=== PATIENT | male | born 1955 | race Caucasian/White ===

== ENCOUNTER 2018-09-11 11:30 | Inpatient (IN) | payer MEDICAID ==
[~2018-09-11] VITALS: Ht 177.8 cm; Wt 82.6 kg
[2018-09-11 11:40] VITALS: BP 88/52
[2018-09-11] MEDS ORDERED: FLOMAX0.4 MG ORAL (11:40)
[2018-09-11] MEDS ORDERED: CLONIDINE HCL0.1 MG PO (11:40)
[2018-09-11] MEDS ORDERED: DOXAZOSIN MESYLA2 MG ORAL (11:40)
[2018-09-11] MEDS ORDERED: AMLODIPINE BESY10 MG ORAL (11:40)
[2018-09-11] MEDS ORDERED: TENORMIN25 MG ORAL (11:40)
[2018-09-11] MEDS ORDERED: ASPIRIN-LOW81 MG ORAL (11:40)
[2018-09-11] MEDS ORDERED: LISINOPRIL20 MG ORAL (11:40)
[2018-09-11] MEDS ORDERED: FOLIC ACID1 MG ORAL (11:40)
[2018-09-11] MEDS ORDERED: ATORVASTATIN CA20 MG ORAL (11:40)
[2018-09-11] MEDS ORDERED: Thiamine HCl 100 MG in D5W 55 ML IVPB ONE (12:00)
[2018-09-11 12:39] VITALS: BP 104/50
[2018-09-11 12:48] LABS: BASOPHILS % (AUTO) 0.8 % (0.0-2.0); EOSINOPHILS % (AUTO) 3.8 % (0.0-3.0); HEMATOCRIT 37.5 % (42.0-52.0); HEMOGLOBIN 12.3 G/DL (14.2-18.0); MEAN CORPUSCULAR VOLUME 90 FL (80-99); MONOCYTES % (AUTO) 7.3 % (1.0-10.0); PLATELET COUNT 165 K/UL (150-450); RED BLOOD COUNT 4.16 M/UL (4.70-6.10); RED CELL DISTRIBUTION WIDTH 14.1 % (11.6-14.8)
[2018-09-11 12:53] LABS: ANION GAP 13 mmol/L (5-15); BLOOD UREA NITROGEN 53 mg/dL (7-18); CALCIUM 9.2 MG/DL (8.5-10.1); CARBON DIOXIDE 22 MMOL/L (21-32); CHLORIDE 102 MMOL/L (98-107); CREATININE 4.5 MG/DL (0.55-1.30); POTASSIUM 4.6 MMOL/L (3.5-5.1); SODIUM 137 MMOL/L (136-145)
[2018-09-11 13:06] LABS: ALANINE AMINOTRANSFERASE 80 U/L (12-78); ALBUMIN/GLOBULIN RATIO 1.1 (1.0-2.7); ALKALINE PHOSPHATASE 89 U/L (46-116); ASPARTATE AMINO TRANSFERASE 60 U/L (15-37); BILIRUBIN,TOTAL 0.4 MG/DL (0.2-1.0)
[2018-09-11] MEDS ORDERED: cefTRIAXone 1 GM in NS 55 ML IVPB ONE (14:15)
[2018-09-11 14:18] VITALS: BP 93/52
[2018-09-11 14:25] LABS: APPEARANCE,URINE CLOUDY; BILIRUBIN, URINE 1+ (NEGATIVE); GLUCOSE, URINE (UA) NEGATIVE (NEGATIVE); KETONES,URINE NEGATIVE (NEGATIVE); LEUKOCYTE ESTERASE ,URINE 3+ (NEGATIVE); NITRITE,URINE NEGATIVE (NEGATIVE); PH,URINE 5 (4.5-8.0); PROTEIN,URINE 2+ (NEGATIVE); UROBILINOGEN,URINE NORMAL MG/DL (0.0-1.0)
[2018-09-11 14:26] LABS: COLOR,URINE YELLOW
--- NOTE | 2018-09-11 14:43 | Diagnostic Imaging Report ---
Indication: Abdominal pain and lower back pain Technique: Spiral acquisitions obtained through the abdomen and pelvis. No oral contrast utilized, per emergency room physician request No IV contrast utilized, due to renal insufficiency. Multiplanar reconstructions were generated. Total dose length product 921.34 mGycm. CTDIvol(s) 17.49 mGy. Dose reduction achieved using automated exposure control Comparison: None Findings: There is a very large staghorn calculus filling the inferior aspect of the a large left extrarenal pelvis, with one branch extending into the left lower pole infundibulum.. This is Y-shaped, measures approximately 6.3 x 2 x 2.6 cm. The renal pelvis and collecting system are hydronephrotic, with mild calyceal hydronephrosis present. No ureteral calculus demonstrated. There is mild ectasia of the distal left ureter. 9 x 9 mm calculus within the right renal pelvis. There is only minimal if any right hydronephrosis, although there is a slight degree of pelviectasis. The lack of IV contrast limits assessment of the renal parenchyma. No gross renal parenchymal mass or cyst demonstrated. There is a very large bladder stone present. This measures 5.4 cm long axis dimension by 3.8 x 4.2 cm orthogonal short axis dimensions. This is located dependently within the bladder. There is mild posterior bladder wall thickening. There is a diverticulum at the dome. Lack of IV contrast limits assessment of the other solid organs. The liver demonstrates surface nodularity, consistent with cirrhosis. It also demonstrates relative atrophy of the right lobe and hypertrophy of the left lobe. No focal abnormality demonstrated. The gallbladder, bile ducts, pancreas are unremarkable. The spleen demonstrates capsular calcifications. The adrenals are unremarkable. No pelvic mass or adenopathy. The lack of enteric contrast limits assessment of the GI tract. The appendix is normal. Fluid is seen within the colon. There is no evidence of diverticulosis or diverticulitis. There is evidence of prior mesh hernia repair of the lower abdominal wall, with anchor sutures in place. There is a tiny left inguinal hernia which contains only fat. No small bowel distention. No free or loculated intraperitoneal gas or fluid is evident. The distal esophagus, stomach, duodenum are unremarkable. Included lung bases demonstrate posterior dependent atelectatic changes. The bones demonstrate hardware in the left hip reducing an intertrochanteric fracture. The fracture lines persist so the fracture may be subacute. Impression: 6.3 x 2 x 2.6 cm staghorn calculus filling the inferior left renal pelvis, which is a large extrarenal pelvis. There is mild hydronephrosis as a result 9 x 9 mm calculus within the right renal pelvis. Minimal if any right hydronephrosis noted Very large 5.4 x 3.8 x 4.2 cm bladder stone Wall thickening in the posterior bladder. This could indicate acute or chronic inflammation or indicate changes due to chronic bladder outlet obstruction Superior dome bladder diverticulum Hepatic surface nodularity, relative right lobe atrophy and left lobe hypertrophy, consistent with cirrhosis Nonspecific colonic fluid, could indicate diarrheal illness. Correlate with clinical findings Evidence of prior lower abdominal wall hernia mesh repair Hardware reducing left hip intertrochanteric fracture. Fracture lines persist, so suspect fracture and surgery or recent Other findings as noted, including dependent posterior pulmonary atelectatic changes, tiny fat-containing left inguinal hernia Findings previously discussed by phone with Dr. Sykes in the emergency room The CT scanner at [facility] is accredited by the [employer] and the scans are performed using protocols designed to limit radiation exposure to as low as reasonably achievable to attain images of sufficient resolution adequate for diagnostic evaluation.
[2018-09-11 14:57] VITALS: BP 100/55
[2018-09-11 15:30] VITALS: BP 99/54
[2018-09-11] MEDS ORDERED: HYDROcodone/Acetamin 5/325 tab ORAL PRN (18:30)
[2018-09-11] MEDS: traMADol 50mg tab ORAL PRN (18:37)
[2018-09-11] MEDS ORDERED: Morphine Sulfate 4mg/ml Inj (IV USE ONLY) IVP SCH (19:00)
[2018-09-11 20:00] VITALS: BP 102/57
[2018-09-11] MEDS: Tamsulosin 0.4mg cap ORAL SCH (20:15)
[2018-09-11] MEDS ORDERED: Tamsulosin 0.4mg cap ORAL SCH (21:00)
--- NOTE | 2018-09-11 21:46 | Emergency Room Report ---
History of Present Illness General Chief Complaint: General Complaint Source: Patient Present Illness HPI Patient is a 63 year old male brought in from board and care for increased weakness and difficulty taking care of himself. Patient states he can't remember why he's at hospital. He denies any current pain. He was noted to be on multiple medications but doesn't know the names. Allergies: Coded Allergies: No Known Allergies (Unverified , 09/11/18) Patient History Past Medical History: see triage record Reviewed Nursing Documentation: PMH: Agreed; PSxH: Agreed Nursing Documentation-PMH Past Medical History: No History, Except For Hx Cardiac Problems: Yes Hx Hypertension: Yes Hx Cancer: No Hx Gastrointestinal Problems: No Hx Neurological Problems: No Review of Systems All Other Systems: limited - by poor historian Physical Exam Vital Signs Date Time Temp Pulse Resp B/P (MAP) Pulse Ox O2 Delivery O2 Flow Rate FiO2 09/11/18 11:23 97.5 56 18 87/54 (65) 92 Room Air General Appearance: alert, Chronically Ill Eyes: 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 ENT: hearing grossly normal, normal voice Neck: full range of motion Respiratory: normal inspection, lungs clear, normal breath sounds Cardiovascular #1: normal inspection, regular rate, rhythm Gastrointestinal: normal inspection, non tender Musculoskeletal: decreased range of motion Neurologic: alert, responsive, other - oriented to name Psychiatric: depressed affect Skin: no rash Medical Decision Making Diagnostic Impression: Primary Impression: Generalized weakness Additional Impressions: Renal insufficiency Bilateral renal stones Bladder calculi Urinary tract infection ER Course Patient present for increased generalized weakness. Differential diagnosis include was not limited to electrolyte abnormality, sepsis, urinary tract infection, uremia among others. Because of complexity of patient's case laboratory testing and imaging studies were ordered. Patient was noted to have some increased generalized weakness as well as bizarre behavior. He had some prior history of substance abuse. CT imaging of the abdomen pelvis showed large renal stones bilaterally as well as large bladder stone. Patient was noted to have some evidence of urinary infection as well as renal insufficiency. It is unclear if this is acute or chronic. Patient was discussed with Dr. Claude Gambino for inpatient management due to panel physician. Patient will be admitted for further evaluation and treatment. Labs Test 09/11/18 12:20 09/11/18 14:16 White Blood Count 9.0 K/UL (4.8-10.8) Red Blood Count 4.16 M/UL (4.70-6.10) Hemoglobin 12.3 G/DL (14.2-18.0) Hematocrit 37.5 % (42.0-52.0) Mean Corpuscular Volume 90 FL (80-99) Mean Corpuscular Hemoglobin 29.5 PG (27.0-31.0) Mean Corpuscular Hemoglobin Concent 32.7 G/DL (32.0-36.0) Red Cell Distribution Width 14.1 % (11.6-14.8) Platelet Count 165 K/UL (150-450) Mean Platelet Volume 6.7 FL (6.5-10.1) Neutrophils (%) (Auto) 72.0 % (45.0-75.0) Lymphocytes (%) (Auto) 16.0 % (20.0-45.0) Monocytes (%) (Auto) 7.3 % (1.0-10.0) Eosinophils (%) (Auto) 3.8 % (0.0-3.0) Basophils (%) (Auto) 0.8 % (0.0-2.0) Prothrombin Time 10.7 SEC (9.30-11.50) Prothromb Time International Ratio 1.0 (0.9-1.1) Activated Partial Thromboplast Time 28 SEC (23-33) Sodium Level 137 MMOL/L (136-145) Potassium Level 4.6 MMOL/L (3.5-5.1) Chloride Level 102 MMOL/L (98-107) Carbon Dioxide Level 22 MMOL/L (21-32) Anion Gap 13 mmol/L (5-15) Blood Urea Nitrogen 53 mg/dL (7-18) Creatinine 4.5 MG/DL (0.55-1.30) Estimat Glomerular Filtration Rate 13.2 mL/min (>60) Glucose Level 120 MG/DL (74-106) Calcium Level 9.2 MG/DL (8.5-10.1) Total Bilirubin 0.4 MG/DL (0.2-1.0) Aspartate Amino Transf (AST/SGOT) 60 U/L (15-37) Alanine Aminotransferase (ALT/SGPT) 80 U/L (12-78) Alkaline Phosphatase 89 U/L (46-116) Troponin I 0.000 ng/mL (0.000-0.056) Pro-B-Type Natriuretic Peptide 142 pg/mL (0-125) Total Protein 7.8 G/DL (6.4-8.2) Albumin 4.0 G/DL (3.4-5.0) Globulin 3.8 g/dL Albumin/Globulin Ratio 1.1 (1.0-2.7) Thyroid Stimulating Hormone (TSH) 3.037 uiU/mL (0.358-3.740) Urine Color Yellow Urine Appearance Cloudy Urine pH 5 (4.5-8.0) Urine Specific [place] 1.020 (1.005-1.035) Urine Protein 2+ (NEGATIVE) Urine Glucose (UA) Negative (NEGATIVE) Urine Ketones Negative (NEGATIVE) Urine Blood 5+ (NEGATIVE) Urine Nitrite Negative (NEGATIVE) Urine Bilirubin 1+ (NEGATIVE) Urine Ictotest Negative (NEGATIVE) Urine Urobilinogen Normal MG/DL (0.0-1.0) Urine Leukocyte Esterase 3+ (NEGATIVE) Urine RBC 20-30 /HPF (0 - 0) Urine WBC 15-20 /HPF (0 - 0) Urine Squamous Epithelial Cells Many /LPF (NONE/OCC) Urine Bacteria Few /HPF (NONE) Urine Opiates Screen Negative (NEGATIVE) Urine Barbiturates Screen Negative (NEGATIVE) Phencyclidine (PCP) Screen Negative (NEGATIVE) Urine Amphetamines Screen Negative (NEGATIVE) Urine Benzodiazepines Screen Negative (NEGATIVE) Urine Cocaine Screen Negative (NEGATIVE) Urine Marijuana (THC) Screen Negative (NEGATIVE) EKG Diagnostic Results Rate: bradycardiac Rhythm: NSR ST Segments: no acute changes Last Vital Signs Date Time Temp Pulse Resp B/P (MAP) Pulse Ox O2 Delivery O2 Flow Rate FiO2 09/11/18 17:11 Room Air 09/11/18 15:33 60 09/11/18 15:30 98.7 18 99/54 (69) 98 Status: improved Disposition: ADMITTED INPATIENT Condition: Serious Referrals: NON PHYSICIAN (PCP) Jose Sykes MD Sep 11, 2018 21:46
--- NOTE | 2018-09-11 23:30 | Consultation ---
DATE OF CONSULTATION: 09/11/2018 NEPHROLOGY CONSULTATION CONSULTING PHYSICIAN: Sammy Rose M.D. REFERRING PHYSICIAN: Claude Gambino M.D. CHIEF COMPLAINT AND REASON FOR HOSPITALIZATION: The patient is admitted with elevated BUN and creatinine. HISTORY OF PRESENT ILLNESS: The patient is a 63-year-old man, who apparently has had kidney stones before presents with elevated BUN and creatinine. CT showing 6.3 x 2 x 2.6 centimeter staghorn calculus filling the inferior left renal pelvis, mild hydronephrosis, and a 9 x 9 millimeter calculus within the right renal pelvis with minimal right hydronephrosis and a large bladder stone. The patient has had some history of kidney stones. He has a very poor historian. He is agitated and swearing. There is a history of prior alcohol and drug usage, hypertension, hyperlipidemia. ALLERGIES: None known. SURGERIES: Hip fracture. MEDICATIONS: At the facility include doxazosin, tamsulosin, aspirin, amlodipine, clonidine, lisinopril, atenolol, atorvastatin, vitamin B1, and folic acid. HABITS: He is a cigarette smoker most of his adult life. He has used drugs and alcohol in the past. SOCIAL HISTORY: Lives in a residential facility. 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 Hearing is good. ENDOCRINE: He is not aware of diabetes or thyroid disease. PULMONARY: He has been a smoker. No current shortness of breath. No wheezing. CARDIAC: No angina or [place]. GASTROINTESTINAL: No known obvious GI bleeding or ulcers. GENITOURINARY: He has had some difficulty voiding and suprapubic pain. MUSCULOSKELETAL: He has difficulty walking. He has had prior trauma. 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 PHYSICAL EXAMINATION: GENERAL: The patient is alert, well-developed man, swearing and somewhat agitated. VITAL SIGNS: Temperature 98.7, pulse 58, respirations 18, blood pressure 99/54, pulse ox 98. HEAD, EYES, EARS, NOSE, AND THROAT: There is a right lens opacity. Ocular motions intact in all directions. Oral mucosa moist. NECK: No adenopathy. LUNGS: Clear. HEART: Regular rhythm. No murmur. ABDOMEN: Soft. No organomegaly. There is some suprapubic tenderness. EXTREMITIES: No edema, cyanosis, or clubbing. NEUROLOGIC: He is alert and responsive. Agitated. Ocular motions intact in all directions. Smile symmetric. Tongue is midline. He moves all extremities. Gait is not tested. LABORATORY DATA: Pertinent labs show white count 9000, hemoglobin is 12.3. Sodium 137, potassium 4.6, chloride 102, CO2 f 22, BUN 53, creatinine is 4.5, estimated GFR 13.2, calcium 9.2. AST 60, ALT 80. BNP 142. Tox screen is negative. Urinalysis shows 20 to 30 red cells and 15 to 20 white cells per high-power field. IMPRESSION: 1. Kidney failure, acute versus chronic, likely due to staghorn calculi and obstructive uropathy. Rule out acute kidney injury versus chronic. 2. Bladder stone. 3. Mild hydronephrosis. 4. Agitation, etiology could be alcohol withdrawal or other. 5. History of hypertension. Blood pressure low now. 6. History of hyperlipidemia. 7. History of taking medication for BPH. PLAN: The patient will be hydrated. We will try to get him to cooperate to Stewart catheter. He should have urologic evaluation. We will try to get old records. Start him on empiric antibiotics pending culture results. Sammy Rose M.D. DR: LISA JOB#: [id number] CC:
[2018-09-11] MEDS: LORazepam 1mg tab ORAL PRN (23:31)
[2018-09-12] VITALS: BP 107/62
--- NOTE | 2018-09-12 00:30 | Consultation ---
DATE OF CONSULTATION: 09/11/2018 CONSULTING PHYSICIAN: Brad Iqbal M.D. REFERRING PHYSICIAN: Claude Gambino M.D. REASON FOR CONSULTATION: Multiple urologic issues. HISTORY OF PRESENT ILLNESS: This is a 63-year-old male who is an ER panel patient. He came to the emergency room because of vague discomfort. He was noted to have multiple stones in the kidney and bladder and renal insufficiency all of which appeared to be chronic. He is a very poor historian. PAST MEDICAL HISTORY: As above. MEDICATIONS: Current medication list reviewed. ALLERGIES: No allergies. PHYSICAL EXAMINATION: GENERAL: The patient is in no acute distress, no pain. VITAL SIGNS: Temperature is 98.7, blood pressure 99/54. Stewart catheter was placed by the nursing staff. Urine is grossly yellow. There is no CVA tenderness. LABORATORY DATA: UA shows 20 to 30 rbc's, 15 to 20 wbc's. Creatinine is 4.5, baseline is unknown. DIAGNOSTIC IMAGING STUDIES: The patient had a CT scan of the abdomen and pelvis, this showed evidence of a large staghorn calculus of left renal pelvis, 6 cm large extrarenal pelvis. There was mild hydronephrosis reported. There was 9 mm stone in the right renal pelvis, no hydronephrosis, 5 cm bladder stone, thickening of the posterior bladder wall and bladder diverticulum. There was evidence of bladder cirrhosis. IMPRESSION: 1. Staghorn renal calculus. 2. Bladder calculus. 3. Mild hydronephrosis. 4. Chronic kidney disease. 5. Possible acute kidney injury. 6. Hematuria. 7. Pyuria. 8. Urinary retention. 9. Neurogenic bladder. 10. Bladder diverticulum. PLAN AND DISCUSSION: The patient again does have a large staghorn calculus and large bladder calculus. These are both chronic findings as well as hydronephrosis which is mild. He has chronic renal insufficiency. His kidney function will be monitored. Stewart catheter is currently indwelling. Flomax has been added as well as antibiotics and he will be monitored clinically and he can have treatment of his stones electively as an outpatient with his urologist as planned. I did also speak with Dr. De La Paz who is the panel urologist for the ER to be aware of the patient also and we will go from there. Thank you for this consultation. Brad Iqbal M.D. DR: Dion JOB#: [id number] CC:
[2018-09-12 04:00] VITALS: BP 101/60
[2018-09-12 07:39] LABS: ALANINE AMINOTRANSFERASE 66 U/L (12-78); ALBUMIN 3.2 G/DL (3.4-5.0); ALKALINE PHOSPHATASE 81 U/L (46-116); ANION GAP 11 mmol/L (5-15); ASPARTATE AMINO TRANSFERASE 51 U/L (15-37); BILIRUBIN,TOTAL 0.4 MG/DL (0.2-1.0); BLOOD UREA NITROGEN 41 mg/dL (7-18); CALCIUM 8.1 MG/DL (8.5-10.1); CARBON DIOXIDE 20 MMOL/L (21-32); CHLORIDE 108 MMOL/L (98-107); CREATINE KINASE 60 U/L (26-308); CREATININE 2.8 MG/DL (0.55-1.30); PHOSPHORUS 3.7 MG/DL (2.5-4.9); POTASSIUM 4.4 MMOL/L (3.5-5.1); SODIUM 139 MMOL/L (136-145)
[2018-09-12 08:00] VITALS: BP 99/52
[2018-09-12] MEDS ORDERED: cefTRIAXone 1 GM in D5W 55 ML IVPB SCH (09:00)
[2018-09-12] MEDS: Tamsulosin 0.4mg cap ORAL SCH ×2 (09:35→18:29)
[2018-09-12] MEDS: Aspirin EC 81mg tab ORAL SCH (09:35)
[2018-09-12] MEDS: cefTRIAXone 1 GM in D5W 55 ML IVPB SCH (09:35)
[2018-09-12 12:00] VITALS: BP 105/64
[2018-09-12] MEDS: traMADol 50mg tab ORAL PRN (12:10)
--- NOTE | 2018-09-12 13:53 | Urology Progress Note ---
Assessment/Plan Assessment/Plan: 1. Staghorn renal calculus. 2. Bladder calculus. 3. Mild hydronephrosis, likely chronic. 4. Chronic kidney disease. 5. Possible acute kidney injury. 6. Hematuria. 7. Pyuria. 8. Urinary retention. 9. Neurogenic bladder. 10. Bladder diverticulum. monitor clinically nur monitor renal fxn abx as ordered f/u on cx's flomax Subjective Allergies: Coded Allergies: No Known Allergies (Unverified , 09/11/18) Subjective all noted, no pain Objective Last 24 Hour Vital Signs Date Time Temp Pulse Resp B/P (MAP) Pulse Ox O2 Delivery O2 Flow Rate FiO2 09/12/18 09:00 Room Air 09/12/18 08:00 61 09/12/18 08:00 99.0 59 23 99/52 (68) 94 09/12/18 04:00 98.3 58 19 101/60 (74) 92 09/12/18 04:00 61 09/12/18 00:00 97.3 62 18 107/62 (77) 09/12/18 00:00 56 09/11/18 21:00 Room Air 09/11/18 20:00 97.1 59 19 102/57 (72) 95 09/11/18 20:00 64 09/11/18 17:11 Room Air 09/11/18 15:33 60 09/11/18 15:30 98.7 58 18 99/54 (69) 98 09/11/18 15:03 97.9 62 15 100/55 97 Room Air 09/11/18 14:57 62 15 100/55 97 Room Air 09/11/18 14:57 97.9 09/11/18 14:18 61 15 93/52 97 Room Air Intake and Output 09/11/18 09/12/18 19:00 07:00 Intake Total 320 ml Output Total 700 ml Balance 320 ml -700 ml Intake Oral 320 ml Output Urine Total 700 ml # Voids 1 Microbiology Date/Time Source Procedure Growth Status 09/11/18 14:16 Urine,Clean Catch Urine Culture - Preliminary NO GROWTH Resulted Current Medications Medications (Trade) Dose Ordered Sig/Sujit Route PRN Reason Start Time Stop Time Status Last Admin Dose Admin Acetaminophen/ Hydrocodone Bitart ([place] 5/325) 1 tab Q4H PRN ORAL Severe Pain (Pain Scale 7-10) 09/11/18 18:30 09/18/18 18:29 Aspirin (Ecotrin) 81 mg DAILY ORAL 09/12/18 09:00 10/12/18 08:59 09/12/18 09:35 Ceftriaxone Sodium 1 gm/ Dextrose 55 ml @ 110 mls/hr DAILY IVPB 09/12/18 09:00 09/13/18 12:00 09/12/18 09:35 Folic Acid (Folate) 1 mg DAILY ORAL 09/12/18 09:00 10/12/18 08:59 09/12/18 09:35 Lorazepam (Ativan) 1 mg Q6H PRN ORAL For Anxiety 09/11/18 19:00 09/18/18 18:59 09/11/18 23:31 Multivitamins (Multivitamins) 1 tab DAILY ORAL 09/12/18 09:00 10/12/18 08:59 09/12/18 09:35 Sodium Chloride 1,000 ml @ 125 mls/hr Q8H IV 09/11/18 17:34 10/11/18 17:33 09/12/18 09:35 Tamsulosin HCl (Flomax) 0.4 mg BID ORAL 09/11/18 19:01 10/11/18 19:00 09/12/18 09:35 Tramadol HCl (Ultram) 50 mg Q6H PRN ORAL Moderate Pain (Pain Scale 4-6) 09/11/18 18:30 09/18/18 18:29 09/12/18 12:10 Laboratory Tests 09/11/18 14:16: Urine Color Yellow, Urine Appearance Cloudy, Urine pH 5, Urine Specific [place] 1.020, Urine Protein 2+H, Urine Glucose (UA) Negative, Urine Ketones Negative, Urine Blood 5+H, Urine Nitrite Negative, Urine Bilirubin 1+H, Urine Ictotest Negative, Urine Urobilinogen Normal, Urine Leukocyte Esterase 3+H, Urine RBC 20- 30H, Urine WBC 15-20H, Urine Squamous Epithelial Cells ManyH, Urine Bacteria Few , Urine Opiates Screen Negative, Urine Barbiturates Screen Negative, Phencyclidine (PCP) Screen Negative, Urine Amphetamines Screen Negative, Urine Benzodiazepines Screen Negative, Urine Cocaine Screen Negative, Urine Marijuana (THC) Screen Negative 09/11/18 21:20: Serum Alcohol < 3 09/12/18 06:00: Sodium Level 139, Potassium Level 4.4, Chloride Level 108H, Carbon Dioxide Level 20L, Anion Gap 11, Blood Urea Nitrogen 41H, Creatinine 2.8H, Estimat Glomerular Filtration Rate 22.9, Glucose Level 102, Uric Acid 7.6H, Calcium Level 8.1L, Phosphorus Level 3.7, Magnesium Level 1.9, Total Bilirubin 0.4, Aspartate Amino Transf (AST/SGOT) 51H, Alanine Aminotransferase (ALT/SGPT) 66, Alkaline Phosphatase 81, Total Creatine Kinase 60, Total Protein 6.3L, Albumin 3.2L, Globulin 3.1, Albumin/Globulin Ratio 1.0 Height (Feet): 5 Height (Inches): 10.00 Weight (Pounds): 181 Objective exam stable, urine grossly clear Brad Iqbal MD Sep 12, 2018 13:53
--- NOTE | 2018-09-12 15:37 | Cardiology Report ---
APPROVED REPORT EKG Measurement Heart [id number] Sinus bradycardia Prolonged QT Abnormal ECG
[2018-09-12 16:00] VITALS: BP 108/62
--- NOTE | 2018-09-12 18:03 | Nephrology Progress Note ---
Assessment/Plan Problem List: (1) Bladder calculi (2) Renal insufficiency (3) Bilateral renal stones (4) KEE (acute kidney injury) (5) Hydronephrosis (6) Staghorn calculus Plan creatinine lower, still agitated and pulled iv, consider psych consult, will need further procedures in future Subjective Constitutional: Reports: other HEENT: Reports: no symptoms Genitourinary: Reports: pain Neurologic/Psychiatric: Reports: no symptoms Subjective pain with nur , no distress- Objective Objective Last 24 Hour Vital Signs Date Time Temp Pulse Resp B/P (MAP) Pulse Ox O2 Delivery O2 Flow Rate FiO2 09/12/18 16:00 55 09/12/18 16:00 97.8 53 23 108/62 (77) 98 09/12/18 12:00 54 09/12/18 12:00 98.0 60 23 105/64 (78) 93 09/12/18 09:00 Room Air 09/12/18 08:00 61 09/12/18 08:00 99.0 59 23 99/52 (68) 94 09/12/18 04:00 98.3 58 19 101/60 (74) 92 09/12/18 04:00 61 09/12/18 00:00 97.3 62 18 107/62 (77) 09/12/18 00:00 56 09/11/18 21:00 Room Air 09/11/18 20:00 97.1 59 19 102/57 (72) 95 09/11/18 20:00 64 Intake and Output 09/11/18 09/12/18 19:00 07:00 Intake Total 320 ml Output Total 700 ml Balance 320 ml -700 ml Intake Oral 320 ml Output Urine Total 700 ml # Voids 1 Laboratory Tests 09/11/18 21:20: Serum Alcohol < 3 09/12/18 06:00: Sodium Level 139, Potassium Level 4.4, Chloride Level 108H, Carbon Dioxide Level 20L, Anion Gap 11, Blood Urea Nitrogen 41H, Creatinine 2.8H, Estimat Glomerular Filtration Rate 22.9, Glucose Level 102, Uric Acid 7.6H, Calcium Level 8.1L, Phosphorus Level 3.7, Magnesium Level 1.9, Total Bilirubin 0.4, Aspartate Amino Transf (AST/SGOT) 51H, Alanine Aminotransferase (ALT/SGPT) 66, Alkaline Phosphatase 81, Total Creatine Kinase 60, Total Protein 6.3L, Albumin 3.2L, Globulin 3.1, Albumin/Globulin Ratio 1.0 Height (Feet): 5 Height (Inches): 10.00 Weight (Pounds): 181 General Appearance: no apparent distress, alert, agitated EENT: normal ENT inspection Neck: normal alignment Cardiovascular: normal rate, regular rhythm Respiratory/Chest: lungs clear, normal breath sounds Abdomen: non tender, soft Extremities: other - no edema Neurologic: replenishment analyst II-XII grossly normal Sammy Rose MD Sep 12, 2018 18:03
[2018-09-12 20:00] VITALS: BP 106/61
--- NOTE | 2018-09-12 23:30 | Progress Note ---
DATE: 09/12/2018 INTERNAL MEDICINE PROGRESS NOTE SUBJECTIVE: The patient is intermittently noncompliant with medications. He has a Stewart catheter in place draining clear urine. Blood pressure parameters remain low off antihypertensive, but slightly improved from yesterday's admission vitals. OBJECTIVE: VITAL SIGNS: Blood pressure 108/62, heart rate 53, respiratory rate 23. LUNGS: Clear. CARDIAC: Regular. Normal S1, S2. Monitored rhythm, sinus bradycardia. ABDOMEN: Soft. No CVA tenderness. EXTREMITIES: No edema. LABORATORY DATA: Sodium 139, potassium 4.4, bicarbonate 20, BUN 41, creatinine 2.8. Uric acid 7.6. Albumin 3.2. IMPRESSION: 1. Acute renal failure, improved with hydration. 2. Obstructive uropathy with staghorn vesicular calculus and right renal calculus. 3. Hyperuricemia. 4. Metabolic encephalopathy. 5. Probable urinary tract infection. 6. Sinus bradycardia. 7. Hypovolemic shock. PLAN: 1. Continue to hold antihypertensives. 2. Continue cardiac monitoring. 3. Continue empiric antimicrobials. 4. Continue intravenous fluid volume resuscitation. 5. Maintain tamsulosin. 6. Strain urine with Stewart catheter in place. 7. Urology followup. Rosy Stewart JOB#: [id number] CC:
--- NOTE | 2018-09-12 23:30 | History and Physical Report ---
DATE OF ADMISSION: 09/11/2018 REASON FOR ADMISSION: Renal failure in the setting of obstructive uropathy. HISTORY: This 63-year-old male, who resides in an assisted living facility has a known history of kidney stones. He presented with increased weakness and malaise and inability for self-care. He is a very poor historian and was unaware of any details. His workup in the emergency room was undertaken and notable for renal impairment. In addition, he was hypotensive and bradycardic. PAST MEDICAL HISTORY: Includes hypertension, prostatic hypertrophy, hyperlipidemia, left hip fracture, status post ORIF. ALLERGIES: None known. MEDICATIONS: Prior to admission, reviewed and reconciled. However compliance is unclear. FAMILY HISTORY: Noncontributory. SOCIAL HISTORY: He denies smoking, alcohol, and substance abuse. REVIEW OF SYSTEMS: Cannot be reliably obtained from the patient at this time. PHYSICAL EXAMINATION: VITAL SIGNS: Blood pressure 87/54, pulse 56, respirations 18, afebrile. HEENT: Conjunctivae pink. Sclerae are anicteric. Oropharynx clear. Mucous membranes . NECK: Jugular venous pressure normal. LUNGS: Clear. CARDIAC: Regular rhythm, rate. Normal S1, S2 with no murmur. ABDOMEN: Soft. No guarding or rebound. No CVA tenderness. EXTREMITIES: Without edema. LABORATORY DATA: BUN 53, creatinine 4.5, sodium 137, potassium 4.6, bicarbonate 22. Urinalysis with 20 to 30 red cells and 15 to 20 white cells, moderate bacteria. EKG with sinus rhythm and nonspecific ST changes. White count 9, hemoglobin 12.3. CAT scan of the abdomen and pelvis revealed a staghorn calculus in the left with an extrarenal pelvis and mild hydronephrosis, calculus within the right renal pelvis, bladder stone, diverticulum, cirrhosis, prior hernia repair. IMPRESSION: 1. Renal failure, acute on chronic. 2. Obstructive uropathy. 3. Staghorn calculus. 4. Hypovolemia with shock. 5. History of hypertension. 6. History of hyperlipidemia. 7. Acute encephalopathy, likely metabolic. PLAN: 1. Panculture. 2. Empiric antimicrobials. 3. Stewart catheter placement. 4. Hydration with saline. 5. Close monitoring of renal parameters. 6. Strain urine. 7. Urology and Renal consultations. 8. Hold antihypertensives. 9. Check uric acid levels and lipid panel as well as thyroid function. 10. Cardiac monitoring. 11. May need pressors for further drop in blood pressure parameters. Claude Gambino M.D. DR: EMILIA JOB#: [id number] CC:
[2018-09-13] VITALS: BP 127/66
[2018-09-13 04:00] VITALS: BP 154/81
[2018-09-13] MEDS: LORazepam 1mg tab ORAL PRN (04:58)
[2018-09-13 07:10] LABS: EOSINOPHILS % (AUTO) 6.1 % (0.0-3.0); HEMOGLOBIN 11.2 G/DL (14.2-18.0); LYMPHOCYTES % (AUTO) 17.6 % (20.0-45.0); MEAN CORPUSCULAR VOLUME 91 FL (80-99); MONOCYTES % (AUTO) 8.4 % (1.0-10.0); NEUTROPHILS % (AUTO) 66.9 % (45.0-75.0); PLATELET COUNT 106 K/UL (150-450); RED BLOOD COUNT 3.74 M/UL (4.70-6.10); RED CELL DISTRIBUTION WIDTH 13.9 % (11.6-14.8); WHITE BLOOD COUNT 7.6 K/UL (4.8-10.8)
[2018-09-13 07:16] LABS: ANION GAP 8 mmol/L (5-15); BLOOD UREA NITROGEN 22 mg/dL (7-18); CALCIUM 8.2 MG/DL (8.5-10.1); CARBON DIOXIDE 20 MMOL/L (21-32); CHLORIDE 108 MMOL/L (98-107); CHOLESTEROL 88 MG/DL (< 200); CREATININE 1.8 MG/DL (0.55-1.30); HDL CHOLESTEROL 36 MG/DL (40-60); POTASSIUM 4.3 MMOL/L (3.5-5.1); SODIUM 136 MMOL/L (136-145); TRIGLYCERIDES 60 MG/DL (30-150)
[2018-09-13 08:00] VITALS: BP 148/73
--- NOTE | 2018-09-13 08:10 | Urology Progress Note ---
Assessment/Plan Assessment/Plan: 1. Staghorn renal calculus. 2. Bladder calculus. 3. Mild hydronephrosis, likely chronic. 4. Chronic kidney disease. 5. Acute kidney injury, improved. 6. Hematuria. 7. Pyuria. 8. Urinary retention. 9. Neurogenic bladder. 10. Bladder diverticulum. monitor clinically nur monitor renal fxn abx as ordered f/u on cx's flomax Subjective Allergies: Coded Allergies: No Known Allergies (Unverified , 09/11/18) Subjective all noted, agitated yest, restraints placed Objective Last 24 Hour Vital Signs Date Time Temp Pulse Resp B/P (MAP) Pulse Ox O2 Delivery O2 Flow Rate FiO2 09/13/18 04:00 97.5 63 20 154/81 (105) 97 09/13/18 03:26 53 09/13/18 00:00 97.7 52 12 127/66 (86) 96 09/12/18 23:30 52 09/12/18 21:00 Room Air 09/12/18 20:08 48 09/12/18 20:00 98.3 49 18 106/61 (76) 96 09/12/18 16:00 55 09/12/18 16:00 97.8 53 23 108/62 (77) 98 09/12/18 12:00 54 09/12/18 12:00 98.0 60 23 105/64 (78) 93 09/12/18 09:00 Room Air Intake and Output 09/12/18 09/13/18 19:00 07:00 Intake Total 125 ml Output Total 1400 ml 1350 ml Balance -1400 ml -1225 ml IV Total 125 ml Output Urine Total 1400 ml 1350 ml # Bowel Movements 1 Microbiology Date/Time Source Procedure Growth Status 09/11/18 14:16 Urine,Clean Catch Urine Culture - Preliminary NO GROWTH Resulted 09/11/18 14:50 Rectum VRE Culture - Final NO VANCOMYCIN RESISTANT ENTEROCOCCUS ... Complete Current Medications Medications (Trade) Dose Ordered Sig/Sujit Route PRN Reason Start Time Stop Time Status Last Admin Dose Admin Acetaminophen/ Hydrocodone Bitart ([place] 5/325) 1 tab Q4H PRN ORAL Severe Pain (Pain Scale 7-10) 09/11/18 18:30 09/18/18 18:29 09/12/18 16:02 Aspirin (Ecotrin) 81 mg DAILY ORAL 09/12/18 09:00 10/12/18 08:59 09/12/18 09:35 Ceftriaxone Sodium 1 gm/ Dextrose 55 ml @ 110 mls/hr DAILY IVPB 09/12/18 09:00 09/13/18 12:00 09/12/18 09:35 Folic Acid (Folate) 1 mg DAILY ORAL 09/12/18 09:00 10/12/18 08:59 09/12/18 09:35 Lorazepam (Ativan) 1 mg Q6H PRN ORAL For Anxiety 09/11/18 19:00 09/18/18 18:59 09/13/18 04:58 Multivitamins (Multivitamins) 1 tab DAILY ORAL 09/12/18 09:00 10/12/18 08:59 09/12/18 09:35 Quetiapine Fumarate (SEROquel) 12.5 mg TID ORAL 09/12/18 18:00 10/12/18 17:59 09/12/18 18:29 Sodium Chloride 1,000 ml @ 125 mls/hr Q8H IV 09/11/18 17:34 10/11/18 17:33 09/13/18 06:00 Tamsulosin HCl (Flomax) 0.4 mg BID ORAL 09/11/18 19:01 10/11/18 19:00 09/12/18 18:29 Tramadol HCl (Ultram) 50 mg Q6H PRN ORAL Moderate Pain (Pain Scale 4-6) 09/11/18 18:30 09/18/18 18:29 09/12/18 12:10 Laboratory Tests 09/13/18 05:55: White Blood Count 7.6, Red Blood Count 3.74L, Hemoglobin 11.2L, Hematocrit 34.0L , Mean Corpuscular Volume 91, Mean Corpuscular Hemoglobin 29.9, Mean Corpuscular Hemoglobin Concent 32.9, Red Cell Distribution Width 13.9, Platelet Count 106L, Mean Platelet Volume 6.4L, Neutrophils (%) (Auto) 66.9, Lymphocytes (%) (Auto) 17.6L, Monocytes (%) (Auto) 8.4, Eosinophils (%) (Auto) 6.1H, Basophils (%) (Auto) 1.0, Sodium Level 136, Potassium Level 4.3, Chloride Level 108H, Carbon Dioxide Level 20L, Anion Gap 8, Blood Urea Nitrogen 22H, Creatinine 1.8H, Estimat Glomerular Filtration Rate 38.1, Glucose Level 95, Calcium Level 8.2L, Triglycerides Level 60, Cholesterol Level 88, LDL Cholesterol 44, HDL Cholesterol 36L, Cholesterol/HDL Ratio 2.4L Height (Feet): 5 Height (Inches): 10.00 Weight (Pounds): 181 Objective exam stable, urine grossly clear Brad Iqbal MD Sep 13, 2018 08:09
[2018-09-13] MEDS: Tamsulosin 0.4mg cap ORAL SCH ×2 (08:13→18:42)
[2018-09-13] MEDS: Aspirin EC 81mg tab ORAL SCH (08:13)
[2018-09-13] MEDS: cefTRIAXone 1 GM in D5W 55 ML IVPB SCH (08:14)
[2018-09-13 12:00] VITALS: BP 144/75
--- NOTE | 2018-09-13 13:31 | Nephrology Progress Note ---
Assessment/Plan Problem List: (1) Bladder calculi (2) Renal insufficiency (3) Bilateral renal stones (4) KEE (acute kidney injury) (5) Hydronephrosis (6) Staghorn calculus Plan creatinine lower, 1.8, consider psych consult, will need further procedures in future Subjective Constitutional: Reports: weakness HEENT: Reports: no symptoms Genitourinary: Reports: other - nur bothersome Neurologic/Psychiatric: Reports: no symptoms Subjective pain with nur , no distress- Objective Objective Last 24 Hour Vital Signs Date Time Temp Pulse Resp B/P (MAP) Pulse Ox O2 Delivery O2 Flow Rate FiO2 09/13/18 08:00 97.2 61 14 148/73 (98) 94 09/13/18 04:00 97.5 63 20 154/81 (105) 97 09/13/18 03:26 53 09/13/18 00:00 97.7 52 12 127/66 (86) 96 09/12/18 23:30 52 09/12/18 21:00 Room Air 09/12/18 20:08 48 09/12/18 20:00 98.3 49 18 106/61 (76) 96 09/12/18 16:00 55 09/12/18 16:00 97.8 53 23 108/62 (77) 98 Intake and Output 09/12/18 09/13/18 19:00 07:00 Intake Total 125 ml Output Total 1400 ml 1350 ml Balance -1400 ml -1225 ml IV Total 125 ml Output Urine Total 1400 ml 1350 ml # Bowel Movements 1 Laboratory Tests 09/13/18 05:55: White Blood Count 7.6, Red Blood Count 3.74L, Hemoglobin 11.2L, Hematocrit 34.0L , Mean Corpuscular Volume 91, Mean Corpuscular Hemoglobin 29.9, Mean Corpuscular Hemoglobin Concent 32.9, Red Cell Distribution Width 13.9, Platelet Count 106L, Mean Platelet Volume 6.4L, Neutrophils (%) (Auto) 66.9, Lymphocytes (%) (Auto) 17.6L, Monocytes (%) (Auto) 8.4, Eosinophils (%) (Auto) 6.1H, Basophils (%) (Auto) 1.0, Sodium Level 136, Potassium Level 4.3, Chloride Level 108H, Carbon Dioxide Level 20L, Anion Gap 8, Blood Urea Nitrogen 22H, Creatinine 1.8H, Estimat Glomerular Filtration Rate 38.1, Glucose Level 95, Calcium Level 8.2L, Triglycerides Level 60, Cholesterol Level 88, LDL Cholesterol 44, HDL Cholesterol 36L, Cholesterol/HDL Ratio 2.4L Height (Feet): 5 Height (Inches): 10.00 Weight (Pounds): 181 General Appearance: no apparent distress, alert EENT: normal ENT inspection Neck: normal alignment Cardiovascular: normal rate, regular rhythm Respiratory/Chest: lungs clear, normal breath sounds Abdomen: non tender, soft Extremities: other - no edema 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
[2018-09-13 16:00] VITALS: BP 111/56
[2018-09-13 20:00] VITALS: BP 149/84
--- NOTE | 2018-09-13 23:00 | Consultation ---
DATE OF CONSULTATION: 09/13/2018 HISTORY OF PRESENT ILLNESS: This is a 63-year-old male with a history of multiple medical comorbidities who was admitted to the hospital due to renal failure. The patient has history of hypertension, urinary tract infection, generalized weakness, renal insufficiency, hydrocephalus, acute kidney injury. The patient is severely agitated and confused. He was in restraints, attempting to come out of bed, memory impairment, waxing and waning consciousness, unable to provide any history. PAST PSYCHIATRIC HISTORY: The patient is a poor historian and stated that he has no history of psych history. PAST MEDICAL HISTORY: 1. Hypertension. 2. Prostatic hypertrophy. 3. Hyperlipidemia. 4. Left hip fracture. 5. Status post open reduction and internal fixation. ALLERGIES: No known drug allergies. SUBSTANCE ABUSE HISTORY: No known history of illicit drug use or alcohol. MENTAL STATUS EXAMINATION: The patient alert and oriented x self, confused, disoriented. Mood is agitated. Affect is constricted. Congruent with mood. Thought process is disorganized. Thought content, no suicidal or homicidal ideations. Memory is impaired. Insight and judgment non-existent. ASSESSMENT: AXIS I: Acute metabolic encephalopathy. AXIS II: Deferred. AXIS III: As above. AXIS IV: Low. AXIS V: . PLAN: 1. We will increase Seroquel to 25 mg t.i.d. 2. Continue the restraints. 3. Continue Ativan as needed. 4. The patient lacks capacity to make any decision. 5. We will continue to follow and readjust the medication. Denice Collins M.D. DR: Kylah JOB#: [id number] CC:
[2018-09-14] VITALS: BP 136/84
--- NOTE | 2018-09-14 02:15 | Progress Note ---
DATE: 09/13/2018 INTERNAL MEDICINE PROGRESS NOTE SUBJECTIVE: The patient's renal function is improving with hydration. He is intermittently noncompliant with care. OBJECTIVE: VITAL SIGNS: Blood pressure 148/73, pulse 61, and respirations 14. LUNGS: Clear. CARDIAC: Regular. ABDOMEN: Soft. No CVA tenderness. EXTREMITIES: No edema. GENITOURINARY: The Stewart catheter site has some tenderness. LABORATORY DATA: White count 7.6 and hemoglobin 11.2. Potassium 4.3. BUN 22 and creatinine 1.8. IMPRESSION: 1. Resolving renal failure. 2. Urolithiasis and nephrolithiasis. 3. Hyperuricemia. PLAN: 1. Consider allopurinol. 2. Continue hydration. 3. Consideration for outpatient urologic procedures for chronic calculi. 4. Discharge planning. Claude Gambino M.D. DR: AMITA JOB#: [id number] CC:
[2018-09-14 04:00] VITALS: BP 141/87
[2018-09-14 07:17] LABS: ALANINE AMINOTRANSFERASE 51 U/L (12-78); ALBUMIN 2.9 G/DL (3.4-5.0); ALBUMIN/GLOBULIN RATIO 0.7 (1.0-2.7); ALKALINE PHOSPHATASE 86 U/L (46-116); ANION GAP 12 mmol/L (5-15); ASPARTATE AMINO TRANSFERASE 43 U/L (15-37); BILIRUBIN,TOTAL 0.6 MG/DL (0.2-1.0); BLOOD UREA NITROGEN 20 mg/dL (7-18); CALCIUM 8.6 MG/DL (8.5-10.1); CARBON DIOXIDE 18 MMOL/L (21-32); CHLORIDE 106 MMOL/L (98-107); CREATININE 1.6 MG/DL (0.55-1.30); POTASSIUM 4.1 MMOL/L (3.5-5.1); SODIUM 136 MMOL/L (136-145)
[2018-09-14 08:00] VITALS: BP 143/69
[2018-09-14] MEDS: Tamsulosin 0.4mg cap ORAL SCH ×2 (08:25→18:07)
[2018-09-14] MEDS: Aspirin EC 81mg tab ORAL SCH (08:25)
--- NOTE | 2018-09-14 11:04 | Cardiology Report ---
APPROVED REPORT EXAM: Two-dimensional and M-mode echocardiogram with Doppler and color Doppler. M-Mode DIMENSIONS IVSd1.2 (0.7-1.1cm)Left Atrium (MM)3.1 (1.6-4.0cm) LVDd4.0 (3.5-5.6cm)Aortic Root2.6 (2.0-3.7cm) PWd1.0 (0.7-1.1cm)Aortic Cusp Exc.1.9 (1.5-2.0cm) IVSs1.5 cm LVDs1.6 (2.5-4.0cm) PWs1.5 cm Normal left ventricular chamber size, systolic function and wall motion . Left ventricular ejection fraction estimated to be 60-65%. Mild left ventricular hypertrophy by 2-D. No evidence of pericardial effusion. All other cardiac chamber sizes are within normal limits. Aortic valve calcification with normal cusp excursion . Mildly thickened mitral valve leaflets with normal excursion. Mild mitral annulus and aortic root calcification. Pulmonic valve not well visualized. IVC at normal size with physiologic collapse . A color flow and spectral Doppler study was performed and revealed: No aortic insufficiency . Mitral diastolic velocities suggest reduced left ventricular relaxation c/w mild LV diastolic dysfunction (Grade I ) Trace mitral regurgitation. Trace tricuspid regurgitation. Tricuspid systolic velocities suggests peak right ventricular systolic pressure of 35mmHg.
[2018-09-14 12:00] VITALS: BP 143/81
--- NOTE | 2018-09-14 12:39 | Nephrology Progress Note ---
Assessment/Plan Problem List: (1) Bladder calculi (2) Renal insufficiency (3) Bilateral renal stones (4) KEE (acute kidney injury) (5) Hydronephrosis (6) Staghorn calculus Plan creatinine lower, 1.6, psych consult, will need further procedures in future , urine culture neg stop current antibiotic, c diff + ordered po vanco, colonized mrsa Subjective HEENT: Reports: no symptoms Genitourinary: Reports: other - nur Neurologic/Psychiatric: Reports: depressed Subjective , no distress- Objective Objective Last 24 Hour Vital Signs Date Time Temp Pulse Resp B/P (MAP) Pulse Ox O2 Delivery O2 Flow Rate FiO2 09/14/18 09:00 Room Air 09/14/18 08:00 98.6 82 18 143/69 (93) 98 09/14/18 08:00 82 09/14/18 04:00 97.0 87 19 141/87 (105) 98 09/14/18 04:00 87 09/14/18 00:00 82 09/14/18 00:00 98.3 85 18 136/84 (101) 97 09/13/18 21:00 Room Air 09/13/18 20:00 69 09/13/18 20:00 97.4 68 17 149/84 (105) 97 09/13/18 16:00 98.2 70 18 111/56 (74) 99 09/13/18 16:00 67 Intake and Output 09/13/18 09/14/18 19:00 07:00 Intake Total 382.5 ml 870 ml Output Total 1700 ml 1400 ml Balance -1317.5 ml -530 ml Intake Oral 360 ml 120 ml IV Total 22.5 ml 750 ml Output Urine Total 1700 ml 1400 ml # Voids 4 # Bowel Movements 1 2 Laboratory Tests 09/14/18 06:12: Sodium Level 136, Potassium Level 4.1, Chloride Level 106, Carbon Dioxide Level 18L, Anion Gap 12, Blood Urea Nitrogen 20H, Creatinine 1.6H, Estimat Glomerular Filtration Rate 43.6, Glucose Level 107H, Uric Acid 6.0, Calcium Level 8.6, Total Bilirubin 0.6, Aspartate Amino Transf (AST/SGOT) 43H, Alanine Aminotransferase (ALT/SGPT) 51, Alkaline Phosphatase 86, Total Protein 7.1, Albumin 2.9L, Globulin 4.2, Albumin/Globulin Ratio 0.7L Height (Feet): 5 Height (Inches): 10.00 Weight (Pounds): 181 General Appearance: no apparent distress, alert EENT: normal ENT inspection Neck: normal alignment Cardiovascular: normal rate, regular rhythm Respiratory/Chest: lungs clear Abdomen: no organomegaly Extremities: other - no edema 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
[2018-09-14] MEDS: Vancomycin oral 125mg/2.5ml ORAL SCH ×3 (13:53→21:31)
[2018-09-14 16:00] VITALS: BP 146/78
--- NOTE | 2018-09-14 17:30 | Urology Progress Note ---
Assessment/Plan Assessment/Plan: 1. Staghorn renal calculus. 2. Bladder calculus. 3. Mild hydronephrosis, likely chronic. 4. Chronic kidney disease. 5. Acute kidney injury, improved. 6. Hematuria. 7. Pyuria. 8. Urinary retention. 9. Neurogenic bladder. 10. Bladder diverticulum. monitor clinically nur monitor renal fxn abx as ordered flomax Subjective Allergies: Coded Allergies: No Known Allergies (Unverified , 09/11/18) Subjective all noted, agitated yest, restraints placed Objective Last 24 Hour Vital Signs Date Time Temp Pulse Resp B/P (MAP) Pulse Ox O2 Delivery O2 Flow Rate FiO2 09/14/18 16:00 73 09/14/18 16:00 97.8 75 18 146/78 (100) 96 09/14/18 12:00 98.6 78 18 143/81 (101) 97 09/14/18 12:00 78 09/14/18 09:00 Room Air 09/14/18 08:00 98.6 82 18 143/69 (93) 98 09/14/18 08:00 82 09/14/18 04:00 97.0 87 19 141/87 (105) 98 09/14/18 04:00 87 09/14/18 00:00 82 09/14/18 00:00 98.3 85 18 136/84 (101) 97 09/13/18 21:00 Room Air 09/13/18 20:00 69 09/13/18 20:00 97.4 68 17 149/84 (105) 97 Intake and Output 09/13/18 09/14/18 19:00 07:00 Intake Total 382.5 ml 870 ml Output Total 1700 ml 1400 ml Balance -1317.5 ml -530 ml Intake Oral 360 ml 120 ml IV Total 22.5 ml 750 ml Output Urine Total 1700 ml 1400 ml # Voids 4 # Bowel Movements 1 2 Microbiology Date/Time Source Procedure Growth Status 09/11/18 14:50 Nasal Nares MRSA Culture - Final Staphylococcus Aureus - Mrsa Complete 09/13/18 04:45 Stool Clostridium difficile Toxin Assay - Final Complete 09/11/18 14:16 Urine,Clean Catch Urine Culture - Final NO GROWTH AFTER 48 HOURS Complete 09/11/18 14:50 Rectum VRE Culture - Final NO VANCOMYCIN RESISTANT ENTEROCOCCUS ... Complete Current Medications Medications (Trade) Dose Ordered Sig/Sujit Route PRN Reason Start Time Stop Time Status Last Admin Dose Admin Acetaminophen/ Hydrocodone Bitart ([place] 5/325) 1 tab Q4H PRN ORAL Severe Pain (Pain Scale 7-10) 09/11/18 18:30 09/18/18 18:29 09/12/18 16:02 Aspirin (Ecotrin) 81 mg DAILY ORAL 09/12/18 09:00 10/12/18 08:59 09/14/18 08:25 Folic Acid (Folate) 1 mg DAILY ORAL 09/12/18 09:00 10/12/18 08:59 09/14/18 08:24 Lorazepam (Ativan) 1 mg Q6H PRN ORAL For Anxiety 09/11/18 19:00 09/18/18 18:59 09/13/18 04:58 Multivitamins (Multivitamins) 1 tab DAILY ORAL 09/12/18 09:00 10/12/18 08:59 09/14/18 08:25 Quetiapine Fumarate (SEROquel) 25 mg TID ORAL 09/13/18 13:00 10/13/18 12:59 09/14/18 13:53 Sodium Chloride 1,000 ml @ 75 mls/hr [id number] IV 09/13/18 18:30 10/13/18 18:29 09/14/18 06:28 Tamsulosin HCl (Flomax) 0.4 mg BID ORAL 09/11/18 19:01 10/11/18 19:00 09/14/18 08:25 Tramadol HCl (Ultram) 50 mg Q6H PRN ORAL Moderate Pain (Pain Scale 4-6) 09/11/18 18:30 09/18/18 18:29 09/12/18 12:10 Vancomycin HCl (Firvanq) 125 mg FOUR TIMES A DAY ORAL 09/14/18 13:00 09/21/18 12:59 09/14/18 13:53 Laboratory Tests 09/14/18 06:12: Sodium Level 136, Potassium Level 4.1, Chloride Level 106, Carbon Dioxide Level 18L, Anion Gap 12, Blood Urea Nitrogen 20H, Creatinine 1.6H, Estimat Glomerular Filtration Rate 43.6, Glucose Level 107H, Uric Acid 6.0, Calcium Level 8.6, Total Bilirubin 0.6, Aspartate Amino Transf (AST/SGOT) 43H, Alanine Aminotransferase (ALT/SGPT) 51, Alkaline Phosphatase 86, Total Protein 7.1, Albumin 2.9L, Globulin 4.2, Albumin/Globulin Ratio 0.7L Height (Feet): 5 Height (Inches): 10.00 Weight (Pounds): 181 Objective exam stable, urine grossly clear Brad Iqbal MD Sep 14, 2018 17:30
[2018-09-14 20:00] VITALS: BP 150/76
[2018-09-14] MEDS: LORazepam 1mg tab ORAL PRN (21:31)
--- NOTE | 2018-09-14 22:45 | Progress Note ---
DATE: 09/14/2018 INTERNAL MEDICINE PROGRESS NOTE SUBJECTIVE: The patient is voiding adequately. Stewart catheter in place. OBJECTIVE: VITAL SIGNS: Blood pressure is 146/78, heart rate 75, respiratory rate 18. LUNGS: Clear. CARDIAC: Regular. ABDOMEN: Soft. EXTREMITIES: No edema. LABORATORY DATA: Urine culture is negative, but stool is positive for C. difficile. Sodium 136, potassium 4.1, bicarb 18, BUN 20, creatinine 1.6. IMPRESSION: 1. C. difficile colitis. 2. Moderate protein-calorie malnutrition. 3. Acute on chronic renal failure, recovering. 4. Nephrolithiasis and obstructive uropathy, improved. PLAN: 1. Continue hydration. 2. Continue Stewart catheter. 3. Therapy for C. difficile. 4. Isolation precaution. 5. Urologic procedures in the future for calculi. 6. Restart and titrate antiHTN meds; avoid ACEi and ARB. Claude Gambino M.D. DR: EMILIA JOB#: [id number] CC: BOOKER
[2018-09-15] VITALS: BP 132/77
[2018-09-15] MEDS ORDERED: LORazepam 1mg tab ORAL PRN (02:08)
[2018-09-15] MEDS ORDERED: HYDROcodone/Acetamin 5/325 tab ORAL PRN (02:30)
--- NOTE | 2018-09-15 02:30 | Progress Note ---
DATE: 09/15/2018 SUBJECTIVE: The patient is doing better. More alert and less agitated. However, still is disoriented and has episodes of agitation. MENTAL STATUS EXAMINATION: The patient is alert and oriented to time, self, and place. Disoriented to date. Poor insight into the situation he is in. Mood is agitated and anxious. Affect is constricted. Congruent mood. Thought process is concrete. Thought content, no suicidal or homicidal ideation. ASSESSMENT: Agitation. PLAN: We will continue the current medications. Provide the patient with reality orientation and supportive therapy. Denice Collins M.D. DR: VIVIAN JOB#: [id number] CC:
[2018-09-15 04:00] VITALS: BP 131/77
[2018-09-15 06:14] LABS: BASOPHILS % (AUTO) 0.9 % (0.0-2.0); EOSINOPHILS % (AUTO) 6.3 % (0.0-3.0); HEMATOCRIT 37.1 % (42.0-52.0); HEMOGLOBIN 12.4 G/DL (14.2-18.0); LYMPHOCYTES % (AUTO) 15.6 % (20.0-45.0); MEAN CORPUSCULAR VOLUME 89 FL (80-99); MONOCYTES % (AUTO) 9.9 % (1.0-10.0); NEUTROPHILS % (AUTO) 67.3 % (45.0-75.0); PLATELET COUNT 131 K/UL (150-450); RED BLOOD COUNT 4.16 M/UL (4.70-6.10); RED CELL DISTRIBUTION WIDTH 13.2 % (11.6-14.8); WHITE BLOOD COUNT 8.3 K/UL (4.8-10.8)
[2018-09-15] MEDS ORDERED: traMADol 50mg tab ORAL PRN (06:30)
[2018-09-15 06:48] LABS: ANION GAP 10 mmol/L (5-15); BLOOD UREA NITROGEN 12 mg/dL (7-18); CALCIUM 8.7 MG/DL (8.5-10.1); CARBON DIOXIDE 19 MMOL/L (21-32); CHLORIDE 109 MMOL/L (98-107); CREATININE 1.3 MG/DL (0.55-1.30); POTASSIUM 3.6 MMOL/L (3.5-5.1); SODIUM 138 MMOL/L (136-145)
[2018-09-15 08:01] VITALS: BP 155/79
[2018-09-15] MEDS: Vancomycin oral 125mg/2.5ml ORAL SCH ×4 (08:55→21:40)
[2018-09-15] MEDS: Aspirin EC 81mg tab ORAL SCH (08:56)
[2018-09-15] MEDS: Atenolol 25mg tab ORAL SCH (08:56)
[2018-09-15] MEDS: Tamsulosin 0.4mg cap ORAL SCH ×2 (08:56→17:21)
[2018-09-15] MEDS ORDERED: Atenolol 25mg tab ORAL SCH (09:00)
[2018-09-15] MEDS ORDERED: Tubing IV Secondary IV ONE (09:53)
[2018-09-15 11:49] VITALS: BP 106/65
--- NOTE | 2018-09-15 13:54 | Nephrology Progress Note ---
Assessment/Plan Problem List: (1) Bladder calculi (2) Renal insufficiency (3) Bilateral renal stones (4) KEE (acute kidney injury) (5) Hydronephrosis (6) Staghorn calculus Plan creatinine lower, 1.6, 1.3 psych consult, will need further procedures in future, urine culture neg stop current antibiotic, c diff + ordered po vanco, colonized mrsa Subjective Constitutional: Reports: no symptoms HEENT: Reports: no symptoms Genitourinary: Reports: no symptoms Neurologic/Psychiatric: Reports: no symptoms Subjective , no distress- Objective Objective Last 24 Hour Vital Signs Date Time Temp Pulse Resp B/P (MAP) Pulse Ox O2 Delivery O2 Flow Rate FiO2 09/15/18 11:49 97.8 60 18 106/65 (79) 96 09/15/18 08:57 64 155/79 09/15/18 08:56 64 155/79 09/15/18 08:01 98.0 64 18 155/79 (104) 97 09/15/18 04:00 98.5 61 18 131/77 (95) 61 09/15/18 00:00 97.5 71 20 132/77 (95) 96 09/15/18 00:00 72 09/14/18 21:00 Room Air 09/14/18 20:00 77 09/14/18 20:00 98.2 79 20 150/76 (100) 97 09/14/18 16:00 73 09/14/18 16:00 97.8 75 18 146/78 (100) 96 Intake and Output 09/14/18 09/15/18 19:00 07:00 Intake Total 500 ml 120 ml Output Total 1200 ml Balance -700 ml 120 ml Intake Oral 500 ml 120 ml Output Urine Total 1200 ml # Voids 3 # Bowel Movements 4 Laboratory Tests 09/15/18 06:00: White Blood Count 8.3, Red Blood Count 4.16L, Hemoglobin 12.4L, Hematocrit 37.1L , Mean Corpuscular Volume 89, Mean Corpuscular Hemoglobin 29.7, Mean Corpuscular Hemoglobin Concent 33.3, Red Cell Distribution Width 13.2, Platelet Count 131L, Mean Platelet Volume 6.6, Neutrophils (%) (Auto) 67.3, Lymphocytes ( %) (Auto) 15.6L, Monocytes (%) (Auto) 9.9, Eosinophils (%) (Auto) 6.3H, Basophils (%) (Auto) 0.9, Sodium Level 138, Potassium Level 3.6, Chloride Level 109H, Carbon Dioxide Level 19L, Anion Gap 10, Blood Urea Nitrogen 12, Creatinine 1.3, Estimat Glomerular Filtration Rate 55.4, Glucose Level 112H, Uric Acid 5.8, Calcium Level 8.7 Height (Feet): 5 Height (Inches): 10.00 Weight (Pounds): 181 General Appearance: no apparent distress, alert EENT: normal ENT inspection Neck: normal alignment Cardiovascular: normal rate Respiratory/Chest: lungs clear Abdomen: non tender, soft 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
[2018-09-15 16:00] VITALS: BP 116/73
--- NOTE | 2018-09-15 19:30 | Progress Note ---
DATE: 09/15/2018 INTERNAL MEDICINE PROGRESS NOTE SUBJECTIVE: Stewart remains in place. Renal function is returning to normal. OBJECTIVE: VITAL SIGNS: Blood pressure 106/65 to 155/79, pulse 60, respirations 18, and afebrile. LUNGS: Clear. CARDIAC: Regular. ABDOMEN: Soft. EXTREMITIES: No edema. LABORATORY DATA: BUN is now 12 with creatinine 1.3 and potassium 3.6. White count is 8.3 and hemoglobin 12.4. IMPRESSION: 1. C. diff. 2. Staghorn calculus. 3. Acute renal failure, resolving. 4. Psychiatric disorder with episodes of agitation. 5. Hydronephrosis. 6. Probable neurogenic bladder. PLAN: 1. Consider voiding trial, to discuss with urologist. 2. Continue p.o. vancomycin for C. diff. 3. Maintain adequate hydration. 4. Discharge planning. Claude Gambino M.D. DR: AMITA JOB#: [id number] CC:
[2018-09-15 20:00] VITALS: BP 125/80
--- NOTE | 2018-09-15 20:24 | Urology Progress Note ---
Assessment/Plan Assessment/Plan: 1. Staghorn renal calculus. 2. Bladder calculus. 3. Mild hydronephrosis, likely chronic. 4. Chronic kidney disease. 5. Acute kidney injury, improved. 6. Hematuria. 7. Pyuria. 8. Urinary retention. 9. Neurogenic bladder. 10. Bladder diverticulum. monitor clinically nur monitor renal fxn abx as ordered flomax voiding trial at some point? Subjective Allergies: Coded Allergies: No Known Allergies (Unverified , 09/11/18) Subjective all noted, agitated yest, restraints placed Objective Last 24 Hour Vital Signs Date Time Temp Pulse Resp B/P (MAP) Pulse Ox O2 Delivery O2 Flow Rate FiO2 09/15/18 16:00 96.8 60 18 116/73 (87) 96 09/15/18 11:49 97.8 60 18 106/65 (79) 96 09/15/18 09:00 Room Air 09/15/18 08:57 64 155/79 09/15/18 08:56 64 155/79 09/15/18 08:01 98.0 64 18 155/79 (104) 97 09/15/18 04:00 98.5 61 18 131/77 (95) 61 09/15/18 00:00 97.5 71 20 132/77 (95) 96 09/15/18 00:00 72 09/14/18 21:00 Room Air Intake and Output 09/14/18 09/15/18 19:00 07:00 Intake Total 500 ml 120 ml Output Total 1200 ml Balance -700 ml 120 ml Intake Oral 500 ml 120 ml Output Urine Total 1200 ml # Voids 3 # Bowel Movements 4 Microbiology Date/Time Source Procedure Growth Status 09/11/18 14:50 Nasal Nares MRSA Culture - Final Staphylococcus Aureus - Mrsa Complete 09/13/18 04:45 Stool Clostridium difficile Toxin Assay - Final Complete 09/11/18 14:16 Urine,Clean Catch Urine Culture - Final NO GROWTH AFTER 48 HOURS Complete 09/11/18 14:50 Rectum VRE Culture - Final NO VANCOMYCIN RESISTANT ENTEROCOCCUS ... Complete Current Medications Medications (Trade) Dose Ordered Sig/Sujit Route PRN Reason Start Time Stop Time Status Last Admin Dose Admin Acetaminophen/ Hydrocodone Bitart ([place] 5/325) 1 tab Q4H PRN ORAL Severe Pain (Pain Scale 7-10) 09/15/18 02:30 09/18/18 18:29 Amlodipine Besylate (Norvasc) 10 mg DAILY ORAL 09/15/18 09:00 10/15/18 08:59 09/15/18 08:57 Aspirin (Ecotrin) 81 mg DAILY ORAL 09/15/18 09:00 10/12/18 08:59 09/15/18 08:56 Atenolol (Tenormin) 25 mg DAILY ORAL 09/15/18 09:00 10/15/18 08:59 09/15/18 08:56 Folic Acid (Folate) 1 mg DAILY ORAL 09/15/18 09:00 10/12/18 08:59 09/15/18 08:57 Lorazepam (Ativan) 1 mg Q6H PRN ORAL For Anxiety 09/15/18 02:08 09/18/18 02:07 Multivitamins (Multivitamins) 1 tab DAILY ORAL 09/15/18 09:00 10/12/18 08:59 09/15/18 08:57 Quetiapine Fumarate (SEROquel) 25 mg TID ORAL 09/15/18 09:00 10/13/18 12:59 09/15/18 17:21 Sodium Chloride 1,000 ml @ 75 mls/hr [id number] IV 09/15/18 03:00 10/13/18 02:59 09/15/18 16:38 Tamsulosin HCl (Flomax) 0.4 mg BID ORAL 09/15/18 09:00 10/11/18 19:00 09/15/18 17:21 Tramadol HCl (Ultram) 50 mg Q6H PRN ORAL Moderate Pain (Pain Scale 4-6) 09/15/18 06:30 09/18/18 18:29 Vancomycin HCl (Firvanq) 125 mg FOUR TIMES A DAY ORAL 09/15/18 09:00 09/21/18 12:59 09/15/18 17:21 Laboratory Tests 09/15/18 06:00: White Blood Count 8.3, Red Blood Count 4.16L, Hemoglobin 12.4L, Hematocrit 37.1L , Mean Corpuscular Volume 89, Mean Corpuscular Hemoglobin 29.7, Mean Corpuscular Hemoglobin Concent 33.3, Red Cell Distribution Width 13.2, Platelet Count 131L, Mean Platelet Volume 6.6, Neutrophils (%) (Auto) 67.3, Lymphocytes ( %) (Auto) 15.6L, Monocytes (%) (Auto) 9.9, Eosinophils (%) (Auto) 6.3H, Basophils (%) (Auto) 0.9, Sodium Level 138, Potassium Level 3.6, Chloride Level 109H, Carbon Dioxide Level 19L, Anion Gap 10, Blood Urea Nitrogen 12, Creatinine 1.3, Estimat Glomerular Filtration Rate 55.4, Glucose Level 112H, Uric Acid 5.8, Calcium Level 8.7 Height (Feet): 5 Height (Inches): 10.00 Weight (Pounds): 181 Objective exam stable, urine grossly clear Brad Iqbal MD Sep 15, 2018 20:24
[2018-09-16] VITALS (7 sets, daily range): BP systolic 110–138; BP diastolic 58–80
[2018-09-16] MEDS: Atenolol 25mg tab ORAL SCH (09:00)
[2018-09-16] MEDS: Tamsulosin 0.4mg cap ORAL SCH ×2 (09:13→18:09)
[2018-09-16] MEDS: Aspirin EC 81mg tab ORAL SCH (09:13)
[2018-09-16] MEDS: Vancomycin oral 125mg/2.5ml ORAL SCH ×4 (09:13→21:14)
--- NOTE | 2018-09-16 12:14 | Urology Progress Note ---
Assessment/Plan Assessment/Plan: 1. Staghorn renal calculus. 2. Bladder calculus. 3. Mild hydronephrosis, likely chronic. 4. Chronic kidney disease. 5. Acute kidney injury, improved. 6. Hematuria. 7. Pyuria. 8. Urinary retention. 9. Neurogenic bladder. 10. Bladder diverticulum. monitor clinically nur monitor renal fxn abx as ordered flomax voiding trial at some point? Subjective Allergies: Coded Allergies: No Known Allergies (Unverified , 09/11/18) Subjective all noted, agitated yest, restraints placed Objective Last 24 Hour Vital Signs Date Time Temp Pulse Resp B/P (MAP) Pulse Ox O2 Delivery O2 Flow Rate FiO2 09/16/18 09:14 53 133/75 09/16/18 09:10 53 133/75 (94) 09/16/18 09:00 Room Air 09/16/18 08:00 97.9 53 16 110/58 (75) 09/16/18 04:00 97.6 66 19 138/75 (96) 66 09/16/18 00:00 98.6 60 18 116/67 (83) 60 09/15/18 22:05 Room Air 09/15/18 20:00 98.6 62 19 125/80 (95) 62 62 09/15/18 16:00 96.8 60 18 116/73 (87) 96 Intake and Output 09/15/18 09/16/18 18:59 06:59 Intake Total 360 ml 675 ml Output Total 1100 ml Balance 360 ml -425 ml Intake Oral 360 ml IV Total 675 ml Output Urine Total 1100 ml Microbiology Date/Time Source Procedure Growth Status 09/11/18 14:50 Nasal Nares MRSA Culture - Final Staphylococcus Aureus - Mrsa Complete 09/13/18 04:45 Stool Clostridium difficile Toxin Assay - Final Complete 09/11/18 14:16 Urine,Clean Catch Urine Culture - Final NO GROWTH AFTER 48 HOURS Complete 09/11/18 14:50 Rectum VRE Culture - Final NO VANCOMYCIN RESISTANT ENTEROCOCCUS ... Complete Current Medications Medications (Trade) Dose Ordered Sig/Sujit Route PRN Reason Start Time Stop Time Status Last Admin Dose Admin Acetaminophen/ Hydrocodone Bitart ([place] 5/325) 1 tab Q4H PRN ORAL Severe Pain (Pain Scale 7-10) 09/15/18 02:30 09/18/18 18:29 Amlodipine Besylate (Norvasc) 10 mg DAILY ORAL 09/15/18 09:00 10/15/18 08:59 09/16/18 09:14 Aspirin (Ecotrin) 81 mg DAILY ORAL 09/15/18 09:00 10/12/18 08:59 09/16/18 09:13 Atenolol (Tenormin) 25 mg DAILY ORAL 09/15/18 09:00 10/15/18 08:59 09/15/18 08:56 Folic Acid (Folate) 1 mg DAILY ORAL 09/15/18 09:00 10/12/18 08:59 09/16/18 09:13 Lorazepam (Ativan) 1 mg Q6H PRN ORAL For Anxiety 09/15/18 02:08 09/18/18 02:07 Multivitamins (Multivitamins) 1 tab DAILY ORAL 09/15/18 09:00 10/12/18 08:59 09/16/18 09:13 Quetiapine Fumarate (SEROquel) 25 mg TID ORAL 09/15/18 09:00 10/13/18 12:59 09/16/18 09:51 Sodium Chloride 1,000 ml @ 75 mls/hr [id number] IV 09/15/18 03:00 10/13/18 02:59 09/16/18 04:56 Tamsulosin HCl (Flomax) 0.4 mg BID ORAL 09/15/18 09:00 10/11/18 19:00 09/16/18 09:13 Tramadol HCl (Ultram) 50 mg Q6H PRN ORAL Moderate Pain (Pain Scale 4-6) 09/15/18 06:30 09/18/18 18:29 Vancomycin HCl (Firvanq) 125 mg FOUR TIMES A DAY ORAL 09/15/18 09:00 09/21/18 12:59 09/16/18 09:13 Height (Feet): 5 Height (Inches): 10.00 Weight (Pounds): 181 Objective exam stable, urine grossly clear Brad Iqbal MD Sep 16, 2018 12:14
--- NOTE | 2018-09-16 12:24 | Nephrology Progress Note ---
Assessment/Plan Problem List: (1) Bladder calculi (2) Renal insufficiency (3) Bilateral renal stones (4) KEE (acute kidney injury) (5) Hydronephrosis (6) Staghorn calculus Plan creatinine lower, 1.6, 1.3 psych consult, will need further procedures in future, urine culture neg stop current antibiotic, c diff + ordered po vanco, colonized mrsa Subjective Constitutional: Reports: weakness HEENT: Reports: no symptoms Genitourinary: Reports: other - nur Neurologic/Psychiatric: Reports: no symptoms Subjective , no distress- Objective Objective Last 24 Hour Vital Signs Date Time Temp Pulse Resp B/P (MAP) Pulse Ox O2 Delivery O2 Flow Rate FiO2 09/16/18 09:14 53 133/75 09/16/18 09:10 53 133/75 (94) 09/16/18 09:00 Room Air 09/16/18 08:00 97.9 53 16 110/58 (75) 09/16/18 04:00 97.6 66 19 138/75 (96) 66 09/16/18 00:00 98.6 60 18 116/67 (83) 60 09/15/18 22:05 Room Air 09/15/18 20:00 98.6 62 19 125/80 (95) 62 62 09/15/18 16:00 96.8 60 18 116/73 (87) 96 Intake and Output 09/15/18 09/16/18 18:59 06:59 Intake Total 360 ml 675 ml Output Total 1100 ml Balance 360 ml -425 ml Intake Oral 360 ml IV Total 675 ml Output Urine Total 1100 ml Height (Feet): 5 Height (Inches): 10.00 Weight (Pounds): 181 General Appearance: no apparent distress EENT: other - L eye blind Neck: normal alignment Cardiovascular: normal rate, regular rhythm Respiratory/Chest: lungs clear Abdomen: non tender, soft 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
--- NOTE | 2018-09-16 19:15 | Progress Note ---
DATE: 09/16/2018 INTERNAL MEDICINE PROGRESS NOTE SUBJECTIVE: The patient pulled out his Stewart catheter. No bleeding noted. He has voided once since. OBJECTIVE: VITAL SIGNS: Blood pressure 133/70, pulse 52, respirations 16, and afebrile. LUNGS: Clear. CARDIAC: Regular. ABDOMEN: Soft. EXTREMITIES: No edema. IMPRESSION: 1. Calculi. 2. Acute renal failure, resolved. 3. Clostridium difficile colitis. 4. Bradycardia on beta-farhat. PLAN: 1. Continue vancomycin orally. 2. Maintenance hydration. 3. Decrease beta-farhat. 4. Monitor renal output. 5. Decrease beta-farhat dosing. Claude Gambino M.D. DR: Erica JOB#: [id number] CC:
[2018-09-17] VITALS: BP 143/61
--- NOTE | 2018-09-17 00:45 | Progress Note ---
DATE: 09/16/2018 SUBJECTIVE: The patient is agitated today. Pulled out his Stewart catheter due to agitation. We recommend the patient is in restraints. The patient is confused and disoriented. MENTAL STATUS EXAMINATION: The patient is alert. Not redirectable. Mood is agitated. Affect is flat. Thought process, there is a paucity of thought content. Thought content, no suicidal or homicidal ideation. PLAN: 1. We will increase the Seroquel to 37.5 mg p.o. t.i.d. 2. Continue the restraints. 3. We will continue to follow and readjust the medication. Denice Collins M.D. DR: CLINT JOB#: [id number] CC: BOOKER
[2018-09-17 04:00] VITALS: BP 145/79
[2018-09-17 07:09] LABS: BASOPHILS % (AUTO) 1.6 % (0.0-2.0); EOSINOPHILS % (AUTO) 9.3 % (0.0-3.0); HEMATOCRIT 36.5 % (42.0-52.0); MEAN CORPUSCULAR VOLUME 90 FL (80-99); MONOCYTES % (AUTO) 10.9 % (1.0-10.0); NEUTROPHILS % (AUTO) 49.2 % (45.0-75.0); PLATELET COUNT 159 K/UL (150-450); RED BLOOD COUNT 4.07 M/UL (4.70-6.10); RED CELL DISTRIBUTION WIDTH 13.6 % (11.6-14.8); WHITE BLOOD COUNT 5.9 K/UL (4.8-10.8)
[2018-09-17 07:27] LABS: ALANINE AMINOTRANSFERASE 56 U/L (12-78); ALBUMIN 2.4 G/DL (3.4-5.0); ALBUMIN/GLOBULIN RATIO 0.6 (1.0-2.7); ALKALINE PHOSPHATASE 86 U/L (46-116); ANION GAP 9 mmol/L (5-15); ASPARTATE AMINO TRANSFERASE 56 U/L (15-37); BILIRUBIN,TOTAL 0.3 MG/DL (0.2-1.0); BLOOD UREA NITROGEN 12 mg/dL (7-18); CALCIUM 7.9 MG/DL (8.5-10.1); CARBON DIOXIDE 22 MMOL/L (21-32); CHLORIDE 113 MMOL/L (98-107); CREATININE 1.3 MG/DL (0.55-1.30); POTASSIUM 3.5 MMOL/L (3.5-5.1); SODIUM 144 MMOL/L (136-145)
[2018-09-17 08:00] VITALS: BP 140/77
--- NOTE | 2018-09-17 08:55 | Urology Progress Note ---
Assessment/Plan Assessment/Plan: 1. Staghorn renal calculus. 2. Bladder calculus. 3. Mild hydronephrosis, likely chronic. 4. Chronic kidney disease. 5. Acute kidney injury, improved. 6. Hematuria. 7. Pyuria. 8. Urinary retention. 9. Neurogenic bladder. 10. Bladder diverticulum. monitor clinically nur out and voiding monitor renal fxn, stable abx as ordered cont flomax BID pt can have tx of stones later electively by urologist in his plan Subjective Allergies: Coded Allergies: No Known Allergies (Unverified , 09/11/18) Subjective all noted, nur "fell out" last night, voiding, comfortable Objective Last 24 Hour Vital Signs Date Time Temp Pulse Resp B/P (MAP) Pulse Ox O2 Delivery O2 Flow Rate FiO2 09/17/18 08:00 98.0 66 18 140/77 (98) 98 09/17/18 04:00 97.7 58 18 145/79 (101) 97 09/17/18 00:00 98.1 61 18 143/61 (88) 95 09/16/18 21:00 Room Air 09/16/18 20:00 98.2 64 18 135/80 (98) 95 09/16/18 16:00 98.4 64 17 127/72 (90) 95 09/16/18 12:00 98.1 52 16 133/70 (91) 52 09/16/18 09:14 53 133/75 09/16/18 09:10 53 133/75 (94) 09/16/18 09:00 52 133/70 09/16/18 09:00 Room Air Intake and Output 09/16/18 09/17/18 19:00 07:00 Intake Total 1665 ml 1500 ml Output Total 300 ml 150 ml Balance 1365 ml 1350 ml Intake Oral 840 ml 600 ml IV Total 825 ml 900 ml Output Urine Total 300 ml 150 ml # Voids 2 1 # Bowel Movements 1 Microbiology Date/Time Source Procedure Growth Status 09/11/18 14:50 Nasal Nares MRSA Culture - Final Staphylococcus Aureus - Mrsa Complete 09/13/18 04:45 Stool Clostridium difficile Toxin Assay - Final Complete 09/11/18 14:16 Urine,Clean Catch Urine Culture - Final NO GROWTH AFTER 48 HOURS Complete 09/11/18 14:50 Rectum VRE Culture - Final NO VANCOMYCIN RESISTANT ENTEROCOCCUS ... Complete Current Medications Medications (Trade) Dose Ordered Sig/Sujit Route PRN Reason Start Time Stop Time Status Last Admin Dose Admin Acetaminophen/ Hydrocodone Bitart ([place] 5/325) 1 tab Q4H PRN ORAL Severe Pain (Pain Scale 7-10) 09/15/18 02:30 09/18/18 18:29 Amlodipine Besylate (Norvasc) 10 mg DAILY ORAL 09/15/18 09:00 10/15/18 08:59 09/16/18 09:14 Aspirin (Ecotrin) 81 mg DAILY ORAL 09/15/18 09:00 10/12/18 08:59 09/16/18 09:13 Atenolol (Tenormin) 12.5 mg DAILY ORAL 09/17/18 09:00 10/17/18 08:59 Folic Acid (Folate) 1 mg DAILY ORAL 09/15/18 09:00 10/12/18 08:59 09/16/18 09:13 Lorazepam (Ativan) 1 mg Q6H PRN ORAL For Anxiety 09/15/18 02:08 09/18/18 02:07 Multivitamins (Multivitamins) 1 tab DAILY ORAL 09/15/18 09:00 10/12/18 08:59 09/16/18 09:13 Quetiapine Fumarate (SEROquel) 37.5 mg TID ORAL 09/17/18 09:00 10/17/18 08:59 Sodium Chloride 1,000 ml @ 75 mls/hr [id number] IV 09/15/18 03:00 10/13/18 02:59 09/16/18 19:40 Tamsulosin HCl (Flomax) 0.4 mg BID ORAL 09/15/18 09:00 10/11/18 19:00 09/16/18 18:09 Tramadol HCl (Ultram) 50 mg Q6H PRN ORAL Moderate Pain (Pain Scale 4-6) 09/15/18 06:30 09/18/18 18:29 Vancomycin HCl (Firvanq) 125 mg FOUR TIMES A DAY ORAL 09/15/18 09:00 09/21/18 12:59 09/16/18 21:14 Laboratory Tests 09/17/18 05:35: White Blood Count 5.9, Red Blood Count 4.07L, Hemoglobin 12.0L, Hematocrit 36.5L , Mean Corpuscular Volume 90, Mean Corpuscular Hemoglobin 29.4, Mean Corpuscular Hemoglobin Concent 32.8, Red Cell Distribution Width 13.6, Platelet Count 159, Mean Platelet Volume 7.1, Neutrophils (%) (Auto) 49.2, Lymphocytes (% ) (Auto) 29.0, Monocytes (%) (Auto) 10.9H, Eosinophils (%) (Auto) 9.3H, Basophils (%) (Auto) 1.6, Sodium Level 144, Potassium Level 3.5, Chloride Level 113H, Carbon Dioxide Level 22, Anion Gap 9, Blood Urea Nitrogen 12, Creatinine 1.3, Estimat Glomerular Filtration Rate 55.4, Glucose Level 103, Calcium Level 7.9L, Magnesium Level 1.5L, Total Bilirubin 0.3, Aspartate Amino Transf (AST/ SGOT) 56H, Alanine Aminotransferase (ALT/SGPT) 56, Alkaline Phosphatase 86, Total Protein 6.2L, Albumin 2.4L, Globulin 3.8, Albumin/Globulin Ratio 0.6L Height (Feet): 5 Height (Inches): 10.00 Weight (Pounds): 181 Objective exam stable Brad Iqbal MD Sep 17, 2018 08:55
[2018-09-17] MEDS: Vancomycin oral 125mg/2.5ml ORAL SCH ×4 (09:01→20:25)
[2018-09-17] MEDS: Aspirin EC 81mg tab ORAL SCH (09:02)
[2018-09-17] MEDS: Tamsulosin 0.4mg cap ORAL SCH ×2 (09:02→18:07)
[2018-09-17] MEDS: Atenolol 25mg tab ORAL SCH (09:03)
[2018-09-17 12:00] VITALS: BP 143/83
[2018-09-17 16:00] VITALS: BP 131/69
--- NOTE | 2018-09-17 16:08 | Nephrology Progress Note ---
Assessment/Plan Problem List: (1) Bladder calculi (2) Renal insufficiency (3) Bilateral renal stones (4) KEE (acute kidney injury) (5) Hydronephrosis (6) Staghorn calculus Plan creatinine lower, 1.6, 1.3 psych consult, will need further procedures in future, urine culture neg stop current antibiotic, c diff + ordered po vanco, colonized mrsa, nur out, voiding Subjective Constitutional: Reports: weakness HEENT: Reports: no symptoms Genitourinary: Reports: no symptoms Neurologic/Psychiatric: Reports: no symptoms Subjective , no distress- Objective Objective Last 24 Hour Vital Signs Date Time Temp Pulse Resp B/P (MAP) Pulse Ox O2 Delivery O2 Flow Rate FiO2 09/17/18 16:00 97.5 58 18 131/69 (89) 98 09/17/18 12:00 97.3 62 18 143/83 (103) 98 09/17/18 10:00 Room Air 09/17/18 09:03 66 140/77 09/17/18 09:02 66 140/77 09/17/18 08:00 98.0 66 18 140/77 (98) 98 09/17/18 04:00 97.7 58 18 145/79 (101) 97 09/17/18 00:00 98.1 61 18 143/61 (88) 95 09/16/18 21:00 Room Air 09/16/18 20:00 98.2 64 18 135/80 (98) 95 Intake and Output 09/16/18 09/17/18 18:59 06:59 Intake Total 1590 ml 1575 ml Output Total 300 ml 150 ml Balance 1290 ml 1425 ml Intake Oral 840 ml 600 ml IV Total 750 ml 975 ml Output Urine Total 300 ml 150 ml # Voids 2 1 # Bowel Movements 1 Laboratory Tests 09/17/18 05:35: White Blood Count 5.9, Red Blood Count 4.07L, Hemoglobin 12.0L, Hematocrit 36.5L , Mean Corpuscular Volume 90, Mean Corpuscular Hemoglobin 29.4, Mean Corpuscular Hemoglobin Concent 32.8, Red Cell Distribution Width 13.6, Platelet Count 159, Mean Platelet Volume 7.1, Neutrophils (%) (Auto) 49.2, Lymphocytes (% ) (Auto) 29.0, Monocytes (%) (Auto) 10.9H, Eosinophils (%) (Auto) 9.3H, Basophils (%) (Auto) 1.6, Sodium Level 144, Potassium Level 3.5, Chloride Level 113H, Carbon Dioxide Level 22, Anion Gap 9, Blood Urea Nitrogen 12, Creatinine 1.3, Estimat Glomerular Filtration Rate 55.4, Glucose Level 103, Calcium Level 7.9L, Magnesium Level 1.5L, Total Bilirubin 0.3, Aspartate Amino Transf (AST/ SGOT) 56H, Alanine Aminotransferase (ALT/SGPT) 56, Alkaline Phosphatase 86, Total Protein 6.2L, Albumin 2.4L, Globulin 3.8, Albumin/Globulin Ratio 0.6L Height (Feet): 5 Height (Inches): 10.00 Weight (Pounds): 181 General Appearance: no apparent distress, alert EENT: normal ENT inspection Neck: normal alignment Cardiovascular: normal rate Respiratory/Chest: lungs clear Abdomen: non tender, soft 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
[2018-09-17 20:00] VITALS: BP 134/67
[2018-09-18] VITALS: BP 139/75
--- NOTE | 2018-09-18 01:00 | Progress Note ---
DATE: 09/17/2018 CARDIOLOGY AND INTERNAL MEDICINE PROGRESS NOTE SUBJECTIVE: Decreased diarrhea. No nausea or vomiting. No abdominal pain. OBJECTIVE: VITAL SIGNS: Blood pressure 131/69, heart rate 58 to 62, respiratory rate 18, and afebrile. LUNGS: Clear. CARDIAC: Regular. ABDOMEN: Soft and nontender. No CVA tenderness. EXTREMITIES: No edema. LABORATORY DATA: White count 5.9 and hemoglobin 12. BUN 12 and creatinine 1.3. Potassium 3.5. Magnesium 1.5. Albumin 2.4. IMPRESSION: 1. Acute renal failure has resolved and creatinine seems to have reached baseline. 2. Persistent hypomagnesemia. 3. Resolving bradycardia on lower dose of beta-farhat. 4. Nephrolithiasis. 5. C. difficile colitis. PLAN: 1. Additional magnesium replacement and potassium replacement. 2. Maintain adequate oral intake. 3. Discontinue IV fluids. 4. Monitor renal function. 5. Outpatient lithotripsy in the future. 6. Continue oral vancomycin. Claude Gambino M.D. DR: AMITA JOB#: [id number] CC:
--- NOTE | 2018-09-18 03:30 | Progress Note ---
DATE: 09/17/2018 NOTE: POOR AUDIO SUBJECTIVE: The patient is feeling less disorganized and will be continued. MENTAL STATUS EXAMINATION: The patient is alert and oriented times self and place. Poor insight into the situation he is in. Mood is anxious. Affect is constricted, congruent with mood. Thought process is concrete. Thought content, no suicidal or homicidal ideation. ASSESSMENT: 1. Acute encephalopathy, improving. 2. Agitation. PLAN: We will continue current medications. Provide the patient with reality orientation and supportive therapy. Denice Collins M.D. DR: MORRIS JOB#: [id number] CC: BOOKER
[2018-09-18 04:00] VITALS: BP 140/69
[2018-09-18 08:00] VITALS: BP 127/84
--- NOTE | 2018-09-18 08:27 | Urology Progress Note ---
Assessment/Plan Assessment/Plan: 1. Staghorn renal calculus. 2. Bladder calculus. 3. Mild hydronephrosis, likely chronic. 4. Chronic kidney disease. 5. Acute kidney injury, improved. 6. Hematuria. 7. Pyuria. 8. Urinary retention. 9. Neurogenic bladder. 10. Bladder diverticulum. monitor clinically nur out and voiding monitor renal fxn, stable abx as ordered cont flomax BID pt can have tx of stones later electively by urologist in his plan Subjective Allergies: Coded Allergies: No Known Allergies (Unverified , 09/11/18) Subjective all noted, voiding Objective Last 24 Hour Vital Signs Date Time Temp Pulse Resp B/P (MAP) Pulse Ox O2 Delivery O2 Flow Rate FiO2 09/18/18 04:00 98.2 92 18 140/69 (92) 92 09/18/18 00:00 96.4 44 17 139/75 (96) 93 09/17/18 20:04 Room Air 09/17/18 20:00 97.9 67 17 134/67 (89) 98 09/17/18 16:00 97.5 58 18 131/69 (89) 98 09/17/18 12:00 97.3 62 18 143/83 (103) 98 09/17/18 10:00 Room Air 09/17/18 09:03 66 140/77 09/17/18 09:02 66 140/77 Intake and Output 09/17/18 09/18/18 19:00 07:00 Intake Total 795 ml 1425 ml Balance 795 ml 1425 ml Intake Oral 120 ml 480 ml IV Total 675 ml 945 ml # Voids 3 6 # Bowel Movements 1 Microbiology Date/Time Source Procedure Growth Status 09/11/18 14:50 Nasal Nares MRSA Culture - Final Staphylococcus Aureus - Mrsa Complete 09/13/18 04:45 Stool Clostridium difficile Toxin Assay - Final Complete 09/11/18 14:16 Urine,Clean Catch Urine Culture - Final NO GROWTH AFTER 48 HOURS Complete 09/11/18 14:50 Rectum VRE Culture - Final NO VANCOMYCIN RESISTANT ENTEROCOCCUS ... Complete Current Medications Medications (Trade) Dose Ordered Sig/Sujit Route PRN Reason Start Time Stop Time Status Last Admin Dose Admin Acetaminophen/ Hydrocodone Bitart ([place] 5/325) 1 tab Q4H PRN ORAL Severe Pain (Pain Scale 7-10) 09/15/18 02:30 09/18/18 18:29 Amlodipine Besylate (Norvasc) 10 mg DAILY ORAL 09/15/18 09:00 10/15/18 08:59 09/17/18 09:02 Aspirin (Ecotrin) 81 mg DAILY ORAL 09/15/18 09:00 10/12/18 08:59 09/17/18 09:02 Atenolol (Tenormin) 12.5 mg DAILY ORAL 09/17/18 09:00 10/17/18 08:59 09/17/18 09:03 Folic Acid (Folate) 1 mg DAILY ORAL 09/15/18 09:00 10/12/18 08:59 09/17/18 09:02 Multivitamins (Multivitamins) 1 tab DAILY ORAL 09/15/18 09:00 10/12/18 08:59 09/17/18 09:03 Quetiapine Fumarate (SEROquel) 37.5 mg TID ORAL 09/17/18 09:00 10/17/18 08:59 09/17/18 18:07 Sodium Chloride 1,000 ml @ 75 mls/hr [id number] IV 09/15/18 03:00 10/13/18 02:59 09/17/18 20:44 Tamsulosin HCl (Flomax) 0.4 mg BID ORAL 09/15/18 09:00 10/11/18 19:00 09/17/18 18:07 Tramadol HCl (Ultram) 50 mg Q6H PRN ORAL Moderate Pain (Pain Scale 4-6) 09/15/18 06:30 09/18/18 18:29 Vancomycin HCl (Firvanq) 125 mg FOUR TIMES A DAY ORAL 09/15/18 09:00 09/21/18 12:59 09/17/18 20:25 Height (Feet): 5 Height (Inches): 10.00 Weight (Pounds): 181 Objective exam stable Brad Iqbal MD Sep 18, 2018 08:27
[2018-09-18] MEDS: Tamsulosin 0.4mg cap ORAL SCH ×2 (09:36→18:02)
[2018-09-18] MEDS: Atenolol 25mg tab ORAL SCH (09:36)
[2018-09-18] MEDS: Aspirin EC 81mg tab ORAL SCH (09:36)
[2018-09-18] MEDS: Vancomycin oral 125mg/2.5ml ORAL SCH ×4 (09:37→20:29)
[2018-09-18 12:00] VITALS: BP 134/72
--- NOTE | 2018-09-18 12:19 | Nephrology Progress Note ---
Assessment/Plan Problem List: (1) Bladder calculi (2) Renal insufficiency (3) Bilateral renal stones (4) KEE (acute kidney injury) (5) Hydronephrosis (6) Staghorn calculus (7) Hypomagnesemia Plan creatinine lower, 1.6, 1.3 psych consult, will need further procedures in future, urine culture neg stop current antibiotic, c diff + ordered po vanco, colonized mrsa, nur out, voiding, add magnesium oxide Subjective HEENT: Reports: no symptoms Genitourinary: Reports: no symptoms Neurologic/Psychiatric: Reports: no symptoms Subjective , no distress- Objective Objective Last 24 Hour Vital Signs Date Time Temp Pulse Resp B/P (MAP) Pulse Ox O2 Delivery O2 Flow Rate FiO2 09/18/18 09:36 62 127/84 09/18/18 09:36 62 127/84 09/18/18 09:00 Room Air 09/18/18 08:00 97.1 62 20 127/84 (98) 96 09/18/18 04:00 98.2 92 18 140/69 (92) 92 09/18/18 00:00 96.4 44 17 139/75 (96) 93 09/17/18 20:04 Room Air 09/17/18 20:00 97.9 67 17 134/67 (89) 98 09/17/18 16:00 97.5 58 18 131/69 (89) 98 Intake and Output 09/17/18 09/18/18 19:00 07:00 Intake Total 795 ml 1425 ml Balance 795 ml 1425 ml Intake Oral 120 ml 480 ml IV Total 675 ml 945 ml # Voids 3 6 # Bowel Movements 1 Height (Feet): 5 Height (Inches): 10.00 Weight (Pounds): 181 General Appearance: no apparent distress EENT: other - L lens opacity Neck: normal alignment Cardiovascular: normal rate Respiratory/Chest: lungs clear Abdomen: non tender Extremities: other - no edema 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
[2018-09-18] MEDS: Magnesium Oxide 400mg tab ORAL SCH ×2 (13:19→18:01)
[2018-09-18 16:00] VITALS: BP 128/65
[2018-09-18 19:49] VITALS: BP 130/61
--- NOTE | 2018-09-18 23:00 | Progress Note ---
DATE: 09/18/2018 SUBJECTIVE: The patient is presenting with anxiety. More cooperative and less agitated. However, is unable to provide any meaningful information. He has poor impulse control. Calmer, not in restraints. MENTAL STATUS EXAMINATION: Alert and oriented times self and place. Mood is neutral. Affect is flat. Thought process, there is a paucity of thought content. Thought content, no suicidal or homicidal ideations. Cognition is impaired. ASSESSMENT: Acute encephalopathy, improving. PLAN: 1. We will continue with the current medication. 2. Discontinue the restraints. 3. We will continue with current medication. Provide the patient with reality orientation and supportive therapy. Denice Collins M.D. DR: YUMIKO JOB#: [id number] CC:
--- NOTE | 2018-09-19 01:45 | Progress Note ---
DATE: 09/18/2018 INTERNAL MEDICINE PROGRESS NOTE SUBJECTIVE: The patient is without new complaints. He remains on IV fluids and magnesium replacement. Minimal diarrhea noted. OBJECTIVE: Vitals are stable. Exam is without change. PLAN: 1. To discontinue IV fluids. 2. Continue treatment for C. difficile colitis. 3. Monitor renal parameters. 4. Discharge planning in progress. Claude Gambino M.D. DR: CLAUDETTE JOB#: [id number] CC:
[2018-09-19 04:00] VITALS: BP 128/64
[2018-09-19 06:35] LABS: ANION GAP 7 mmol/L (5-15); BLOOD UREA NITROGEN 16 mg/dL (7-18); CALCIUM 8.3 MG/DL (8.5-10.1); CARBON DIOXIDE 25 MMOL/L (21-32); CHLORIDE 111 MMOL/L (98-107); CREATININE 1.3 MG/DL (0.55-1.30); POTASSIUM 3.7 MMOL/L (3.5-5.1); SODIUM 142 MMOL/L (136-145)
[2018-09-19 08:00] VITALS: BP 145/100
[2018-09-19] MEDS: Aspirin EC 81mg tab ORAL SCH (08:33)
[2018-09-19] MEDS: Tamsulosin 0.4mg cap ORAL SCH ×2 (08:33→17:21)
[2018-09-19] MEDS: Magnesium Oxide 400mg tab ORAL SCH ×3 (08:33→17:21)
[2018-09-19] MEDS: Vancomycin oral 125mg/2.5ml ORAL SCH ×4 (08:33→21:02)
[2018-09-19] MEDS: Atenolol 25mg tab ORAL SCH (08:34)
--- NOTE | 2018-09-19 08:41 | Urology Progress Note ---
Assessment/Plan Assessment/Plan: 1. Staghorn renal calculus. 2. Bladder calculus. 3. Mild hydronephrosis, likely chronic. 4. Chronic kidney disease. 5. Acute kidney injury, improved. 6. Hematuria. 7. Pyuria. 8. Urinary retention. 9. Neurogenic bladder. 10. Bladder diverticulum. monitor clinically nur out and voiding monitor renal fxn, stable abx as ordered cont flomax BID pt can have tx of stones later electively by urologist in his plan Subjective Allergies: Coded Allergies: No Known Allergies (Unverified , 09/11/18) Subjective all noted, voiding Objective Last 24 Hour Vital Signs Date Time Temp Pulse Resp B/P (MAP) Pulse Ox O2 Delivery O2 Flow Rate FiO2 09/19/18 08:34 54 145/100 09/19/18 08:33 54 145/100 09/19/18 08:00 98.1 54 18 145/100 (115) 95 09/19/18 04:00 98.0 58 18 128/64 (85) 93 09/18/18 20:05 Room Air 09/18/18 19:49 97.5 56 16 130/61 (84) 97 09/18/18 16:00 96.8 59 20 128/65 (86) 96 09/18/18 12:00 97.1 52 20 134/72 (92) 93 09/18/18 09:36 62 127/84 09/18/18 09:36 62 127/84 09/18/18 09:00 Room Air Intake and Output 09/18/18 09/19/18 19:00 07:00 Intake Total 1755 ml 930 ml Balance 1755 ml 930 ml Intake Oral 930 ml 480 ml IV Total 825 ml 450 ml # Voids 3 5 # Bowel Movements 2 Microbiology Date/Time Source Procedure Growth Status 09/11/18 14:50 Nasal Nares MRSA Culture - Final Staphylococcus Aureus - Mrsa Complete 09/13/18 04:45 Stool Clostridium difficile Toxin Assay - Final Complete 09/11/18 14:16 Urine,Clean Catch Urine Culture - Final NO GROWTH AFTER 48 HOURS Complete 09/11/18 14:50 Rectum VRE Culture - Final NO VANCOMYCIN RESISTANT ENTEROCOCCUS ... Complete Current Medications Medications (Trade) Dose Ordered Sig/Sujit Route PRN Reason Start Time Stop Time Status Last Admin Dose Admin Amlodipine Besylate (Norvasc) 10 mg DAILY ORAL 7/27/19 09:00 10/15/18 08:59 09/19/18 08:33 Aspirin (Ecotrin) 81 mg DAILY ORAL 09/15/18 09:00 10/12/18 08:59 09/19/18 08:33 Atenolol (Tenormin) 12.5 mg DAILY ORAL 09/17/18 09:00 10/17/18 08:59 09/18/18 09:36 Folic Acid (Folate) 1 mg DAILY ORAL 09/15/18 09:00 10/12/18 08:59 09/19/18 08:33 Magnesium Oxide (Mag-Ox 400mg) 400 mg THREE TIMES A DAY ORAL 09/18/18 13:00 10/18/18 12:59 09/19/18 08:33 Multivitamins (Multivitamins) 1 tab DAILY ORAL 09/15/18 09:00 10/12/18 08:59 09/19/18 08:33 Quetiapine Fumarate (SEROquel) 37.5 mg TID ORAL 09/17/18 09:00 10/17/18 08:59 09/19/18 08:34 Tamsulosin HCl (Flomax) 0.4 mg BID ORAL 09/15/18 09:00 10/11/18 19:00 09/19/18 08:33 Vancomycin HCl (Firvanq) 125 mg FOUR TIMES A DAY ORAL 09/15/18 09:00 09/21/18 12:59 09/19/18 08:33 Laboratory Tests 09/19/18 05:20: Sodium Level 142, Potassium Level 3.7, Chloride Level 111H, Carbon Dioxide Level 25, Anion Gap 7, Blood Urea Nitrogen 16, Creatinine 1.3, Estimat Glomerular Filtration Rate 55.4, Glucose Level 91, Calcium Level 8.3L Height (Feet): 5 Height (Inches): 10.00 Weight (Pounds): 184 Objective exam stable Brad Iqbal MD Sep 19, 2018 08:41
[2018-09-19 11:58] VITALS: BP 145/71
[2018-09-19 16:00] VITALS: BP 143/75
--- NOTE | 2018-09-19 16:52 | Nephrology Progress Note ---
Assessment/Plan Problem List: (1) Bladder calculi (2) Renal insufficiency (3) Bilateral renal stones (4) KEE (acute kidney injury) (5) Hydronephrosis (6) Staghorn calculus (7) Hypomagnesemia Plan creatinine lower, 1.6, 1.3 psych consult, will need further procedures in future, urine culture neg stop current antibiotic, c diff + ordered po vanco, colonized mrsa, nur out, voiding, add magnesium oxide Subjective Constitutional: Reports: weakness HEENT: Reports: no symptoms Genitourinary: Reports: incontinence Neurologic/Psychiatric: Reports: pre-existing deficit Subjective , no distress- Objective Objective Last 24 Hour Vital Signs Date Time Temp Pulse Resp B/P (MAP) Pulse Ox O2 Delivery O2 Flow Rate FiO2 09/19/18 16:00 98.5 65 20 143/75 (97) 99 09/19/18 11:58 98.2 56 19 145/71 (95) 95 09/19/18 09:00 Room Air 09/19/18 08:34 54 145/100 09/19/18 08:33 54 145/100 09/19/18 08:00 98.1 54 18 145/100 (115) 95 09/19/18 04:00 98.0 58 18 128/64 (85) 93 09/18/18 20:05 Room Air 09/18/18 19:49 97.5 56 16 130/61 (84) 97 Intake and Output 09/18/18 09/19/18 19:00 07:00 Intake Total 1755 ml 930 ml Balance 1755 ml 930 ml Intake Oral 930 ml 480 ml IV Total 825 ml 450 ml # Voids 3 5 # Bowel Movements 2 Laboratory Tests 09/19/18 05:20: Sodium Level 142, Potassium Level 3.7, Chloride Level 111H, Carbon Dioxide Level 25, Anion Gap 7, Blood Urea Nitrogen 16, Creatinine 1.3, Estimat Glomerular Filtration Rate 55.4, Glucose Level 91, Calcium Level 8.3L Height (Feet): 5 Height (Inches): 10.00 Weight (Pounds): 184 General Appearance: no apparent distress, alert EENT: other - L lens opacity Cardiovascular: normal rate, regular rhythm Respiratory/Chest: lungs clear, normal breath sounds Abdomen: non tender, soft 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
[2018-09-19 20:00] VITALS: BP 137/72
[2018-09-20] VITALS: BP 139/76
--- NOTE | 2018-09-20 03:15 | Progress Note ---
DATE: 09/19/2018 INTERNAL MEDICINE PROGRESS NOTE SUBJECTIVE: No new complaints. Off IV fluids. Voiding without a catheter. OBJECTIVE: VITAL SIGNS: Blood pressure 143/75, pulse 65, and respiratory rate 20. LUNGS: Clear. CARDIAC: Regular. ABDOMEN: Soft. EXTREMITIES: No edema. IMPRESSION: 1. Nephrolithiasis, resolved. 2. Renal failure. 3. Bradycardia, on beta-farhat. 4. Hypertensive heart disease. 5. Hypomagnesemia. 6. C. difficile. PLAN: 1. Antimicrobials. 2. Maintain adequate oral intake. 3. Discontinue beta-farhat. 4. Titrate antihypertensives. 5. Discharge planning in progress. Claude Gambino M.D. DR: YOLANDE JOB#: [id number] CC:
--- NOTE | 2018-09-20 03:15 | Progress Note ---
DATE: 09/19/2018 SUBJECTIVE: The patient is in bed. Doing better. Continues to be having episodes of agitation and speaking gibberish. Memory is impaired. MENTAL STATUS EXAMINATION: The patient is alert, confused, and disoriented to date. Mood is anxious. Affect is flat. Thought process, there is a paucity of thought content. Thought content, no suicidal or homicidal ideations. ASSESSMENT: 1. Alcohol dependence. 2. Anxiety. PLAN: We will continue with current medications. Provide the patient with reality orientation and supportive therapy. Denice Collins M.D. DR: DARREN JOB#: [id number] CC:
[2018-09-20 04:00] VITALS: BP 148/83
[2018-09-20 08:00] VITALS: BP 129/72
--- NOTE | 2018-09-20 08:41 | Urology Progress Note ---
Assessment/Plan Assessment/Plan: 1. Staghorn renal calculus. 2. Bladder calculus. 3. Mild hydronephrosis, likely chronic. 4. Chronic kidney disease. 5. Acute kidney injury, improved. 6. Hematuria. 7. Pyuria. 8. Urinary retention. 9. Neurogenic bladder. 10. Bladder diverticulum. monitor clinically nur out and voiding monitor renal fxn, stable abx as ordered cont flomax BID pt can have tx of stones later electively by urologist in his plan Subjective Allergies: Coded Allergies: No Known Allergies (Unverified , 09/11/18) Subjective all noted, voiding Objective Last 24 Hour Vital Signs Date Time Temp Pulse Resp B/P (MAP) Pulse Ox O2 Delivery O2 Flow Rate FiO2 09/20/18 04:00 97.2 58 19 148/83 (104) 95 09/20/18 00:00 98.0 68 18 139/76 (97) 94 09/19/18 21:00 Room Air 09/19/18 20:00 98.4 66 19 137/72 (93) 95 09/19/18 16:00 98.5 65 20 143/75 (97) 99 09/19/18 11:58 98.2 56 19 145/71 (95) 95 09/19/18 09:00 Room Air Intake and Output 09/19/18 09/20/18 19:00 07:00 Intake Total 956 ml Balance 956 ml Intake Oral 956 ml # Voids 5 2 # Bowel Movements 1 Microbiology Date/Time Source Procedure Growth Status 09/11/18 14:50 Nasal Nares MRSA Culture - Final Staphylococcus Aureus - Mrsa Complete 09/13/18 04:45 Stool Clostridium difficile Toxin Assay - Final Complete 09/11/18 14:16 Urine,Clean Catch Urine Culture - Final NO GROWTH AFTER 48 HOURS Complete 09/11/18 14:50 Rectum VRE Culture - Final NO VANCOMYCIN RESISTANT ENTEROCOCCUS ... Complete Current Medications Medications (Trade) Dose Ordered Sig/Sujit Route PRN Reason Start Time Stop Time Status Last Admin Dose Admin Amlodipine Besylate (Norvasc) 10 mg DAILY ORAL 09/15/18 09:00 10/15/18 08:59 09/19/18 08:33 Aspirin (Ecotrin) 81 mg DAILY ORAL 09/15/18 09:00 10/12/18 08:59 09/19/18 08:33 Folic Acid (Folate) 1 mg DAILY ORAL 09/15/18 09:00 10/12/18 08:59 09/19/18 08:33 Magnesium Oxide (Mag-Ox 400mg) 400 mg THREE TIMES A DAY ORAL 09/18/18 13:00 10/18/18 12:59 09/19/18 17:21 Multivitamins (Multivitamins) 1 tab DAILY ORAL 09/15/18 09:00 10/12/18 08:59 09/19/18 08:33 Quetiapine Fumarate (SEROquel) 37.5 mg TID ORAL 09/17/18 09:00 10/17/18 08:59 09/19/18 18:29 Tamsulosin HCl (Flomax) 0.4 mg BID ORAL 09/15/18 09:00 10/11/18 19:00 09/19/18 17:21 Vancomycin HCl (Firvanq) 125 mg FOUR TIMES A DAY ORAL 09/15/18 09:00 09/21/18 12:59 09/19/18 21:02 Height (Feet): 5 Height (Inches): 10.00 Weight (Pounds): 184 Objective exam stable Brad Iqbal MD Sep 20, 2018 08:41
[2018-09-20] MEDS: Aspirin EC 81mg tab ORAL SCH (08:54)
[2018-09-20] MEDS: Magnesium Oxide 400mg tab ORAL SCH ×3 (08:54→17:08)
[2018-09-20] MEDS: Tamsulosin 0.4mg cap ORAL SCH ×2 (08:54→17:08)
[2018-09-20] MEDS: Vancomycin oral 125mg/2.5ml ORAL SCH ×4 (08:55→20:17)
[2018-09-20 12:00] VITALS: BP 136/77
[2018-09-20 15:55] VITALS: BP 137/69
[2018-09-20 20:00] VITALS: BP 148/69
[2018-09-21] VITALS: BP 117/58
--- NOTE | 2018-09-21 00:30 | Progress Note ---
DATE: 09/20/2018 SUBJECTIVE: The patient is in bed, no acute distress. Calm and cooperative. Has episodes of anxiety. The patient is calm, cooperative and does not cooperate with the treatment. Refused PT today. MENTAL STATUS EXAMINATION: The patient is alert, oriented to self, place, did not know the date. Mood is irritable and anxious. Affect is flat. Thought process concrete. Thought content, no suicidal or homicidal ideation. ASSESSMENT: Acute encephalopathy, alcohol dependence, mood disorder. PLAN: 1. We will continue the Seroquel 37.5 t.i.d. 2. Start the patient on Lexapro 10 mg in the morning. 3. We will continue to follow and readjust the medications. Denice Collins M.D. DR: CHYNA JOB#: [id number] CC:
--- NOTE | 2018-09-21 01:00 | Progress Note ---
DATE: 09/20/2018 INTERNAL MEDICINE PROGRESS NOTE SUBJECTIVE: The patient has no diarrhea. No new complaints. He is voiding independently. There is no sign of withdrawal. There were episodes of agitation. OBJECTIVE: VITAL SIGNS: Blood pressure 137/69, pulse 70, respirations 18. LUNGS: Clear. CARDIAC: Regular. ABDOMEN: Soft. EXTREMITIES: No edema. IMPRESSION: Left eye anisocoria. PLAN: 1. Complete treatment tomorrow. 2. Add thiamine and vitamin. 3. Withdrawal precautions. 4. Titrate psychotropic therapy. 5. Discharge plan. 6. Outpatient lithotripsy in future. Claude Gambino M.D. DR: GERI JOB#: [id number] CC:
[2018-09-21 04:00] VITALS: BP 123/72
--- NOTE | 2018-09-21 07:37 | Nephrology Progress Note ---
Assessment/Plan Problem List: (1) Bladder calculi (2) Renal insufficiency (3) Bilateral renal stones (4) KEE (acute kidney injury) (5) Hydronephrosis (6) Staghorn calculus (7) Hypomagnesemia Plan creatinine lower, 1.6, 1.3 psych consult, will need further procedures in future, urine culture neg stop current antibiotic, c diff + ordered po vanco, colonized mrsa, nur out, voiding, add magnesium oxide Subjective Constitutional: Reports: no symptoms HEENT: Reports: no symptoms Genitourinary: Reports: incontinence Neurologic/Psychiatric: Reports: no symptoms Subjective , no distress- Objective Objective Last 24 Hour Vital Signs Date Time Temp Pulse Resp B/P (MAP) Pulse Ox O2 Delivery O2 Flow Rate FiO2 09/21/18 04:00 98.6 63 20 123/72 (89) 98 09/21/18 00:00 98.9 63 18 117/58 (77) 97 09/20/18 21:00 Room Air 09/20/18 20:00 98.0 74 18 148/69 (95) 97 09/20/18 15:55 97.6 70 18 137/69 (91) 97 09/20/18 12:00 98.0 63 18 136/77 (96) 96 09/20/18 09:00 Room Air 09/20/18 08:54 69 129/72 09/20/18 08:00 97.7 69 19 129/72 (91) 96 Intake and Output 09/20/18 09/21/18 19:00 07:00 Intake Total 960 ml Output Total 300 ml Balance 960 ml -300 ml Intake Oral 960 ml Output Urine Total 300 ml # Voids 5 2 # Bowel Movements 4 Height (Feet): 5 Height (Inches): 10.00 Weight (Pounds): 184 General Appearance: no apparent distress EENT: other - L lens opacity Cardiovascular: regular rhythm Respiratory/Chest: lungs clear Abdomen: normal bowel sounds, non tender 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
[2018-09-21 08:00] VITALS: BP 135/73
[2018-09-21] MEDS: Tamsulosin 0.4mg cap ORAL SCH ×2 (08:25→17:13)
[2018-09-21] MEDS: Magnesium Oxide 400mg tab ORAL SCH ×3 (08:25→17:13)
[2018-09-21] MEDS: Aspirin EC 81mg tab ORAL SCH (08:25)
[2018-09-21] MEDS: Thiamine 100mg tab ORAL SCH (08:25)
--- NOTE | 2018-09-21 08:40 | Urology Progress Note ---
Assessment/Plan Assessment/Plan: 1. Staghorn renal calculus. 2. Bladder calculus. 3. Mild hydronephrosis, likely chronic. 4. Chronic kidney disease. 5. Acute kidney injury, improved. 6. Hematuria. 7. Pyuria. 8. Urinary retention. 9. Neurogenic bladder. 10. Bladder diverticulum. monitor clinically nur out and voiding monitor renal fxn, stable abx as ordered cont flomax BID pt can have tx of stones later electively by urologist in his plan Subjective Allergies: Coded Allergies: No Known Allergies (Unverified , 09/11/18) Subjective all noted, voiding Objective Last 24 Hour Vital Signs Date Time Temp Pulse Resp B/P (MAP) Pulse Ox O2 Delivery O2 Flow Rate FiO2 09/21/18 08:25 63 123/72 09/21/18 04:00 98.6 63 20 123/72 (89) 98 09/21/18 00:00 98.9 63 18 117/58 (77) 97 09/20/18 21:00 Room Air 09/20/18 20:00 98.0 74 18 148/69 (95) 97 09/20/18 15:55 97.6 70 18 137/69 (91) 97 09/20/18 12:00 98.0 63 18 136/77 (96) 96 09/20/18 09:00 Room Air 09/20/18 08:54 69 129/72 Intake and Output 09/20/18 09/21/18 19:00 07:00 Intake Total 960 ml Output Total 300 ml Balance 960 ml -300 ml Intake Oral 960 ml Output Urine Total 300 ml # Voids 5 2 # Bowel Movements 4 Microbiology Date/Time Source Procedure Growth Status 09/11/18 14:50 Nasal Nares MRSA Culture - Final Staphylococcus Aureus - Mrsa Complete 09/13/18 04:45 Stool Clostridium difficile Toxin Assay - Final Complete 09/11/18 14:16 Urine,Clean Catch Urine Culture - Final NO GROWTH AFTER 48 HOURS Complete 09/11/18 14:50 Rectum VRE Culture - Final NO VANCOMYCIN RESISTANT ENTEROCOCCUS ... Complete Current Medications Medications (Trade) Dose Ordered Sig/Sujit Route PRN Reason Start Time Stop Time Status Last Admin Dose Admin Amlodipine Besylate (Norvasc) 10 mg DAILY ORAL 09/15/18 09:00 10/15/18 08:59 09/21/18 08:25 Aspirin (Ecotrin) 81 mg DAILY ORAL 09/15/18 09:00 10/12/18 08:59 09/21/18 08:25 Escitalopram Oxalate (Lexapro) 10 mg DAILY ORAL 09/21/18 09:00 10/21/18 08:59 09/21/18 08:25 Folic Acid (Folate) 1 mg DAILY ORAL 09/15/18 09:00 10/12/18 08:59 09/21/18 08:25 Magnesium Oxide (Mag-Ox 400mg) 400 mg THREE TIMES A DAY ORAL 09/18/18 13:00 10/18/18 12:59 09/21/18 08:25 Magnesium Sulfate 100 ml @ 100 mls/hr Q1H IVPB 09/21/18 09:00 09/21/18 10:59 09/21/18 08:26 Multivitamins (Multivitamins) 1 tab DAILY ORAL 09/15/18 09:00 10/12/18 08:59 09/21/18 08:25 Quetiapine Fumarate (SEROquel) 37.5 mg TID ORAL 09/17/18 09:00 10/17/18 08:59 09/21/18 08:25 Tamsulosin HCl (Flomax) 0.4 mg BID ORAL 09/15/18 09:00 10/11/18 19:00 09/21/18 08:25 Thiamine HCl (Vitamin B1) 100 mg DAILY ORAL 09/21/18 09:00 10/21/18 08:59 09/21/18 08:25 Vancomycin HCl (Firvanq) 125 mg FOUR TIMES A DAY ORAL 09/21/18 09:00 09/21/18 23:00 Height (Feet): 5 Height (Inches): 10.00 Weight (Pounds): 184 Objective exam stable Brad Iqbal MD Sep 21, 2018 08:40
[2018-09-21] MEDS: Vancomycin oral 125mg/2.5ml ORAL SCH ×4 (10:35→20:42)
[2018-09-21 12:00] VITALS: BP 131/61
[2018-09-21 15:54] VITALS: BP 130/69
[2018-09-21 20:00] VITALS: BP 142/75
[2018-09-22] VITALS (7 sets, daily range): BP systolic 121–157; BP diastolic 70–92
--- NOTE | 2018-09-22 00:30 | Progress Note ---
DATE: 09/21/2018 SUBJECTIVE: The patient is still uncooperative. He was defecating in the bed. Poor insight. Not redirectable. MENTAL STATUS EXAMINATION: The patient is uncooperative, easily agitated. Unable to answer the questions appropriately. Mood was agitated and irritable. Affect is flat. Thought process, there is a paucity of thought content. Thought content, no suicidal or homicidal ideations. ASSESSMENT: Acute encephalopathy, improving. PLAN: 1. We will discontinue the Seroquel. Start the patient on risperidone 2 mg at bedtime. 2. Lexapro 10 mg in the morning. 3. We will continue to follow and readjust the medications. Denice Collins M.D. DR: CHYNA JOB#: [id number] CC:
[2018-09-22] MEDS: Aspirin EC 81mg tab ORAL SCH (08:27)
[2018-09-22] MEDS: Tamsulosin 0.4mg cap ORAL SCH ×2 (08:27→17:07)
[2018-09-22] MEDS: Thiamine 100mg tab ORAL SCH (08:28)
[2018-09-22] MEDS: Magnesium Oxide 400mg tab ORAL SCH ×3 (08:28→17:07)
[2018-09-22] MEDS: traMADol 50mg tab ORAL PRN ×2 (08:40→16:20)
--- NOTE | 2018-09-22 09:34 | Urology Progress Note ---
Assessment/Plan Assessment/Plan: 1. Staghorn renal calculus. 2. Bladder calculus. 3. Mild hydronephrosis, likely chronic. 4. Chronic kidney disease. 5. Acute kidney injury, improved. 6. Hematuria. 7. Pyuria. 8. Urinary retention. 9. Neurogenic bladder. 10. Bladder diverticulum. monitor clinically nur out and voiding monitor renal fxn, stable abx as ordered cont flomax BID pt can have tx of stones later electively by urologist in his plan Subjective Allergies: Coded Allergies: No Known Allergies (Unverified , 09/11/18) Subjective all noted, voiding Objective Last 24 Hour Vital Signs Date Time Temp Pulse Resp B/P (MAP) Pulse Ox O2 Delivery O2 Flow Rate FiO2 09/22/18 08:28 61 141/70 09/22/18 08:00 97.9 61 19 141/70 (93) 96 09/22/18 04:00 98.4 67 19 157/92 (113) 96 09/22/18 00:00 98.5 56 19 152/76 (101) 98 09/21/18 21:00 Room Air 09/21/18 20:00 97.7 57 19 142/75 (97) 97 09/21/18 15:54 98.7 81 18 130/69 (89) 98 09/21/18 12:00 98.4 65 18 131/61 (84) 99 Intake and Output 09/21/18 09/22/18 19:00 07:00 Intake Total 600 ml 480 ml Balance 600 ml 480 ml Intake Oral 600 ml 480 ml # Voids 6 2 Microbiology Date/Time Source Procedure Growth Status 09/11/18 14:50 Nasal Nares MRSA Culture - Final Staphylococcus Aureus - Mrsa Complete 09/13/18 04:45 Stool Clostridium difficile Toxin Assay - Final Complete 09/11/18 14:16 Urine,Clean Catch Urine Culture - Final NO GROWTH AFTER 48 HOURS Complete 09/11/18 14:50 Rectum VRE Culture - Final NO VANCOMYCIN RESISTANT ENTEROCOCCUS ... Complete Current Medications Medications (Trade) Dose Ordered Sig/Sujit Route PRN Reason Start Time Stop Time Status Last Admin Dose Admin Amlodipine Besylate (Norvasc) 10 mg DAILY ORAL 09/15/18 09:00 10/15/18 08:59 09/22/18 08:28 Aspirin (Ecotrin) 81 mg DAILY ORAL 09/15/18 09:00 10/12/18 08:59 09/22/18 08:27 Escitalopram Oxalate (Lexapro) 10 mg DAILY ORAL 09/21/18 09:00 10/21/18 08:59 09/22/18 08:28 Folic Acid (Folate) 1 mg DAILY ORAL 09/15/18 09:00 10/12/18 08:59 09/22/18 08:28 Magnesium Oxide (Mag-Ox 400mg) 400 mg THREE TIMES A DAY ORAL 09/18/18 13:00 10/18/18 12:59 09/22/18 08:28 Multivitamins (Multivitamins) 1 tab DAILY ORAL 09/15/18 09:00 10/12/18 08:59 09/22/18 08:28 Risperidone (RisperDAL) 2 mg BEDTIME ORAL 09/22/18 21:00 10/22/18 20:59 Tamsulosin HCl (Flomax) 0.4 mg BID ORAL 09/15/18 09:00 10/11/18 19:00 09/22/18 08:27 Thiamine HCl (Vitamin B1) 100 mg DAILY ORAL 09/21/18 09:00 10/21/18 08:59 09/22/18 08:28 Tramadol HCl (Ultram) 50 mg Q6H PRN ORAL For Pain 09/22/18 08:30 09/29/18 08:29 09/22/18 08:40 Height (Feet): 5 Height (Inches): 10.00 Weight (Pounds): 184 Objective exam stable Brad Iqbal MD Sep 22, 2018 09:34
--- NOTE | 2018-09-22 13:35 | Nephrology Progress Note ---
Assessment/Plan Problem List: (1) Bladder calculi (2) Renal insufficiency (3) Bilateral renal stones (4) KEE (acute kidney injury) (5) Hydronephrosis (6) Staghorn calculus (7) Hypomagnesemia Plan creatinine lower, 1.6, 1.3 psych consult, will need further procedures in future, urine culture neg stop current antibiotic, c diff + ordered po vanco, colonized mrsa, nur out, voiding, add magnesium oxide Subjective Constitutional: Reports: no symptoms HEENT: Reports: no symptoms Genitourinary: Reports: incontinence Neurologic/Psychiatric: Reports: no symptoms Subjective , no distress- Objective Objective Last 24 Hour Vital Signs Date Time Temp Pulse Resp B/P (MAP) Pulse Ox O2 Delivery O2 Flow Rate FiO2 09/22/18 12:00 98.1 81 20 125/73 (90) 96 09/22/18 09:00 Room Air 09/22/18 08:28 61 141/70 09/22/18 08:00 97.9 61 19 141/70 (93) 96 09/22/18 04:00 98.4 67 19 157/92 (113) 96 09/22/18 00:00 98.5 56 19 152/76 (101) 98 09/21/18 21:00 Room Air 09/21/18 20:00 97.7 57 19 142/75 (97) 97 09/21/18 15:54 98.7 81 18 130/69 (89) 98 Intake and Output 09/21/18 09/22/18 19:00 07:00 Intake Total 600 ml 480 ml Balance 600 ml 480 ml Intake Oral 600 ml 480 ml # Voids 6 2 Height (Feet): 5 Height (Inches): 10.00 Weight (Pounds): 184 General Appearance: no apparent distress EENT: normal ENT inspection Neck: normal alignment Cardiovascular: normal rate, regular rhythm Respiratory/Chest: lungs clear Abdomen: non tender 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
[2018-09-23 04:00] VITALS: BP 147/83
[2018-09-23 08:00] VITALS: BP 150/92
[2018-09-23] MEDS: Tamsulosin 0.4mg cap ORAL SCH ×2 (08:17→17:13)
[2018-09-23] MEDS: Magnesium Oxide 400mg tab ORAL SCH ×3 (08:17→17:13)
[2018-09-23] MEDS: Aspirin EC 81mg tab ORAL SCH (08:17)
[2018-09-23] MEDS: Thiamine 100mg tab ORAL SCH (08:17)
--- NOTE | 2018-09-23 09:07 | Urology Progress Note ---
Assessment/Plan Assessment/Plan: 1. Staghorn renal calculus. 2. Bladder calculus. 3. Mild hydronephrosis, likely chronic. 4. Chronic kidney disease. 5. Acute kidney injury, improved. 6. Hematuria. 7. Pyuria. 8. Urinary retention. 9. Neurogenic bladder. 10. Bladder diverticulum. monitor clinically nur out and voiding monitor renal fxn, stable s/p abx cont flomax BID pt can have tx of stones later electively by urologist in his plan Subjective Allergies: Coded Allergies: No Known Allergies (Unverified , 09/11/18) Subjective all noted, voiding Objective Last 24 Hour Vital Signs Date Time Temp Pulse Resp B/P (MAP) Pulse Ox O2 Delivery O2 Flow Rate FiO2 09/23/18 08:17 62 150/92 09/23/18 08:00 96.0 62 19 150/92 (111) 97 09/23/18 04:00 96.8 49 19 147/83 (104) 97 09/22/18 23:47 96.9 51 19 121/73 (89) 96 09/22/18 20:05 Room Air 09/22/18 19:59 97.9 57 19 127/77 (94) 96 09/22/18 16:00 98.6 64 18 130/73 (92) 96 09/22/18 12:00 98.1 81 20 125/73 (90) 96 Intake and Output 09/22/18 09/23/18 18:59 06:59 Intake Total 480 ml Output Total 300 ml Balance 180 ml Intake Oral 480 ml Output Urine Total 300 ml # Voids 3 1 # Bowel Movements 2 1 Microbiology Date/Time Source Procedure Growth Status 09/11/18 14:50 Nasal Nares MRSA Culture - Final Staphylococcus Aureus - Mrsa Complete 09/13/18 04:45 Stool Clostridium difficile Toxin Assay - Final Complete 09/11/18 14:16 Urine,Clean Catch Urine Culture - Final NO GROWTH AFTER 48 HOURS Complete 09/11/18 14:50 Rectum VRE Culture - Final NO VANCOMYCIN RESISTANT ENTEROCOCCUS ... Complete Current Medications Medications (Trade) Dose Ordered Sig/Sujit Route PRN Reason Start Time Stop Time Status Last Admin Dose Admin Amlodipine Besylate (Norvasc) 10 mg DAILY ORAL 09/15/18 09:00 10/15/18 08:59 09/23/18 08:17 Aspirin (Ecotrin) 81 mg DAILY ORAL 09/15/18 09:00 10/12/18 08:59 09/23/18 08:17 Escitalopram Oxalate (Lexapro) 10 mg DAILY ORAL 09/21/18 09:00 10/21/18 08:59 09/23/18 08:17 Folic Acid (Folate) 1 mg DAILY ORAL 09/15/18 09:00 10/12/18 08:59 09/23/18 08:17 Magnesium Oxide (Mag-Ox 400mg) 400 mg THREE TIMES A DAY ORAL 09/18/18 13:00 10/18/18 12:59 09/23/18 08:17 Multivitamins (Multivitamins) 1 tab DAILY ORAL 09/15/18 09:00 10/12/18 08:59 09/23/18 08:17 Risperidone (RisperDAL) 2 mg BEDTIME ORAL 09/22/18 21:00 10/22/18 20:59 09/22/18 20:47 Tamsulosin HCl (Flomax) 0.4 mg BID ORAL 09/15/18 09:00 10/11/18 19:00 09/23/18 08:17 Thiamine HCl (Vitamin B1) 100 mg DAILY ORAL 09/21/18 09:00 10/21/18 08:59 09/23/18 08:17 Tramadol HCl (Ultram) 50 mg Q6H PRN ORAL For Pain 09/22/18 08:30 09/29/18 08:29 09/22/18 16:20 Height (Feet): 5 Height (Inches): 10.00 Weight (Pounds): 184 Objective exam stable Brad Iqbal MD Sep 23, 2018 09:07
[2018-09-23 12:00] VITALS: BP 138/88
--- NOTE | 2018-09-23 12:37 | Nephrology Progress Note ---
Assessment/Plan Problem List: (1) Bladder calculi (2) Renal insufficiency (3) Bilateral renal stones (4) KEE (acute kidney injury) (5) Hydronephrosis (6) Staghorn calculus (7) Hypomagnesemia Plan creatinine lower, 1.6, 1.3 psych consult, will need further procedures in future, urine culture neg stop current antibiotic, c diff + ordered po vanco, colonized mrsa, nur out, voiding, add magnesium oxide Subjective Constitutional: Reports: weakness HEENT: Reports: no symptoms Genitourinary: Reports: incontinence Neurologic/Psychiatric: Reports: no symptoms Subjective , no distress- Objective Objective Last 24 Hour Vital Signs Date Time Temp Pulse Resp B/P (MAP) Pulse Ox O2 Delivery O2 Flow Rate FiO2 09/23/18 09:00 Room Air 09/23/18 08:17 62 150/92 09/23/18 08:00 96.0 62 19 150/92 (111) 97 09/23/18 04:00 96.8 49 19 147/83 (104) 97 09/22/18 23:47 96.9 51 19 121/73 (89) 96 09/22/18 20:05 Room Air 09/22/18 19:59 97.9 57 19 127/77 (94) 96 09/22/18 16:00 98.6 64 18 130/73 (92) 96 Intake and Output 09/22/18 09/23/18 19:00 07:00 Intake Total 480 ml Output Total 300 ml Balance 180 ml Intake Oral 480 ml Output Urine Total 300 ml # Voids 3 1 # Bowel Movements 2 1 Height (Feet): 5 Height (Inches): 10.00 Weight (Pounds): 184 General Appearance: no apparent distress EENT: normal ENT inspection Neck: supple Cardiovascular: regular rhythm Respiratory/Chest: lungs clear, normal breath sounds Abdomen: non tender 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
[2018-09-23 16:00] VITALS: BP 139/78
[2018-09-23 20:00] VITALS: BP 129/76
[2018-09-24] VITALS: BP 139/70
--- NOTE | 2018-09-24 01:15 | Progress Note ---
DATE: 09/21/2018 INTERNAL MEDICINE PROGRESS NOTE This is a late entry for 09/21/2018. SUBJECTIVE: The patient still has episodes of agitation and defecates in bed. He remains on antimicrobials for C. difficile, but his stool is now formed. OBJECTIVE: VITAL SIGNS: Stable. He is afebrile. Exam otherwise without change. IMPRESSION: Stable. PLAN: 1. Complete vancomycin therapy for C. diff. 2. Maintain adequate oral intake and hydration. 3. Outpatient lithotripsy. 4. Continue efforts at placement. Claude Gambino M.D. DR: LAUREL JOB#: [id number] CC:
--- NOTE | 2018-09-24 01:30 | Progress Note ---
DATE: 09/22/2018 INTERNAL MEDICINE PROGRESS NOTE SUBJECTIVE: Status quo. No distress. Oral intake adequate. No diarrhea. OBJECTIVE: VITAL SIGNS: Stable. LUNGS: Clear. CARDIAC: Regular. ABDOMEN: Soft, nontender. No edema. IMPRESSION: 1. Status post treatment for C. difficile. 2. Acute renal failure, resolved with hydration. 3. Staghorn calculus and nephrolithiasis stable. 4. Prostatic hypertrophy. 5. Schizoaffective disorder, now on psychotropic therapy. 6. Alcoholism, on vitamin supplements and withdrawal precautions. 7. 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 PLAN: 1. Plan of care in place. 2. We will recheck laboratory studies periodically. 3. Efforts for appropriate placement are ongoing. Claude Gambino M.D. DR: SRAVAN JOB#: [id number] CC:
--- NOTE | 2018-09-24 01:30 | Progress Note ---
DATE: 09/23/2018 INTERNAL MEDICINE PROGRESS NOTE SUBJECTIVE: Condition remains stable. The patient is off antimicrobials. Tolerating intake. No change in exam. PHYSICAL EXAMINATION: VITAL SIGNS: Stable as well and he is afebrile. PLAN: We will recheck laboratory studies. Continuing efforts to find a safe and appropriate disposition and placement for this patient. Claude Gambino M.D. DR: SRAVAN JOB#: [id number] CC:
[2018-09-24 04:00] VITALS: BP 135/69
[2018-09-24 08:00] VITALS: BP 130/70
--- NOTE | 2018-09-24 08:37 | Urology Progress Note ---
Assessment/Plan Assessment/Plan: 1. Staghorn renal calculus. 2. Bladder calculus. 3. Mild hydronephrosis, likely chronic. 4. Chronic kidney disease. 5. Acute kidney injury, improved. 6. Hematuria. 7. Pyuria. 8. Urinary retention. 9. Neurogenic bladder. 10. Bladder diverticulum. monitor clinically nur out and voiding monitor renal fxn, stable s/p abx cont flomax BID pt can have tx of stones later electively by urologist in his plan Subjective Allergies: Coded Allergies: No Known Allergies (Unverified , 09/11/18) Subjective all noted, voiding Objective Last 24 Hour Vital Signs Date Time Temp Pulse Resp B/P (MAP) Pulse Ox O2 Delivery O2 Flow Rate FiO2 09/24/18 04:00 97.5 65 19 135/69 (91) 95 09/24/18 00:00 98.0 60 19 139/70 (93) 96 09/23/18 20:23 Room Air 09/23/18 20:00 98.4 66 19 129/76 (93) 97 09/23/18 16:00 98.0 72 18 139/78 (98) 97 09/23/18 12:00 96.7 80 17 138/88 (105) 95 09/23/18 09:00 Room Air Intake and Output 09/23/18 09/24/18 18:59 06:59 Intake Total 880 ml 880 ml Balance 880 ml 880 ml Intake Oral 880 ml 880 ml # Voids 8 7 # Bowel Movements 2 1 Microbiology Date/Time Source Procedure Growth Status 09/11/18 14:50 Nasal Nares MRSA Culture - Final Staphylococcus Aureus - Mrsa Complete 09/13/18 04:45 Stool Clostridium difficile Toxin Assay - Final Complete 09/11/18 14:16 Urine,Clean Catch Urine Culture - Final NO GROWTH AFTER 48 HOURS Complete 09/11/18 14:50 Rectum VRE Culture - Final NO VANCOMYCIN RESISTANT ENTEROCOCCUS ... Complete Current Medications Medications (Trade) Dose Ordered Sig/Sujit Route PRN Reason Start Time Stop Time Status Last Admin Dose Admin Amlodipine Besylate (Norvasc) 10 mg DAILY ORAL 09/15/18 09:00 10/15/18 08:59 09/23/18 08:17 Aspirin (Ecotrin) 81 mg DAILY ORAL 09/15/18 09:00 10/12/18 08:59 09/23/18 08:17 Escitalopram Oxalate (Lexapro) 10 mg DAILY ORAL 09/21/18 09:00 10/21/18 08:59 09/23/18 08:17 Folic Acid (Folate) 1 mg DAILY ORAL 09/15/18 09:00 10/12/18 08:59 09/23/18 08:17 Magnesium Oxide (Mag-Ox 400mg) 400 mg THREE TIMES A DAY ORAL 09/18/18 13:00 10/18/18 12:59 09/23/18 17:13 Multivitamins (Multivitamins) 1 tab DAILY ORAL 09/15/18 09:00 10/12/18 08:59 09/23/18 08:17 Risperidone (RisperDAL) 2 mg BEDTIME ORAL 09/22/18 21:00 10/22/18 20:59 09/23/18 20:53 Tamsulosin HCl (Flomax) 0.4 mg BID ORAL 09/15/18 09:00 10/11/18 19:00 09/23/18 17:13 Thiamine HCl (Vitamin B1) 100 mg DAILY ORAL 09/21/18 09:00 10/21/18 08:59 09/23/18 08:17 Tramadol HCl (Ultram) 50 mg Q6H PRN ORAL For Pain 09/22/18 08:30 09/29/18 08:29 09/22/18 16:20 Height (Feet): 5 Height (Inches): 10.00 Weight (Pounds): 184 Objective exam stable Brad Iqbal MD Sep 24, 2018 08:37
--- NOTE | 2018-09-24 09:08 | Nephrology Progress Note ---
Assessment/Plan Problem List: (1) Bladder calculi (2) Renal insufficiency (3) Bilateral renal stones (4) KEE (acute kidney injury) (5) Hydronephrosis (6) Staghorn calculus (7) Hypomagnesemia Plan creatinine lower, 1.6, 1.3 psych consult, will need further procedures in future, urine culture neg stop current antibiotic, c diff + ordered po vanco, colonized mrsa, nur out, voiding, add magnesium oxide, repeat lab pending Subjective Constitutional: Reports: weakness HEENT: Reports: no symptoms Genitourinary: Reports: incontinence Neurologic/Psychiatric: Reports: no symptoms Subjective , no distress- Objective Objective Last 24 Hour Vital Signs Date Time Temp Pulse Resp B/P (MAP) Pulse Ox O2 Delivery O2 Flow Rate FiO2 09/24/18 04:00 97.5 65 19 135/69 (91) 95 09/24/18 00:00 98.0 60 19 139/70 (93) 96 09/23/18 20:23 Room Air 09/23/18 20:00 98.4 66 19 129/76 (93) 97 09/23/18 16:00 98.0 72 18 139/78 (98) 97 09/23/18 12:00 96.7 80 17 138/88 (105) 95 Intake and Output 09/23/18 09/24/18 19:00 07:00 Intake Total 880 ml 880 ml Balance 880 ml 880 ml Intake Oral 880 ml 880 ml # Voids 8 7 # Bowel Movements 2 1 Height (Feet): 5 Height (Inches): 10.00 Weight (Pounds): 184 General Appearance: no apparent distress EENT: other - blind os Neck: normal alignment Cardiovascular: normal rate, regular rhythm Respiratory/Chest: lungs clear Abdomen: non tender, soft Extremities: other - no edema 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
[2018-09-24] MEDS: Tamsulosin 0.4mg cap ORAL SCH ×2 (09:41→17:58)
[2018-09-24] MEDS: Magnesium Oxide 400mg tab ORAL SCH ×3 (09:41→17:58)
[2018-09-24] MEDS: Aspirin EC 81mg tab ORAL SCH (09:41)
[2018-09-24] MEDS: Thiamine 100mg tab ORAL SCH (09:42)
[2018-09-24 12:00] VITALS: BP 125/83
[2018-09-24 16:00] VITALS: BP 132/72
[2018-09-24 20:00] VITALS: BP 119/69
[2018-09-25] VITALS: BP 118/73
--- NOTE | 2018-09-25 03:15 | Progress Note ---
DATE: 09/24/2018 INTERNAL MEDICINE PROGRESS NOTE SUBJECTIVE: The patient's condition remains stable. He is off antimicrobials. No diarrhea noted. He is tolerating his diet. Adrenal function remains stable. The patient's disposition is pending an appropriate placement in view of his psychiatric parameters. Claude Gambino M.D. DR: AMITA JOB#: [id number] CC:
[2018-09-25 04:00] VITALS: BP 113/69
--- NOTE | 2018-09-25 07:41 | Urology Progress Note ---
Assessment/Plan Assessment/Plan: 1. Staghorn renal calculus. 2. Bladder calculus. 3. Mild hydronephrosis, likely chronic. 4. Chronic kidney disease. 5. Acute kidney injury, improved. 6. Hematuria. 7. Pyuria. 8. Urinary retention. 9. Neurogenic bladder. 10. Bladder diverticulum. monitor clinically nur out and voiding monitor renal fxn, stable s/p abx cont flomax BID pt can have tx of stones later electively by urologist in his plan Subjective Allergies: Coded Allergies: No Known Allergies (Unverified , 09/11/18) Subjective all noted, voiding, looks comfortable Objective Last 24 Hour Vital Signs Date Time Temp Pulse Resp B/P (MAP) Pulse Ox O2 Delivery O2 Flow Rate FiO2 09/25/18 04:00 98.4 70 20 113/69 (84) 97 09/25/18 00:00 99.1 66 18 118/73 (88) 96 09/24/18 20:23 Room Air 09/24/18 20:00 97.8 70 20 119/69 (86) 96 09/24/18 16:00 98.1 80 18 132/72 (92) 97 09/24/18 12:00 97.9 46 18 125/83 (97) 98 09/24/18 09:42 68 130/70 09/24/18 09:00 Room Air 09/24/18 08:00 97.7 68 20 130/70 (90) 97 Intake and Output 09/24/18 09/25/18 19:00 07:00 Intake Total 900 ml Output Total 550 ml 400 ml Balance 350 ml -400 ml Intake Oral 900 ml Output Urine Total 550 ml 400 ml # Voids 4 2 # Bowel Movements 1 Microbiology Date/Time Source Procedure Growth Status 09/11/18 14:50 Nasal Nares MRSA Culture - Final Staphylococcus Aureus - Mrsa Complete 09/13/18 04:45 Stool Clostridium difficile Toxin Assay - Final Complete 09/11/18 14:16 Urine,Clean Catch Urine Culture - Final NO GROWTH AFTER 48 HOURS Complete 09/11/18 14:50 Rectum VRE Culture - Final NO VANCOMYCIN RESISTANT ENTEROCOCCUS ... Complete Current Medications Medications (Trade) Dose Ordered Sig/Sujit Route PRN Reason Start Time Stop Time Status Last Admin Dose Admin Amlodipine Besylate (Norvasc) 10 mg DAILY ORAL 09/15/18 09:00 10/15/18 08:59 09/24/18 09:42 Aspirin (Ecotrin) 81 mg DAILY ORAL 09/15/18 09:00 10/12/18 08:59 09/24/18 09:41 Escitalopram Oxalate (Lexapro) 10 mg DAILY ORAL 09/21/18 09:00 10/21/18 08:59 09/24/18 09:42 Folic Acid (Folate) 1 mg DAILY ORAL 09/15/18 09:00 10/12/18 08:59 09/24/18 09:42 Magnesium Oxide (Mag-Ox 400mg) 400 mg THREE TIMES A DAY ORAL 09/18/18 13:00 10/18/18 12:59 09/24/18 17:58 Multivitamins (Multivitamins) 1 tab DAILY ORAL 09/15/18 09:00 10/12/18 08:59 09/24/18 09:41 Risperidone (RisperDAL) 2 mg BEDTIME ORAL 09/22/18 21:00 10/22/18 20:59 09/24/18 20:51 Tamsulosin HCl (Flomax) 0.4 mg BID ORAL 09/15/18 09:00 10/11/18 19:00 09/24/18 17:58 Thiamine HCl (Vitamin B1) 100 mg DAILY ORAL 09/21/18 09:00 10/21/18 08:59 09/24/18 09:42 Tramadol HCl (Ultram) 50 mg Q6H PRN ORAL For Pain 09/22/18 08:30 09/29/18 08:29 09/22/18 16:20 Height (Feet): 5 Height (Inches): 10.00 Weight (Pounds): 184 Objective exam stable Brad Iqbal MD Sep 25, 2018 07:41
[2018-09-25 08:00] VITALS: BP 139/74
[2018-09-25 08:02] LABS: EOSINOPHILS % (AUTO) 4.4 % (0.0-3.0); HEMATOCRIT 40.4 % (42.0-52.0); HEMOGLOBIN 13.2 G/DL (14.2-18.0); LYMPHOCYTES % (AUTO) 24.4 % (20.0-45.0); MEAN CORPUSCULAR VOLUME 90 FL (80-99); MONOCYTES % (AUTO) 7.6 % (1.0-10.0); NEUTROPHILS % (AUTO) 61.6 % (45.0-75.0); PLATELET COUNT 180 K/UL (150-450); RED BLOOD COUNT 4.48 M/UL (4.70-6.10); RED CELL DISTRIBUTION WIDTH 14.5 % (11.6-14.8); WHITE BLOOD COUNT 6.7 K/UL (4.8-10.8)
[2018-09-25 08:22] LABS: ALANINE AMINOTRANSFERASE 95 U/L (12-78); ALBUMIN 3.3 G/DL (3.4-5.0); ALBUMIN/GLOBULIN RATIO 0.7 (1.0-2.7); ALKALINE PHOSPHATASE 87 U/L (46-116); ANION GAP 7 mmol/L (5-15); ASPARTATE AMINO TRANSFERASE 100 U/L (15-37); BILIRUBIN,TOTAL 0.7 MG/DL (0.2-1.0); BLOOD UREA NITROGEN 25 mg/dL (7-18); CALCIUM 9.5 MG/DL (8.5-10.1); CARBON DIOXIDE 25 MMOL/L (21-32); CHLORIDE 103 MMOL/L (98-107); CREATININE 1.5 MG/DL (0.55-1.30); POTASSIUM 5.8 MMOL/L (3.5-5.1); SODIUM 135 MMOL/L (136-145)
[2018-09-25] MEDS: Thiamine 100mg tab ORAL SCH (08:58)
[2018-09-25] MEDS: Magnesium Oxide 400mg tab ORAL SCH ×3 (08:58→17:54)
[2018-09-25] MEDS: Aspirin EC 81mg tab ORAL SCH (08:58)
[2018-09-25] MEDS: Tamsulosin 0.4mg cap ORAL SCH ×2 (08:58→17:54)
[2018-09-25 12:00] VITALS: BP 136/81
[2018-09-25 16:00] VITALS: BP 129/76
[2018-09-25 20:00] VITALS: BP 132/79
--- NOTE | 2018-09-25 21:30 | Progress Note ---
DATE: 09/25/2018 SUBJECTIVE: The patient is in bed, in no acute distress. Calm, cooperative, more redirectable. MENTAL STATUS EXAMINATION: The patient is alert, oriented times self, place, and situation. Mood is dysphoric. Affect is constricted. Congruent with mood. Thought process is concrete. Thought content, no suicidal or homicidal ideation. ASSESSMENT: 1. Psychotic disorder. 2. Acute encephalopathy, improved. PLAN: 1. We will continue current medication. 2. Provide the patient with reality orientation. Denice Collins M.D. DR: Kylah JOB#: [id number] CC:
--- NOTE | 2018-09-26 00:15 | Progress Note ---
DATE: 09/25/2018 INTERNAL MEDICINE PROGRESS NOTE SUBJECTIVE: The patient has no new complaints. He is voiding well. His lab studies today revealed rise in potassium and BUN/creatinine level. OBJECTIVE: VITAL SIGNS: Blood pressure 129/76, pulse 76, respirations 18, afebrile. ABDOMEN: There is no CVA tenderness. LUNGS: Clear. CARDIAC: Regular. EXTREMITIES: No edema. IMPRESSION: 1. Worsening renal function. 2. Nephrolithiasis. 3. Status post treatment for C. difficile colitis. 4. Hyperkalemia. PLAN: 1. Saline hydration. 2. Repeat ultrasound of the kidneys. 3. Encourage fluid intake. 4. Repeat potassium level. Claude Gambino M.D. DR: EMILIA JOB#: [id number] CC:
[2018-09-26 00:23] VITALS: BP 133/65
[2018-09-26 04:50] VITALS: BP 97/63
[2018-09-26 06:42] LABS: BASOPHILS % (AUTO) 1.7 % (0.0-2.0); EOSINOPHILS % (AUTO) 5.1 % (0.0-3.0); HEMATOCRIT 40.8 % (42.0-52.0); HEMOGLOBIN 13.5 G/DL (14.2-18.0); LYMPHOCYTES % (AUTO) 23.9 % (20.0-45.0); MEAN CORPUSCULAR VOLUME 91 FL (80-99); MONOCYTES % (AUTO) 8.9 % (1.0-10.0); NEUTROPHILS % (AUTO) 60.4 % (45.0-75.0); PLATELET COUNT 177 K/UL (150-450); RED BLOOD COUNT 4.49 M/UL (4.70-6.10); RED CELL DISTRIBUTION WIDTH 14.4 % (11.6-14.8); WHITE BLOOD COUNT 7.8 K/UL (4.8-10.8)
[2018-09-26 07:11] LABS: ANION GAP 8 mmol/L (5-15); BLOOD UREA NITROGEN 30 mg/dL (7-18); CALCIUM 9.5 MG/DL (8.5-10.1); CARBON DIOXIDE 27 MMOL/L (21-32); CHLORIDE 106 MMOL/L (98-107); CREATININE 1.7 MG/DL (0.55-1.30); POTASSIUM 4.7 MMOL/L (3.5-5.1); SODIUM 141 MMOL/L (136-145)
[2018-09-26 08:00] VITALS: BP 147/75
[2018-09-26] MEDS: Tamsulosin 0.4mg cap ORAL SCH ×2 (09:00→17:22)
[2018-09-26] MEDS: Thiamine 100mg tab ORAL SCH (09:00)
[2018-09-26] MEDS: Magnesium Oxide 400mg tab ORAL SCH ×3 (09:00→17:22)
[2018-09-26] MEDS: Aspirin EC 81mg tab ORAL SCH (09:00)
--- NOTE | 2018-09-26 09:13 | Urology Progress Note ---
Assessment/Plan Assessment/Plan: 1. Staghorn renal calculus. 2. Bladder calculus. 3. Mild hydronephrosis, likely chronic. 4. Chronic kidney disease. 5. Acute kidney injury, improved. 6. Hematuria. 7. Pyuria. 8. Urinary retention. 9. Neurogenic bladder. 10. Bladder diverticulum. monitor clinically nur out and voiding monitor renal fxn, stable s/p abx cont flomax BID pt can have tx of stones later electively by urologist in his plan Subjective Allergies: Coded Allergies: No Known Allergies (Unverified , 09/11/18) Subjective all noted, voiding, looks comfortable Objective Last 24 Hour Vital Signs Date Time Temp Pulse Resp B/P (MAP) Pulse Ox O2 Delivery O2 Flow Rate FiO2 09/26/18 04:50 97.8 76 18 97/63 (74) 09/26/18 00:23 98.1 75 18 133/65 (87) 09/25/18 21:43 Room Air 09/25/18 20:00 98.4 79 18 132/79 (96) 95 09/25/18 16:00 97.4 76 129/76 (93) 09/25/18 12:00 98.8 88 19 136/81 (99) 98 Intake and Output 09/25/18 09/26/18 19:00 07:00 Intake Total 400 ml 500 ml Balance 400 ml 500 ml Intake Oral 400 ml IV Total 500 ml # Voids 2 Microbiology Date/Time Source Procedure Growth Status 09/11/18 14:50 Nasal Nares MRSA Culture - Final Staphylococcus Aureus - Mrsa Complete 09/13/18 04:45 Stool Clostridium difficile Toxin Assay - Final Complete 09/11/18 14:16 Urine,Clean Catch Urine Culture - Final NO GROWTH AFTER 48 HOURS Complete 09/11/18 14:50 Rectum VRE Culture - Final NO VANCOMYCIN RESISTANT ENTEROCOCCUS ... Complete Current Medications Medications (Trade) Dose Ordered Sig/Sujit Route PRN Reason Start Time Stop Time Status Last Admin Dose Admin Amlodipine Besylate (Norvasc) 10 mg DAILY ORAL 09/15/18 09:00 10/15/18 08:59 09/25/18 08:58 Aspirin (Ecotrin) 81 mg DAILY ORAL 09/15/18 09:00 10/12/18 08:59 09/25/18 08:58 Escitalopram Oxalate (Lexapro) 10 mg DAILY ORAL 09/21/18 09:00 10/21/18 08:59 09/25/18 08:58 Folic Acid (Folate) 1 mg DAILY ORAL 09/15/18 09:00 10/12/18 08:59 09/25/18 08:58 Magnesium Oxide (Mag-Ox 400mg) 400 mg THREE TIMES A DAY ORAL 09/18/18 13:00 10/18/18 12:59 09/25/18 17:54 Multivitamins (Multivitamins) 1 tab DAILY ORAL 09/15/18 09:00 10/12/18 08:59 09/25/18 08:58 Risperidone (RisperDAL) 2 mg BEDTIME ORAL 09/22/18 21:00 10/22/18 20:59 09/25/18 21:14 Sodium Chloride 1,000 ml @ 125 mls/hr Q8H IV 09/25/18 23:45 10/25/18 23:44 09/25/18 23:45 Tamsulosin HCl (Flomax) 0.4 mg BID ORAL 09/15/18 09:00 10/11/18 19:00 09/25/18 17:54 Thiamine HCl (Vitamin B1) 100 mg DAILY ORAL 09/21/18 09:00 10/21/18 08:59 09/25/18 08:58 Tramadol HCl (Ultram) 50 mg Q6H PRN ORAL For Pain 09/22/18 08:30 09/29/18 08:29 09/22/18 16:20 Laboratory Tests 09/26/18 06:20: White Blood Count 7.8, Red Blood Count 4.49L, Hemoglobin 13.5L, Hematocrit 40.8L , Mean Corpuscular Volume 91, Mean Corpuscular Hemoglobin 30.0, Mean Corpuscular Hemoglobin Concent 33.0, Red Cell Distribution Width 14.4, Platelet Count 177, Mean Platelet Volume 6.5, Neutrophils (%) (Auto) 60.4, Lymphocytes (% ) (Auto) 23.9, Monocytes (%) (Auto) 8.9, Eosinophils (%) (Auto) 5.1H, Basophils (%) (Auto) 1.7, Sodium Level 141, Potassium Level 4.7, Chloride Level 106, Carbon Dioxide Level 27, Anion Gap 8, Blood Urea Nitrogen 30H, Creatinine 1.7H, Estimat Glomerular Filtration Rate 40.7, Glucose Level 108H, Uric Acid 7.2, Calcium Level 9.5 Height (Feet): 5 Height (Inches): 10.00 Weight (Pounds): 184 Objective exam stable Brad Iqbal MD Sep 26, 2018 09:13
[2018-09-26] MEDS: traMADol 50mg tab ORAL PRN (11:45)
[2018-09-26 12:00] VITALS: BP 145/89
[2018-09-26 16:00] VITALS: BP 147/72
--- NOTE | 2018-09-26 19:30 | Progress Note ---
DATE: 09/26/2018 SUBJECTIVE: The patient is still the same. The patient still needs redirection throughout the day. Calmer and more cooperative. MENTAL STATUS EXAMINATION: The patient is alert and oriented times to self and place. Mood is neutral to anxious. Affect is flat. Thought process is concrete. Thought content, no suicidal or homicidal ideation. Memory is impaired. Insight and judgment is poor. ASSESSMENT: 1. Psychotic disorder. 2. Acute encephalopathy, resolving. PLAN: 1. We will continue the risperidone 2 mg at bedtime. 2. Continue the thiamine. 3. Continue the folate. 4. Continue the Lexapro. 5. Provide the patient with reality orientation and supportive therapy. 6. We will continue to follow and readjust the medications. Denice Collins M.D. DR: URMILA JOB#: [id number] CC:
[2018-09-26 20:00] VITALS: BP 129/77
--- NOTE | 2018-09-26 22:00 | Progress Note ---
DATE: 09/26/2018 INTERNAL MEDICINE PROGRESS NOTE SUBJECTIVE: The patient without new complaints. He was restarted on IV fluids due to worsening renal parameters. Repeat renal ultrasound is pending. OBJECTIVE: VITAL SIGNS: Stable. He is afebrile. LUNGS: Clear. BACK: No CVA tenderness. CARDIAC: Regular. Normal S1, S2 with no new murmur. EXTREMITIES: No edema. ABDOMEN: Benign. IMPRESSION: Tenuous renal function. PLAN: 1. Await renal ultrasound. 2. Continue IV fluids and remainder of medication regimen presently without change. Claude Gambino M.D. DR: LAUREL JOB#: [id number] CC:
[2018-09-27] VITALS: BP 135/82
[2018-09-27 06:34] LABS: EOSINOPHILS % (AUTO) 1.6 % (0.0-3.0); HEMATOCRIT 41.2 % (42.0-52.0); HEMOGLOBIN 13.4 G/DL (14.2-18.0); LYMPHOCYTES % (AUTO) 10.5 % (20.0-45.0); MEAN CORPUSCULAR VOLUME 92 FL (80-99); MONOCYTES % (AUTO) 6.9 % (1.0-10.0); PLATELET COUNT 104 K/UL (150-450); RED BLOOD COUNT 4.48 M/UL (4.70-6.10); RED CELL DISTRIBUTION WIDTH 14.5 % (11.6-14.8); WHITE BLOOD COUNT 13.2 K/UL (4.8-10.8)
[2018-09-27 07:11] LABS: ANION GAP 11 mmol/L (5-15); BLOOD UREA NITROGEN 29 mg/dL (7-18); CALCIUM 9.6 MG/DL (8.5-10.1); CARBON DIOXIDE 24 MMOL/L (21-32); CHLORIDE 104 MMOL/L (98-107); CREATININE 1.7 MG/DL (0.55-1.30); POTASSIUM 5.3 MMOL/L (3.5-5.1); SODIUM 139 MMOL/L (136-145)
[2018-09-27 08:00] VITALS: BP 140/82
--- NOTE | 2018-09-27 08:35 | Urology Progress Note ---
Assessment/Plan Assessment/Plan: 1. Staghorn renal calculus. 2. Bladder calculus. 3. Mild hydronephrosis, likely chronic. 4. Chronic kidney disease. 5. Acute kidney injury. 6. Hematuria. 7. Pyuria. 8. Urinary retention. 9. Neurogenic bladder. 10. Bladder diverticulum. monitor clinically nur out and voiding monitor renal fxn, labile s/p abx cont flomax BID pt can have tx of stones later electively by urologist in his plan f/u on renal u/s Subjective Allergies: Coded Allergies: No Known Allergies (Unverified , 09/11/18) Subjective all noted, voiding, looks comfortable Objective Last 24 Hour Vital Signs Date Time Temp Pulse Resp B/P (MAP) Pulse Ox O2 Delivery O2 Flow Rate FiO2 09/27/18 07:54 Room Air 09/27/18 00:00 98.5 75 17 135/82 (99) 95 09/26/18 22:42 Room Air 09/26/18 20:00 99.0 89 18 129/77 (94) 95 09/26/18 16:00 98.4 84 16 147/72 (97) 97 09/26/18 12:00 98.0 96 17 145/89 (107) 99 09/26/18 09:00 Room Air 09/26/18 09:00 98 147/75 Intake and Output 09/26/18 09/27/18 19:00 07:00 Intake Total 200 ml 200 ml Balance 200 ml 200 ml IV Total 200 ml 200 ml # Voids 2 # Bowel Movements 2 Microbiology Date/Time Source Procedure Growth Status 09/11/18 14:50 Nasal Nares MRSA Culture - Final Staphylococcus Aureus - Mrsa Complete 09/13/18 04:45 Stool Clostridium difficile Toxin Assay - Final Complete 09/11/18 14:16 Urine,Clean Catch Urine Culture - Final NO GROWTH AFTER 48 HOURS Complete 09/11/18 14:50 Rectum VRE Culture - Final NO VANCOMYCIN RESISTANT ENTEROCOCCUS ... Complete Current Medications Medications (Trade) Dose Ordered Sig/Sujit Route PRN Reason Start Time Stop Time Status Last Admin Dose Admin Amlodipine Besylate (Norvasc) 10 mg DAILY ORAL 09/15/18 09:00 10/15/18 08:59 09/26/18 09:00 Aspirin (Ecotrin) 81 mg DAILY ORAL 09/15/18 09:00 10/12/18 08:59 8/7/19 09:00 Escitalopram Oxalate (Lexapro) 10 mg DAILY ORAL 09/21/18 09:00 10/21/18 08:59 09/26/18 09:00 Folic Acid (Folate) 1 mg DAILY ORAL 09/15/18 09:00 10/12/18 08:59 09/26/18 09:00 Magnesium Oxide (Mag-Ox 400mg) 400 mg THREE TIMES A DAY ORAL 09/18/18 13:00 10/18/18 12:59 09/26/18 17:22 Multivitamins (Multivitamins) 1 tab DAILY ORAL 09/15/18 09:00 10/12/18 08:59 09/26/18 09:00 Risperidone (RisperDAL) 2 mg BEDTIME ORAL 09/22/18 21:00 10/22/18 20:59 09/26/18 20:21 Sodium Chloride 1,000 ml @ 125 mls/hr Q8H IV 09/25/18 23:45 10/25/18 23:44 09/27/18 07:56 Tamsulosin HCl (Flomax) 0.4 mg BID ORAL 09/15/18 09:00 10/11/18 19:00 09/26/18 17:22 Thiamine HCl (Vitamin B1) 100 mg DAILY ORAL 09/21/18 09:00 10/21/18 08:59 09/26/18 09:00 Tramadol HCl (Ultram) 50 mg Q6H PRN ORAL For Pain 09/22/18 08:30 09/29/18 08:29 09/26/18 11:45 Laboratory Tests 09/27/18 05:30: White Blood Count 13.2#H, Red Blood Count 4.48L, Hemoglobin 13.4L, Hematocrit 41.2L, Mean Corpuscular Volume 92, Mean Corpuscular Hemoglobin 30.0, Mean Corpuscular Hemoglobin Concent 32.6, Red Cell Distribution Width 14.5, Platelet Count 104L, Mean Platelet Volume 8.0, Neutrophils (%) (Auto) 80.0H, Lymphocytes (%) (Auto) 10.5L, Monocytes (%) (Auto) 6.9, Eosinophils (%) (Auto) 1.6, Basophils (%) (Auto) 1.0, Sodium Level 139, Potassium Level 5.3H, Chloride Level 104, Carbon Dioxide Level 24, Anion Gap 11, Blood Urea Nitrogen 29H, Creatinine 1.7H, Estimat Glomerular Filtration Rate 40.7, Glucose Level 85, Calcium Level 9.6 Height (Feet): 5 Height (Inches): 10.00 Weight (Pounds): 184 Objective exam stable Brad Iqbal MD Sep 27, 2018 08:35
[2018-09-27] MEDS: Tamsulosin 0.4mg cap ORAL SCH ×2 (08:51→17:17)
[2018-09-27] MEDS: Aspirin EC 81mg tab ORAL SCH (08:51)
[2018-09-27] MEDS: Magnesium Oxide 400mg tab ORAL SCH ×3 (08:51→17:17)
[2018-09-27] MEDS: Thiamine 100mg tab ORAL SCH (08:52)
[2018-09-27 12:00] VITALS: BP 147/89
[2018-09-27 16:00] VITALS: BP 143/82
[2018-09-27 20:00] VITALS: BP 139/70
[2018-09-27 23:57] LABS: BILIRUBIN, URINE NEGATIVE (NEGATIVE); COLOR,URINE PALE YELLOW; GLUCOSE, URINE (UA) NEGATIVE (NEGATIVE); KETONES,URINE NEGATIVE (NEGATIVE); LEUKOCYTE ESTERASE ,URINE 2+ (NEGATIVE); NITRITE,URINE POSITIVE (NEGATIVE); PH,URINE 5 (4.5-8.0); PROTEIN,URINE 1+ (NEGATIVE); UROBILINOGEN,URINE NORMAL MG/DL (0.0-1.0)
[2018-09-28] VITALS: BP 119/73
[2018-09-28 00:57] LABS: APPEARANCE,URINE SLIGHTLY CLOUDY
[2018-09-28 04:00] VITALS: BP 129/73
--- NOTE | 2018-09-28 04:30 | Progress Note ---
DATE: 09/27/2018 INTERNAL MEDICINE PROGRESS NOTE SUBJECTIVE: The patient's condition largely unchanged. Renal ultrasound is pending. Concern over his renal function deteriorating over the past 48 hours prompted this study to be obtained. OBJECTIVE: LUNGS: Clear. CARDIAC: Regular. ABDOMEN: Soft. EXTREMITIES: No edema. IMPRESSION: 1. Status post treatment for C. difficile. 2. Acute on chronic renal failure improved and now worsening. 3. Nephrolithiasis with multiple calculi. 4. Mild hyperkalemia. PLAN: 1. Continue hydration. 2. Follow up renal scan. 3. Recheck laboratory studies. Claude Gambino M.D. DR: AMITA JOB#: [id number] CC:
[2018-09-28 07:47] LABS: EOSINOPHILS % (AUTO) 3.5 % (0.0-3.0); HEMATOCRIT 36.2 % (42.0-52.0); LYMPHOCYTES % (AUTO) 14.3 % (20.0-45.0); MEAN CORPUSCULAR VOLUME 90 FL (80-99); MONOCYTES % (AUTO) 10.9 % (1.0-10.0); NEUTROPHILS % (AUTO) 70.2 % (45.0-75.0); PLATELET COUNT 132 K/UL (150-450); RED BLOOD COUNT 4.01 M/UL (4.70-6.10); RED CELL DISTRIBUTION WIDTH 13.8 % (11.6-14.8); WHITE BLOOD COUNT 9.8 K/UL (4.8-10.8)
[2018-09-28 08:00] VITALS: BP 102/58
--- NOTE | 2018-09-28 08:00 | Urology Progress Note ---
Assessment/Plan Assessment/Plan: 1. Staghorn renal calculus. 2. Bladder calculus. 3. Mild hydronephrosis, likely chronic. 4. Chronic kidney disease. 5. Acute kidney injury. 6. Hematuria. 7. Pyuria, poss UTI. 8. Urinary retention. 9. Neurogenic bladder. 10. Bladder diverticulum. monitor clinically nur out and voiding monitor renal fxn, labile s/p abx, will resume cont flomax BID pt can have tx of stones later electively by urologist in his plan f/u on renal u/s and urine cx Subjective Allergies: Coded Allergies: No Known Allergies (Unverified , 09/11/18) Subjective all noted, voiding, looks comfortable, condom cath Objective Last 24 Hour Vital Signs Date Time Temp Pulse Resp B/P (MAP) Pulse Ox O2 Delivery O2 Flow Rate FiO2 09/28/18 04:00 97.6 75 18 129/73 (91) 98 09/28/18 00:00 99.4 82 18 119/73 (88) 96 09/27/18 21:00 Room Air 09/27/18 20:00 98.2 83 20 139/70 (93) 96 09/27/18 16:00 99.0 70 17 143/82 (102) 96 09/27/18 12:00 99.5 83 18 147/89 (108) 97 09/27/18 08:51 83 140/82 09/27/18 08:00 99.0 83 19 140/82 (101) 96 Intake and Output 09/27/18 09/28/18 19:00 07:00 Intake Total 2095 ml 1730 ml Output Total 600 ml Balance 2095 ml 1130 ml Intake Oral 720 ml 480 ml IV Total 1375 ml 1250 ml Output Urine Total 600 ml # Voids 5 # Bowel Movements 5 Microbiology Date/Time Source Procedure Growth Status 09/11/18 14:50 Nasal Nares MRSA Culture - Final Staphylococcus Aureus - Mrsa Complete 09/13/18 04:45 Stool Clostridium difficile Toxin Assay - Final Complete 09/11/18 14:16 Urine,Clean Catch Urine Culture - Final NO GROWTH AFTER 48 HOURS Complete 09/11/18 14:50 Rectum VRE Culture - Final NO VANCOMYCIN RESISTANT ENTEROCOCCUS ... Complete Current Medications Medications (Trade) Dose Ordered Sig/Sujit Route PRN Reason Start Time Stop Time Status Last Admin Dose Admin Amlodipine Besylate (Norvasc) 10 mg DAILY ORAL 09/15/18 09:00 10/15/18 08:59 09/27/18 08:51 Aspirin (Ecotrin) 81 mg DAILY ORAL 09/15/18 09:00 10/12/18 08:59 09/27/18 08:51 Escitalopram Oxalate (Lexapro) 10 mg DAILY ORAL 09/21/18 09:00 10/21/18 08:59 09/27/18 08:51 Folic Acid (Folate) 1 mg DAILY ORAL 09/15/18 09:00 10/12/18 08:59 09/27/18 08:51 Magnesium Oxide (Mag-Ox 400mg) 400 mg THREE TIMES A DAY ORAL 09/18/18 13:00 10/18/18 12:59 09/27/18 17:17 Multivitamins (Multivitamins) 1 tab DAILY ORAL 09/15/18 09:00 10/12/18 08:59 09/27/18 08:51 Risperidone (RisperDAL) 2 mg BEDTIME ORAL 09/22/18 21:00 10/22/18 20:59 09/27/18 21:02 Sodium Chloride 1,000 ml @ 125 mls/hr Q8H IV 09/25/18 23:45 10/25/18 23:44 09/28/18 05:34 Tamsulosin HCl (Flomax) 0.4 mg BID ORAL 09/15/18 09:00 10/11/18 19:00 09/27/18 17:17 Thiamine HCl (Vitamin B1) 100 mg DAILY ORAL 09/21/18 09:00 10/21/18 08:59 09/27/18 08:52 Tramadol HCl (Ultram) 50 mg Q6H PRN ORAL For Pain 09/22/18 08:30 09/29/18 08:29 09/26/18 11:45 Laboratory Tests 09/27/18 23:00: Urine Color Pale yellow, Urine Appearance Slightly cloudy, Urine pH 5, Urine Specific [place] 1.010, Urine Protein 1+H, Urine Glucose (UA) Negative, Urine Ketones Negative, Urine Blood 5+H, Urine Nitrite PositiveH, Urine Bilirubin Negative, Urine Urobilinogen Normal, Urine Leukocyte Esterase 2+H, Urine RBC 30- 40H, Urine WBC 40-60H, Urine Squamous Epithelial Cells Few, Urine Bacteria ModerateH 8/9/19 07:30: White Blood Count 9.8, Red Blood Count 4.01L, Hemoglobin 12.0L, Hematocrit 36.2L , Mean Corpuscular Volume 90, Mean Corpuscular Hemoglobin 29.8, Mean Corpuscular Hemoglobin Concent 33.1, Red Cell Distribution Width 13.8, Platelet Count 132L, Mean Platelet Volume 6.9, Neutrophils (%) (Auto) 70.2, Lymphocytes ( %) (Auto) 14.3L, Monocytes (%) (Auto) 10.9H, Eosinophils (%) (Auto) 3.5H, Basophils (%) (Auto) 1.0, Sodium Level [Pending], Potassium Level [Pending], Chloride Level [Pending], Carbon Dioxide Level [Pending], Blood Urea Nitrogen [ Pending], Creatinine [Pending], Estimat Glomerular Filtration Rate [Pending], Glucose Level [Pending], Uric Acid [Pending], Calcium Level [Pending] Height (Feet): 5 Height (Inches): 10.00 Weight (Pounds): 184 Objective exam stable Brad Iqbal MD Sep 28, 2018 08:00
[2018-09-28 08:01] LABS: ANION GAP 7 mmol/L (5-15); BLOOD UREA NITROGEN 16 mg/dL (7-18); CALCIUM 8.5 MG/DL (8.5-10.1); CARBON DIOXIDE 24 MMOL/L (21-32); CHLORIDE 105 MMOL/L (98-107); CREATININE 1.4 MG/DL (0.55-1.30); POTASSIUM 3.7 MMOL/L (3.5-5.1); SODIUM 136 MMOL/L (136-145)
--- NOTE | 2018-09-28 08:13 | Diagnostic Imaging Report ---
RENAL ULTRASOUND Indication: Renal stones Technique: Color doppler and greyscale images of the kidneys and bladder were obtained. Comparison: Findings: The right kidney measures 10 cm in length. The left kidney measures 12 cm in length. Bilateral kidneys demonstrate normal echogenicity. There is no hydronephrosis. In the right kidney, there is a nonobstructing calculus measuring up to 1 cm. In the expected location of the renal pelvis, there is a stone measuring up to 1 cm. There are additional tiny cysts. In the left kidney, there is a nonobstructing lower pole calculus measuring up to 0.5 cm. There is an extrarenal pelvis which contains a large calculus measures up to 2.3 cm. The bladder is partially distended with marked concentric wall thickening. The bladder contains a large bladder stone. Incidental note is made of a diverticulum in the dome of the bladder with a wide neck, measuring up to 9 mm. The visualized portions of the inferior vena cava are unremarkable. IMPRESSION: 1. Nonobstructing right nephrolithiasis including a renal pelvis stone. No hydronephrosis. 2. Large left extra renal pelvis calculus with moderate hydroureter, which can also be seen on comparison CT dated 09/11/2018 3. Large bladder stone with concentric bladder wall thickening, likely secondary to outlet obstruction.
[2018-09-28] MEDS: Tamsulosin 0.4mg cap ORAL SCH ×2 (09:28→17:36)
[2018-09-28] MEDS: Aspirin EC 81mg tab ORAL SCH (09:28)
[2018-09-28] MEDS: Thiamine 100mg tab ORAL SCH (09:28)
[2018-09-28] MEDS: Magnesium Oxide 400mg tab ORAL SCH ×3 (09:28→17:36)
[2018-09-28] MEDS: Cefepime HCl 1 GM in D5W 55 ML IVPB SCH ×2 (09:30→21:00)
[2018-09-28 11:56] VITALS: BP 102/58
[2018-09-28 15:48] VITALS: BP 107/69
[2018-09-28 20:00] VITALS: BP 119/57
--- NOTE | 2018-09-28 20:30 | Progress Note ---
DATE: 09/28/2018 SUBJECTIVE: The patient is the same. Calm, more redirectable. No behavior issues. Awaiting placement. MENTAL STATUS EXAMINATION: Alert and oriented times to self, place, and situation. Mood is neutral. Affect is flat. Thought process, there is a paucity of thought content. Thought content, no suicidal or homicidal ideation. Memory is impaired. ASSESSMENT: Stable. PLAN: We will continue current medications. Provide the patient with reality orientation and supportive therapy. Denice Collins M.D. DR: URMILA JOB#: [id number] CC:
[2018-09-29] VITALS: BP 122/70
--- NOTE | 2018-09-29 00:45 | Progress Note ---
DATE: 09/28/2018 SUBJECTIVE: The patient has been on IV fluids for two days. His renal function has improved. His electrolytes have stabilized. There is no sign of active infection. Renal ultrasound has revealed stone in bladder with bladder outlet obstruction. His exam remains unchanged. We will need for intervention with urologist. May have to transfer this patient to a tertiary care facility for complicated urologic procedure. Claude Gambino M.D. DR: YOLANDE JOB#: [id number] CC:
[2018-09-29 04:00] VITALS: BP 138/76
--- NOTE | 2018-09-29 07:59 | Urology Progress Note ---
Assessment/Plan Assessment/Plan: 1. Staghorn renal calculus. 2. Bladder calculus. 3. Mild hydronephrosis, likely chronic. 4. Chronic kidney disease. 5. Acute kidney injury. 6. Hematuria. 7. Pyuria, poss UTI. 8. Urinary retention. 9. Neurogenic bladder. 10. Bladder diverticulum. monitor clinically nur out and voiding monitor renal fxn, labile on abx now cont flomax BID pt can have tx of stones later electively by urologist in his plan f/u on urine cx Subjective Allergies: Coded Allergies: No Known Allergies (Unverified , 09/11/18) Subjective all noted, voiding, looks comfortable, condom cath Objective Last 24 Hour Vital Signs Date Time Temp Pulse Resp B/P (MAP) Pulse Ox O2 Delivery O2 Flow Rate FiO2 09/29/18 04:00 98.4 68 20 138/76 (96) 96 09/29/18 00:00 97.8 69 18 122/70 (87) 96 09/28/18 21:00 Room Air 09/28/18 20:00 98.4 78 18 119/57 (77) 97 09/28/18 15:48 98.5 79 18 107/69 (82) 98 09/28/18 11:56 98.0 80 18 102/58 (73) 97 09/28/18 09:28 87 102/58 09/28/18 08:00 98.8 87 19 102/58 (73) 95 09/28/18 08:00 Room Air Intake and Output 09/28/18 09/29/18 19:00 07:00 Intake Total 1505 ml 1665 ml Balance 1505 ml 1665 ml Intake Oral 360 ml IV Total 1505 ml 1305 ml # Bowel Movements 6 Microbiology Date/Time Source Procedure Growth Status 09/11/18 14:50 Nasal Nares MRSA Culture - Final Staphylococcus Aureus - Mrsa Complete 09/13/18 04:45 Stool Clostridium difficile Toxin Assay - Final Complete 09/27/18 23:00 Urine,Clean Catch Urine Culture - Preliminary NO GROWTH AFTER 24 HOURS Resulted 09/11/18 14:50 Rectum VRE Culture - Final NO VANCOMYCIN RESISTANT ENTEROCOCCUS ... Complete Current Medications Medications (Trade) Dose Ordered Sig/Sujit Route PRN Reason Start Time Stop Time Status Last Admin Dose Admin Amlodipine Besylate (Norvasc) 10 mg DAILY ORAL 09/15/18 09:00 10/15/18 08:59 09/28/18 09:28 Aspirin (Ecotrin) 81 mg DAILY ORAL 09/15/18 09:00 10/12/18 08:59 09/28/18 09:28 Cefepime HCl 1 gm/ Dextrose 55 ml @ 110 mls/hr EVERY 12 HOURS IVPB 09/28/18 09:30 10/05/18 09:29 09/28/18 21:00 Escitalopram Oxalate (Lexapro) 10 mg DAILY ORAL 09/21/18 09:00 10/21/18 08:59 09/28/18 09:28 Folic Acid (Folate) 1 mg DAILY ORAL 09/15/18 09:00 10/12/18 08:59 09/28/18 09:28 Magnesium Oxide (Mag-Ox 400mg) 400 mg THREE TIMES A DAY ORAL 09/18/18 13:00 10/18/18 12:59 09/28/18 17:36 Multivitamins (Multivitamins) 1 tab DAILY ORAL 09/15/18 09:00 10/12/18 08:59 09/28/18 09:28 Risperidone (RisperDAL) 2 mg BEDTIME ORAL 09/28/18 21:00 10/22/18 20:59 09/28/18 20:36 Sodium Chloride 1,000 ml @ 125 mls/hr Q8H IV 09/25/18 23:45 10/25/18 23:44 09/29/18 06:27 Tamsulosin HCl (Flomax) 0.4 mg BID ORAL 09/15/18 09:00 10/11/18 19:00 09/28/18 17:36 Thiamine HCl (Vitamin B1) 100 mg DAILY ORAL 09/21/18 09:00 10/21/18 08:59 09/28/18 09:28 Tramadol HCl (Ultram) 50 mg Q6H PRN ORAL For Pain 09/28/18 13:45 10/05/18 13:44 Height (Feet): 5 Height (Inches): 10.00 Weight (Pounds): 184 Objective exam stable last renal u/s negative for hydro Brad Iqbal MD Sep 29, 2018 07:59
[2018-09-29 08:00] VITALS: BP 141/77
[2018-09-29] MEDS: Cefepime HCl 1 GM in D5W 55 ML IVPB SCH ×2 (08:55→20:50)
[2018-09-29] MEDS: Magnesium Oxide 400mg tab ORAL SCH ×3 (08:55→17:43)
[2018-09-29] MEDS: Tamsulosin 0.4mg cap ORAL SCH ×2 (08:55→17:43)
[2018-09-29] MEDS: Aspirin EC 81mg tab ORAL SCH (08:55)
[2018-09-29] MEDS: Thiamine 100mg tab ORAL SCH (08:55)
[2018-09-29 12:00] VITALS: BP 132/67
[2018-09-29 16:00] VITALS: BP 119/70
[2018-09-29 20:00] VITALS: BP 159/89
--- NOTE | 2018-09-29 22:15 | Progress Note ---
DATE: 09/29/2018 INTERNAL MEDICINE PROGRESS NOTE SUBJECTIVE: The patient is voiding well. He remains on IV fluids. Renal ultrasound revealed bladder outlet obstruction. Renal parameters worsened off IV fluids, but has stabilized now. OBJECTIVE: VITAL SIGNS: Blood pressure 119/70, pulse 78, and respirations 18. LUNGS: Clear. CARDIAC: Regular. ABDOMEN: Soft. No focal tenderness. No CVA tenderness. EXTREMITIES: No edema. IMPRESSION: 1. Obstructive uropathy. 2. Nephrolithiasis. 3. Urolithiasis, status post Clostridium difficile. 4. Hypertension, resolved. 5. Bradycardia, off beta-faraht. PLAN: 1. Decrease intravenous fluids. 2. Follow up renal function. 3. We will need to arrange transfer to a tertiary care facility for definitive urologic intervention. Claude Gambino M.D. DR: JOLYNN JOB#: [id number] CC:
[2018-09-30] VITALS: BP 143/84
[2018-09-30 04:00] VITALS: BP 134/72
[2018-09-30 05:17] VITALS: BP 134/72
[2018-09-30 08:00] VITALS: BP_SYST 140; BP_SYST 73; BP_DIAS 72; BP_DIAS 73
[2018-09-30] MEDS: Tamsulosin 0.4mg cap ORAL SCH ×2 (10:23→17:44)
[2018-09-30] MEDS: Thiamine 100mg tab ORAL SCH (10:24)
[2018-09-30] MEDS: Magnesium Oxide 400mg tab ORAL SCH ×3 (10:26→17:45)
[2018-09-30] MEDS: Aspirin EC 81mg tab ORAL SCH (10:26)
[2018-09-30] MEDS: Cefepime HCl 1 GM in D5W 55 ML IVPB SCH ×2 (10:27→22:37)
--- NOTE | 2018-09-30 12:42 | Urology Progress Note ---
Assessment/Plan Assessment/Plan: 1. Staghorn renal calculus. 2. Bladder calculus. 3. Mild hydronephrosis, likely chronic. 4. Chronic kidney disease. 5. Acute kidney injury. 6. Hematuria. 7. Pyuria, poss UTI. 8. Urinary retention. 9. Neurogenic bladder. 10. Bladder diverticulum. monitor clinically nur out and voiding monitor renal fxn, labile on abx now cont flomax BID add proscar pt with very significant and complex stone burden will likely need multiple complicated urologic procedures with close follow up best course of action would be higher lever of care at tertiary care facility d/w Dr. Gambino fully Subjective Allergies: Coded Allergies: No Known Allergies (Unverified , 09/11/18) Subjective all noted, voiding, looks comfortable, condom cath Objective Last 24 Hour Vital Signs Date Time Temp Pulse Resp B/P (MAP) Pulse Ox O2 Delivery O2 Flow Rate FiO2 09/30/18 10:26 74 140/73 09/30/18 08:00 98.4 74 16 73/72 (72) 96 09/30/18 08:00 98.4 74 16 140/73 (95) 96 09/30/18 05:17 99.0 72 17 134/72 (92) 95 09/30/18 04:00 99.0 72 17 134/72 (92) 95 09/30/18 00:00 98.7 85 18 143/84 (103) 95 09/29/18 23:00 Room Air 09/29/18 20:00 99.3 88 17 159/89 (112) 97 09/29/18 16:00 98.5 78 18 119/70 (86) 97 Intake and Output 09/29/18 09/30/18 19:00 07:00 Intake Total 1000 ml Output Total 300 ml Balance 700 ml Other 1000 ml Output Urine Total 300 ml # Voids 2 # Bowel Movements 8 2 Microbiology Date/Time Source Procedure Growth Status 09/11/18 14:50 Nasal Nares MRSA Culture - Final Staphylococcus Aureus - Mrsa Complete 09/13/18 04:45 Stool Clostridium difficile Toxin Assay - Final Complete 09/27/18 23:00 Urine,Clean Catch Urine Culture - Final NO GROWTH AFTER 48 HOURS Complete 09/11/18 14:50 Rectum VRE Culture - Final NO VANCOMYCIN RESISTANT ENTEROCOCCUS ... Complete Current Medications Medications (Trade) Dose Ordered Sig/Sujit Route PRN Reason Start Time Stop Time Status Last Admin Dose Admin Amlodipine Besylate (Norvasc) 10 mg DAILY ORAL 09/15/18 09:00 10/15/18 08:59 09/30/18 10:26 Aspirin (Ecotrin) 81 mg DAILY ORAL 09/15/18 09:00 10/12/18 08:59 09/30/18 10:26 Cefepime HCl 1 gm/ Dextrose 55 ml @ 110 mls/hr EVERY 12 HOURS IVPB 09/28/18 09:30 10/05/18 09:29 09/30/18 10:27 Escitalopram Oxalate (Lexapro) 10 mg DAILY ORAL 09/21/18 09:00 10/21/18 08:59 09/30/18 10:26 Folic Acid (Folate) 1 mg DAILY ORAL 09/15/18 09:00 10/12/18 08:59 09/30/18 10:26 Magnesium Oxide (Mag-Ox 400mg) 400 mg THREE TIMES A DAY ORAL 09/18/18 13:00 10/18/18 12:59 09/30/18 12:02 Multivitamins (Multivitamins) 1 tab DAILY ORAL 09/15/18 09:00 10/12/18 08:59 09/30/18 10:26 Risperidone (RisperDAL) 2 mg BEDTIME ORAL 09/28/18 21:00 10/22/18 20:59 09/29/18 20:49 Sodium Chloride 1,000 ml @ 75 mls/hr [id number] IV 09/29/18 18:00 10/29/18 17:59 Tamsulosin HCl (Flomax) 0.4 mg BID ORAL 09/15/18 09:00 10/11/18 19:00 09/30/18 10:23 Thiamine HCl (Vitamin B1) 100 mg DAILY ORAL 09/21/18 09:00 10/21/18 08:59 09/30/18 10:24 Tramadol HCl (Ultram) 50 mg Q6H PRN ORAL For Pain 09/28/18 13:45 10/05/18 13:44 Height (Feet): 5 Height (Inches): 10.00 Weight (Pounds): 184 Objective exam stable last renal u/s negative for Brad Victoria MD Sep 30, 2018 12:42
[2018-09-30 16:00] VITALS: BP 132/77
[2018-09-30 18:08] LABS: APPEARANCE,URINE CLEAR; BILIRUBIN, URINE NEGATIVE (NEGATIVE); COLOR,URINE PALE YELLOW; GLUCOSE, URINE (UA) NEGATIVE (NEGATIVE); KETONES,URINE NEGATIVE (NEGATIVE); LEUKOCYTE ESTERASE ,URINE 2+ (NEGATIVE); NITRITE,URINE NEGATIVE (NEGATIVE); PH,URINE 6 (4.5-8.0); PROTEIN,URINE 2+ (NEGATIVE); UROBILINOGEN,URINE NORMAL MG/DL (0.0-1.0)
--- NOTE | 2018-09-30 18:45 | Progress Note ---
DATE: 09/30/2018 INTERNAL MEDICINE PROGRESS NOTE SUBJECTIVE: The patient has no new complaints. Urine culture remains negative. OBJECTIVE: VITAL SIGNS: Blood pressure 140/73, pulse 74, respirations 18. LUNGS: Clear. CARDIAC: Regular. ABDOMEN: Soft. BACK: No CVA tenderness. EXTREMITIES: No edema. IMPRESSION: 1. Bladder outlet obstruction. 2. Nephro and urolithiasis. 3. Acute on chronic renal failure. 4. Status post urinary tract infection. 5. Sinus bradycardia, resolved off beta-farhat. 6. Hypertensive heart disease. 7. Left corneal opacity and blindness. 8. Status post treatment for C. difficile. PLAN: Needs adequate hydration to prevent worsening renal impairment due to obstructing uronephrolithiasis. Does not need additional antimicrobials presently, but will need to closely observe for new infections. We will need to arrange transfer to a higher level of care for complex urologic intervention of multiple stones. Claude Gambino M.D. DR: EMILIA JOB#: [id number] CC:
[2018-09-30 20:00] VITALS: BP 136/57
[2018-09-30] MEDS: traMADol 50mg tab ORAL PRN (22:24)
[2018-10-01] VITALS: BP 144/61
[2018-10-01 04:00] VITALS: BP 109/52
[2018-10-01 07:47] LABS: BASOPHILS % (AUTO) 2.1 % (0.0-2.0); EOSINOPHILS % (AUTO) 9.3 % (0.0-3.0); HEMATOCRIT 35.3 % (42.0-52.0); HEMOGLOBIN 11.8 G/DL (14.2-18.0); LYMPHOCYTES % (AUTO) 27.2 % (20.0-45.0); MEAN CORPUSCULAR VOLUME 90 FL (80-99); MONOCYTES % (AUTO) 18.6 % (1.0-10.0); NEUTROPHILS % (AUTO) 42.9 % (45.0-75.0); PLATELET COUNT 199 K/UL (150-450); RED BLOOD COUNT 3.91 M/UL (4.70-6.10); RED CELL DISTRIBUTION WIDTH 13.6 % (11.6-14.8); WHITE BLOOD COUNT 6.7 K/UL (4.8-10.8)
[2018-10-01 07:59] LABS: ALANINE AMINOTRANSFERASE 60 U/L (12-78); ALBUMIN 2.8 G/DL (3.4-5.0); ALBUMIN/GLOBULIN RATIO 0.6 (1.0-2.7); ALKALINE PHOSPHATASE 80 U/L (46-116); ANION GAP 6 mmol/L (5-15); ASPARTATE AMINO TRANSFERASE 45 U/L (15-37); BILIRUBIN,TOTAL 0.6 MG/DL (0.2-1.0); BLOOD UREA NITROGEN 14 mg/dL (7-18); CALCIUM 8.9 MG/DL (8.5-10.1); CARBON DIOXIDE 28 MMOL/L (21-32); CHLORIDE 106 MMOL/L (98-107); CREATININE 1.2 MG/DL (0.55-1.30); POTASSIUM 3.7 MMOL/L (3.5-5.1); SODIUM 140 MMOL/L (136-145)
[2018-10-01 08:00] VITALS: BP 121/71
--- NOTE | 2018-10-01 08:14 | Urology Progress Note ---
Assessment/Plan Assessment/Plan: 1. Staghorn renal calculus. 2. Bladder calculus. 3. Mild hydronephrosis, likely chronic. 4. Chronic kidney disease. 5. Acute kidney injury. 6. Hematuria. 7. Pyuria, poss UTI. 8. Urinary retention. 9. Neurogenic bladder. 10. Bladder diverticulum. monitor clinically nur out and voiding monitor renal fxn, labile but improved on abx now cont flomax BID proscar added pt with very significant and complex stone burden will likely need multiple complicated urologic procedures with close follow up best course of action would be higher lever of care at tertiary care facility d/w Dr. Gambino fully Subjective Allergies: Coded Allergies: No Known Allergies (Unverified , 09/11/18) Subjective all noted, voiding, looks comfortable Objective Last 24 Hour Vital Signs Date Time Temp Pulse Resp B/P (MAP) Pulse Ox O2 Delivery O2 Flow Rate FiO2 10/01/18 04:00 96.9 70 20 109/52 (71) 98 10/01/18 00:00 98.7 70 18 144/61 (88) 98 09/30/18 21:00 Room Air 09/30/18 20:00 98.3 73 18 136/57 (83) 96 09/30/18 16:00 98.3 81 18 132/77 (95) 96 09/30/18 10:26 74 140/73 09/30/18 09:00 Room Air Intake and Output 09/30/18 10/01/18 18:59 06:59 Intake Total 1255 ml 1255 ml Balance 1255 ml 1255 ml Intake Oral 600 ml IV Total 55 ml 655 ml Other 1200 ml # Voids 4 # Bowel Movements 4 8 Microbiology Date/Time Source Procedure Growth Status 09/11/18 14:50 Nasal Nares MRSA Culture - Final Staphylococcus Aureus - Mrsa Complete 09/13/18 04:45 Stool Clostridium difficile Toxin Assay - Final Complete 09/27/18 23:00 Urine,Clean Catch Urine Culture - Final NO GROWTH AFTER 48 HOURS Complete 09/11/18 14:50 Rectum VRE Culture - Final NO VANCOMYCIN RESISTANT ENTEROCOCCUS ... Complete Current Medications Medications (Trade) Dose Ordered Sig/Sujit Route PRN Reason Start Time Stop Time Status Last Admin Dose Admin Amlodipine Besylate (Norvasc) 10 mg DAILY ORAL 09/15/18 09:00 10/15/18 08:59 09/30/18 10:26 Aspirin (Ecotrin) 81 mg DAILY ORAL 09/15/18 09:00 10/12/18 08:59 09/30/18 10:26 Cefepime HCl 1 gm/ Dextrose 55 ml @ 110 mls/hr EVERY 12 HOURS IVPB 09/28/18 09:30 10/05/18 09:29 09/30/18 22:37 Escitalopram Oxalate (Lexapro) 10 mg DAILY ORAL 09/21/18 09:00 10/21/18 08:59 09/30/18 10:26 Finasteride (Proscar) 5 mg DAILY ORAL 10/01/18 09:00 10/31/18 08:59 Folic Acid (Folate) 1 mg DAILY ORAL 09/15/18 09:00 10/12/18 08:59 09/30/18 10:26 Magnesium Oxide (Mag-Ox 400mg) 400 mg THREE TIMES A DAY ORAL 09/18/18 13:00 10/18/18 12:59 09/30/18 17:45 Multivitamins (Multivitamins) 1 tab DAILY ORAL 09/15/18 09:00 10/12/18 08:59 09/30/18 10:26 Risperidone (RisperDAL) 2 mg BEDTIME ORAL 09/28/18 21:00 10/22/18 20:59 09/30/18 22:24 Sodium Chloride 1,000 ml @ 75 mls/hr [id number] IV 09/29/18 18:00 10/29/18 17:59 09/30/18 22:36 Tamsulosin HCl (Flomax) 0.4 mg BID ORAL 09/15/18 09:00 10/11/18 19:00 09/30/18 17:44 Thiamine HCl (Vitamin B1) 100 mg DAILY ORAL 09/21/18 09:00 10/21/18 08:59 09/30/18 10:24 Tramadol HCl (Ultram) 50 mg Q6H PRN ORAL For Pain 09/28/18 13:45 10/05/18 13:44 09/30/18 22:24 Laboratory Tests 09/30/18 17:20: Urine Color Pale yellow, Urine Appearance Clear, Urine pH 6, Urine Specific [place] 1.015, Urine Protein 2+H, Urine Glucose (UA) Negative, Urine Ketones Negative, Urine Blood 4+H, Urine Nitrite Negative, Urine Bilirubin Negative, Urine Urobilinogen Normal, Urine Leukocyte Esterase 2+H, Urine RBC 10-15H, Urine WBC 2-4, Urine Squamous Epithelial Cells None, Urine Bacteria Few 10/01/18 07:05: White Blood Count 6.7, Red Blood Count 3.91L, Hemoglobin 11.8L, Hematocrit 35.3L , Mean Corpuscular Volume 90, Mean Corpuscular Hemoglobin 30.2, Mean Corpuscular Hemoglobin Concent 33.4, Red Cell Distribution Width 13.6, Platelet Count 199, Mean Platelet Volume 6.6, Neutrophils (%) (Auto) 42.9L, Lymphocytes ( %) (Auto) 27.2, Monocytes (%) (Auto) 18.6H, Eosinophils (%) (Auto) 9.3H, Basophils (%) (Auto) 2.1H, Sodium Level 140, Potassium Level 3.7, Chloride Level 106, Carbon Dioxide Level 28, Anion Gap 6, Blood Urea Nitrogen 14, Creatinine 1.2, Estimat Glomerular Filtration Rate > 60, Glucose Level 89, Calcium Level 8.9, Magnesium Level 1.9, Total Bilirubin 0.6, Aspartate Amino Transf (AST/SGOT) 45H, Alanine Aminotransferase (ALT/SGPT) 60, Alkaline Phosphatase 80, Total Protein 7.2, Albumin 2.8L, Globulin 4.4, Albumin/Globulin Ratio 0.6L Height (Feet): 5 Height (Inches): 10.00 Weight (Pounds): 184 Objective exam stable last renal u/s negative for hydro Brad Iqbal MD Oct 01, 2018 08:14
[2018-10-01] MEDS: Cefepime HCl 1 GM in D5W 55 ML IVPB SCH ×2 (09:07→22:13)
[2018-10-01] MEDS: Magnesium Oxide 400mg tab ORAL SCH ×3 (09:10→16:58)
[2018-10-01] MEDS: Aspirin EC 81mg tab ORAL SCH (09:10)
[2018-10-01] MEDS: Tamsulosin 0.4mg cap ORAL SCH ×2 (09:10→16:58)
[2018-10-01] MEDS: Thiamine 100mg tab ORAL SCH (09:10)
[2018-10-01 12:00] VITALS: BP 134/76
[2018-10-01] MEDS: traMADol 50mg tab ORAL PRN (14:00)
[2018-10-01 16:00] VITALS: BP 141/76
[2018-10-01 20:00] VITALS: BP 126/70
[2018-10-02] VITALS: BP 128/67
--- NOTE | 2018-10-02 02:00 | Discharge Summary ---
DATE OF ADMISSION: 09/11/2018 INTERNAL MEDICINE PROGRESS NOTE SUBJECTIVE: No new complaints. Condition largely unchanged. We are awaiting for disposition to a higher level of care for urologic interventions of bladder outlet obstruction and nephro and urolithiasis. Laboratories are reviewed. The patient remains on IV fluid hydration, which is being tapered off. Antimicrobials will be discontinued as well since new cultures are negative. Claude Gambino M.D. DR: AMITA JOB#: [id number] CC:
[2018-10-02 04:00] VITALS: BP 116/60
[2018-10-02 08:00] VITALS: BP 139/75
--- NOTE | 2018-10-02 08:09 | Urology Progress Note ---
Assessment/Plan Assessment/Plan: 1. Staghorn renal calculus. 2. Bladder calculus. 3. Mild hydronephrosis, likely chronic. 4. Chronic kidney disease. 5. Acute kidney injury. 6. Hematuria. 7. Pyuria, poss UTI. 8. Urinary retention. 9. Neurogenic bladder. 10. Bladder diverticulum. monitor clinically nur out and voiding monitor renal fxn, labile but improved s/p abx course, now off cont flomax BID proscar added pt with very significant and complex stone burden will likely need multiple complicated urologic procedures with close follow up best course of action would be higher lever of care at tertiary care facility Subjective Allergies: Coded Allergies: No Known Allergies (Unverified , 09/11/18) Subjective all noted, voiding, looks comfortable Objective Last 24 Hour Vital Signs Date Time Temp Pulse Resp B/P (MAP) Pulse Ox O2 Delivery O2 Flow Rate FiO2 10/02/18 04:00 97.9 72 18 116/60 (78) 94 10/02/18 00:00 97.6 70 16 128/67 (87) 94 10/01/18 21:00 Room Air 10/01/18 20:00 97.7 64 16 126/70 (88) 94 10/01/18 16:00 98.4 66 20 141/76 (97) 94 10/01/18 14:30 98.2 10/01/18 12:00 98.2 64 20 134/76 (95) 96 10/01/18 09:11 69 121/71 10/01/18 09:00 Room Air Intake and Output 10/01/18 10/02/18 19:00 07:00 Intake Total 1300 ml 775 ml Balance 1300 ml 775 ml Intake Oral 720 ml 120 ml IV Total 580 ml 655 ml # Voids 3 6 # Bowel Movements 4 6 Microbiology Date/Time Source Procedure Growth Status 09/11/18 14:50 Nasal Nares MRSA Culture - Final Staphylococcus Aureus - Mrsa Complete 09/13/18 04:45 Stool Clostridium difficile Toxin Assay - Final Complete 09/27/18 23:00 Urine,Clean Catch Urine Culture - Final NO GROWTH AFTER 48 HOURS Complete 09/11/18 14:50 Rectum VRE Culture - Final NO VANCOMYCIN RESISTANT ENTEROCOCCUS ... Complete Current Medications Medications (Trade) Dose Ordered Sig/Sujit Route PRN Reason Start Time Stop Time Status Last Admin Dose Admin Amlodipine Besylate (Norvasc) 10 mg DAILY ORAL 09/15/18 09:00 10/15/18 08:59 10/01/18 09:11 Aspirin (Ecotrin) 81 mg DAILY ORAL 09/15/18 09:00 10/12/18 08:59 10/01/18 09:10 Escitalopram Oxalate (Lexapro) 10 mg DAILY ORAL 09/21/18 09:00 10/21/18 08:59 10/01/18 09:10 Finasteride (Proscar) 5 mg DAILY ORAL 10/01/18 09:00 10/31/18 08:59 10/01/18 09:10 Folic Acid (Folate) 1 mg DAILY ORAL 09/15/18 09:00 10/12/18 08:59 10/01/18 09:09 Magnesium Oxide (Mag-Ox 400mg) 400 mg THREE TIMES A DAY ORAL 09/18/18 13:00 10/18/18 12:59 10/01/18 16:58 Multivitamins (Multivitamins) 1 tab DAILY ORAL 09/15/18 09:00 10/12/18 08:59 10/01/18 09:10 Risperidone (RisperDAL) 2 mg BEDTIME ORAL 09/28/18 21:00 10/22/18 20:59 10/01/18 22:06 Sodium Chloride 1,000 ml @ 50 mls/hr Q20H IV 10/02/18 02:00 11/01/18 01:59 10/02/18 02:33 Tamsulosin HCl (Flomax) 0.4 mg BID ORAL 09/15/18 09:00 10/11/18 19:00 10/01/18 16:58 Thiamine HCl (Vitamin B1) 100 mg DAILY ORAL 09/21/18 09:00 10/21/18 08:59 10/01/18 09:10 Tramadol HCl (Ultram) 50 mg Q6H PRN ORAL For Pain 09/28/18 13:45 10/05/18 13:44 10/01/18 14:00 Height (Feet): 5 Height (Inches): 10.00 Weight (Pounds): 184 Objective exam stable last renal u/s negative for Brad Victoria MD Oct 02, 2018 08:09
[2018-10-02] MEDS: Thiamine 100mg tab ORAL SCH (08:51)
[2018-10-02] MEDS: Magnesium Oxide 400mg tab ORAL SCH ×3 (08:51→17:07)
[2018-10-02] MEDS: Tamsulosin 0.4mg cap ORAL SCH ×2 (08:51→17:08)
[2018-10-02] MEDS: Aspirin EC 81mg tab ORAL SCH (08:51)
[2018-10-02 12:00] VITALS: BP 137/65
[2018-10-02 16:00] VITALS: BP 119/75
[2018-10-02 20:00] VITALS: BP 127/68
[2018-10-03] VITALS: BP 125/73
[2018-10-03 04:00] VITALS: BP 144/80
[2018-10-03 08:00] VITALS: BP 152/78
--- NOTE | 2018-10-03 08:35 | Urology Progress Note ---
Assessment/Plan Assessment/Plan: 1. Staghorn renal calculus. 2. Bladder calculus. 3. Mild hydronephrosis, likely chronic. 4. Chronic kidney disease. 5. Acute kidney injury. 6. Hematuria. 7. Pyuria, poss UTI. 8. Urinary retention. 9. Neurogenic bladder. 10. Bladder diverticulum. monitor clinically nur out and voiding monitor renal fxn, labile but improved s/p abx course, now off cont flomax BID proscar added pt with very significant and complex stone burden will likely need multiple complicated urologic procedures with close follow up best course of action would be higher lever of care at tertiary care facility Subjective Allergies: Coded Allergies: No Known Allergies (Unverified , 09/11/18) Subjective all noted, voiding, looks comfortable Objective Last 24 Hour Vital Signs Date Time Temp Pulse Resp B/P (MAP) Pulse Ox O2 Delivery O2 Flow Rate FiO2 10/03/18 08:00 98.8 66 18 152/78 (102) 94 10/03/18 04:00 97.6 65 15 144/80 (101) 94 10/03/18 00:00 97.7 74 16 125/73 (90) 94 10/02/18 21:00 Room Air 10/02/18 20:00 97.9 73 16 127/68 (87) 94 10/02/18 16:00 98.7 79 18 119/75 (90) 97 10/02/18 12:00 98.8 69 17 137/65 (89) 97 10/02/18 09:00 Room Air 10/02/18 08:51 77 139/75 Intake and Output 10/02/18 10/03/18 19:00 07:00 Intake Total 600 ml 1120 ml Balance 600 ml 1120 ml Intake Oral 120 ml IV Total 600 ml 400 ml Other 600 ml # Voids 4 # Bowel Movements 1 3 Microbiology Date/Time Source Procedure Growth Status 09/11/18 14:50 Nasal Nares MRSA Culture - Final Staphylococcus Aureus - Mrsa Complete 09/13/18 04:45 Stool Clostridium difficile Toxin Assay - Final Complete 09/27/18 23:00 Urine,Clean Catch Urine Culture - Final NO GROWTH AFTER 48 HOURS Complete 09/11/18 14:50 Rectum VRE Culture - Final NO VANCOMYCIN RESISTANT ENTEROCOCCUS ... Complete Current Medications Medications (Trade) Dose Ordered Sig/Sujit Route PRN Reason Start Time Stop Time Status Last Admin Dose Admin Amlodipine Besylate (Norvasc) 10 mg DAILY ORAL 09/15/18 09:00 10/15/18 08:59 10/02/18 08:51 Aspirin (Ecotrin) 81 mg DAILY ORAL 09/15/18 09:00 10/12/18 08:59 10/02/18 08:51 Escitalopram Oxalate (Lexapro) 10 mg DAILY ORAL 09/21/18 09:00 10/21/18 08:59 10/02/18 08:51 Finasteride (Proscar) 5 mg DAILY ORAL 10/01/18 09:00 10/31/18 08:59 10/02/18 08:51 Folic Acid (Folate) 1 mg DAILY ORAL 09/15/18 09:00 10/12/18 08:59 10/02/18 08:51 Magnesium Oxide (Mag-Ox 400mg) 400 mg THREE TIMES A DAY ORAL 09/18/18 13:00 10/18/18 12:59 10/02/18 17:07 Multivitamins (Multivitamins) 1 tab DAILY ORAL 09/15/18 09:00 10/12/18 08:59 10/02/18 08:51 Risperidone (RisperDAL) 2 mg BEDTIME ORAL 09/28/18 21:00 10/22/18 20:59 10/02/18 20:49 Sodium Chloride 1,000 ml @ 50 mls/hr Q20H IV 10/02/18 02:00 11/01/18 01:59 10/02/18 22:48 Tamsulosin HCl (Flomax) 0.4 mg BID ORAL 09/15/18 09:00 10/11/18 19:00 10/02/18 17:08 Thiamine HCl (Vitamin B1) 100 mg DAILY ORAL 09/21/18 09:00 10/21/18 08:59 10/02/18 08:51 Tramadol HCl (Ultram) 50 mg Q6H PRN ORAL For Pain 09/28/18 13:45 10/05/18 13:44 10/01/18 14:00 Height (Feet): 5 Height (Inches): 10.00 Weight (Pounds): 184 Objective exam stable last renal u/s negative for Brad Victoria MD Oct 03, 2018 08:35
[2018-10-03] MEDS: Thiamine 100mg tab ORAL SCH (08:36)
[2018-10-03] MEDS: Aspirin EC 81mg tab ORAL SCH (08:37)
[2018-10-03] MEDS: Magnesium Oxide 400mg tab ORAL SCH ×3 (08:37→17:28)
[2018-10-03] MEDS: Tamsulosin 0.4mg cap ORAL SCH ×2 (08:37→17:28)
[2018-10-03 12:00] VITALS: BP 105/56
[2018-10-03 16:00] VITALS: BP 135/58
[2018-10-03 20:00] VITALS: BP 129/87
--- NOTE | 2018-10-03 23:00 | Progress Note ---
DATE: 10/03/2018 INTERNAL MEDICINE PROGRESS NOTE SUBJECTIVE: No new complaints. OBJECTIVE: VITAL SIGNS: Stable. LUNGS: Clear. CARDIAC: Regular. ABDOMEN: Soft. No CVA tenderness. EXTREMITIES: No edema. IMPRESSION: 1. Staghorn calculus. 2. Bladder outlet obstruction due to extensive nephrolithiasis and urolithiasis. 3. Moderate protein-calorie malnutrition. 4. Status post C. difficile colitis. 5. Hypertension. 6. Anemia of chronic disease. PLAN: 1. Monitor clinical parameters. 2. Discontinue IV fluids. 3. Await transfer to a tertiary care facility for lithotripsies and complex urologic surgery. Claude Gambino M.D. DR: AMITA JOB#: [id number] CC:
--- NOTE | 2018-10-03 23:00 | Progress Note ---
DATE: 10/02/2018 INTERNAL MEDICINE PROGRESS NOTE Late entry. SUBJECTIVE: We have spoken with case management, who has communicated with insurance. We are awaiting transfer to a higher level of care for complex urologic intervention. Condition remains unchanged. OBJECTIVE: Vitals are stable. Exam is unchanged. The patient has complex stone burden and needs multiple urologic procedures to be performed at tertiary care facility. Claude Gambino M.D. DR: AMITA JOB#: [id number] CC:
[2018-10-04] VITALS: BP 129/65
[2018-10-04 04:00] VITALS: BP 125/72
[2018-10-04 07:12] LABS: HEMATOCRIT 35.9 % (42.0-52.0); HEMOGLOBIN 11.9 G/DL (14.2-18.0); MEAN CORPUSCULAR VOLUME 89 FL (80-99); PLATELET COUNT 216 K/UL (150-450); RED BLOOD COUNT 4.05 M/UL (4.70-6.10); RED CELL DISTRIBUTION WIDTH 13.3 % (11.6-14.8); WHITE BLOOD COUNT 7.1 K/UL (4.8-10.8)
[2018-10-04 07:16] LABS: ALANINE AMINOTRANSFERASE 42 U/L (12-78); ALBUMIN 2.5 G/DL (3.4-5.0); ALBUMIN/GLOBULIN RATIO 0.6 (1.0-2.7); ALKALINE PHOSPHATASE 72 U/L (46-116); ANION GAP 8 mmol/L (5-15); ASPARTATE AMINO TRANSFERASE 38 U/L (15-37); BILIRUBIN,TOTAL 0.5 MG/DL (0.2-1.0); BLOOD UREA NITROGEN 13 mg/dL (7-18); CALCIUM 8.6 MG/DL (8.5-10.1); CARBON DIOXIDE 25 MMOL/L (21-32); CHLORIDE 104 MMOL/L (98-107); CREATININE 1.2 MG/DL (0.55-1.30); POTASSIUM 3.7 MMOL/L (3.5-5.1); SODIUM 137 MMOL/L (136-145)
[2018-10-04 08:00] VITALS: BP 140/83
--- NOTE | 2018-10-04 08:06 | Urology Progress Note ---
Assessment/Plan Assessment/Plan: 1. Staghorn renal calculus. 2. Bladder calculus. 3. Mild hydronephrosis, likely chronic. 4. Chronic kidney disease. 5. Acute kidney injury. 6. Hematuria. 7. Pyuria, poss UTI. 8. Urinary retention. 9. Neurogenic bladder. 10. Bladder diverticulum. monitor clinically nur out and voiding monitor renal fxn, labile but improved s/p abx course, now off cont flomax BID proscar added pt with very significant and complex stone burden will likely need multiple complicated urologic procedures with close follow up best course of action would be higher [facility] of care at tertiary care facility Subjective Allergies: Coded Allergies: No Known Allergies (Unverified , 09/11/18) Subjective all noted, voiding, looks comfortable Objective Last 24 Hour Vital Signs Date Time Temp Pulse Resp B/P (MAP) Pulse Ox O2 Delivery O2 Flow Rate FiO2 10/04/18 04:00 98.1 68 20 125/72 (89) 10/04/18 00:00 98.1 72 18 129/65 (86) 10/03/18 21:11 Room Air 10/03/18 20:00 98.1 65 20 129/87 (101) 10/03/18 16:00 98.0 83 18 135/58 (83) 98 10/03/18 12:00 97.9 71 18 105/56 (72) 98 10/03/18 09:00 Room Air 10/03/18 08:37 66 152/78 Intake and Output 10/03/18 10/04/18 19:00 07:00 Intake Total 860 ml Balance 860 ml Intake Oral 360 ml IV Total 500 ml # Bowel Movements 2 1 Microbiology Date/Time Source Procedure Growth Status 09/11/18 14:50 Nasal Nares MRSA Culture - Final Staphylococcus Aureus - Mrsa Complete 09/13/18 04:45 Stool Clostridium difficile Toxin Assay - Final Complete 09/27/18 23:00 Urine,Clean Catch Urine Culture - Final NO GROWTH AFTER 48 HOURS Complete 09/11/18 14:50 Rectum VRE Culture - Final NO VANCOMYCIN RESISTANT ENTEROCOCCUS ... Complete Current Medications Medications (Trade) Dose Ordered Sig/Sujit Route PRN Reason Start Time Stop Time Status Last Admin Dose Admin Amlodipine Besylate (Norvasc) 10 mg DAILY ORAL 09/15/18 09:00 10/15/18 08:59 10/03/18 08:37 Aspirin (Ecotrin) 81 mg DAILY ORAL 09/15/18 09:00 10/12/18 08:59 10/03/18 08:37 Escitalopram Oxalate (Lexapro) 10 mg DAILY ORAL 09/21/18 09:00 10/21/18 08:59 10/03/18 08:37 Finasteride (Proscar) 5 mg DAILY ORAL 10/01/18 09:00 10/31/18 08:59 10/03/18 08:37 Folic Acid (Folate) 1 mg DAILY ORAL 09/15/18 09:00 10/12/18 08:59 10/03/18 08:37 Magnesium Oxide (Mag-Ox 400mg) 400 mg THREE TIMES A DAY ORAL 09/18/18 13:00 10/18/18 12:59 10/03/18 17:28 Multivitamins (Multivitamins) 1 tab DAILY ORAL 09/15/18 09:00 10/12/18 08:59 10/03/18 08:37 Risperidone (RisperDAL) 2 mg BEDTIME ORAL 09/28/18 21:00 10/22/18 20:59 10/03/18 20:57 Tamsulosin HCl (Flomax) 0.4 mg BID ORAL 09/15/18 09:00 10/11/18 19:00 10/03/18 17:28 Thiamine HCl (Vitamin B1) 100 mg DAILY ORAL 09/21/18 09:00 10/21/18 08:59 10/03/18 08:36 Tramadol HCl (Ultram) 50 mg Q6H PRN ORAL For Pain 09/28/18 13:45 10/05/18 13:44 10/01/18 14:00 Laboratory Tests 10/04/18 05:57: White Blood Count 7.1, Red Blood Count 4.05L, Hemoglobin 11.9L, Hematocrit 35.9L , Mean Corpuscular Volume 89, Mean Corpuscular Hemoglobin 29.5, Mean Corpuscular Hemoglobin Concent 33.2, Red Cell Distribution Width 13.3, Platelet Count 216, Mean Platelet Volume 6.2L, Neutrophils (%) (Auto) , Lymphocytes (%) ( Auto) , Monocytes (%) (Auto) , Eosinophils (%) (Auto) , Basophils (%) (Auto) , Neutrophils % (Manual) [Pending], Lymphocytes % (Manual) [Pending], Sodium Level 137, Potassium Level 3.7, Chloride Level 104, Carbon Dioxide Level 25, Anion Gap 8, Blood Urea Nitrogen 13, Creatinine 1.2, Estimat Glomerular Filtration Rate > 60, Glucose Level 92, Uric Acid 6.0, Calcium Level 8.6, Magnesium Level 1.8, Total Bilirubin 0.5, Aspartate Amino Transf (AST/SGOT) 38H , Alanine Aminotransferase (ALT/SGPT) 42, Alkaline Phosphatase 72, Total Protein 6.6, Albumin 2.5L, Globulin 4.1, Albumin/Globulin Ratio 0.6L Height (Feet): 5 Height (Inches): 10.00 Weight (Pounds): 184 Objective exam stable last renal u/s negative for hydro OscarshBrad emmanuel MD Oct 04, 2018 08:06
[2018-10-04] MEDS: Tamsulosin 0.4mg cap ORAL SCH ×2 (08:20→17:20)
[2018-10-04] MEDS: Thiamine 100mg tab ORAL SCH (08:20)
[2018-10-04] MEDS: Magnesium Oxide 400mg tab ORAL SCH ×3 (08:20→17:20)
[2018-10-04] MEDS: Aspirin EC 81mg tab ORAL SCH (08:21)
[2018-10-04 12:00] VITALS: BP 128/74
[2018-10-04] MEDS: Vancomycin oral 125mg/2.5ml ORAL SCH ×3 (13:33→21:49)
[2018-10-04 16:00] VITALS: BP 133/78
--- NOTE | 2018-10-04 16:30 | General Progress Note ---
Assessment/Plan Problem List: (1) Clostridium difficile colitis ICD Codes: A04.72 - Enterocolitis due to Clostridium difficile, not specified as recurrent SNOMED: 583098874 (2) Urinary tract infection ICD Codes: N39.0 - Urinary tract infection, site not specified SNOMED: 09441231 (3) Bladder calculi ICD Codes: N21.0 - Calculus in bladder SNOMED: 80115906 (4) Renal insufficiency ICD Codes: N28.9 - Disorder of kidney and ureter, unspecified SNOMED: 693604321, 464522672 (5) Bilateral renal stones ICD Codes: N20.0 - Calculus of kidney SNOMED: 34300303 (6) Hydronephrosis ICD Codes: N13.30 - Unspecified hydronephrosis SNOMED: 20243979 (7) Staghorn calculus ICD Codes: N20.0 - Calculus of kidney SNOMED: 575140212 (8) KEE (acute kidney injury) ICD Codes: N17.9 - Acute kidney failure, unspecified SNOMED: 5326045, 59223327 (9) Hypomagnesemia ICD Codes: E83.42 - Hypomagnesemia SNOMED: 855594681 Status: stable, progressing Assessment/Plan: cont current rx ivf nur start po [place] questran for diarrhea monitor labs Subjective ROS Limited/Unobtainable: No Constitutional: Reports: malaise, weakness HEENT: Reports: no symptoms Cardiovascular: Reports: no symptoms Respiratory: Reports: no symptoms Gastrointestinal/Abdominal: Reports: diarrhea Genitourinary: Reports: no symptoms Neurologic/Psychiatric: Reports: no symptoms Endocrine: Reports: no symptoms Hematologic/Lymphatic: Reports: no symptoms Allergies: Coded Allergies: No Known Allergies (Unverified , 09/11/18) All Systems: reviewed and negative except above Subjective +diarrhea. Cdiff positive. otherwise no complaints. noted. Objective Last 24 Hour Vital Signs Date Time Temp Pulse Resp B/P (MAP) Pulse Ox O2 Delivery O2 Flow Rate FiO2 10/04/18 12:00 98.4 80 18 128/74 (92) 98 10/04/18 09:00 Room Air 10/04/18 08:21 68 125/72 10/04/18 08:00 98.4 73 19 140/83 (102) 94 10/04/18 04:00 98.1 68 20 125/72 (89) 10/04/18 00:00 98.1 72 18 129/65 (86) 10/03/18 21:11 Room Air 10/03/18 20:00 98.1 65 20 129/87 (101) Intake and Output 10/03/18 10/04/18 19:00 07:00 Intake Total 860 ml Balance 860 ml Intake Oral 360 ml IV Total 500 ml # Bowel Movements 2 1 Laboratory Tests 10/04/18 05:57: White Blood Count 7.1, Red Blood Count 4.05L, Hemoglobin 11.9L, Hematocrit 35.9L , Mean Corpuscular Volume 89, Mean Corpuscular Hemoglobin 29.5, Mean Corpuscular Hemoglobin Concent 33.2, Red Cell Distribution Width 13.3, Platelet Count 216, Mean Platelet Volume 6.2L, Neutrophils (%) (Auto) , Lymphocytes (%) ( Auto) , Monocytes (%) (Auto) , Eosinophils (%) (Auto) , Basophils (%) (Auto) , Differential Total Cells Counted 100, Neutrophils % (Manual) 46, Lymphocytes % ( Manual) 29, Monocytes % (Manual) 16H, Eosinophils % (Manual) 8H, Basophils % ( Manual) 1, Band Neutrophils 0, Platelet Estimate Adequate, Platelet Morphology Normal, Hypochromasia 1+, Anisocytosis 1+, Sodium Level 137, Potassium Level 3.7 , Chloride Level 104, Carbon Dioxide Level 25, Anion Gap 8, Blood Urea Nitrogen 13, Creatinine 1.2, Estimat Glomerular Filtration Rate > 60, Glucose Level 92, Uric Acid 6.0, Calcium Level 8.6, Magnesium Level 1.8, Total Bilirubin 0.5, Aspartate Amino Transf (AST/SGOT) 38H, Alanine Aminotransferase (ALT/SGPT) 42, Alkaline Phosphatase 72, Total Protein 6.6, Albumin 2.5L, Globulin 4.1, Albumin/ Globulin Ratio 0.6L Height (Feet): 5 Height (Inches): 10.00 Weight (Pounds): 184 General Appearance: WD/WN Cardiovascular: regular rhythm Respiratory/Chest: lungs clear Abdomen: normal bowel sounds, non tender, soft, no organomegaly, no mass Edema: no edema noted Arm (L), no edema noted Arm (R), no edema noted Leg (L), no edema noted Leg (R), no edema noted Pedal (L), no edema noted Pedal (R), no edema noted Generalized John Noyola MD Oct 04, 2018 16:30
[2018-10-04 20:00] VITALS: BP 129/87
[2018-10-05 00:33] VITALS: BP 119/79
[2018-10-05 04:51] VITALS: BP 118/61
[2018-10-05 08:00] VITALS: BP 126/65
[2018-10-05 08:10] LABS: ALANINE AMINOTRANSFERASE 42 U/L (12-78); ALBUMIN 2.6 G/DL (3.4-5.0); ALBUMIN/GLOBULIN RATIO 0.6 (1.0-2.7); ALKALINE PHOSPHATASE 75 U/L (46-116); ANION GAP 8 mmol/L (5-15); ASPARTATE AMINO TRANSFERASE 38 U/L (15-37); BILIRUBIN,TOTAL 0.5 MG/DL (0.2-1.0); BLOOD UREA NITROGEN 10 mg/dL (7-18); CALCIUM 8.7 MG/DL (8.5-10.1); CARBON DIOXIDE 26 MMOL/L (21-32); CHLORIDE 104 MMOL/L (98-107); CREATININE 1.2 MG/DL (0.55-1.30); POTASSIUM 3.4 MMOL/L (3.5-5.1); SODIUM 138 MMOL/L (136-145)
--- NOTE | 2018-10-05 08:10 | Urology Progress Note ---
Assessment/Plan Status: stable, progressing Assessment/Plan: 1. Staghorn renal calculus. 2. Bladder calculus. 3. Mild hydronephrosis, likely chronic. 4. Chronic kidney disease. 5. Acute kidney injury. 6. Hematuria. 7. Pyuria, poss UTI. 8. Urinary retention. 9. Neurogenic bladder. 10. Bladder diverticulum. monitor clinically nur out and voiding monitor renal fxn, labile but improved s/p abx course, now off cont flomax BID proscar added pt with very significant and complex stone burden will likely need multiple complicated urologic procedures with close follow up best course of action would be higher [facility] of care at tertiary care facility Subjective Allergies: Coded Allergies: No Known Allergies (Unverified , 09/11/18) Subjective all noted, voiding, looks comfortable Objective Last 24 Hour Vital Signs Date Time Temp Pulse Resp B/P (MAP) Pulse Ox O2 Delivery O2 Flow Rate FiO2 10/05/18 04:51 97.9 17 118/61 (80) 10/05/18 00:33 98.4 18 119/79 (92) 10/04/18 21:00 Room Air 10/04/18 20:00 98.1 20 129/87 (101) 10/04/18 16:00 99.0 78 19 133/78 (96) 98 10/04/18 12:00 98.4 80 18 128/74 (92) 98 10/04/18 09:00 Room Air 10/04/18 08:21 68 125/72 Intake and Output 10/04/18 10/05/18 18:59 06:59 Intake Total 1340 ml 100 ml Balance 1340 ml 100 ml Intake Oral 840 ml IV Total 500 ml 100 ml # Voids 5 2 # Bowel Movements 6 3 Microbiology Date/Time Source Procedure Growth Status 09/11/18 14:50 Nasal Nares MRSA Culture - Final Staphylococcus Aureus - Mrsa Complete 09/13/18 04:45 Stool Clostridium difficile Toxin Assay - Final Complete 09/27/18 23:00 Urine,Clean Catch Urine Culture - Final NO GROWTH AFTER 48 HOURS Complete 09/11/18 14:50 Rectum VRE Culture - Final NO VANCOMYCIN RESISTANT ENTEROCOCCUS ... Complete Current Medications Medications (Trade) Dose Ordered Sig/Sujit Route PRN Reason Start Time Stop Time Status Last Admin Dose Admin Amlodipine Besylate (Norvasc) 10 mg DAILY ORAL 09/15/18 09:00 8/26/19 08:59 10/04/18 08:21 Aspirin (Ecotrin) 81 mg DAILY ORAL 09/15/18 09:00 10/12/18 08:59 10/04/18 08:21 Cholestyramine Resin (Questran) 4 gm TIDPRN PRN ORAL Diarrhea 10/04/18 12:15 11/03/18 12:14 Escitalopram Oxalate (Lexapro) 10 mg DAILY ORAL 09/21/18 09:00 10/21/18 08:59 10/04/18 08:20 Finasteride (Proscar) 5 mg DAILY ORAL 10/01/18 09:00 10/31/18 08:59 10/04/18 08:20 Folic Acid (Folate) 1 mg DAILY ORAL 09/15/18 09:00 10/12/18 08:59 10/04/18 08:20 Magnesium Oxide (Mag-Ox 400mg) 400 mg THREE TIMES A DAY ORAL 09/18/18 13:00 10/18/18 12:59 10/04/18 17:20 Multivitamins (Multivitamins) 1 tab DAILY ORAL 09/15/18 09:00 10/12/18 08:59 10/04/18 08:20 Risperidone (RisperDAL) 2 mg BEDTIME ORAL 09/28/18 21:00 10/22/18 20:59 10/04/18 21:49 Sodium Chloride 1,000 ml @ 100 mls/hr Q10H IV 10/04/18 12:17 11/03/18 12:16 10/04/18 13:34 Tamsulosin HCl (Flomax) 0.4 mg BID ORAL 09/15/18 09:00 10/11/18 19:00 10/04/18 17:20 Thiamine HCl (Vitamin B1) 100 mg DAILY ORAL 09/21/18 09:00 10/21/18 08:59 10/04/18 08:20 Tramadol HCl (Ultram) 50 mg Q6H PRN ORAL For Pain 09/28/18 13:45 10/05/18 13:44 10/01/18 14:00 Vancomycin HCl (Firvanq) 250 mg FOUR TIMES A DAY ORAL 10/04/18 13:00 10/11/18 12:59 10/04/18 21:49 Laboratory Tests 10/05/18 07:35: White Blood Count [Pending], Red Blood Count [Pending], Hemoglobin [Pending], Hematocrit [Pending], Mean Corpuscular Volume [Pending], Mean Corpuscular Hemoglobin [Pending], Mean Corpuscular Hemoglobin Concent [Pending], Red Cell Distribution Width [Pending], Platelet Count [Pending], Mean Platelet Volume [ Pending], Neutrophils (%) (Auto) [Pending], Lymphocytes (%) (Auto) [Pending], Monocytes (%) (Auto) [Pending], Eosinophils (%) (Auto) [Pending], Basophils (%) (Auto) [Pending], Sodium Level [Pending], Potassium Level [Pending], Chloride Level [Pending], Carbon Dioxide Level [Pending], Blood Urea Nitrogen [Pending], Creatinine [Pending], Estimat Glomerular Filtration Rate [Pending], Glucose Level [Pending], Calcium Level [Pending], Total Bilirubin [Pending], Aspartate Amino Transf (AST/SGOT) [Pending], Alanine Aminotransferase (ALT/SGPT) [Pending] , Alkaline Phosphatase [Pending], Total Protein [Pending], Albumin [Pending], Globulin [Pending] Height (Feet): 5 Height (Inches): 10.00 Weight (Pounds): 184 Objective exam stable last renal u/s negative for hydro BamshadBrad MD Oct 05, 2018 08:10
[2018-10-05 08:33] LABS: BASOPHILS % (AUTO) 1.7 % (0.0-2.0); HEMATOCRIT 37.4 % (42.0-52.0); HEMOGLOBIN 12.5 G/DL (14.2-18.0); LYMPHOCYTES % (AUTO) 17.9 % (20.0-45.0); MEAN CORPUSCULAR VOLUME 89 FL (80-99); MONOCYTES % (AUTO) 15.4 % (1.0-10.0); PLATELET COUNT 232 K/UL (150-450); RED BLOOD COUNT 4.22 M/UL (4.70-6.10); RED CELL DISTRIBUTION WIDTH 13.1 % (11.6-14.8); WHITE BLOOD COUNT 7.7 K/UL (4.8-10.8)
[2018-10-05] MEDS: Magnesium Oxide 400mg tab ORAL SCH ×3 (08:59→17:27)
[2018-10-05] MEDS: Aspirin EC 81mg tab ORAL SCH (08:59)
[2018-10-05] MEDS: Thiamine 100mg tab ORAL SCH (09:00)
[2018-10-05] MEDS: Tamsulosin 0.4mg cap ORAL SCH ×2 (09:00→17:27)
[2018-10-05] MEDS: Vancomycin oral 125mg/2.5ml ORAL SCH ×4 (09:52→20:05)
[2018-10-05 12:00] VITALS: BP 119/84
[2018-10-05 16:00] VITALS: BP 133/69
--- NOTE | 2018-10-05 16:15 | General Progress Note ---
Assessment/Plan Problem List: (1) Clostridium difficile colitis ICD Codes: A04.72 - Enterocolitis due to Clostridium difficile, not specified as recurrent SNOMED: 903645138 (2) Urinary tract infection ICD Codes: N39.0 - Urinary tract infection, site not specified SNOMED: 95529332 (3) Bladder calculi ICD Codes: N21.0 - Calculus in bladder SNOMED: 27626870 (4) Renal insufficiency ICD Codes: N28.9 - Disorder of kidney and ureter, unspecified SNOMED: 267456235, 288394588 (5) Bilateral renal stones ICD Codes: N20.0 - Calculus of kidney SNOMED: 63878380 (6) Hydronephrosis ICD Codes: N13.30 - Unspecified hydronephrosis SNOMED: 77945323 (7) Staghorn calculus ICD Codes: N20.0 - Calculus of kidney SNOMED: 597637415 (8) KEE (acute kidney injury) ICD Codes: N17.9 - Acute kidney failure, unspecified SNOMED: 1630193, 09175167 (9) Hypomagnesemia ICD Codes: E83.42 - Hypomagnesemia SNOMED: 655414014 Status: stable, progressing Assessment/Plan: cont current rx ivf decreased nur start po vanco questran for diarrhea monitor labs Subjective ROS Limited/Unobtainable: No Constitutional: Reports: malaise, weakness HEENT: Reports: no symptoms Cardiovascular: Reports: no symptoms Respiratory: Reports: no symptoms Gastrointestinal/Abdominal: Reports: diarrhea Genitourinary: Reports: no symptoms Neurologic/Psychiatric: Reports: no symptoms Endocrine: Reports: no symptoms Hematologic/Lymphatic: Reports: no symptoms Allergies: Coded Allergies: No Known Allergies (Unverified , 09/11/18) All Systems: reviewed and negative except above Subjective +diarrhea but less. Cdiff positive. otherwise no complaints. noted. refusing iv placement. no abd pain. no dysuria Objective Last 24 Hour Vital Signs Date Time Temp Pulse Resp B/P (MAP) Pulse Ox O2 Delivery O2 Flow Rate FiO2 10/05/18 12:00 97.6 82 18 119/84 (96) 94 10/05/18 09:00 Room Air 10/05/18 08:59 85 126/65 10/05/18 08:00 97.9 85 18 126/65 (85) 97 8/16/19 04:51 97.9 17 118/61 (80) 10/05/18 00:33 98.4 18 119/79 (92) 10/04/18 21:00 Room Air 10/04/18 20:00 98.1 20 129/87 (101) Intake and Output 10/04/18 10/05/18 19:00 07:00 Intake Total 1340 ml 100 ml Balance 1340 ml 100 ml Intake Oral 840 ml IV Total 500 ml 100 ml # Voids 5 2 # Bowel Movements 6 3 Laboratory Tests 10/05/18 07:35: White Blood Count 7.7, Red Blood Count 4.22L, Hemoglobin 12.5L, Hematocrit 37.4L , Mean Corpuscular Volume 89, Mean Corpuscular Hemoglobin 29.6, Mean Corpuscular Hemoglobin Concent 33.4, Red Cell Distribution Width 13.1, Platelet Count 232, Mean Platelet Volume 6.0L, Neutrophils (%) (Auto) 59.0, Lymphocytes ( %) (Auto) 17.9L, Monocytes (%) (Auto) 15.4H, Eosinophils (%) (Auto) 6.0H, Basophils (%) (Auto) 1.7, Sodium Level 138, Potassium Level 3.4L, Chloride Level 104, Carbon Dioxide Level 26, Anion Gap 8, Blood Urea Nitrogen 10, Creatinine 1.2, Estimat Glomerular Filtration Rate > 60, Glucose Level 94, Calcium Level 8.7, Total Bilirubin 0.5, Aspartate Amino Transf (AST/SGOT) 38H, Alanine Aminotransferase (ALT/SGPT) 42, Alkaline Phosphatase 75, Total Protein 6.9, Albumin 2.6L, Globulin 4.3, Albumin/Globulin Ratio 0.6L Height (Feet): 5 Height (Inches): 10.00 Weight (Pounds): 184 General Appearance: WD/WN, alert Neck: supple Cardiovascular: regular rhythm Respiratory/Chest: lungs clear Abdomen: normal bowel sounds, non tender, soft, no organomegaly Edema: no edema noted Arm (L), no edema noted Arm (R), no edema noted Leg (L), no edema noted Leg (R), no edema noted Pedal (L), no edema noted Pedal (R), no edema noted Generalized John Noyola MD Oct 05, 2018 16:15
[2018-10-05 20:00] VITALS: BP 130/75
[2018-10-06] VITALS: BP 137/69
[2018-10-06 04:00] VITALS: BP 135/71
[2018-10-06 08:00] VITALS: BP 130/74
[2018-10-06] MEDS: Vancomycin oral 125mg/2.5ml ORAL SCH ×4 (08:35→20:07)
[2018-10-06] MEDS: Magnesium Oxide 400mg tab ORAL SCH ×3 (08:37→17:23)
[2018-10-06] MEDS: Thiamine 100mg tab ORAL SCH (08:37)
[2018-10-06] MEDS: Aspirin EC 81mg tab ORAL SCH (08:37)
[2018-10-06] MEDS: Tamsulosin 0.4mg cap ORAL SCH ×2 (08:38→17:23)
[2018-10-06] MEDS: Cholestyramine 4gm Pkt ORAL PRN (08:44)
[2018-10-06 12:00] VITALS: BP 134/70
--- NOTE | 2018-10-06 13:16 | General Progress Note ---
Assessment/Plan Problem List: (1) Clostridium difficile colitis ICD Codes: A04.72 - Enterocolitis due to Clostridium difficile, not specified as recurrent SNOMED: 180344934 (2) Urinary tract infection ICD Codes: N39.0 - Urinary tract infection, site not specified SNOMED: 50725099 (3) Bladder calculi ICD Codes: N21.0 - Calculus in bladder SNOMED: 73691967 (4) Renal insufficiency ICD Codes: N28.9 - Disorder of kidney and ureter, unspecified SNOMED: 004531032, 728110401 (5) Bilateral renal stones ICD Codes: N20.0 - Calculus of kidney SNOMED: 39070056 (6) Hydronephrosis ICD Codes: N13.30 - Unspecified hydronephrosis SNOMED: 49009192 (7) Staghorn calculus ICD Codes: N20.0 - Calculus of kidney SNOMED: 647801961 (8) KEE (acute kidney injury) ICD Codes: N17.9 - Acute kidney failure, unspecified SNOMED: 7982986, 49474401 (9) Hypomagnesemia ICD Codes: E83.42 - Hypomagnesemia SNOMED: 469462627 Status: stable, progressing Assessment/Plan: cont current rx ivf decreased nur start po vanco questran for diarrhea monitor labs Subjective ROS Limited/Unobtainable: No Constitutional: Reports: malaise, weakness HEENT: Reports: no symptoms Cardiovascular: Reports: no symptoms Respiratory: Reports: cough Gastrointestinal/Abdominal: Reports: no symptoms Genitourinary: Reports: no symptoms Neurologic/Psychiatric: Reports: emotional problems Endocrine: Reports: no symptoms Hematologic/Lymphatic: Reports: no symptoms Allergies: Coded Allergies: No Known Allergies (Unverified , 09/11/18) All Systems: reviewed and negative except above Subjective no events. no new complaints. per pt diarrhea better. remains on ivf. states hes homeless Objective Last 24 Hour Vital Signs Date Time Temp Pulse Resp B/P (MAP) Pulse Ox O2 Delivery O2 Flow Rate FiO2 10/06/18 12:00 97.6 85 16 134/70 (91) 99 10/06/18 09:00 Room Air 10/06/18 08:39 68 130/74 10/06/18 08:00 98.6 68 19 130/74 (92) 97 10/06/18 04:00 98.3 65 19 135/71 (92) 96 10/06/18 00:00 97.6 63 18 137/69 (91) 95 10/05/18 21:00 Room Air 10/05/18 20:00 98.6 72 22 130/75 (93) 94 10/05/18 16:00 98.6 76 18 133/69 (90) 98 Intake and Output 10/05/18 10/06/18 19:00 07:00 Intake Total 1060 ml 830 ml Balance 1060 ml 830 ml Intake Oral 960 ml 480 ml IV Total 100 ml 350 ml # Voids 3 # Bowel Movements 1 Height (Feet): 5 Height (Inches): 10.00 Weight (Pounds): 184 Objective General Appearance: WD/WN, alert Neck: supple Cardiovascular: regular rhythm Respiratory/Chest: lungs clear Abdomen: normal bowel sounds, non tender, soft, no organomegaly Edema: no edema noted Arm (L), no edema noted Arm (R), no edema noted Leg (L), no edema noted Leg (R), no edema noted Pedal (L), no edema noted Pedal (R), no edema noted Generalized John Noyola MD Oct 06, 2018 13:16
[2018-10-06 16:00] VITALS: BP 136/82
[2018-10-06 20:00] VITALS: BP 165/87
--- NOTE | 2018-10-06 20:16 | Urology Progress Note ---
Assessment/Plan Status: stable, progressing Assessment/Plan: 1. Staghorn renal calculus. 2. Bladder calculus. 3. Mild hydronephrosis, likely chronic. 4. Chronic kidney disease. 5. Acute kidney injury. 6. Hematuria. 7. Pyuria, poss UTI. 8. Urinary retention. 9. Neurogenic bladder. 10. Bladder diverticulum. monitor clinically nur out and voiding monitor renal fxn, labile but improved s/p IV abx course, currently on PO Vanco cont flomax BID proscar added pt with very significant and complex stone burden will likely need multiple complicated urologic procedures with close follow up best course of action would be higher lever of care at tertiary care facility Subjective Allergies: Coded Allergies: No Known Allergies (Unverified , 09/11/18) Subjective all noted, voiding, looks comfortable Objective Last 24 Hour Vital Signs Date Time Temp Pulse Resp B/P (MAP) Pulse Ox O2 Delivery O2 Flow Rate FiO2 10/06/18 16:00 98.7 74 20 136/82 (100) 98 10/06/18 12:00 97.6 85 16 134/70 (91) 99 10/06/18 09:00 Room Air 10/06/18 08:39 68 130/74 10/06/18 08:00 98.6 68 19 130/74 (92) 97 10/06/18 04:00 98.3 65 19 135/71 (92) 96 10/06/18 00:00 97.6 63 18 137/69 (91) 95 10/05/18 21:00 Room Air Intake and Output 10/05/18 10/06/18 18:59 06:59 Intake Total 1060 ml 830 ml Balance 1060 ml 830 ml Intake Oral 960 ml 480 ml IV Total 100 ml 350 ml # Voids 3 # Bowel Movements 1 Microbiology Date/Time Source Procedure Growth Status 09/11/18 14:50 Nasal Nares MRSA Culture - Final Staphylococcus Aureus - Mrsa Complete 09/13/18 04:45 Stool Clostridium difficile Toxin Assay - Final Complete 09/27/18 23:00 Urine,Clean Catch Urine Culture - Final NO GROWTH AFTER 48 HOURS Complete 09/11/18 14:50 Rectum VRE Culture - Final NO VANCOMYCIN RESISTANT ENTEROCOCCUS ... Complete Current Medications Medications (Trade) Dose Ordered Sig/Sujit Route PRN Reason Start Time Stop Time Status Last Admin Dose Admin Amlodipine Besylate (Norvasc) 10 mg DAILY ORAL 09/15/18 09:00 10/15/18 08:59 10/06/18 08:39 Aspirin (Ecotrin) 81 mg DAILY ORAL 09/15/18 09:00 10/12/18 08:59 10/06/18 08:37 Cholestyramine Resin (Questran) 4 gm TIDPRN PRN ORAL Diarrhea 10/04/18 12:15 11/03/18 12:14 10/06/18 08:44 Escitalopram Oxalate (Lexapro) 10 mg DAILY ORAL 09/21/18 09:00 10/21/18 08:59 10/06/18 08:37 Finasteride (Proscar) 5 mg DAILY ORAL 10/01/18 09:00 10/31/18 08:59 10/06/18 08:38 Folic Acid (Folate) 1 mg DAILY ORAL 09/15/18 09:00 10/12/18 08:59 10/06/18 08:37 Magnesium Oxide (Mag-Ox 400mg) 400 mg THREE TIMES A DAY ORAL 09/18/18 13:00 10/18/18 12:59 10/06/18 17:23 Multivitamins (Multivitamins) 1 tab DAILY ORAL 09/15/18 09:00 10/12/18 08:59 10/06/18 08:38 Risperidone (RisperDAL) 2 mg BEDTIME ORAL 09/28/18 21:00 10/22/18 20:59 10/06/18 20:07 Sodium Chloride 1,000 ml @ 50 mls/hr Q20H IV 10/05/18 16:09 11/04/18 16:08 10/06/18 13:27 Tamsulosin HCl (Flomax) 0.4 mg BID ORAL 09/15/18 09:00 10/11/18 19:00 10/06/18 17:23 Thiamine HCl (Vitamin B1) 100 mg DAILY ORAL 09/21/18 09:00 10/21/18 08:59 10/06/18 08:37 Vancomycin HCl (Firvanq) 250 mg FOUR TIMES A DAY ORAL 10/04/18 13:00 10/11/18 12:59 10/06/18 20:07 Height (Feet): 5 Height (Inches): 10.00 Weight (Pounds): 184 Objective exam stable last renal u/s negative for hydro Brad Iqbal MD Oct 06, 2018 20:16
[2018-10-07] VITALS: BP 138/71
[2018-10-07 04:00] VITALS: BP 159/92
[2018-10-07 08:00] VITALS: BP 119/78
[2018-10-07] MEDS: Magnesium Oxide 400mg tab ORAL SCH ×3 (08:14→17:09)
[2018-10-07] MEDS: Tamsulosin 0.4mg cap ORAL SCH ×2 (08:14→17:09)
[2018-10-07] MEDS: Thiamine 100mg tab ORAL SCH (08:14)
[2018-10-07] MEDS: Aspirin EC 81mg tab ORAL SCH (08:14)
[2018-10-07] MEDS: Vancomycin oral 125mg/2.5ml ORAL SCH ×4 (08:14→20:21)
--- NOTE | 2018-10-07 09:56 | Urology Progress Note ---
Assessment/Plan Status: stable, progressing Assessment/Plan: 1. Staghorn renal calculus. 2. Bladder calculus. 3. Mild hydronephrosis, likely chronic. 4. Chronic kidney disease. 5. Acute kidney injury. 6. Hematuria. 7. Pyuria, poss UTI. 8. Urinary retention. 9. Neurogenic bladder. 10. Bladder diverticulum. monitor clinically nur out and voiding monitor renal fxn, labile but improved s/p IV abx course, currently on PO Vanco cont flomax BID proscar added pt with very significant and complex stone burden will likely need multiple complicated urologic procedures with close follow up best course of action would be higher lever of care at tertiary care facility Subjective Allergies: Coded Allergies: No Known Allergies (Unverified , 09/11/18) Subjective all noted, voiding, looks comfortable Objective Last 24 Hour Vital Signs Date Time Temp Pulse Resp B/P (MAP) Pulse Ox O2 Delivery O2 Flow Rate FiO2 10/07/18 09:00 Room Air 10/07/18 08:15 83 119/78 10/07/18 08:00 98.3 83 20 119/78 (92) 94 10/07/18 04:00 97.8 72 20 159/92 (114) 96 10/07/18 00:00 97.0 80 19 138/71 (93) 97 10/06/18 21:00 Room Air 10/06/18 20:00 97.7 91 19 165/87 (113) 98 10/06/18 16:00 98.7 74 20 136/82 (100) 98 10/06/18 12:00 97.6 85 16 134/70 (91) 99 Intake and Output 10/06/18 10/07/18 19:00 07:00 Intake Total 880 ml 1880 ml Output Total 300 ml Balance 880 ml 1580 ml Intake Oral 880 ml 880 ml IV Total 400 ml Other 600 ml Output Urine Total 300 ml # Voids 8 3 # Bowel Movements 4 3 Microbiology Date/Time Source Procedure Growth Status 09/11/18 14:50 Nasal Nares MRSA Culture - Final Staphylococcus Aureus - Mrsa Complete 09/13/18 04:45 Stool Clostridium difficile Toxin Assay - Final Complete 09/27/18 23:00 Urine,Clean Catch Urine Culture - Final NO GROWTH AFTER 48 HOURS Complete 09/11/18 14:50 Rectum VRE Culture - Final NO VANCOMYCIN RESISTANT ENTEROCOCCUS ... Complete Current Medications Medications (Trade) Dose Ordered Sig/Sujit Route PRN Reason Start Time Stop Time Status Last Admin Dose Admin Amlodipine Besylate (Norvasc) 10 mg DAILY ORAL 09/15/18 09:00 10/15/18 08:59 10/07/18 08:15 Aspirin (Ecotrin) 81 mg DAILY ORAL 09/15/18 09:00 10/12/18 08:59 10/07/18 08:14 Cholestyramine Resin (Questran) 4 gm TIDPRN PRN ORAL Diarrhea 10/04/18 12:15 11/03/18 12:14 10/06/18 08:44 Escitalopram Oxalate (Lexapro) 10 mg DAILY ORAL 09/21/18 09:00 10/21/18 08:59 10/07/18 08:14 Finasteride (Proscar) 5 mg DAILY ORAL 10/01/18 09:00 10/31/18 08:59 10/07/18 08:14 Folic Acid (Folate) 1 mg DAILY ORAL 09/15/18 09:00 10/12/18 08:59 10/07/18 08:14 Magnesium Oxide (Mag-Ox 400mg) 400 mg THREE TIMES A DAY ORAL 09/18/18 13:00 10/18/18 12:59 10/07/18 08:14 Multivitamins (Multivitamins) 1 tab DAILY ORAL 09/15/18 09:00 10/12/18 08:59 10/07/18 08:15 Risperidone (RisperDAL) 2 mg BEDTIME ORAL 09/28/18 21:00 10/22/18 20:59 10/06/18 20:07 Sodium Chloride 1,000 ml @ 50 mls/hr Q20H IV 10/05/18 16:09 11/04/18 16:08 10/06/18 13:27 Tamsulosin HCl (Flomax) 0.4 mg BID ORAL 09/15/18 09:00 10/11/18 19:00 10/07/18 08:14 Thiamine HCl (Vitamin B1) 100 mg DAILY ORAL 09/21/18 09:00 10/21/18 08:59 10/07/18 08:14 Vancomycin HCl (Firvanq) 250 mg FOUR TIMES A DAY ORAL 10/04/18 13:00 10/11/18 12:59 10/07/18 08:14 Height (Feet): 5 Height (Inches): 10.00 Weight (Pounds): 184 Objective exam stable last renal u/s negative for hydro Brad Iqbal MD Oct 07, 2018 09:56
--- NOTE | 2018-10-07 10:59 | General Progress Note ---
Assessment/Plan Problem List: (1) Clostridium difficile colitis ICD Codes: A04.72 - Enterocolitis due to Clostridium difficile, not specified as recurrent SNOMED: 475418239 (2) Urinary tract infection ICD Codes: N39.0 - Urinary tract infection, site not specified SNOMED: 73118164 (3) Bladder calculi ICD Codes: N21.0 - Calculus in bladder SNOMED: 99027712 (4) Renal insufficiency ICD Codes: N28.9 - Disorder of kidney and ureter, unspecified SNOMED: 958361236, 877245051 (5) Bilateral renal stones ICD Codes: N20.0 - Calculus of kidney SNOMED: 48127123 (6) Hydronephrosis ICD Codes: N13.30 - Unspecified hydronephrosis SNOMED: 82627429 (7) Staghorn calculus ICD Codes: N20.0 - Calculus of kidney SNOMED: 468329152 (8) KEE (acute kidney injury) ICD Codes: N17.9 - Acute kidney failure, unspecified SNOMED: 0412911, 53743388 (9) Hypomagnesemia ICD Codes: E83.42 - Hypomagnesemia SNOMED: 793921019 Status: stable, progressing Assessment/Plan: cont current rx ivf decreased nur po vanco for cdiff questran for diarrhea monitor labs probably needs placement Subjective ROS Limited/Unobtainable: No Constitutional: Reports: malaise, weakness HEENT: Reports: no symptoms Cardiovascular: Reports: no symptoms Respiratory: Reports: cough Gastrointestinal/Abdominal: Reports: no symptoms Genitourinary: Reports: no symptoms Neurologic/Psychiatric: Reports: no symptoms, emotional problems Endocrine: Reports: no symptoms Hematologic/Lymphatic: Reports: anemia Allergies: Coded Allergies: No Known Allergies (Unverified , 09/11/18) All Systems: reviewed and negative except above Subjective no events. no new complaints. diarrhea better. no fever or chills. Objective Last 24 Hour Vital Signs Date Time Temp Pulse Resp B/P (MAP) Pulse Ox O2 Delivery O2 Flow Rate FiO2 10/07/18 09:00 Room Air 10/07/18 08:15 83 119/78 10/07/18 08:00 98.3 83 20 119/78 (92) 94 10/07/18 04:00 97.8 72 20 159/92 (114) 96 10/07/18 00:00 97.0 80 19 138/71 (93) 97 10/06/18 21:00 Room Air 10/06/18 20:00 97.7 91 19 165/87 (113) 98 10/06/18 16:00 98.7 74 20 136/82 (100) 98 10/06/18 12:00 97.6 85 16 134/70 (91) 99 Intake and Output 10/06/18 10/07/18 19:00 07:00 Intake Total 880 ml 1880 ml Output Total 300 ml Balance 880 ml 1580 ml Intake Oral 880 ml 880 ml IV Total 400 ml Other 600 ml Output Urine Total 300 ml # Voids 8 3 # Bowel Movements 4 3 Height (Feet): 5 Height (Inches): 10.00 Weight (Pounds): 184 Objective General Appearance: WD/WN, alert Neck: supple Cardiovascular: regular rhythm Respiratory/Chest: lungs clear Abdomen: normal bowel sounds, non tender, soft, no organomegaly Edema: no edema noted Arm (L), no edema noted Arm (R), no edema noted Leg (L), no edema noted Leg (R), no edema noted Pedal (L), no edema noted Pedal (R), no edema noted Generalized John Noyola MD Oct 07, 2018 10:59
[2018-10-07] MEDS: Cholestyramine 4gm Pkt ORAL PRN (11:13)
[2018-10-07 12:00] VITALS: BP 115/93
[2018-10-07] MEDS ORDERED: LORazepam Inj 2mg/ml 1ml IV PRN (13:00)
[2018-10-07] MEDS ORDERED: LORazepam 1mg tab ORAL PRN (13:45)
[2018-10-07 16:00] VITALS: BP 142/90
[2018-10-07 19:44] VITALS: BP 155/78
[2018-10-08 04:13] VITALS: BP 136/80
--- NOTE | 2018-10-08 07:56 | Urology Progress Note ---
Assessment/Plan Status: stable, progressing Assessment/Plan: 1. Staghorn renal calculus. 2. Bladder calculus. 3. Mild hydronephrosis, likely chronic. 4. Chronic kidney disease. 5. Acute kidney injury. 6. Hematuria. 7. Pyuria, poss UTI. 8. Urinary retention. 9. Neurogenic bladder. 10. Bladder diverticulum. monitor clinically nur out and voiding monitor renal fxn, labile but improved s/p IV abx course, currently on PO Vanco cont flomax BID proscar added pt with very significant and complex stone burden will likely need multiple complicated urologic procedures with close follow up best course of action would be higher lever of care at tertiary care facility Subjective Allergies: Coded Allergies: No Known Allergies (Unverified , 09/11/18) Subjective all noted, voiding, looks comfortable Objective Last 24 Hour Vital Signs Date Time Temp Pulse Resp B/P (MAP) Pulse Ox O2 Delivery O2 Flow Rate FiO2 10/08/18 04:13 97.6 80 18 136/80 (98) 92 10/07/18 21:00 Room Air 10/07/18 19:44 98.4 82 18 155/78 (103) 95 10/07/18 16:00 98.2 89 18 142/90 (107) 98 10/07/18 12:00 98.4 91 18 115/93 (100) 99 10/07/18 09:00 Room Air 10/07/18 08:15 83 119/78 10/07/18 08:00 98.3 83 20 119/78 (92) 94 Intake and Output 10/07/18 10/08/18 19:00 07:00 Intake Total 770 ml 840 ml Balance 770 ml 840 ml Intake Oral 720 ml 340 ml IV Total 50 ml 500 ml # Voids 6 3 # Bowel Movements 3 1 Microbiology Date/Time Source Procedure Growth Status 09/11/18 14:50 Nasal Nares MRSA Culture - Final Staphylococcus Aureus - Mrsa Complete 09/13/18 04:45 Stool Clostridium difficile Toxin Assay - Final Complete 09/27/18 23:00 Urine,Clean Catch Urine Culture - Final NO GROWTH AFTER 48 HOURS Complete 09/11/18 14:50 Rectum VRE Culture - Final NO VANCOMYCIN RESISTANT ENTEROCOCCUS ... Complete Current Medications Medications (Trade) Dose Ordered Sig/Sujit Route PRN Reason Start Time Stop Time Status Last Admin Dose Admin Amlodipine Besylate (Norvasc) 10 mg DAILY ORAL 09/15/18 09:00 10/15/18 08:59 10/07/18 08:15 Aspirin (Ecotrin) 81 mg DAILY ORAL 09/15/18 09:00 10/12/18 08:59 10/07/18 08:14 Cholestyramine Resin (Questran) 4 gm TIDPRN PRN ORAL Diarrhea 10/04/18 12:15 11/03/18 12:14 10/07/18 11:13 Escitalopram Oxalate (Lexapro) 10 mg DAILY ORAL 09/21/18 09:00 10/21/18 08:59 10/07/18 08:14 Finasteride (Proscar) 5 mg DAILY ORAL 10/01/18 09:00 10/31/18 08:59 10/07/18 08:14 Folic Acid (Folate) 1 mg DAILY ORAL 09/15/18 09:00 10/12/18 08:59 10/07/18 08:14 Lorazepam (Ativan) 2 mg Q6H PRN ORAL anxiety, agitation 10/07/18 13:45 10/14/18 13:44 Magnesium Oxide (Mag-Ox 400mg) 400 mg THREE TIMES A DAY ORAL 09/18/18 13:00 10/18/18 12:59 10/07/18 17:09 Multivitamins (Multivitamins) 1 tab DAILY ORAL 09/15/18 09:00 10/12/18 08:59 10/07/18 08:15 Risperidone (RisperDAL) 2 mg BEDTIME ORAL 09/28/18 21:00 10/22/18 20:59 10/07/18 20:20 Sodium Chloride 1,000 ml @ 50 mls/hr Q20H IV 10/05/18 16:09 11/04/18 16:08 10/06/18 13:27 Tamsulosin HCl (Flomax) 0.4 mg BID ORAL 09/15/18 09:00 10/11/18 19:00 10/07/18 17:09 Thiamine HCl (Vitamin B1) 100 mg DAILY ORAL 09/21/18 09:00 10/21/18 08:59 10/07/18 08:14 Vancomycin HCl (Firvanq) 250 mg FOUR TIMES A DAY ORAL 10/04/18 13:00 10/11/18 12:59 10/07/18 20:21 Height (Feet): 5 Height (Inches): 10.00 Weight (Pounds): 184 Objective exam stable last renal u/s negative for hydro Brad Iqbal MD Oct 08, 2018 07:56
[2018-10-08 08:00] VITALS: BP 121/68
[2018-10-08] MEDS: Tamsulosin 0.4mg cap ORAL SCH ×2 (09:17→18:20)
[2018-10-08] MEDS: Aspirin EC 81mg tab ORAL SCH (09:17)
[2018-10-08] MEDS: Thiamine 100mg tab ORAL SCH (09:17)
[2018-10-08] MEDS: Magnesium Oxide 400mg tab ORAL SCH ×3 (09:17→18:20)
[2018-10-08] MEDS: Vancomycin oral 125mg/2.5ml ORAL SCH ×4 (09:22→21:52)
[2018-10-08] MEDS: Cholestyramine 4gm Pkt ORAL PRN (10:27)
[2018-10-08 12:00] VITALS: BP 120/99
[2018-10-08 16:00] VITALS: BP 132/71
[2018-10-08 20:00] VITALS: BP 125/60
[2018-10-09] VITALS: BP 136/79
[2018-10-09 04:00] VITALS: BP 113/64
--- NOTE | 2018-10-09 07:54 | Urology Progress Note ---
Assessment/Plan Status: stable, progressing Assessment/Plan: 1. Staghorn renal calculus. 2. Bladder calculus. 3. Mild hydronephrosis, likely chronic. 4. Chronic kidney disease. 5. Acute kidney injury. 6. Hematuria. 7. Pyuria, poss UTI. 8. Urinary retention. 9. Neurogenic bladder. 10. Bladder diverticulum. monitor clinically nur out and voiding monitor renal fxn, labile but improved s/p IV abx course, currently on PO Vanco cont flomax BID proscar added pt with very significant and complex stone burden will likely need multiple complicated urologic procedures with close follow up best course of action would be higher lever of care at tertiary care facility Subjective Allergies: Coded Allergies: No Known Allergies (Unverified , 09/11/18) Subjective all noted, voiding, looks comfortable Objective Last 24 Hour Vital Signs Date Time Temp Pulse Resp B/P (MAP) Pulse Ox O2 Delivery O2 Flow Rate FiO2 10/09/18 04:00 97.6 84 18 113/64 (80) 96 10/09/18 00:00 97.8 69 18 136/79 (98) 98 10/08/18 21:00 Room Air 10/08/18 20:00 98.7 72 18 125/60 (81) 95 10/08/18 16:00 98.4 84 18 132/71 (91) 98 10/08/18 12:00 99.1 87 18 120/99 (106) 96 10/08/18 09:17 67 121/68 10/08/18 09:00 Room Air 10/08/18 08:00 97.3 67 18 121/68 (85) 98 Intake and Output 10/08/18 10/09/18 19:00 07:00 Intake Total 770 ml 450 ml Balance 770 ml 450 ml Intake Oral 720 ml IV Total 50 ml 450 ml # Voids 3 3 # Bowel Movements 3 2 Microbiology Date/Time Source Procedure Growth Status 09/11/18 14:50 Nasal Nares MRSA Culture - Final Staphylococcus Aureus - Mrsa Complete 09/13/18 04:45 Stool Clostridium difficile Toxin Assay - Final Complete 09/27/18 23:00 Urine,Clean Catch Urine Culture - Final NO GROWTH AFTER 48 HOURS Complete 09/11/18 14:50 Rectum VRE Culture - Final NO VANCOMYCIN RESISTANT ENTEROCOCCUS ... Complete Current Medications Medications (Trade) Dose Ordered Sig/Sujit Route PRN Reason Start Time Stop Time Status Last Admin Dose Admin Amlodipine Besylate (Norvasc) 10 mg DAILY ORAL 09/15/18 09:00 10/15/18 08:59 10/08/18 09:17 Aspirin (Ecotrin) 81 mg DAILY ORAL 09/15/18 09:00 10/12/18 08:59 10/08/18 09:17 Cholestyramine Resin (Questran) 4 gm TIDPRN PRN ORAL Diarrhea 10/04/18 12:15 11/03/18 12:14 10/08/18 10:27 Escitalopram Oxalate (Lexapro) 10 mg DAILY ORAL 09/21/18 09:00 10/21/18 08:59 10/08/18 09:17 Finasteride (Proscar) 5 mg DAILY ORAL 10/01/18 09:00 10/31/18 08:59 10/08/18 09:17 Folic Acid (Folate) 1 mg DAILY ORAL 09/15/18 09:00 10/12/18 08:59 10/08/18 09:17 Lorazepam (Ativan) 2 mg Q6H PRN ORAL anxiety, agitation 10/07/18 13:45 10/14/18 13:44 Magnesium Oxide (Mag-Ox 400mg) 400 mg THREE TIMES A DAY ORAL 09/18/18 13:00 10/18/18 12:59 10/08/18 18:20 Multivitamins (Multivitamins) 1 tab DAILY ORAL 09/15/18 09:00 10/12/18 08:59 10/08/18 09:17 Risperidone (RisperDAL) 2 mg BEDTIME ORAL 09/28/18 21:00 10/22/18 20:59 10/08/18 21:51 Sodium Chloride 1,000 ml @ 50 mls/hr Q20H IV 10/05/18 16:09 11/04/18 16:08 10/08/18 21:51 Tamsulosin HCl (Flomax) 0.4 mg BID ORAL 09/15/18 09:00 10/11/18 19:00 10/08/18 18:20 Thiamine HCl (Vitamin B1) 100 mg DAILY ORAL 09/21/18 09:00 10/21/18 08:59 10/08/18 09:17 Vancomycin HCl (Firvanq) 250 mg FOUR TIMES A DAY ORAL 10/04/18 13:00 10/11/18 12:59 10/08/18 21:52 Height (Feet): 5 Height (Inches): 10.00 Weight (Pounds): 184 Objective exam stable last renal u/s negative for hydro Brad Iqbal MD Oct 09, 2018 07:54
[2018-10-09 08:00] VITALS: BP 116/66
[2018-10-09] MEDS: Vancomycin oral 125mg/2.5ml ORAL SCH ×4 (08:37→21:15)
[2018-10-09] MEDS: Thiamine 100mg tab ORAL SCH (08:37)
[2018-10-09] MEDS: Aspirin EC 81mg tab ORAL SCH (08:37)
[2018-10-09] MEDS: Magnesium Oxide 400mg tab ORAL SCH ×3 (08:37→17:50)
[2018-10-09] MEDS: Tamsulosin 0.4mg cap ORAL SCH ×2 (08:37→17:50)
[2018-10-09 12:00] VITALS: BP 117/76
[2018-10-09 16:00] VITALS: BP 128/72
[2018-10-09] MEDS: Cholestyramine 4gm Pkt ORAL PRN (16:16)
[2018-10-09 20:00] VITALS: BP 156/76
[2018-10-10] VITALS: BP 149/79
[2018-10-10 04:00] VITALS: BP 147/75
--- NOTE | 2018-10-10 07:51 | Urology Progress Note ---
Assessment/Plan Status: stable, progressing Assessment/Plan: 1. Staghorn renal calculus. 2. Bladder calculus. 3. Mild hydronephrosis, likely chronic. 4. Chronic kidney disease. 5. Acute kidney injury. 6. Hematuria. 7. Pyuria, poss UTI. 8. Urinary retention. 9. Neurogenic bladder. 10. Bladder diverticulum. monitor clinically nur out and voiding monitor renal fxn, labile but improved s/p IV abx course, currently on PO Vanco cont flomax BID proscar added pt with very significant and complex stone burden will likely need multiple complicated urologic procedures with close follow up best course of action would be higher lever of care at tertiary care facility Subjective Allergies: Coded Allergies: No Known Allergies (Unverified , 09/11/18) Subjective all noted, voiding, looks comfortable Objective Last 24 Hour Vital Signs Date Time Temp Pulse Resp B/P (MAP) Pulse Ox O2 Delivery O2 Flow Rate FiO2 10/10/18 04:00 98.6 68 18 147/75 (99) 98 10/10/18 00:00 98.4 71 19 149/79 (102) 97 10/09/18 21:00 Room Air 10/09/18 20:00 98.6 66 17 156/76 (102) 98 10/09/18 16:00 99.5 68 20 128/72 (90) 96 10/09/18 12:00 98.7 80 22 117/76 (90) 96 10/09/18 09:00 Room Air 10/09/18 08:37 83 116/66 10/09/18 08:00 97.4 83 23 116/66 (83) 96 Intake and Output 10/09/18 10/10/18 18:59 06:59 Intake Total 480 ml Balance 480 ml Intake Oral 480 ml # Voids 2 3 # Bowel Movements 2 Microbiology Date/Time Source Procedure Growth Status 09/11/18 14:50 Nasal Nares MRSA Culture - Final Staphylococcus Aureus - Mrsa Complete 09/13/18 04:45 Stool Clostridium difficile Toxin Assay - Final Complete 09/27/18 23:00 Urine,Clean Catch Urine Culture - Final NO GROWTH AFTER 48 HOURS Complete 09/11/18 14:50 Rectum VRE Culture - Final NO VANCOMYCIN RESISTANT ENTEROCOCCUS ... Complete Current Medications Medications (Trade) Dose Ordered Sig/Sujit Route PRN Reason Start Time Stop Time Status Last Admin Dose Admin Amlodipine Besylate (Norvasc) 10 mg DAILY ORAL 09/15/18 09:00 10/15/18 08:59 10/09/18 08:37 Aspirin (Ecotrin) 81 mg DAILY ORAL 09/15/18 09:00 10/12/18 08:59 10/09/18 08:37 Cholestyramine Resin (Questran) 4 gm TIDPRN PRN ORAL Diarrhea 10/04/18 12:15 11/03/18 12:14 10/09/18 16:16 Escitalopram Oxalate (Lexapro) 10 mg DAILY ORAL 09/21/18 09:00 10/21/18 08:59 10/09/18 08:37 Finasteride (Proscar) 5 mg DAILY ORAL 10/01/18 09:00 10/31/18 08:59 10/09/18 08:37 Folic Acid (Folate) 1 mg DAILY ORAL 09/15/18 09:00 10/12/18 08:59 10/09/18 08:37 Lorazepam (Ativan) 2 mg Q6H PRN ORAL anxiety, agitation 10/07/18 13:45 10/14/18 13:44 Magnesium Oxide (Mag-Ox 400mg) 400 mg THREE TIMES A DAY ORAL 09/18/18 13:00 10/18/18 12:59 10/09/18 17:50 Multivitamins (Multivitamins) 1 tab DAILY ORAL 09/15/18 09:00 10/12/18 08:59 10/09/18 08:37 Risperidone (RisperDAL) 2 mg BEDTIME ORAL 09/28/18 21:00 10/22/18 20:59 10/09/18 21:15 Sodium Chloride 1,000 ml @ 50 mls/hr Q20H IV 10/05/18 16:09 11/04/18 16:08 10/09/18 21:14 Tamsulosin HCl (Flomax) 0.4 mg BID ORAL 09/15/18 09:00 10/11/18 19:00 10/09/18 17:50 Thiamine HCl (Vitamin B1) 100 mg DAILY ORAL 09/21/18 09:00 10/21/18 08:59 10/09/18 08:37 Vancomycin HCl (Firvanq) 250 mg FOUR TIMES A DAY ORAL 10/04/18 13:00 10/11/18 12:59 10/09/18 21:15 Height (Feet): 5 Height (Inches): 10.00 Weight (Pounds): 183 Objective exam stable last renal u/s negative for hydro Brad Iqbal MD Oct 10, 2018 07:51
[2018-10-10 08:00] VITALS: BP 139/82
[2018-10-10] MEDS: Aspirin EC 81mg tab ORAL SCH (08:59)
[2018-10-10] MEDS: Thiamine 100mg tab ORAL SCH (08:59)
[2018-10-10] MEDS: Magnesium Oxide 400mg tab ORAL SCH ×3 (08:59→17:17)
[2018-10-10] MEDS: Tamsulosin 0.4mg cap ORAL SCH ×2 (08:59→17:17)
[2018-10-10] MEDS: Vancomycin oral 125mg/2.5ml ORAL SCH ×4 (09:00→20:02)
[2018-10-10 12:00] VITALS: BP 125/79
[2018-10-10] MEDS: Cholestyramine 4gm Pkt ORAL PRN (14:15)
[2018-10-10 16:00] VITALS: BP 130/76
[2018-10-10 20:00] VITALS: BP 130/73
[2018-10-11] VITALS: BP 139/83
[2018-10-11 04:00] VITALS: BP 150/83
--- NOTE | 2018-10-11 08:49 | Urology Progress Note ---
Assessment/Plan Status: stable, progressing Assessment/Plan: 1. Staghorn renal calculus. 2. Bladder calculus. 3. Mild hydronephrosis, likely chronic. 4. Chronic kidney disease. 5. Acute kidney injury. 6. Hematuria. 7. Pyuria, poss UTI. 8. Urinary retention. 9. Neurogenic bladder. 10. Bladder diverticulum. monitor clinically nur out and voiding monitor renal fxn, labile but improved s/p IV abx course, currently on PO Vanco cont flomax BID proscar added pt with very significant and complex stone burden will likely need multiple complicated urologic procedures with close follow up best course of action would be higher lever of care at tertiary care facility Subjective Allergies: Coded Allergies: No Known Allergies (Unverified , 09/11/18) Subjective all noted, voiding, looks comfortable Objective Last 24 Hour Vital Signs Date Time Temp Pulse Resp B/P (MAP) Pulse Ox O2 Delivery O2 Flow Rate FiO2 10/11/18 04:00 97.6 71 20 150/83 (105) 96 10/11/18 00:00 98.0 69 18 139/83 (101) 95 10/10/18 21:00 Room Air 10/10/18 20:00 97.1 83 20 130/73 (92) 97 10/10/18 16:00 98.6 72 19 130/76 (94) 97 10/10/18 12:00 98.0 68 18 125/79 (94) 97 10/10/18 09:00 Room Air 10/10/18 08:59 79 139/82 Intake and Output 10/10/18 10/11/18 18:59 06:59 Intake Total 850 ml Balance 850 ml Other 850 ml # Voids 3 # Bowel Movements 3 Microbiology Date/Time Source Procedure Growth Status 09/11/18 14:50 Nasal Nares MRSA Culture - Final Staphylococcus Aureus - Mrsa Complete 09/13/18 04:45 Stool Clostridium difficile Toxin Assay - Final Complete 09/27/18 23:00 Urine,Clean Catch Urine Culture - Final NO GROWTH AFTER 48 HOURS Complete 09/11/18 14:50 Rectum VRE Culture - Final NO VANCOMYCIN RESISTANT ENTEROCOCCUS ... Complete Current Medications Medications (Trade) Dose Ordered Sig/Sujit Route PRN Reason Start Time Stop Time Status Last Admin Dose Admin Amlodipine Besylate (Norvasc) 10 mg DAILY ORAL 09/15/18 09:00 10/15/18 08:59 10/10/18 08:59 Aspirin (Ecotrin) 81 mg DAILY ORAL 09/15/18 09:00 10/12/18 08:59 10/10/18 08:59 Cholestyramine Resin (Questran) 4 gm TIDPRN PRN ORAL Diarrhea 10/04/18 12:15 11/03/18 12:14 10/10/18 14:15 Escitalopram Oxalate (Lexapro) 10 mg DAILY ORAL 09/21/18 09:00 10/21/18 08:59 10/10/18 08:59 Finasteride (Proscar) 5 mg DAILY ORAL 10/01/18 09:00 10/31/18 08:59 10/10/18 08:59 Folic Acid (Folate) 1 mg DAILY ORAL 09/15/18 09:00 10/12/18 08:59 10/10/18 08:59 Lorazepam (Ativan) 2 mg Q6H PRN ORAL anxiety, agitation 10/07/18 13:45 10/14/18 13:44 Magnesium Oxide (Mag-Ox 400mg) 400 mg THREE TIMES A DAY ORAL 09/18/18 13:00 10/18/18 12:59 10/10/18 17:17 Multivitamins (Multivitamins) 1 tab DAILY ORAL 09/15/18 09:00 10/12/18 08:59 10/10/18 09:00 Risperidone (RisperDAL) 2 mg BEDTIME ORAL 09/28/18 21:00 10/22/18 20:59 10/10/18 20:02 Tamsulosin HCl (Flomax) 0.4 mg BID ORAL 09/15/18 09:00 10/11/18 19:00 10/10/18 17:17 Thiamine HCl (Vitamin B1) 100 mg DAILY ORAL 09/21/18 09:00 10/21/18 08:59 10/10/18 08:59 Vancomycin HCl (Firvanq) 250 mg FOUR TIMES A DAY ORAL 10/04/18 13:00 10/11/18 12:59 10/10/18 20:02 Height (Feet): 5 Height (Inches): 10.00 Weight (Pounds): 183 Objective exam stable last renal u/s negative for Brad Victoria MD Oct 11, 2018 08:49
[2018-10-11] MEDS: Tamsulosin 0.4mg cap ORAL SCH ×2 (11:03→17:45)
[2018-10-11] MEDS: Magnesium Oxide 400mg tab ORAL SCH ×3 (11:03→17:45)
[2018-10-11] MEDS: Aspirin EC 81mg tab ORAL SCH (11:03)
[2018-10-11] MEDS: Thiamine 100mg tab ORAL SCH (11:03)
[2018-10-11] MEDS: Vancomycin oral 125mg/2.5ml ORAL SCH ×4 (11:05→20:47)
[2018-10-11 16:00] VITALS: BP 132/79
[2018-10-11 20:00] VITALS: BP 153/79
[2018-10-12] VITALS: BP 133/79
--- NOTE | 2018-10-12 00:15 | Progress Note ---
DATE: 10/09/2018 INTERNAL MEDICINE PROGRESS NOTE Late entry for 10/09/2018. Status unchanged. Discharge planning in progress. Vitals are stable. Intake good. Still with a massive diarrhea requiring antidiarrheal agents. Orders reviewed and updated. Claude Gambino M.D. DR: LAUREL JOB#: [id number] CC:
--- NOTE | 2018-10-12 00:31 | Progress Note ---
DATE: 10/08/2018 INTERNAL MEDICINE PROGRESS NOTE Late entry for 10/08/2018. SUBJECTIVE: I discussed with Dr. Noyola. The patient has no new complaints. Still with some episodes of diarrhea. OBJECTIVE: VITAL SIGNS: Blood pressure 120/99, pulse 87, respirations 18, temperature 99.1. LUNGS: Clear. CARDIAC: Regular. ABDOMEN: Soft. EXTREMITIES: No edema. IMPRESSION: 1. Nephrolithiasis. 2. Bladder outlet obstruction. 3. Hypertension. 4. Resolved bradycardia. 5. Recovered renal failure. 6. Staghorn renal calculus. PLAN: 1. Awaiting transfer to a higher level of care for urologic intervention. 2. Maintain adequate hydration. 3. Monitor volume status and cardiorenal parameters. Claude Gambino M.D. DRKala BENSON JOB#: [id number] CC:
[2018-10-12 04:00] VITALS: BP 118/74
--- NOTE | 2018-10-12 07:58 | Urology Progress Note ---
Assessment/Plan Status: stable, progressing Assessment/Plan: 1. Staghorn renal calculus. 2. Bladder calculus. 3. Mild hydronephrosis, likely chronic. 4. Chronic kidney disease. 5. Acute kidney injury. 6. Hematuria. 7. Pyuria, poss UTI. 8. Urinary retention. 9. Neurogenic bladder. 10. Bladder diverticulum. monitor clinically nur out and voiding monitor renal fxn, labile but improved s/p IV abx course, currently on PO Vanco cont flomax BID proscar added pt with very significant and complex stone burden will likely need multiple complicated urologic procedures with close follow up best course of action would be higher lever of care at tertiary care facility Subjective Allergies: Coded Allergies: No Known Allergies (Unverified , 09/11/18) Subjective all noted, voiding, looks comfortable Objective Last 24 Hour Vital Signs Date Time Temp Pulse Resp B/P (MAP) Pulse Ox O2 Delivery O2 Flow Rate FiO2 10/12/18 04:00 98.1 62 20 118/74 (89) 95 10/12/18 00:00 98.0 69 18 133/79 (97) 99 10/11/18 21:00 Room Air 10/11/18 20:00 97.8 75 18 153/79 (103) 99 75 10/11/18 16:00 98.9 84 16 132/79 (96) 97 10/11/18 11:02 86 112/75 10/11/18 09:00 Room Air Intake and Output 10/11/18 10/12/18 19:00 07:00 Intake Total 900 ml Balance 900 ml Intake Oral 900 ml # Voids 3 4 # Bowel Movements 6 Microbiology Date/Time Source Procedure Growth Status 09/11/18 14:50 Nasal Nares MRSA Culture - Final Staphylococcus Aureus - Mrsa Complete 09/13/18 04:45 Stool Clostridium difficile Toxin Assay - Final Complete 09/27/18 23:00 Urine,Clean Catch Urine Culture - Final NO GROWTH AFTER 48 HOURS Complete 09/11/18 14:50 Rectum VRE Culture - Final NO VANCOMYCIN RESISTANT ENTEROCOCCUS ... Complete Current Medications Medications (Trade) Dose Ordered Sig/Sujit Route PRN Reason Start Time Stop Time Status Last Admin Dose Admin Amlodipine Besylate (Norvasc) 10 mg DAILY ORAL 09/15/18 09:00 10/15/18 08:59 10/11/18 11:02 Aspirin (Ecotrin) 81 mg DAILY ORAL 09/15/18 09:00 10/12/18 08:59 10/11/18 11:03 Cholestyramine Resin (Questran) 4 gm TIDPRN PRN ORAL Diarrhea 10/04/18 12:15 11/03/18 12:14 10/10/18 14:15 Escitalopram Oxalate (Lexapro) 10 mg DAILY ORAL 09/21/18 09:00 10/21/18 08:59 10/11/18 10:58 Finasteride (Proscar) 5 mg DAILY ORAL 10/01/18 09:00 10/31/18 08:59 10/11/18 11:03 Folic Acid (Folate) 1 mg DAILY ORAL 09/15/18 09:00 10/12/18 08:59 10/11/18 11:03 Lorazepam (Ativan) 2 mg Q6H PRN ORAL anxiety, agitation 10/07/18 13:45 10/14/18 13:44 Magnesium Oxide (Mag-Ox 400mg) 400 mg THREE TIMES A DAY ORAL 09/18/18 13:00 10/18/18 12:59 10/11/18 17:45 Multivitamins (Multivitamins) 1 tab DAILY ORAL 09/15/18 09:00 10/12/18 08:59 10/11/18 11:03 Risperidone (RisperDAL) 2 mg BEDTIME ORAL 09/28/18 21:00 10/22/18 20:59 10/11/18 20:47 Thiamine HCl (Vitamin B1) 100 mg DAILY ORAL 09/21/18 09:00 10/21/18 08:59 10/11/18 11:03 Vancomycin HCl (Firvanq) 250 mg FOUR TIMES A DAY ORAL 10/11/18 14:00 10/14/18 13:59 10/11/18 20:47 Height (Feet): 5 Height (Inches): 10.00 Weight (Pounds): 183 Objective exam stable last renal u/s negative for Brad Victoria MD Oct 12, 2018 07:58
[2018-10-12 08:00] VITALS: BP 115/67
[2018-10-12] MEDS: Magnesium Oxide 400mg tab ORAL SCH ×3 (09:45→18:27)
[2018-10-12] MEDS: Vancomycin oral 125mg/2.5ml ORAL SCH ×4 (09:45→20:50)
[2018-10-12] MEDS: Thiamine 100mg tab ORAL SCH (09:45)
[2018-10-12 10:03] LABS: BASOPHILS % (AUTO) 1.9 % (0.0-2.0); EOSINOPHILS % (AUTO) 3.9 % (0.0-3.0); HEMATOCRIT 40.4 % (42.0-52.0); HEMOGLOBIN 13.3 G/DL (14.2-18.0); LYMPHOCYTES % (AUTO) 22.4 % (20.0-45.0); MEAN CORPUSCULAR VOLUME 89 FL (80-99); NEUTROPHILS % (AUTO) 63.9 % (45.0-75.0); PLATELET COUNT 211 K/UL (150-450); RED BLOOD COUNT 4.56 M/UL (4.70-6.10); RED CELL DISTRIBUTION WIDTH 13.9 % (11.6-14.8); WHITE BLOOD COUNT 8.9 K/UL (4.8-10.8)
[2018-10-12 10:18] LABS: ALANINE AMINOTRANSFERASE 61 U/L (12-78); ALBUMIN 3.2 G/DL (3.4-5.0); ALBUMIN/GLOBULIN RATIO 0.7 (1.0-2.7); ALKALINE PHOSPHATASE 76 U/L (46-116); ANION GAP 7 mmol/L (5-15); ASPARTATE AMINO TRANSFERASE 65 U/L (15-37); BILIRUBIN,TOTAL 0.6 MG/DL (0.2-1.0); BLOOD UREA NITROGEN 21 mg/dL (7-18); CALCIUM 9.2 MG/DL (8.5-10.1); CARBON DIOXIDE 25 MMOL/L (21-32); CHLORIDE 106 MMOL/L (98-107); CREATININE 1.4 MG/DL (0.55-1.30); POTASSIUM 4.3 MMOL/L (3.5-5.1); SODIUM 138 MMOL/L (136-145)
[2018-10-12 12:00] VITALS: BP 120/70
[2018-10-12 16:00] VITALS: BP 134/74
[2018-10-12 20:00] VITALS: BP 151/78
[2018-10-13] VITALS: BP 107/70
[2018-10-13 04:00] VITALS: BP 157/94
[2018-10-13 08:00] VITALS: BP 106/78
--- NOTE | 2018-10-13 09:10 | Urology Progress Note ---
Assessment/Plan Status: stable, progressing Assessment/Plan: 1. Staghorn renal calculus. 2. Bladder calculus. 3. Mild hydronephrosis, likely chronic. 4. Chronic kidney disease. 5. Acute kidney injury. 6. Hematuria. 7. Pyuria, poss UTI. 8. Urinary retention. 9. Neurogenic bladder. 10. Bladder diverticulum. monitor clinically nur out and voiding monitor renal fxn, labile s/p IV abx course, currently on PO Vanco resume flomax BID proscar added pt with very significant and complex stone burden will likely need multiple complicated urologic procedures with close follow up best course of action would be higher lever of care at tertiary care facility Subjective Allergies: Coded Allergies: No Known Allergies (Unverified , 09/11/18) Subjective all noted, voiding, looks comfortable Objective Last 24 Hour Vital Signs Date Time Temp Pulse Resp B/P (MAP) Pulse Ox O2 Delivery O2 Flow Rate FiO2 10/13/18 04:00 96.9 85 19 157/94 (115) 98 10/13/18 00:00 97.9 80 19 107/70 (82) 96 10/12/18 21:00 Room Air 10/12/18 20:00 98.0 82 19 151/78 (102) 95 10/12/18 16:00 98.2 83 16 134/74 (94) 95 10/12/18 12:00 98.3 76 18 120/70 (87) 100 10/12/18 09:45 70 115/67 Intake and Output 10/12/18 10/13/18 19:00 07:00 Intake Total 1600 ml 2450 ml Balance 1600 ml 2450 ml Intake Oral 1600 ml 1600 ml Other 850 ml # Voids 4 # Bowel Movements 3 3 Microbiology Date/Time Source Procedure Growth Status 09/11/18 14:50 Nasal Nares MRSA Culture - Final Staphylococcus Aureus - Mrsa Complete 09/13/18 04:45 Stool Clostridium difficile Toxin Assay - Final Complete 09/27/18 23:00 Urine,Clean Catch Urine Culture - Final NO GROWTH AFTER 48 HOURS Complete 09/11/18 14:50 Rectum VRE Culture - Final NO VANCOMYCIN RESISTANT ENTEROCOCCUS ... Complete Current Medications Medications (Trade) Dose Ordered Sig/Sujit Route PRN Reason Start Time Stop Time Status Last Admin Dose Admin Amlodipine Besylate (Norvasc) 10 mg DAILY ORAL 09/15/18 09:00 10/15/18 08:59 10/12/18 09:45 Cholestyramine Resin (Questran) 4 gm TIDPRN PRN ORAL Diarrhea 10/04/18 12:15 11/03/18 12:14 10/10/18 14:15 Escitalopram Oxalate (Lexapro) 10 mg DAILY ORAL 09/21/18 09:00 10/21/18 08:59 10/12/18 09:44 Finasteride (Proscar) 5 mg DAILY ORAL 10/01/18 09:00 10/31/18 08:59 10/12/18 09:44 Lorazepam (Ativan) 2 mg Q6H PRN ORAL anxiety, agitation 10/07/18 13:45 10/14/18 13:44 Magnesium Oxide (Mag-Ox 400mg) 400 mg THREE TIMES A DAY ORAL 09/18/18 13:00 10/18/18 12:59 10/12/18 18:27 Risperidone (RisperDAL) 2 mg BEDTIME ORAL 09/28/18 21:00 10/22/18 20:59 10/12/18 20:50 Thiamine HCl (Vitamin B1) 100 mg DAILY ORAL 09/21/18 09:00 10/21/18 08:59 10/12/18 09:45 Vancomycin HCl (Firvanq) 250 mg FOUR TIMES A DAY ORAL 10/11/18 14:00 10/14/18 13:59 10/12/18 20:50 Laboratory Tests 10/12/18 09:35: White Blood Count 8.9, Red Blood Count 4.56L, Hemoglobin 13.3L, Hematocrit 40.4L , Mean Corpuscular Volume 89, Mean Corpuscular Hemoglobin 29.2, Mean Corpuscular Hemoglobin Concent 32.9, Red Cell Distribution Width 13.9, Platelet Count 211, Mean Platelet Volume 6.0L, Neutrophils (%) (Auto) 63.9, Lymphocytes ( %) (Auto) 22.4, Monocytes (%) (Auto) 8.0, Eosinophils (%) (Auto) 3.9H, Basophils (%) (Auto) 1.9 10/12/18 09:40: Sodium Level 138, Potassium Level 4.3, Chloride Level 106, Carbon Dioxide Level 25, Anion Gap 7, Blood Urea Nitrogen 21H, Creatinine 1.4H, Estimat Glomerular Filtration Rate 50.9, Glucose Level 95, Uric Acid 7.3H, Calcium Level 9.2, Magnesium Level 2.0, Total Bilirubin 0.6, Aspartate Amino Transf (AST/SGOT) 65H , Alanine Aminotransferase (ALT/SGPT) 61, Alkaline Phosphatase 76, Total Protein 7.8, Albumin 3.2L, Globulin 4.6, Albumin/Globulin Ratio 0.7L Height (Feet): 5 Height (Inches): 10.00 Weight (Pounds): 183 Objective exam stable last renal u/s negative for hydro Brad Iqbal MD Oct 13, 2018 09:10
[2018-10-13] MEDS: Thiamine 100mg tab ORAL SCH (09:27)
[2018-10-13] MEDS: Magnesium Oxide 400mg tab ORAL SCH ×3 (09:27→17:20)
[2018-10-13] MEDS: Vancomycin oral 125mg/2.5ml ORAL SCH ×4 (09:28→20:36)
[2018-10-13 12:00] VITALS: BP 109/69
[2018-10-13 16:00] VITALS: BP 110/69
[2018-10-13] MEDS: Tamsulosin 0.4mg cap ORAL SCH (17:20)
[2018-10-13 20:00] VITALS: BP 108/60
[2018-10-14] VITALS: BP_SYST 108; BP_SYST 149; BP_DIAS 66; BP_DIAS 68
[2018-10-14 04:00] VITALS: BP 145/72
[2018-10-14 08:00] VITALS: BP 119/70
[2018-10-14] MEDS: Thiamine 100mg tab ORAL SCH (08:43)
[2018-10-14] MEDS: Tamsulosin 0.4mg cap ORAL SCH ×2 (09:00→17:22)
[2018-10-14] MEDS: Magnesium Oxide 400mg tab ORAL SCH ×3 (09:00→17:22)
--- NOTE | 2018-10-14 09:24 | Urology Progress Note ---
Assessment/Plan Status: stable, progressing Assessment/Plan: 1. Staghorn renal calculus. 2. Bladder calculus. 3. Mild hydronephrosis, likely chronic. 4. Chronic kidney disease. 5. Acute kidney injury. 6. Hematuria. 7. Pyuria, poss UTI. 8. Urinary retention. 9. Neurogenic bladder. 10. Bladder diverticulum. monitor clinically nur out and voiding monitor renal fxn, labile s/p IV abx course, currently on PO Vanco resume flomax BID proscar added pt with very significant and complex stone burden will likely need multiple complicated urologic procedures with close follow up best course of action would be higher lever of care at tertiary care facility Subjective Allergies: Coded Allergies: No Known Allergies (Unverified , 09/11/18) Subjective all noted, voiding, looks comfortable Objective Last 24 Hour Vital Signs Date Time Temp Pulse Resp B/P (MAP) Pulse Ox O2 Delivery O2 Flow Rate FiO2 10/14/18 04:00 96.9 74 19 145/72 (96) 95 10/14/18 00:00 96.9 69 19 149/68 (95) 96 10/13/18 21:00 Room Air 10/13/18 20:00 97.9 67 19 108/60 (76) 96 10/13/18 16:00 98.6 79 19 110/69 (83) 96 10/13/18 12:00 98.3 88 16 109/69 (82) 97 10/13/18 09:27 71 106/78 Intake and Output 10/13/18 10/14/18 19:00 07:00 Intake Total 900 ml 2500 ml Balance 900 ml 2500 ml Intake Oral 1600 ml Other 900 ml 900 ml # Voids 4 # Bowel Movements 3 Microbiology Date/Time Source Procedure Growth Status 09/11/18 14:50 Nasal Nares MRSA Culture - Final Staphylococcus Aureus - Mrsa Complete 09/13/18 04:45 Stool Clostridium difficile Toxin Assay - Final Complete 09/27/18 23:00 Urine,Clean Catch Urine Culture - Final NO GROWTH AFTER 48 HOURS Complete 09/11/18 14:50 Rectum VRE Culture - Final NO VANCOMYCIN RESISTANT ENTEROCOCCUS ... Complete Current Medications Medications (Trade) Dose Ordered Sig/Sujit Route PRN Reason Start Time Stop Time Status Last Admin Dose Admin Amlodipine Besylate (Norvasc) 10 mg DAILY ORAL 09/15/18 09:00 10/15/18 08:59 10/13/18 09:27 Cholestyramine Resin (Questran) 4 gm TIDPRN PRN ORAL Diarrhea 10/04/18 12:15 11/03/18 12:14 10/10/18 14:15 Escitalopram Oxalate (Lexapro) 10 mg DAILY ORAL 09/21/18 09:00 10/21/18 08:59 10/13/18 09:27 Finasteride (Proscar) 5 mg DAILY ORAL 10/01/18 09:00 10/31/18 08:59 10/14/18 08:43 Lorazepam (Ativan) 2 mg Q6H PRN ORAL anxiety, agitation 10/07/18 13:45 10/14/18 13:44 Magnesium Oxide (Mag-Ox 400mg) 400 mg THREE TIMES A DAY ORAL 09/18/18 13:00 10/18/18 12:59 10/13/18 17:20 Risperidone (RisperDAL) 2 mg BEDTIME ORAL 09/28/18 21:00 10/22/18 20:59 10/13/18 20:36 Tamsulosin HCl (Flomax) 0.4 mg BID ORAL 10/13/18 18:00 11/12/18 17:59 10/13/18 17:20 Thiamine HCl (Vitamin B1) 100 mg DAILY ORAL 09/21/18 09:00 10/21/18 08:59 10/14/18 08:43 Vancomycin HCl (Firvanq) 250 mg FOUR TIMES A DAY ORAL 10/11/18 14:00 10/14/18 13:59 10/13/18 20:36 Height (Feet): 5 Height (Inches): 10.00 Weight (Pounds): 183 Objective exam stable last renal u/s negative for hydro Brad Iqbal MD Oct 14, 2018 09:24
[2018-10-14 12:00] VITALS: BP 130/78
[2018-10-14] MEDS: Vancomycin oral 125mg/2.5ml ORAL SCH (12:33)
--- NOTE | 2018-10-14 14:30 | Progress Note ---
DATE: 10/12/2018 INTERNAL MEDICINE PROGRESS NOTE SUBJECTIVE: The patient was seen and evaluated. Case discussed with staff. No new distress. Occasional loose stools. Intake is fair. PHYSICAL EXAMINATION: VITAL SIGNS: Blood pressure 120/70, pulse 76, and respirations 18. LUNGS: Clear. ABDOMEN: Soft, nontender. CARDIAC: Regular. No new murmur. EXTREMITIES: No edema. LABORATORY DATA: Notable for rising BUN and creatinine 21/1.4. Potassium 4.3. White count 8.9 and hemoglobin 13.3. IMPRESSION: 1. Obstructive uropathy. 2. Staghorn renal calculus. 3. Nephrolithiasis. 4. Urolithiasis. 5. Bladder outlet obstruction. 6. Acute on chronic renal failure. 7. C. difficile colitis. PLAN: 1. Complete antimicrobials. 2. Restart IV fluids if renal function continues to deteriorate. 3. Await transfer to a higher level of care for definitive urologic intervention. Claude Gambino M.D. DR: CLAUDETTE JOB#: [id number] CC:
--- NOTE | 2018-10-14 14:45 | Progress Note ---
DATE: 10/13/2018 INTERNAL MEDICINE PROGRESS NOTE SUBJECTIVE: The patient's condition unchanged. He remains on therapy for diarrhea due to C. diff. Yesterday, laboratories were notable for worsening renal function, off IV fluids. The patient is being encouraged to take in oral fluids. In his way, he is still awaiting transfer to a higher level of care for definitive urologic intervention. Repeat laboratory studies in one to two days to reassess renal function following completion of oral antimicrobials for C. diff. Claude Gambino M.D. DR: CLAUDETTE JOB#: [id number] CC:
--- NOTE | 2018-10-14 15:00 | Progress Note ---
DATE: 10/11/2018 INTERNAL MEDICINE PROGRESS NOTE SUBJECTIVE: The patient is seen and evaluated. Chart reviewed. Discussed with staff and consultants. Vitals are stable. Exam is unchanged. PLAN: 1. Plan of care in place. 2. Awaiting transfer to higher level of care as previously noted. Claude Gambino M.D. DR: CLAUDETTE JOB#: [id number] CC:
--- NOTE | 2018-10-14 15:30 | Progress Note ---
DATE: 10/10/2018 INTERNAL MEDICINE PROGRESS NOTE SUBJECTIVE: Case reviewed with the urologist. The patient is having loose stools and is on oral therapy for C. difficile as well as agents. Oral intake is adequate, but at times not enough to meet losses. PHYSICAL EXAMINATION: Vitals are stable. Exam is unchanged. IMPRESSION: 1. Needs higher level of care for management of severe nephrolithiasis with bladder outlet obstruction. 2. Staghorn calculus and multiple other stones. 3. Also needs completion of oral antimicrobials for C. difficile and continued observation of metabolic parameters and adjustment of IV to meet GI losses. Claude Gambino M.D. DR: CLAUDETTE JOB#: [id number] CC:
[2018-10-14 16:00] VITALS: BP 137/81
[2018-10-14 20:00] VITALS: BP 133/81
[2018-10-15] VITALS: BP 145/86
[2018-10-15 04:00] VITALS: BP 105/67
[2018-10-15 07:07] LABS: BASOPHILS % (AUTO) 2.5 % (0.0-2.0); EOSINOPHILS % (AUTO) 5.1 % (0.0-3.0); HEMATOCRIT 41.5 % (42.0-52.0); HEMOGLOBIN 13.5 G/DL (14.2-18.0); LYMPHOCYTES % (AUTO) 30.1 % (20.0-45.0); MEAN CORPUSCULAR VOLUME 90 FL (80-99); MONOCYTES % (AUTO) 12.7 % (1.0-10.0); NEUTROPHILS % (AUTO) 49.6 % (45.0-75.0); PLATELET COUNT 206 K/UL (150-450); RED BLOOD COUNT 4.62 M/UL (4.70-6.10); RED CELL DISTRIBUTION WIDTH 14.4 % (11.6-14.8); WHITE BLOOD COUNT 6.5 K/UL (4.8-10.8)
[2018-10-15 07:22] LABS: ANION GAP 9 mmol/L (5-15); BLOOD UREA NITROGEN 19 mg/dL (7-18); CALCIUM 8.9 MG/DL (8.5-10.1); CARBON DIOXIDE 25 MMOL/L (21-32); CHLORIDE 107 MMOL/L (98-107); CREATININE 1.2 MG/DL (0.55-1.30); POTASSIUM 4.2 MMOL/L (3.5-5.1); SODIUM 141 MMOL/L (136-145)
[2018-10-15 08:00] VITALS: BP 121/73
--- NOTE | 2018-10-15 08:03 | Urology Progress Note ---
Assessment/Plan Status: stable, progressing Assessment/Plan: 1. Staghorn renal calculus. 2. Bladder calculus. 3. Mild hydronephrosis, likely chronic. 4. Chronic kidney disease. 5. Acute kidney injury. 6. Hematuria. 7. Pyuria, poss UTI. 8. Urinary retention. 9. Neurogenic bladder. 10. Bladder diverticulum. monitor clinically nur out and voiding monitor renal fxn, labile s/p abx flomax BID resumed cont proscar pt with very significant and complex stone burden will likely need multiple complicated urologic procedures with close follow up best course of action would be higher lever of care at [facility] facility Subjective Allergies: Coded Allergies: No Known Allergies (Unverified , 09/11/18) Subjective all noted, voiding, looks comfortable Objective Last 24 Hour Vital Signs Date Time Temp Pulse Resp B/P (MAP) Pulse Ox O2 Delivery O2 Flow Rate FiO2 10/15/18 04:00 97.0 84 19 105/67 (80) 97 10/15/18 00:00 98.2 63 19 145/86 (105) 95 10/14/18 21:00 Room Air 10/14/18 20:00 98.1 67 19 133/81 (98) 95 10/14/18 17:43 Room Air 10/14/18 16:00 98.0 78 19 137/81 (99) 98 10/14/18 12:00 97.9 74 19 130/78 (95) 98 10/14/18 09:00 Room Air 10/14/18 09:00 86 119/70 Intake and Output 10/14/18 10/15/18 19:00 07:00 Intake Total 1200 ml 2100 ml Balance 1200 ml 2100 ml Intake Oral 1200 ml 1200 ml Other 900 ml # Voids 6 2 # Bowel Movements 2 1 Microbiology Date/Time Source Procedure Growth Status 09/11/18 14:50 Nasal Nares MRSA Culture - Final Staphylococcus Aureus - Mrsa Complete 09/13/18 04:45 Stool Clostridium difficile Toxin Assay - Final Complete 09/27/18 23:00 Urine,Clean Catch Urine Culture - Final NO GROWTH AFTER 48 HOURS Complete 09/11/18 14:50 Rectum VRE Culture - Final NO VANCOMYCIN RESISTANT ENTEROCOCCUS ... Complete Current Medications Medications (Trade) Dose Ordered Sig/Sujit Route PRN Reason Start Time Stop Time Status Last Admin Dose Admin Amlodipine Besylate (Norvasc) 10 mg DAILY ORAL 09/15/18 09:00 10/15/18 08:59 10/14/18 09:00 Cholestyramine Resin (Questran) 4 gm TIDPRN PRN ORAL Diarrhea 10/04/18 12:15 11/03/18 12:14 10/10/18 14:15 Escitalopram Oxalate (Lexapro) 10 mg DAILY ORAL 09/21/18 09:00 10/21/18 08:59 10/14/18 09:00 Finasteride (Proscar) 5 mg DAILY ORAL 10/01/18 09:00 10/31/18 08:59 10/14/18 08:43 Magnesium Oxide (Mag-Ox 400mg) 400 mg THREE TIMES A DAY ORAL 09/18/18 13:00 10/18/18 12:59 10/14/18 17:22 Risperidone (RisperDAL) 2 mg BEDTIME ORAL 09/28/18 21:00 10/22/18 20:59 10/14/18 20:14 Tamsulosin HCl (Flomax) 0.4 mg BID ORAL 10/13/18 18:00 11/12/18 17:59 10/14/18 17:22 Thiamine HCl (Vitamin B1) 100 mg DAILY ORAL 09/21/18 09:00 10/21/18 08:59 10/14/18 08:43 Laboratory Tests 10/15/18 05:37: White Blood Count 6.5, Red Blood Count 4.62L, Hemoglobin 13.5L, Hematocrit 41.5L , Mean Corpuscular Volume 90, Mean Corpuscular Hemoglobin 29.2, Mean Corpuscular Hemoglobin Concent 32.5, Red Cell Distribution Width 14.4, Platelet Count 206, Mean Platelet Volume 6.7, Neutrophils (%) (Auto) 49.6, Lymphocytes (% ) (Auto) 30.1, Monocytes (%) (Auto) 12.7H, Eosinophils (%) (Auto) 5.1H, Basophils (%) (Auto) 2.5H, Sodium Level 141, Potassium Level 4.2, Chloride Level 107, Carbon Dioxide Level 25, Anion Gap 9, Blood Urea Nitrogen 19H, Creatinine 1.2, Estimat Glomerular Filtration Rate > 60, Glucose Level 93, Calcium Level 8.9, Magnesium Level 2.0 Height (Feet): 5 Height (Inches): 10.00 Weight (Pounds): 183 Objective exam stable last renal u/s negative for hydro Brad Iqbal MD Oct 15, 2018 08:03
[2018-10-15] MEDS: Tamsulosin 0.4mg cap ORAL SCH ×2 (08:43→17:04)
[2018-10-15] MEDS: Thiamine 100mg tab ORAL SCH (08:44)
[2018-10-15] MEDS: Magnesium Oxide 400mg tab ORAL SCH ×3 (08:44→17:04)
[2018-10-15 12:00] VITALS: BP 137/78
[2018-10-15 16:00] VITALS: BP 143/81
[2018-10-15 20:00] VITALS: BP 129/73
[2018-10-16] VITALS: BP 154/94
[2018-10-16 04:00] VITALS: BP 140/87
[2018-10-16 08:00] VITALS: BP 131/84
[2018-10-16] MEDS: Magnesium Oxide 400mg tab ORAL SCH ×3 (08:37→17:00)
[2018-10-16] MEDS: Thiamine 100mg tab ORAL SCH (08:37)
[2018-10-16] MEDS: Tamsulosin 0.4mg cap ORAL SCH ×2 (08:37→17:00)
[2018-10-16 12:00] VITALS: BP 128/78
[2018-10-16 16:00] VITALS: BP 139/75
--- NOTE | 2018-10-16 16:56 | Progress Note ---
DATE: 10/15/2018 INTERNAL MEDICINE PROGRESS NOTE SUBJECTIVE: Discharge planning efforts continue. The patient continues to have adequate urine output. Diarrhea has decreased. He is off antimicrobials. OBJECTIVE: VITAL SIGNS: Stable. LUNGS: Clear. ABDOMEN: Soft. There is no CVA tenderness. EXTREMITIES: Without edema. LABORATORY DATA: White count 6.5 and hemoglobin 13.5. Potassium 4.2, BUN 19, and creatinine 1.2. IMPRESSION: His urologic interventions as previously noted. PLAN: Continue current therapy, pending transfer to higher level of care. Claude Gambino M.D. DR: TOM JOB#: [id number] CC:
--- NOTE | 2018-10-16 17:35 | Urology Progress Note ---
Assessment/Plan Status: stable, progressing Assessment/Plan: 1. Staghorn renal calculus. 2. Bladder calculus. 3. Mild hydronephrosis, likely chronic. 4. Chronic kidney disease. 5. Acute kidney injury. 6. Hematuria. 7. Pyuria, poss UTI. 8. Urinary retention. 9. Neurogenic bladder. 10. Bladder diverticulum. monitor clinically nur out and voiding monitor renal fxn, labile s/p abx flomax BID resumed cont proscar pt with very significant and complex stone burden will likely need multiple complicated urologic procedures with close follow up best course of action would be higher lever of care at [facility] facility Subjective Allergies: Coded Allergies: No Known Allergies (Unverified , 09/11/18) Subjective all noted, voiding, looks comfortable Objective Last 24 Hour Vital Signs Date Time Temp Pulse Resp B/P (MAP) Pulse Ox O2 Delivery O2 Flow Rate FiO2 10/16/18 16:00 97.9 77 17 139/75 (96) 96 10/16/18 12:00 98.8 82 18 128/78 (95) 100 10/16/18 09:00 Room Air 10/16/18 08:00 98.9 96 17 131/84 (100) 98 10/16/18 04:00 97.6 86 17 140/87 (104) 97 10/16/18 00:00 97.5 77 17 154/94 (114) 97 10/15/18 23:00 Room Air 10/15/18 20:00 97.5 78 17 129/73 (91) 97 Intake and Output 10/15/18 10/16/18 19:00 07:00 Intake Total 900 ml Balance 900 ml Intake Oral 900 ml # Voids 5 2 # Bowel Movements 2 2 Microbiology Date/Time Source Procedure Growth Status 09/11/18 14:50 Nasal Nares MRSA Culture - Final Staphylococcus Aureus - Mrsa Complete 09/13/18 04:45 Stool Clostridium difficile Toxin Assay - Final Complete 09/27/18 23:00 Urine,Clean Catch Urine Culture - Final NO GROWTH AFTER 48 HOURS Complete 09/11/18 14:50 Rectum VRE Culture - Final NO VANCOMYCIN RESISTANT ENTEROCOCCUS ... Complete Current Medications Medications (Trade) Dose Ordered Sig/Sujit Route PRN Reason Start Time Stop Time Status Last Admin Dose Admin Cholestyramine Resin (Questran) 4 gm TIDPRN PRN ORAL Diarrhea 10/04/18 12:15 11/03/18 12:14 10/10/18 14:15 Escitalopram Oxalate (Lexapro) 10 mg DAILY ORAL 09/21/18 09:00 10/21/18 08:59 10/16/18 08:37 Finasteride (Proscar) 5 mg DAILY ORAL 10/01/18 09:00 10/31/18 08:59 10/16/18 08:37 Magnesium Oxide (Mag-Ox 400mg) 400 mg THREE TIMES A DAY ORAL 09/18/18 13:00 10/18/18 12:59 10/16/18 17:00 Risperidone (RisperDAL) 2 mg BEDTIME ORAL 09/28/18 21:00 10/22/18 20:59 10/15/18 20:46 Tamsulosin HCl (Flomax) 0.4 mg BID ORAL 10/13/18 18:00 11/12/18 17:59 10/16/18 17:00 Thiamine HCl (Vitamin B1) 100 mg DAILY ORAL 09/21/18 09:00 10/21/18 08:59 10/16/18 08:37 Height (Feet): 5 Height (Inches): 10.00 Weight (Pounds): 183 Objective exam stable last renal u/s negative for hydro Brad Iqbal MD Oct 16, 2018 17:35
[2018-10-16 20:00] VITALS: BP 132/81
[2018-10-16] MEDS: Cholestyramine 4gm Pkt ORAL PRN (23:00)
[2018-10-17] VITALS: BP 129/75
--- NOTE | 2018-10-17 03:00 | Progress Note ---
DATE: 10/16/2018 INTERNAL MEDICINE PROGRESS NOTE SUBJECTIVE: The patient is voiding well. He had 2 stools today. Over the past 4 days, he has had 2 to 4 stools daily. OBJECTIVE: VITAL SIGNS: His vitals are stable. LUNGS: Clear. CARDIAC: Regular. ABDOMEN: Soft. No CVA tenderness. EXTREMITIES: No edema. The patient is off IV fluids. LABORATORY DATA: Labs from yesterday reflex stabilize renal function. IMPRESSION AND PLAN: He is stable for outpatient management. He is no longer on antimicrobials. He is not having significant gastrointestinal losses in the form of stool. He will need definitive urologic procedures at a tertiary care center, however ____ can be scheduled as an outpatient in the near future. Claude Gambino M.D. DR: JOLYNN JOB#: [id number] CC:
[2018-10-17 04:00] VITALS: BP 139/84
[2018-10-17] MEDS: Magnesium Oxide 400mg tab ORAL SCH ×3 (08:06→18:05)
[2018-10-17] MEDS: Thiamine 100mg tab ORAL SCH (08:06)
[2018-10-17] MEDS: Tamsulosin 0.4mg cap ORAL SCH ×2 (08:06→18:05)
[2018-10-17 08:07] VITALS: BP 150/67
[2018-10-17 12:00] VITALS: BP 136/71
[2018-10-17 16:00] VITALS: BP 125/82
--- NOTE | 2018-10-17 17:30 | Consultation ---
DATE OF CONSULTATION: 10/17/2018 INFECTIOUS DISEASES CONSULTATION CONSULTING PHYSICIAN: Freida Gould M.D. REFERRING PHYSICIAN: Claude Gambino M.D. REASON FOR CONSULTATION: C. difficile colitis. HISTORY OF PRESENTING ILLNESS: This is a 63-year-old gentleman with history of kidney stones, hypertension, prostatic hypertrophy, who came in with weakness and malaise. He found to have C. difficile colitis. He has completed his therapy and an Infectious Diseases consultation has been obtained for need for antibiotics. PAST MEDICAL HISTORY: 1. Hypertension. 2. Prostatic hypertrophy. 3. Hyperlipidemia. 4. Left hip fracture status post ORIF. 5. History of kidney stones. SOCIAL HISTORY: No history of smoking, alcohol, or drug use. FAMILY HISTORY: Noncontributory. REVIEW OF SYSTEMS: Unable to obtain currently. MEDICATIONS: As an inpatient currently patient is on Flomax, Questran, Proscar, Risperdal, Lexapro, thiamine magnesium oxide. ALLERGIES: No known drug allergies. PHYSICAL EXAMINATION: VITAL SIGNS: Temperature of 98.3, T-max of 98.9, pulse of 72, respiratory rate of 18, blood pressure 150/67, O2 saturation of 97% HEENT: Pupils equally reactive to light and accommodation. Mouth appears clean without thrush. NECK: Supple. No adenopathy. No JVD. CARDIOVASCULAR: Regular rate and rhythm. No murmurs. LUNGS: Clear to auscultation bilaterally. No crackles. No wheezes. ABDOMEN: Soft and nontender. No organomegaly. EXTREMITIES: No cyanosis, no clubbing, no edema. LABORATORY AND DIAGNOSTIC DATA: White count 6.5, hemoglobin 13.5, hematocrit 41.5, MCV 90, platelet count of 206. Sodium 141, potassium 4.2, chloride 107, bicarb 25, BUN 19, creatinine 1.2, glucose 93, calcium 8.9. Total bilirubin 0.6, AST 65, ALT 61, alkaline phosphatase 76, total protein 7.8, and albumin 3.2. UA showing 2 to 4 white cells. On 09/27/2018 urine cultures are negative. On 09/13/2018 stool for C. difficile colitis was positive. On 09/11/2018 rectal swab was negative for VRE. On 09/11/2018 nasal swab was positive for MRSA. On 09/11/2018 urine cultures was negative. Renal ultrasound on 09/26/2018 showing nonobstructing right nephrolithiasis including right renal stone, no hydronephrosis noted, large extra left renal pelvis calculus with moderate hydroureter, large bladder stone with concentric bladder wall thickening. CT abdomen and pelvis showing staghorn calculus filling the inferior left renal pelvis with mild hydronephrosis, calculus within the right renal pelvis, wall thickening in the posterior bladder noted. On 09/13/2018 2D echo showing trace mitral regurgitation, trace tricuspid regurgitation. ASSESSMENT: This is a 63-year-old gentleman with history of hypertension,benign prostatic hypertrophy, hyperlipidemia who comes in with weakness and malaise and was found to have. 1. C. difficile colitis. He has completed his therapy. 2. MRSA nasal colonization. 3. Hypertension. PLAN: 1. Continue off antibiotics. 2. No need for isolation for C. difficile colitis. I would like to thank, Dr. Gambino, for this consultation. Freida Gould M.D. DR: Mellissa JOB#: [id number] CC: Claude Gambino M.D.
[2018-10-17] MEDS: Loperamide 2mg cap ORAL PRN (20:08)
[2018-10-17 20:14] VITALS: BP 121/71
--- NOTE | 2018-10-17 20:59 | Urology Progress Note ---
Assessment/Plan Status: stable, progressing Assessment/Plan: 1. Staghorn renal calculus. 2. Bladder calculus. 3. Mild hydronephrosis, likely chronic. 4. Chronic kidney disease. 5. Acute kidney injury. 6. Hematuria. 7. Pyuria, poss UTI. 8. Urinary retention. 9. Neurogenic bladder. 10. Bladder diverticulum. monitor clinically nur out and voiding monitor renal fxn, labile s/p abx flomax BID resumed cont proscar pt with very significant and complex stone burden will likely need multiple complicated urologic procedures with close follow up best course of action would be higher lever of care at [facility] Subjective Allergies: Coded Allergies: No Known Allergies (Unverified , 09/11/18) Subjective all noted, voiding, looks comfortable Objective Last 24 Hour Vital Signs Date Time Temp Pulse Resp B/P (MAP) Pulse Ox O2 Delivery O2 Flow Rate FiO2 10/17/18 20:36 Room Air 10/17/18 20:14 98.1 75 17 121/71 (88) 98 10/17/18 16:00 98.0 86 17 125/82 (96) 96 10/17/18 12:00 98.1 83 17 136/71 (92) 94 10/17/18 09:00 Room Air 10/17/18 08:07 72 18 150/67 (94) 97 10/17/18 04:00 98.3 61 16 139/84 (102) 98 10/17/18 00:00 98.6 77 18 129/75 (93) 97 10/16/18 22:37 Room Air Intake and Output 10/16/18 10/17/18 19:00 07:00 Intake Total 1300 ml 120 ml Output Total 1 ml Balance 1300 ml 119 ml Intake Oral 1300 ml 120 ml Output Urine Total 1 ml # Voids 5 2 # Bowel Movements 2 Microbiology Date/Time Source Procedure Growth Status 09/11/18 14:50 Nasal Nares MRSA Culture - Final Staphylococcus Aureus - Mrsa Complete 09/13/18 04:45 Stool Clostridium difficile Toxin Assay - Final Complete 09/27/18 23:00 Urine,Clean Catch Urine Culture - Final NO GROWTH AFTER 48 HOURS Complete 09/11/18 14:50 Rectum VRE Culture - Final NO VANCOMYCIN RESISTANT ENTEROCOCCUS ... Complete Current Medications Medications (Trade) Dose Ordered Sig/Sujit Route PRN Reason Start Time Stop Time Status Last Admin Dose Admin Cholestyramine Resin (Questran) 4 gm TID ORAL 10/18/18 09:00 11/17/18 08:59 Escitalopram Oxalate (Lexapro) 10 mg DAILY ORAL 09/21/18 09:00 10/21/18 08:59 10/17/18 08:06 Finasteride (Proscar) 5 mg DAILY ORAL 10/01/18 09:00 10/31/18 08:59 10/17/18 08:06 Loperamide HCl (Imodium) 2 mg Q4H PRN ORAL Diarrhea 10/17/18 19:00 11/16/18 18:59 10/17/18 20:08 Magnesium Oxide (Mag-Ox 400mg) 400 mg THREE TIMES A DAY ORAL 09/18/18 13:00 10/18/18 12:59 10/17/18 18:05 Risperidone (RisperDAL) 2 mg BEDTIME ORAL 09/28/18 21:00 10/22/18 20:59 10/17/18 20:07 Tamsulosin HCl (Flomax) 0.4 mg BID ORAL 10/13/18 18:00 11/12/18 17:59 10/17/18 18:05 Thiamine HCl (Vitamin B1) 100 mg DAILY ORAL 09/21/18 09:00 10/21/18 08:59 10/17/18 08:06 Height (Feet): 5 Height (Inches): 10.00 Weight (Pounds): 182 Objective exam stable last renal u/s negative for Brad Victoria MD Oct 17, 2018 20:59
[2018-10-18 00:14] VITALS: BP 125/73
--- NOTE | 2018-10-18 01:00 | Progress Note ---
DATE: 10/17/2018 INTERNAL MEDICINE PROGRESS NOTE SUBJECTIVE: The patient is seen ambulating around the aponte independently. He is requesting more food and juice to drink. He is able to get out of bed alone, ambulate with his walker from his room to the nursing station and back several times without assistance. The patient continues to have 2 to 3 episodes of loose stools daily. He was seen in Infectious Disease consultation today. It was felt that he does not require any additional treatment for C. difficile and has completed adequate therapy and does not need isolation either. PHYSICAL EXAMINATION: Without change. Vitals are reviewed. IMPRESSION: Renal function has stabilized. Oral intake is stable. Independent function is adequate. Fall risk is minimal. MRSA is colonized only in the nares; this means that it is not active and not contagious. The C. difficile positive toxin has been treated and isolation is no longer necessary nor additional antimicrobials. The patient has significant urologic nephrolithiasis with involvement of the bladder and some output obstruction; however, his renal function is stable. He is voiding independently and there is no urgency to any urologic intervention presently. The patient requires an appointment with his primary care physician, which should be given by his insurance company. Phone calls have been made on multiple occasions to [employer], specifically Jackie at #[phone] was contacted who refuses to arrange appointment with the primary care physician or urologist. The patient has an active health plan and should be able to receive an appointment with his primary care physician. It is unclear to me why this is being blocked by the health plan. In addition, multiple attempts have been made to obtain [facility] social work professor contact for appropriate referral to a retirement care facility and this again has not been followed up by the patient's health plan. In conclusion, I find the refusal of his health plan to provide the care that he has been contracted for unacceptable and since the patient has been medically stable for the last week at least, this is being a detriment to his further recovery by prolonging his ability to reach a primary care physician. I will be instructing the social service and the case management team at this hospital to refer this case to be the unemployment insurance hearing officer for the [facility] as I feel [facility] and [employer] as well have failed to provide the services that they have been graciela to perform for this patient. Claude Rosy Gambino DR: EMILIA JOB#: [id number] CC: BOOKER
[2018-10-18 03:40] VITALS: BP 130/75
--- NOTE | 2018-10-18 07:30 | Urology Progress Note ---
Assessment/Plan Status: stable, progressing Assessment/Plan: 1. Staghorn renal calculus. 2. Bladder calculus. 3. Mild hydronephrosis, likely chronic. 4. Chronic kidney disease. 5. Acute kidney injury. 6. Hematuria. 7. Pyuria, poss UTI. 8. Urinary retention. 9. Neurogenic bladder. 10. Bladder diverticulum. monitor clinically nur out and voiding monitor renal fxn, labile s/p abx flomax BID resumed cont proscar pt with very significant and complex stone burden will likely need multiple complicated urologic procedures with close follow up best course of action would be higher lever of care at tertiary [facility] facility Subjective Allergies: Coded Allergies: No Known Allergies (Unverified , 09/11/18) Subjective all noted, voiding, looks comfortable Objective Last 24 Hour Vital Signs Date Time Temp Pulse Resp B/P (MAP) Pulse Ox O2 Delivery O2 Flow Rate FiO2 10/18/18 03:40 98.3 81 17 130/75 (93) 94 10/18/18 00:14 98.7 80 17 125/73 (90) 98 10/17/18 20:36 Room Air 10/17/18 20:14 98.1 75 17 121/71 (88) 98 10/17/18 16:00 98.0 86 17 125/82 (96) 96 10/17/18 12:00 98.1 83 17 136/71 (92) 94 10/17/18 09:00 Room Air 10/17/18 08:07 72 18 150/67 (94) 97 Intake and Output 10/17/18 10/18/18 18:59 06:59 Intake Total 1100 ml 1000 ml Balance 1100 ml 1000 ml Intake Oral 1100 ml 1000 ml # Voids 5 4 # Bowel Movements 2 1 Microbiology Date/Time Source Procedure Growth Status 09/11/18 14:50 Nasal Nares MRSA Culture - Final Staphylococcus Aureus - Mrsa Complete 09/13/18 04:45 Stool Clostridium difficile Toxin Assay - Final Complete 09/27/18 23:00 Urine,Clean Catch Urine Culture - Final NO GROWTH AFTER 48 HOURS Complete 09/11/18 14:50 Rectum VRE Culture - Final NO VANCOMYCIN RESISTANT ENTEROCOCCUS ... Complete Current Medications Medications (Trade) Dose Ordered Sig/Sujit Route PRN Reason Start Time Stop Time Status Last Admin Dose Admin Cholestyramine Resin (Questran) 4 gm TID ORAL 10/18/18 09:00 9/28/19 08:59 Escitalopram Oxalate (Lexapro) 10 mg DAILY ORAL 09/21/18 09:00 10/21/18 08:59 10/17/18 08:06 Finasteride (Proscar) 5 mg DAILY ORAL 10/01/18 09:00 10/31/18 08:59 10/17/18 08:06 Loperamide HCl (Imodium) 2 mg Q4H PRN ORAL Diarrhea 10/17/18 19:00 11/16/18 18:59 10/17/18 20:08 Magnesium Oxide (Mag-Ox 400mg) 400 mg THREE TIMES A DAY ORAL 09/18/18 13:00 10/18/18 12:59 10/17/18 18:05 Risperidone (RisperDAL) 2 mg BEDTIME ORAL 09/28/18 21:00 10/22/18 20:59 10/17/18 20:07 Tamsulosin HCl (Flomax) 0.4 mg BID ORAL 10/13/18 18:00 11/12/18 17:59 10/17/18 18:05 Thiamine HCl (Vitamin B1) 100 mg DAILY ORAL 09/21/18 09:00 10/21/18 08:59 10/17/18 08:06 Height (Feet): 5 Height (Inches): 10.00 Weight (Pounds): 182 Objective exam stable last renal u/s negative for hydro Brad Iqbal MD Oct 18, 2018 07:29
[2018-10-18] MEDS: Tamsulosin 0.4mg cap ORAL SCH ×2 (08:06→17:05)
[2018-10-18] MEDS: Thiamine 100mg tab ORAL SCH (08:06)
[2018-10-18] MEDS: Cholestyramine 4gm Pkt ORAL SCH ×3 (08:06→17:05)
[2018-10-18] MEDS: Magnesium Oxide 400mg tab ORAL SCH (08:06)
[2018-10-18 12:00] VITALS: BP 118/72
--- NOTE | 2018-10-18 12:09 | Infectious Diseases Prog Note ---
Assessment/Plan Assessment/Plan A; 1. C. difficile colitis. He has completed his therapy. 2. MRSA nasal colonization. 3. Hypertension. 4. BPH 4. Nephrolithiasis PLAN: 1. Continue off antibiotics. 2. No need for isolation for C. difficile colitis. Subjective ROS Limited/Unobtainable: No Constitutional: Reports: no symptoms Respiratory: Reports: no symptoms Cardiovascular: Reports: no symptoms Gastrointestinal/Abdominal: Reports: diarrhea Musculoskeletal: Reports: pain, other - chronic Allergies: Coded Allergies: No Known Allergies (Unverified , 09/11/18) Objective Vital Signs Last 24 Hour Vital Signs Date Time Temp Pulse Resp B/P (MAP) Pulse Ox O2 Delivery O2 Flow Rate FiO2 10/18/18 09:00 Room Air 10/18/18 03:40 98.3 81 17 130/75 (93) 94 10/18/18 00:14 98.7 80 17 125/73 (90) 98 10/17/18 20:36 Room Air 10/17/18 20:14 98.1 75 17 121/71 (88) 98 10/17/18 16:00 98.0 86 17 125/82 (96) 96 Height (Feet): 5 Height (Inches): 10.00 Weight (Pounds): 182 General Appearance: no acute distress HEENT: other Respiratory/Chest: lungs clear Cardiovascular: normal rate Abdomen: soft, non tender Genitourinary: normal external genitalia Extremities: no edema Neurologic/Psychiatric: alert, responsive Current Medications Medications (Trade) Dose Ordered Sig/Sujit Route PRN Reason Start Time Stop Time Status Last Admin Dose Admin Cholestyramine Resin (Questran) 4 gm TID ORAL 10/18/18 09:00 11/17/18 08:59 10/18/18 08:06 Escitalopram Oxalate (Lexapro) 10 mg DAILY ORAL 09/21/18 09:00 10/21/18 08:59 10/18/18 08:06 Finasteride (Proscar) 5 mg DAILY ORAL 10/01/18 09:00 10/31/18 08:59 10/18/18 08:06 Loperamide HCl (Imodium) 2 mg Q4H PRN ORAL Diarrhea 10/17/18 19:00 11/16/18 18:59 10/17/18 20:08 Magnesium Oxide (Mag-Ox 400mg) 400 mg THREE TIMES A DAY ORAL 7/30/19 13:00 10/18/18 12:59 10/18/18 08:06 Risperidone (RisperDAL) 2 mg BEDTIME ORAL 09/28/18 21:00 10/22/18 20:59 10/17/18 20:07 Tamsulosin HCl (Flomax) 0.4 mg BID ORAL 10/13/18 18:00 11/12/18 17:59 10/18/18 08:06 Thiamine HCl (Vitamin B1) 100 mg DAILY ORAL 09/21/18 09:00 10/21/18 08:59 10/18/18 08:06 Fernandez Escobar MD Oct 18, 2018 12:09
[2018-10-18 15:54] VITALS: BP 119/79
[2018-10-18] MEDS: Loperamide 2mg cap ORAL PRN (17:05)
[2018-10-18 20:00] VITALS: BP 140/69
[2018-10-19] VITALS: BP 149/75
--- NOTE | 2018-10-19 03:30 | Progress Note ---
DATE: 10/18/2018 SUBJECTIVE: Condition remains largely unchanged. Discharge planning remains in progress. Vitals are stable. Exam unchanged. We continued to have difficulty with the patient's insurance company, failing to respond adequately to request for the discharge disposition and followup needs. The patient will remain in-house until these issues have been appropriately resolved. Claude Gambino M.D. DR: YOLANDE JOB#: [id number] CC:
[2018-10-19 04:00] VITALS: BP 128/68
--- NOTE | 2018-10-19 07:50 | Urology Progress Note ---
Assessment/Plan Status: stable, progressing Assessment/Plan: 1. Staghorn renal calculus. 2. Bladder calculus. 3. Mild hydronephrosis, likely chronic. 4. Chronic kidney disease. 5. Acute kidney injury. 6. Hematuria. 7. Pyuria, poss UTI. 8. Urinary retention. 9. Neurogenic bladder. 10. Bladder diverticulum. monitor clinically nur out and voiding monitor renal fxn, labile s/p abx flomax BID resumed cont proscar pt with very significant and complex stone burden will likely need multiple complicated urologic procedures with close follow up best course of action would be higher lever of care at tertiary care facility Subjective Allergies: Coded Allergies: No Known Allergies (Unverified , 09/11/18) Subjective all noted, voiding, looks comfortable Objective Last 24 Hour Vital Signs Date Time Temp Pulse Resp B/P (MAP) Pulse Ox O2 Delivery O2 Flow Rate FiO2 10/19/18 04:00 98.2 57 16 128/68 (88) 96 10/19/18 00:00 98.4 66 18 149/75 (99) 96 10/18/18 20:34 Room Air 10/18/18 20:00 98.4 67 20 140/69 (92) 97 10/18/18 15:54 98.9 86 17 119/79 (92) 98 10/18/18 12:00 98.9 80 18 118/72 (87) 99 10/18/18 09:00 Room Air Intake and Output 10/18/18 10/19/18 18:59 06:59 Intake Total 1000 ml 240 ml Balance 1000 ml 240 ml Intake Oral 240 ml Other 1000 ml # Voids 3 Microbiology Date/Time Source Procedure Growth Status 09/11/18 14:50 Nasal Nares MRSA Culture - Final Staphylococcus Aureus - Mrsa Complete 09/13/18 04:45 Stool Clostridium difficile Toxin Assay - Final Complete 09/27/18 23:00 Urine,Clean Catch Urine Culture - Final NO GROWTH AFTER 48 HOURS Complete 09/11/18 14:50 Rectum VRE Culture - Final NO VANCOMYCIN RESISTANT ENTEROCOCCUS ... Complete Current Medications Medications (Trade) Dose Ordered Sig/Sujit Route PRN Reason Start Time Stop Time Status Last Admin Dose Admin Cholestyramine Resin (Questran) 4 gm TID ORAL 10/18/18 09:00 11/17/18 08:59 10/18/18 17:05 Escitalopram Oxalate (Lexapro) 10 mg DAILY ORAL 09/21/18 09:00 10/21/18 08:59 10/18/18 08:06 Finasteride (Proscar) 5 mg DAILY ORAL 10/01/18 09:00 10/31/18 08:59 10/18/18 08:06 Loperamide HCl (Imodium) 2 mg Q4H PRN ORAL Diarrhea 10/17/18 19:00 11/16/18 18:59 10/18/18 17:05 Risperidone (RisperDAL) 2 mg BEDTIME ORAL 09/28/18 21:00 10/22/18 20:59 10/18/18 20:37 Tamsulosin HCl (Flomax) 0.4 mg BID ORAL 10/13/18 18:00 11/12/18 17:59 10/18/18 17:05 Thiamine HCl (Vitamin B1) 100 mg DAILY ORAL 09/21/18 09:00 10/21/18 08:59 10/18/18 08:06 Height (Feet): 5 Height (Inches): 10.00 Weight (Pounds): 182 Objective exam stable last renal u/s negative for hydro Brad Iqbal MD Oct 19, 2018 07:50
[2018-10-19 08:00] VITALS: BP 121/83
[2018-10-19] MEDS: Cholestyramine 4gm Pkt ORAL SCH (08:35)
[2018-10-19] MEDS: Thiamine 100mg tab ORAL SCH (08:35)
[2018-10-19] MEDS: Tamsulosin 0.4mg cap ORAL SCH ×2 (08:36→18:08)
--- NOTE | 2018-10-19 11:05 | Infectious Diseases Prog Note ---
Assessment/Plan Assessment/Plan A; 1. C. difficile colitis. He has completed his therapy. 2. MRSA nasal colonization. 3. Hypertension. 4. BPH 4. Nephrolithiasis PLAN: 1. Continue off antibiotics. 2. No need for isolation for C. difficile colitis. Subjective ROS Limited/Unobtainable: Yes Constitutional: Denies: fever Allergies: Coded Allergies: No Known Allergies (Unverified , 09/11/18) Objective Vital Signs Last 24 Hour Vital Signs Date Time Temp Pulse Resp B/P (MAP) Pulse Ox O2 Delivery O2 Flow Rate FiO2 10/19/18 09:00 Room Air 10/19/18 08:00 98.8 82 17 121/83 (96) 97 10/19/18 04:00 98.2 57 16 128/68 (88) 96 10/19/18 00:00 98.4 66 18 149/75 (99) 96 10/18/18 20:34 Room Air 10/18/18 20:00 98.4 67 20 140/69 (92) 97 10/18/18 15:54 98.9 86 17 119/79 (92) 98 10/18/18 12:00 98.9 80 18 118/72 (87) 99 Height (Feet): 5 Height (Inches): 10.00 Weight (Pounds): 182 General Appearance: no acute distress HEENT: mucous membranes moist Respiratory/Chest: lungs clear Cardiovascular: normal rate Abdomen: soft, non tender Extremities: no edema Neurologic/Psychiatric: other - sleeping Current Medications Medications (Trade) Dose Ordered Sig/Sujit Route PRN Reason Start Time Stop Time Status Last Admin Dose Admin Cholestyramine Resin (Questran) 4 gm TID ORAL 10/18/18 09:00 11/17/18 08:59 10/19/18 08:35 Escitalopram Oxalate (Lexapro) 10 mg DAILY ORAL 09/21/18 09:00 10/21/18 08:59 10/19/18 08:35 Finasteride (Proscar) 5 mg DAILY ORAL 10/01/18 09:00 10/31/18 08:59 10/19/18 08:36 Loperamide HCl (Imodium) 2 mg Q4H PRN ORAL Diarrhea 10/17/18 19:00 11/16/18 18:59 10/18/18 17:05 Risperidone (RisperDAL) 2 mg BEDTIME ORAL 09/28/18 21:00 10/22/18 20:59 10/18/18 20:37 Tamsulosin HCl (Flomax) 0.4 mg BID ORAL 10/13/18 18:00 11/12/18 17:59 10/19/18 08:36 Thiamine HCl (Vitamin B1) 100 mg DAILY ORAL 09/21/18 09:00 10/21/18 08:59 10/19/18 08:35 Fernandez Escobar MD Oct 19, 2018 11:05
[2018-10-19 12:00] VITALS: BP 129/84
[2018-10-19] MEDS: Loperamide 2mg cap ORAL PRN (12:22)
[2018-10-19] MEDS ORDERED: Loperamide 2mg cap ORAL PRN (13:00)
--- NOTE | 2018-10-19 13:32 | Diagnostic Imaging Report ---
Indication: TB screen Comparison: None A single view chest radiograph was obtained. Findings: Cardiomediastinal appearance is within normal limits for age. The lungs are clear. Pulmonary vascularity is appropriate. The diaphragmatic contour is smooth and costophrenic angles are sharp. No pleural effusions are identified. The bones are unremarkable. Impression: Negative exam
[2018-10-19] MEDS ORDERED: LEXAPRO10 MG ORAL (15:37)
[2018-10-19] MEDS ORDERED: PROSCAR5 MG ORAL (15:39)
[2018-10-19] MEDS ORDERED: FLOMAX0.4 MG ORAL (15:40)
[2018-10-19] MEDS ORDERED: RISPERDAL2 MG ORAL (15:40)
[2018-10-19] MEDS ORDERED: VITAMIN B-1100 MG ORAL (15:41)
[2018-10-19] MEDS ORDERED: ANTI-DIARRHEAL2 MG PO (15:43)
[2018-10-19 16:00] VITALS: BP 127/81
--- NOTE | 2018-10-22 19:52 | Discharge Summary ---
Discharge Summary Discharge Summary _ DATE OF ADMISSION: 09/11/2018 DATE OF DISCHARGE: 10/19/2018 DISCHARGED BY: Dr. Claude Gambino CONSULTANTS: Dr. Freida Rose BRIEF HOSPITAL COURSE: Patient is a 63-year-old male, who resides in an assisted living facility, and has a known history of kidney stones. He presented to ED due to increased weakness and malaise and inability for self-care. He is a poor historian and was unaware of any details. He has medical history significant for hypertension , prostatic hypertrophy, hyperlipidemia, left hip fracture status post ORIF. On evaluation at the ED, patient was hypotensive. Blood work did not show any leukocytosis. Hemoglobin 12 and hematocrit 37. BUN was 53 and creatinine 4.5. LFTs were elevated. Troponin was negative. Urinalyses showed 2+ protein, 2+ leukocyte esterase, 20-30 urine RBC and 15-20 urine WBC. Urine toxicology screen was negative. EKG was sinus rhythm with nonspecific ST changes. CT of the abdomen and pelvis showed large renal stones bilaterally as well as large bladder stone. He was then admitted for evaluation of renal failure and obstructive uropathy with staghorn calculus; hypovolemia with shock. He was pancultured. He was started on antimicrobials. Stewart catheter was inserted. He was given IV hydration with saline. Kidney function was monitored. Ordered to strain urine. He was given Flomax. Antihypertensives were placed on hold. Patient was severely agitated and confused. Psychiatric evaluation was done. He was in restraints, but attempting to come out of bed. He had waxing and waning of consciousness. Patient was diagnosed to have acute metabolic encephalopathy. Seroquel was increased to 25 mg 3 times daily. Patient lacks capacity to make decisions. Kidney function improved with IV hydration. Uric acid elevated. He was given allopurinol. Urine culture did not isolate any growth. Antibiotic was discontinued. C. difficile was positive. He was given p.o. vancomycin. Patient pulled out Stewart catheter. There was no bleeding noted. Patient was able to void freely. He was given Flomax twice daily. Acute renal failure resolved and creatinine reached baseline. He had persistent low magnesium, he was given additional magnesium replacement and potassium replacement. IV fluid was eventually discontinued. Patient was calm, but does not cooperate with treatment. He refused physical therapy. He was started on Lexapro 10 mg in the morning. He has history of alcohol dependence and was given thiamine and multivitamins. Patient was not very redirectable and had poor insight. Seroquel was discontinued. He was started on risperidone 2 mg nightly. Patient was stable. He completed treatment for C. difficile. There was no diarrhea. He was tolerating diet. He was referred for placement. Kidney function was tenuous. He was restarted on IV fluids. His electrolytes eventually stabilized. Renal ultrasound revealed a stone in the bladder with bladder outlet obstruction. May need to be transferred to tertiary care facility for complicated uro-procedure. ID was consulted for evaluation of C. difficile colitis. Patient already completed therapy for C. difficile colitis. He was no need for isolation. Continue off antibiotics. Renal function stabilized. Oral intake stable. Independent function adequate. Fall risk minimal. C. difficile has been treated and isolation was no longer necessary. Patient has significant urologic nephrolithiasis with involvement of the bladder and output obstruction, however, his renal function was stable. He is voiding independently and there is no urgency to any urologic intervention presently. Patient requires appointment with primary care physician, which should be given by his insurance company. Patient was eventually discharged a recuperative care. FINAL DIAGNOSES: Obstructive uropathy Staghorn renal calculus Nephrolithiasis Urolithiasis Bladder outlet obstruction Acute on chronic renal failure C. difficile colitis, treated Urinary retention DISPOSITION: Patient was discharged to recuperative care. DISCHARGE MEDICATIONS: Refer to Discharge Medication List. DISCHARGE INSTRUCTIONS: Follow-up with PCP in a week. I have been assigned to complete a discharge summary on this account, I was not involved with the patient's management.--LINA Bass Jacqueline Robles NP Oct 22, 2018 19:52
== END 2018-10-19 20:10 | DRG 469 ==
LOC: EDBD 11:30 → EMR 12:04 → 2E 13:04 → EDBEDREQ 14:29 → 2E 15:21 → 4E 09-15 01:31
DX: N17.9 Acute kidney failure, unspecified (principal); N21.0 Calculus in bladder; R57.1 Hypovolemic shock; G93.41 Metabolic encephalopathy; E44.0 Moderate protein-calorie malnutrition; A04.72 Enterocolitis due to Clostridium difficile, not specified as recurrent; N20.0 Calculus of kidney; N18.9 Chronic kidney disease, unspecified; N13.6 Pyonephrosis; I13.10 Hypertensive heart and chronic kidney disease without heart failure, with stage 1 through stage 4 chronic kidney disease, or unspecified chronic kidney disease; E78.5 Hyperlipidemia, unspecified; N40.1 Benign prostatic hyperplasia with lower urinary tract symptoms; R33.8 Other retention of urine; R00.1 Bradycardia, unspecified; K70.30 Alcoholic cirrhosis of liver without ascites; F10.20 Alcohol dependence, uncomplicated; N31.9 Neuromuscular dysfunction of bladder, unspecified; N32.3 Diverticulum of bladder; Z22.322 Carrier or suspected carrier of Methicillin resistant Staphylococcus aureus; E83.42 Hypomagnesemia; F39 Unspecified mood [affective] disorder; F25.9 Schizoaffective disorder, unspecified; H54.62 Unqualified visual loss, left eye, normal vision right eye; D64.9 Anemia, unspecified; Z68.26 Body mass index [BMI] 26.0-26.9, adult
CPT/HCPCS: 36415; 71045; 74176; 76770; 80048; 80053; 80061; 80307; 80329; 81001; 81003; 82550; 83735; 83880; 84100; 84443; 84484; 84550; 85007; 85025; 85610; 85730; 86850; 86900; 86901; 87081; 87086; 87324; 93005; 93306; 96361; 96365; 96367; 99285; J8499

== ENCOUNTER 2018-10-22 14:53 | Inpatient (IN) | payer MEDICAID ==
[~2018-10-22] VITALS: Ht 177.8 cm; Wt 83.5 kg
[~2018-10-22 14:53] MED LIST: AMLODIPINE BESY10 MG ORAL; ANTI-DIARRHEAL2 MG PO; ASPIRIN-LOW81 MG ORAL; ATORVASTATIN CA20 MG ORAL; CLONIDINE HCL0.1 MG PO; DOXAZOSIN MESYLA2 MG ORAL; FLOMAX0.4 MG ORAL; FOLIC ACID1 MG ORAL; LEXAPRO10 MG ORAL; LISINOPRIL20 MG ORAL; PROSCAR5 MG ORAL; RISPERDAL2 MG ORAL; TENORMIN25 MG ORAL; VITAMIN B-1100 MG ORAL
[2018-10-22] MEDS ORDERED: Haloperidol 5mg/ml Inj ONE (15:21)
[2018-10-22 15:24] VITALS: BP 142/71
--- NOTE | 2018-10-22 15:24 | NUR ---
ED Nurse Note: Pt brought in by EMS for evaluation. Pt was recently discharged from [facility] and transferred to [facility] and reports that he is incontinent and unable to care for himself thus the fdc refused to accomodate pt. AAO x4, follows commands but noted to be resltess and uncooperative. No respiratory distress.
[2018-10-22] MEDS ORDERED: LORazepam Inj 2mg/ml 1ml IM ONE (15:30)
[2018-10-22] MEDS ORDERED: Haloperidol 5mg/ml Inj IM ONE (15:30)
[2018-10-22] MEDS ORDERED: DiphenhydrAMINE 50mg/ml Inj IM ONE (15:30)
--- NOTE | 2018-10-22 15:32 | Emergency Room Report ---
History of Present Illness General Chief Complaint: General Complaint Source: Patient, Medical Record Present Illness HPI 63-year-old male presents with itchy but chronic in nature has been ongoing for 2 days, he states is worse with feces alleviated when someone cleans him, no fever no chills no chest pain or shortness of breath, patient was sent from [facility], they drove him to this hospital they stated they could not take care of him he was smearing his feces all over the wall they state no one can change him severity is severe symptoms are constant. Allergies: Coded Allergies: No Known Allergies (Unverified , 09/11/18) Patient History Past Medical History: see triage record Reviewed Nursing Documentation: PMH: Agreed; PSxH: Agreed Nursing Documentation-PMH Past Medical History: No History, Except For Hx Cardiac Problems: Yes Hx Hypertension: Yes Hx Cancer: No Hx Gastrointestinal Problems: No Hx Neurological Problems: No Review of Systems All Other Systems: negative except mentioned in HPI Physical Exam Vital Signs Date Time Temp Pulse Resp B/P (MAP) Pulse Ox O2 Delivery O2 Flow Rate FiO2 10/22/18 15:14 97.2 72 20 142/71 (94) 94 Room Air Sp02 EP Interpretation: reviewed, normal General Appearance: well appearing, no apparent distress, alert Head: normocephalic, atraumatic Eyes: bilateral eye PERRL, bilateral eye EOMI ENT: uvula midline, moist mucus membranes Neck: supple, thyroid normal, supple/symm/no masses Respiratory: lungs clear, no respiratory distress, no retraction, no accessory muscle use Cardiovascular #1: normal peripheral pulses, regular rate, rhythm, no edema, no gallop, no murmur Gastrointestinal: non tender, soft, no guarding, no rebound Rectal: other - Feces, diaper rash Musculoskeletal: normal inspection Neurologic: alert, oriented x3 Psychiatric: mood/affect normal Skin: no rash, warm/dry, other - feces on the hand Medical Decision Making Diagnostic Impression: Primary Impression: Failure to thrive Qualified Codes: R62.7 - Adult failure to thrive Additional Impression: Gravely disabled ER Course 63-year-old male presents with grave disability, failure to thrive. Patient is unable to care for himself, will admit patient for placement as well as failure to thrive Laboratory Tests Test 10/22/18 15:40 White Blood Count 10.0 K/UL (4.8-10.8) Red Blood Count 3.79 M/UL (4.70-6.10) L Hemoglobin 11.4 G/DL (14.2-18.0) L Hematocrit 31.9 % (42.0-52.0) L Mean Corpuscular Volume 84 FL (80-99) Mean Corpuscular Hemoglobin 30.0 PG (27.0-31.0) Mean Corpuscular Hemoglobin Concent 35.6 G/DL (32.0-36.0) Red Cell Distribution Width 13.5 % (11.6-14.8) Platelet Count 169 K/UL (150-450) Mean Platelet Volume 6.5 FL (6.5-10.1) Neutrophils (%) (Auto) 74.3 % (45.0-75.0) Lymphocytes (%) (Auto) 12.6 % (20.0-45.0) L Monocytes (%) (Auto) 8.4 % (1.0-10.0) Eosinophils (%) (Auto) 3.1 % (0.0-3.0) H Basophils (%) (Auto) 1.5 % (0.0-2.0) Sodium Level 144 MMOL/L (136-145) Potassium Level 4.0 MMOL/L (3.5-5.1) Chloride Level 109 MMOL/L (98-107) H Carbon Dioxide Level 23 MMOL/L (21-32) Anion Gap 12 mmol/L (5-15) Blood Urea Nitrogen 26 mg/dL (7-18) H Creatinine 1.4 MG/DL (0.55-1.30) H Estimate Glomerular Filtration Rate 50.9 mL/min (>60) Glucose Level 108 MG/DL (74-106) H Calcium Level 8.9 MG/DL (8.5-10.1) Total Bilirubin 0.9 MG/DL (0.2-1.0) Aspartate Amino Transferase (AST) 60 U/L (15-37) H Alanine Aminotransferase (ALT) 78 U/L (12-78) Alkaline Phosphatase 72 U/L (46-116) Total Protein 7.2 G/DL (6.4-8.2) Albumin 3.1 G/DL (3.4-5.0) L Globulin 4.1 g/dL Albumin/Globulin Ratio 0.8 (1.0-2.7) L Lipase 446 U/L (73-393) H Last Vital Signs Date Time Temp Pulse Resp B/P (MAP) Pulse Ox O2 Delivery O2 Flow Rate FiO2 10/22/18 15:14 97.2 72 20 142/71 (94) 94 Room Air Disposition: ADMITTED INPATIENT Condition: Stable Torrey Miller MD Oct 22, 2018 15:32
[2018-10-22 16:03] LABS: BASOPHILS % (AUTO) 1.5 % (0.0-2.0); EOSINOPHILS % (AUTO) 3.1 % (0.0-3.0); HEMATOCRIT 31.9 % (42.0-52.0); HEMOGLOBIN 11.4 G/DL (14.2-18.0); LYMPHOCYTES % (AUTO) 12.6 % (20.0-45.0); MEAN CORPUSCULAR VOLUME 84 FL (80-99); MONOCYTES % (AUTO) 8.4 % (1.0-10.0); NEUTROPHILS % (AUTO) 74.3 % (45.0-75.0); PLATELET COUNT 169 K/UL (150-450); RED BLOOD COUNT 3.79 M/UL (4.70-6.10); RED CELL DISTRIBUTION WIDTH 13.5 % (11.6-14.8)
[2018-10-22 16:12] LABS: ANION GAP 12 mmol/L (5-15); BLOOD UREA NITROGEN 26 mg/dL (7-18); CALCIUM 8.9 MG/DL (8.5-10.1); CARBON DIOXIDE 23 MMOL/L (21-32); CHLORIDE 109 MMOL/L (98-107); CREATININE 1.4 MG/DL (0.55-1.30); SODIUM 144 MMOL/L (136-145)
[2018-10-22 16:17] LABS: ALANINE AMINOTRANSFERASE 78 U/L (12-78); ALBUMIN 3.1 G/DL (3.4-5.0); ALBUMIN/GLOBULIN RATIO 0.8 (1.0-2.7); ALKALINE PHOSPHATASE 72 U/L (46-116); ASPARTATE AMINO TRANSFERASE 60 U/L (15-37); BILIRUBIN,TOTAL 0.9 MG/DL (0.2-1.0)
[2018-10-22 18:20] VITALS: BP 130/70
--- NOTE | 2018-10-22 19:08 | NUR ---
HAND-OFF: Report given to Jayson Patel RN.
--- NOTE | 2018-10-22 19:10 | NUR ---
ED Nurse Note: RECEIVED PATIENT FROM [facility]. PATIENT SLEEPING COMFORTABLY WITH NAD. VSS. RESPIRATIONS EVEN AND UNLABORED.
[2018-10-22 20:00] VITALS: BP 144/72
--- NOTE | 2018-10-22 20:25 | NUR ---
ED Nurse Note: REPORT GIVEN TO JOSEPHINE CAVANAUGH. PT TO BE ADMITTED TO [facility]
[2018-10-22] MEDS ORDERED: LORazepam Inj 2mg/ml 1ml IV PRN (20:30)
[2018-10-22] MEDS ORDERED: Morphine Sulfate 4mg/ml Inj (IV USE ONLY) IVP PRN (20:30)
[2018-10-22] MEDS ORDERED: Morphine Sulfate 2mg/ml Inj(IV/IM USE ONLY) IVP PRN (20:30)
[2018-10-22] MEDS ORDERED: Milk of Magnesia 30ml Ud ORAL PRN (20:30)
[2018-10-22] MEDS ORDERED: Mylanta II UD 30ml ORAL PRN (20:30)
[2018-10-22] MEDS ORDERED: Albuterol/Ipratropium 3ml neb HHN PRN (20:30)
--- NOTE | 2018-10-22 20:37 | NUR ---
TRANSFER TO FLOOR: Patient transferred to [facility] as ordered, per MD TERRY. Report given to JOSEPHINE CAVANAUGH. BELONGINGS SENT WITH PATIENT. BELONGINGS LIST COMPLETED WITH RECEIVING RN. CRE VRE SWAB COLLECTED; SENT DOWN TO LAB.
[2018-10-22 20:40] VITALS: BP 153/79
--- NOTE | 2018-10-22 20:40 | NUR ---
NURSE NOTES: Received report from Jayson Patel RN in ER. Patient arrived on the unit by shoshana. Patient is sleeping. On room air with no signs of respiratory distress. No c/o of pain at this time. IV in the right hand 24g intact and running fluids. Belongings list checked and belongings accounted for. Skin intact. Bed is locked and in the lowest position. Call light in reach. Orders put in by MD. Will follow plan of care as ordered. VS -BP:153/79 O2:95% RR:18 HR:69 Temp:98.2
[2018-10-22] MEDS: Docusate 100mg cap ORAL SCH (21:00)
[2018-10-22] MEDS ORDERED: NovoLOG Insulin Flexpen SUBQ SCH (21:00)
[2018-10-22] MEDS: Heparin 5000 units/ml inj SUBQ SCH (21:39)
--- NOTE | 2018-10-22 22:35 | NUR ---
NURSE NOTES: Spoke with Dr. Davis over the phone - okay to D/C accucheck and Insulin.
[2018-10-22 23:57] LABS: APPEARANCE,URINE SLIGHTLY CLOUDY; BILIRUBIN, URINE NEGATIVE (NEGATIVE); COLOR,URINE PALE YELLOW; GLUCOSE, URINE (UA) NEGATIVE (NEGATIVE); KETONES,URINE NEGATIVE (NEGATIVE); LEUKOCYTE ESTERASE ,URINE 3+ (NEGATIVE); NITRITE,URINE POSITIVE (NEGATIVE); PH,URINE 6 (4.5-8.0); PROTEIN,URINE 1+ (NEGATIVE); UROBILINOGEN,URINE NORMAL MG/DL (0.0-1.0)
[2018-10-23] VITALS: BP 147/94
[2018-10-23 04:00] VITALS: BP 151/85
[2018-10-23 07:32] LABS: BASOPHILS % (AUTO) 1.9 % (0.0-2.0); EOSINOPHILS % (AUTO) 3.8 % (0.0-3.0); HEMATOCRIT 34.9 % (42.0-52.0); HEMOGLOBIN 11.3 G/DL (14.2-18.0); LYMPHOCYTES % (AUTO) 29.6 % (20.0-45.0); MEAN CORPUSCULAR VOLUME 90 FL (80-99); NEUTROPHILS % (AUTO) 53.8 % (45.0-75.0); PLATELET COUNT 184 K/UL (150-450); RED BLOOD COUNT 3.86 M/UL (4.70-6.10); RED CELL DISTRIBUTION WIDTH 14.4 % (11.6-14.8); WHITE BLOOD COUNT 7.7 K/UL (4.8-10.8)
--- NOTE | 2018-10-23 07:33 | NUR ---
HAND-OFF: Report given to JOSEPHINE Walker.
[2018-10-23 07:44] LABS: ALANINE AMINOTRANSFERASE 74 U/L (12-78); ALBUMIN 3.2 G/DL (3.4-5.0); ALBUMIN/GLOBULIN RATIO 0.8 (1.0-2.7); ALKALINE PHOSPHATASE 71 U/L (46-116); ANION GAP 13 mmol/L (5-15); ASPARTATE AMINO TRANSFERASE 66 U/L (15-37); BILIRUBIN,TOTAL 0.8 MG/DL (0.2-1.0); BLOOD UREA NITROGEN 25 mg/dL (7-18); CARBON DIOXIDE 21 MMOL/L (21-32); CHLORIDE 109 MMOL/L (98-107); CREATININE 1.5 MG/DL (0.55-1.30); POTASSIUM 4.3 MMOL/L (3.5-5.1); SODIUM 143 MMOL/L (136-145)
--- NOTE | 2018-10-23 07:59 | NUR ---
NURSE NOTES: received patient A/A/O, asleep with nonlabored breathing. HOB elevated for aspiration precaution. lethargic due to cocktail administration yesterday @ ED prior transfer to the unit. no acute resp distress noted. siderails are up x3. bed in the lowest position. and bed alarm on @ all times for safety purposes. will cont to monitor.
--- NOTE | 2018-10-23 08:09 | NUR ---
CASE MANAGEMENT:REVIEW 63 YR OLD MALE [facility] CC: UNABLE TO CARE FOR HIMSELF SI: FAILURE TO THRIVE. GRAVELY DISABLED 97.2 72 20 142/71 94% ON RA H/H-11.4/31.9 BUN+26 CR+1.4 LIPASE+446 IS:1L NS BOLUS ATIVAN IM HALDOL IM BENADRYL IM : TO MED/SURG UNIT
[2018-10-23 08:40] VITALS: BP 154/90
[2018-10-23] MEDS: Docusate 100mg cap ORAL SCH ×2 (08:58→20:08)
[2018-10-23] MEDS: Heparin 5000 units/ml inj SUBQ SCH ×2 (09:02→20:20)
--- NOTE | 2018-10-23 11:27 | History and Physical ---
History of Present Illness General Date patient seen: Oct 23, 2018 Reason for Hospitalization: General Complaint Present Illness HPI Patient is a very poor historian, information obtained from chart review. 63 year old male sent from [facility] ED, they drove him to this hospital stated they could not take care of him as he was smearing his feces all over the wall and no one could stop him. He was discharged from [facility] on 10/19/18. He was admitted for acute metabolic encephalopathy, obstructive uropathy with staghorn calculus, hypovolemic shock, jaycee on ckd, c diff colitis and treated. He was seen by psychiatry who started him on Seroquel and determined he lacks capacity to make decisions. He was seen by nephrology, urology, ID as well. His acute renal failure resolved and creatinine reached baseline. it was decided that even though patient has significant urologic nephrolithiasis with involvement of the bladder and output obstruction, however , his renal function was stable. He was voiding independently and there was no urgency to any urologic intervention during previous admission. [facility]. At the time of discharge it was reported he was following orders, was redirectable, had adequate independent function, minimal fall risk. Today even though he is a poor historian he denies any abdominal pain, chest pain, sob, palpitations, dizziness. Past medical and surgical history: hypertension, prostatic hypertrophy, hyperlipidemia, left hip fracture status post ORIF. Family history: Doesn't know Social history: As above. Denies etoh use now but previous dependence. Allergies: Coded Allergies: No Known Allergies (Unverified , 09/11/18) Medication History Scheduled Amlodipine Besylate* (Amlodipine Besylate*), 10 MG ORAL DAILY, (Reported) Aspirin (Aspirin EC), 325 MG ORAL DAILY, (Reported) Atenolol (Tenormin), 25 MG ORAL DAILY, (Reported) Atorvastatin Calcium* (Atorvastatin Calcium*), Unknown Dose ORAL BEDTIME, ( Reported) Doxazosin Mesylate (Doxazosin Mesylate), 4 MG ORAL DAILY, (Reported) Escitalopram Oxalate* (Lexapro*), 10 MG ORAL DAILY, (Reported) Finasteride* (Proscar*), 5 MG ORAL DAILY, (Reported) Folic Acid* (Folic Acid*), 1 MG ORAL DAILY, (Reported) Lisinopril (Lisinopril*), 20 MG ORAL DAILY, (Reported) Risperidone* (Risperdal*), 2 MG ORAL BEDTIME, (Reported) Tamsulosin HCl (Flomax), 0.4 MG ORAL DAILY, (Reported) Tamsulosin HCl (Flomax), 0.4 MG ORAL BID, (Reported) Thiamine Hcl* (Vitamin B-1*), 100 MG ORAL DAILY, (Reported) Thiamine Hcl* (Vitamin B-1*), 100 MG ORAL DAILY, (Reported) Scheduled PRN Loperamide Hcl (Anti-Diarrheal), 2 MG PO BID PRN for Diarrhea, (Reported) Miscellaneous Medications Clonidine Hcl (Clonidine Hcl), 0.1 MG PO, (Reported) Patient History Healthcare decision maker Resuscitation status Advanced Directive on File Review of Systems ROS Narrative unable to obtain due to mental status Physical Exam Last 24 Hour Vital Signs Date Time Temp Pulse Resp B/P (MAP) Pulse Ox O2 Delivery O2 Flow Rate FiO2 10/23/18 08:40 97.1 77 17 154/90 (111) 96 10/23/18 08:28 Room Air 10/23/18 04:00 98.1 63 18 151/85 (107) 95 10/23/18 00:00 98.6 62 18 147/94 (111) 95 10/22/18 21:11 Room Air 10/22/18 20:40 98.2 69 18 153/79 (103) 95 10/22/18 20:35 97.2 73 16 144/72 94 Room Air 10/22/18 20:00 97.2 73 16 144/72 94 Room Air 10/22/18 18:20 97.2 70 16 130/70 94 Room Air 10/22/18 15:24 97.2 72 16 142/71 94 Room Air 10/22/18 15:24 80 16 Room Air 10/22/18 15:14 97.2 72 20 142/71 (94) 94 Room Air Intake and Output 10/22/18 10/23/18 19:00 07:00 Intake Total 100 ml 675 ml Balance 100 ml 675 ml Intake IV Total 100 ml 675 ml # Bowel Movements 2 Laboratory Tests Test 10/22/18 15:40 10/22/18 23:44 10/23/18 05:00 White Blood Count 10.0 K/UL (4.8-10.8) 7.7 K/UL (4.8-10.8) Red Blood Count 3.79 M/UL (4.70-6.10) L 3.86 M/UL (4.70-6.10) L Hemoglobin 11.4 G/DL (14.2-18.0) L 11.3 G/DL (14.2-18.0) L Hematocrit 31.9 % (42.0-52.0) L 34.9 % (42.0-52.0) L Mean Corpuscular Volume 84 FL (80-99) 90 FL (80-99) Mean Corpuscular Hemoglobin 30.0 PG (27.0-31.0) 29.2 PG (27.0-31.0) Mean Corpuscular Hemoglobin Concent 35.6 G/DL (32.0-36.0) 32.4 G/DL (32.0-36.0) Red Cell Distribution Width 13.5 % (11.6-14.8) 14.4 % (11.6-14.8) Platelet Count 169 K/UL (150-450) 184 K/UL (150-450) Mean Platelet Volume 6.5 FL (6.5-10.1) 6.1 FL (6.5-10.1) L Neutrophils (%) (Auto) 74.3 % (45.0-75.0) 53.8 % (45.0-75.0) Lymphocytes (%) (Auto) 12.6 % (20.0-45.0) L 29.6 % (20.0-45.0) Monocytes (%) (Auto) 8.4 % (1.0-10.0) 11.0 % (1.0-10.0) H Eosinophils (%) (Auto) 3.1 % (0.0-3.0) H 3.8 % (0.0-3.0) H Basophils (%) (Auto) 1.5 % (0.0-2.0) 1.9 % (0.0-2.0) Sodium Level 144 MMOL/L (136-145) 143 MMOL/L (136-145) Potassium Level 4.0 MMOL/L (3.5-5.1) 4.3 MMOL/L (3.5-5.1) Chloride Level 109 MMOL/L (98-107) H 109 MMOL/L (98-107) H Carbon Dioxide Level 23 MMOL/L (21-32) 21 MMOL/L (21-32) Anion Gap 12 mmol/L (5-15) 13 mmol/L (5-15) Blood Urea Nitrogen 26 mg/dL (7-18) H 25 mg/dL (7-18) H Creatinine 1.4 MG/DL (0.55-1.30) H 1.5 MG/DL (0.55-1.30) H Estimat Glomerular Filtration Rate 50.9 mL/min (>60) 47.0 mL/min (>60) Glucose Level 108 MG/DL (74-106) H 103 MG/DL (74-106) Calcium Level 8.9 MG/DL (8.5-10.1) 9.0 MG/DL (8.5-10.1) Total Bilirubin 0.9 MG/DL (0.2-1.0) 0.8 MG/DL (0.2-1.0) Aspartate Amino Transf (AST/SGOT) 60 U/L (15-37) H 66 U/L (15-37) H Alanine Aminotransferase (ALT/SGPT) 78 U/L (12-78) 74 U/L (12-78) Alkaline Phosphatase 72 U/L (46-116) 71 U/L (46-116) Total Protein 7.2 G/DL (6.4-8.2) 7.2 G/DL (6.4-8.2) Albumin 3.1 G/DL (3.4-5.0) L 3.2 G/DL (3.4-5.0) L Globulin 4.1 g/dL 4.0 g/dL Albumin/Globulin Ratio 0.8 (1.0-2.7) L 0.8 (1.0-2.7) L Lipase 446 U/L (73-393) H Urine Color Pale yellow Urine Appearance Slightly cloudy Urine pH 6 (4.5-8.0) Urine Specific [place] 1.010 (1.005-1.035) Urine Protein 1+ (NEGATIVE) H Urine Glucose (UA) Negative (NEGATIVE) Urine Ketones Negative (NEGATIVE) Urine Blood 4+ (NEGATIVE) H Urine Nitrite Positive (NEGATIVE) H Urine Bilirubin Negative (NEGATIVE) Urine Urobilinogen Normal MG/DL (0.0-1.0) Urine Leukocyte Esterase 3+ (NEGATIVE) H Urine RBC 5-10 /HPF (0 - 0) H Urine WBC Tntc /HPF (0 - 0) H Urine Squamous Epithelial Cells Many /LPF (NONE/OCC) H Urine Bacteria Moderate /HPF (NONE) H Magnesium Level 2.0 MG/DL (1.8-2.4) Thyroid Stimulating Hormone (TSH) 2.208 uiU/mL (0.358-3.740) Microbiology Date/Time Source Procedure Growth Status 10/22/18 16:19 Rectum Received Height (Feet): 5 Height (Inches): 10.00 Weight (Pounds): 160 Medications Current Medications Medications (Trade) Dose Ordered Sig/Sujit Route PRN Reason Start Time Stop Time Status Last Admin Dose Admin Acetaminophen (Tylenol) 650 mg Q4H PRN ORAL Mild Pain (Pain Scale 1-3) 10/22/18 20:30 11/21/18 20:29 Al Hydroxide/Mg Hydroxide (Mylanta II) 30 ml Q6H PRN ORAL dyspepsia 10/22/18 20:30 11/21/18 20:29 Albuterol/ Ipratropium (Albuterol/ Ipratropium) 3 ml Q6H PRN HHN Shortness of Breath 10/22/18 20:30 10/27/18 20:29 Bisacodyl (Dulcolax) 10 mg HSPRN PRN RECTAL Constipation 10/22/18 20:30 11/21/18 20:29 Dextrose (Dextrose 50%) 25 ml Q30M PRN IV Hypoglycemia 10/22/18 20:30 11/21/18 20:29 Dextrose (Dextrose 50%) 50 ml Q30M PRN IV Hypoglycemia 10/22/18 20:30 11/21/18 20:29 Diphenhydramine HCl (Benadryl) 25 mg Q6H PRN ORAL Itching/Pruritis 10/22/18 20:30 11/21/18 20:29 Docusate Sodium (Colace) 100 mg EVERY 12 HOURS ORAL 10/22/18 21:00 11/21/18 20:59 10/23/18 08:58 Heparin Sodium (Porcine) (Heparin 5000 units/ml) 5,000 units EVERY 12 HOURS SUBQ 10/22/18 21:00 11/21/18 20:59 10/23/18 09:02 Lorazepam (Ativan 2mg/ml 1ml) 1 mg Q4H PRN IV For Anxiety 10/22/18 20:30 10/29/18 20:29 Magnesium Hydroxide (Mom) 30 ml HSPRN PRN ORAL Constipation 10/22/18 20:30 11/21/18 20:29 Morphine Sulfate (Morphine Sulfate) 2 mg Q6H PRN IVP Moderate Pain (Pain Scale 4-6) 10/22/18 20:30 10/29/18 20:29 Morphine Sulfate (Morphine Sulfate) 4 mg Q6H PRN IVP Severe Pain (Pain Scale 7-10) 10/22/18 20:30 10/29/18 20:29 Ondansetron HCl (Zofran) 4 mg Q6H PRN IVP Nausea & Vomiting 10/22/18 20:30 11/21/18 20:29 Sodium Chloride 1,000 ml @ 75 mls/hr [id number] IVLG 10/22/18 21:22 11/21/18 21:21 10/23/18 10:42 Temazepam (Restoril) 15 mg HSPRN PRN ORAL Insomnia 10/22/18 20:30 10/29/18 20:29 Objective Narrative General Appearance: alert, dishevelled covered in feces Head: normocephalic, atraumatic Eyes: bilateral eye PERRL, bilateral eye EOMI ENT: uvula midline, moist mucus membranes Neck: supple, no jvd Respiratory: lungs clear, no respiratory distress, no retraction, no accessory muscle use Cardiovascular : regular rate, rhythm, no edema, no gallop, no murmur Gastrointestinal: non tender, soft, no guarding, no rebound Rectal: Feces, diaper rash Musculoskeletal: moves all extremities Neurologic: alert, oriented to self, difficult exam but grossly non focal Psychiatric: mood/affect flat. annoyed Skin: no ulcers, tattoos Assessment/Plan Problem List: (1) Acute encephalopathy ICD Codes: G93.40 - Encephalopathy, unspecified SNOMED: 49059507, 294458821 (2) Failure to thrive SNOMED: 41961659 Qualifiers: Qualified Codes: R62.7 - Adult failure to thrive (3) Staghorn calculus ICD Codes: N20.0 - Calculus of kidney SNOMED: 692727388 (4) Hydronephrosis ICD Codes: N13.30 - Unspecified hydronephrosis SNOMED: 72267848 (5) Encounter for generalized patient complaints ICD Codes: Z00.8 - Encounter for other general examination SNOMED: 570028842 Assessment/Plan: 63 year old male admitted from facility for acute encephalopathy and FTT 1. Acute encephalopathy. Doubt metabolic, based on reviewing his labs. His renal function is at baseline. -Will need psychiatry consult with Dr. Collins -PT Case management for dc planning 2. Obstructive uropathy with staghorn calculus. Renal function stable 3. CKD stage II-III, stable 4. Failure to thrive. Time of this note may not reflect time of encounter. I spent 70 minutes on this encounter. 50% or more on counselling and care coordination. Diagnosis [place] I: acute encephalopathy El Sanchez M.D. Oct 23, 2018 11:27
[2018-10-23 12:00] VITALS: BP 130/73
--- NOTE | 2018-10-23 14:58 | NUR ---
P.T Note: P.T evaluation attempted however pt refused . RN notified. Will reattempt tomorrow.
--- NOTE | 2018-10-23 15:10 | NUR ---
*-* INSURANCE *-* CLINICALS AND REVIEWS HAVE BEEN FAXED TO: [facility] P: [phone] F: [phone]
--- NOTE | 2018-10-23 15:40 | NUR ---
Social Service Note SW spoke with Alicia from [facility] [phone] regarding patient's behaviors at facility. Alicia states patient had multiple episodes of incontinence in the facility peeing in the hallways, and defecating all over his mattress in his room quite a few times. Patient was placed close to a bathroom and would not attempt to use the facility. At one point patient wiped his feces on the [place]. [facility] was unable to meet patient's needs and was sent back to the hospital. As of Oct 21 patient's medi-sotero was terminated due to failure to complete redetermination forms. [facility] EW aware and will assist with medi-sotero application. At this time patient will require SNF placement. If incontinence issues improve [facility] is willing to reconsider patient back in their program. Will continue to monitor.
[2018-10-23 16:00] VITALS: BP 142/84
--- NOTE | 2018-10-23 19:15 | NUR ---
HAND-OFF: Report given to Cassandra.
--- NOTE | 2018-10-23 19:35 | NUR ---
NURSE NOTES: Received report from SHIRLEY Walker. Patient in bed sleeping, in stable condition. No IV access discovered upon assessment. Will attempt new IV access. Patient on room air with no signs of distress or SOB. Bed is locked and in lowest position with bed alarm activated. Call light in reach. Will continue to monitor.
[2018-10-23 20:00] VITALS: BP 152/80
[2018-10-24] VITALS: BP 143/80
[2018-10-24 04:00] VITALS: BP 140/83
--- NOTE | 2018-10-24 04:10 | NUR ---
NURSE NOTES: Obtained IV access - Right FA 24g, intact and currently running NS @ 75 ml/hr.
--- NOTE | 2018-10-24 07:31 | NUR ---
HAND-OFF: Report given to JOSEPHINE Richards.
--- NOTE | 2018-10-24 07:45 | NUR ---
NURSE NOTES: Pt awake, A/O x 2-3, anxious. Denies pain, no SOB noted, call light within reach, fall precaution maintained. will continue to monitor.
[2018-10-24 08:00] VITALS: BP 140/69
[2018-10-24 08:19] LABS: ANION GAP 12 mmol/L (5-15); BLOOD UREA NITROGEN 20 mg/dL (7-18); CALCIUM 8.6 MG/DL (8.5-10.1); CARBON DIOXIDE 21 MMOL/L (21-32); CHLORIDE 110 MMOL/L (98-107); CREATININE 1.4 MG/DL (0.55-1.30); POTASSIUM 3.9 MMOL/L (3.5-5.1); SODIUM 143 MMOL/L (136-145)
[2018-10-24] MEDS: Docusate 100mg cap ORAL SCH ×2 (09:00→20:35)
[2018-10-24] MEDS: Heparin 5000 units/ml inj SUBQ SCH ×2 (09:00→20:35)
--- NOTE | 2018-10-24 09:12 | NUR ---
CASE MANAGEMENT:REVIEW 10/24/18 SI:FTT. GRAVELY DISABLED 97.2 61 16 140/83 96% ON RA BUN+20 CR+1.4 IS: IVF@75/HR HEPARIN SQ Q12 : MED/SURG STATUS 4 [facility]
--- NOTE | 2018-10-24 10:37 | General Progress Note ---
Assessment/Plan Problem List: (1) Acute encephalopathy ICD Codes: G93.40 - Encephalopathy, unspecified SNOMED: 18677516, 128874904 (2) Failure to thrive SNOMED: 41683076 Qualifiers: Qualified Codes: R62.7 - Adult failure to thrive (3) Staghorn calculus ICD Codes: N20.0 - Calculus of kidney SNOMED: 374681895 (4) Hydronephrosis ICD Codes: N13.30 - Unspecified hydronephrosis SNOMED: 34866267 (5) Encounter for generalized patient complaints ICD Codes: Z00.8 - Encounter for other general examination SNOMED: 192297607 Status: stable Assessment/Plan: 63 year old male admitted from facility for acute encephalopathy and FTT 1. Acute encephalopathy. Doubt metabolic, based on reviewing his labs. His renal function is at baseline. -Will need psychiatry consult with Dr. Collins -PT Case management for dc planning 2. Obstructive uropathy with staghorn calculus.BPH. Renal function stable. Resume Tamsulosin 3. CKD stage II-III, stable 4. Failure to thrive. 5. Dementia vs acute encephalopathy. Oriented to self only. Resume outpatient psych meds 6.HTN. Amlodipine 7. Etoh dependence in the past. Thiamine and folate Time of this note may not reflect time of encounter. I spent 40 minutes on this encounter. 50% or more on counselling and care coordination. Subjective Date patient seen: Oct 24, 2018 ROS Limited/Unobtainable: Yes Allergies: Coded Allergies: No Known Allergies (Unverified , 09/11/18) Subjective seen at bedside. Alert to self only Does not answer questions appropriately says has no complaints. Objective Last 24 Hour Vital Signs Date Time Temp Pulse Resp B/P (MAP) Pulse Ox O2 Delivery O2 Flow Rate FiO2 10/24/18 08:00 98.4 73 16 140/69 (92) 98 10/24/18 04:00 97.2 61 16 140/83 (102) 96 10/24/18 00:00 97.5 57 16 143/80 (101) 96 10/23/18 21:00 Room Air 10/23/18 20:00 98.8 69 16 152/80 (104) 97 10/23/18 16:00 97.8 68 16 142/84 (103) 94 10/23/18 12:00 98.7 74 17 130/73 (92) 98 Intake and Output 10/23/18 10/24/18 19:00 07:00 Intake Total 900 ml 75 ml Balance 900 ml 75 ml Intake IV Total 900 ml 75 ml Laboratory Tests 10/24/18 06:57: Sodium Level 143, Potassium Level 3.9, Chloride Level 110H, Carbon Dioxide Level 21, Anion Gap 12, Blood Urea Nitrogen 20H, Creatinine 1.4H, Estimat Glomerular Filtration Rate 50.9, Glucose Level 92, Calcium Level 8.6 Height (Feet): 5 Height (Inches): 10.00 Weight (Pounds): 176 Objective General Appearance: alert, sitting in bed ,calm Head: normocephalic, atraumatic Eyes: bilateral eye PERRL, bilateral eye EOMI ENT: uvula midline, moist mucus membranes Neck: supple, no jvd Respiratory: lungs clear, no respiratory distress, no retraction, no accessory muscle use Cardiovascular : regular rate, rhythm, no edema, no gallop, no murmur Gastrointestinal: non tender, soft, no guarding, no rebound Musculoskeletal: moves all extremities Neurologic: alert, oriented to self only Psychiatric: mood/affect flat. annoyed Skin: no ulcers, tattoos El Sanchez M.D. Oct 24, 2018 10:37
[2018-10-24 12:00] VITALS: BP 150/80
--- NOTE | 2018-10-24 13:10 | NUR ---
NURSE NOTES: Pt refused IVF, tolerating diet well. will notify .
[2018-10-24 16:00] VITALS: BP 138/95
--- NOTE | 2018-10-24 16:13 | NUR ---
P.T Note: P.T evaluation completed. Pt is baseline independent with bed mobility and transfers and supervision/independent with gait/locomotion using the FWW. Pt's current functional status does not warrant skilled P.T services. DC P.T services. Thank you for this referral.
[2018-10-24] MEDS: Tamsulosin 0.4mg cap ORAL SCH (17:53)
--- NOTE | 2018-10-24 18:54 | NUR ---
HAND-OFF: Report given to Jayme BURTON.
--- NOTE | 2018-10-24 19:30 | Consultation ---
DATE OF CONSULTATION: 10/24/2018 HISTORY OF PRESENT ILLNESS: The patient is a 63-year-old male with history of multiple medical comorbidities including psychotic disorder, dementia, hypertension, prostatic hypertrophy, hyperlipidemia, left hip fracture who has been admitted to the hospital for hearing all over the wall. The patient was more confused during the evaluation. The patient is a poor historian, confused and disoriented, unable to provide any meaningful information, not engaged during the evaluation, poor memory. PAST PSYCHIATRIC HISTORY: Significant for depression and anxiety. PAST MEDICAL HISTORY: Significant for hypertension, prostatic hypertrophy, hyperlipidemia, left hip fracture. ALLERGIES: No known drug allergies. SUBSTANCE ABUSE HISTORY: There is no significant substance use disorder. MENTAL STATUS EXAMINATION: The patient is alert, oriented times self, place, did not know the date. Mood is anxious. Affect is flat. Thought process, there is a paucity of thought content. Thought content, no suicidal or homicidal ideation. The patient is delusional. Insight and judgment is poor. ASSESSMENT: [place] I Dementia with behavior disturbance. Acute metabolic encephalopathy. [place] II Deferred. [place] III As above. [place] IV Low [place] V 20 PLAN: 1. We will start the patient on risperidone 2 mg at bedtime. 2. Ativan as needed. 3. The patient lacks capacity to make medical decisions. 4. Provide the patient with reality orientation. 5. Discussed the case with the nurse. Denice Collins M.D. DR: Kylah JOB#: [id number] CC: BOOKER
--- NOTE | 2018-10-24 19:40 | NUR ---
NURSE NOTES: Received patient awake,verbal,resting in bed,follows simple command.
[2018-10-25] VITALS (7 sets, daily range): BP systolic 124–166; BP diastolic 74–93
[2018-10-25] MEDS: LORazepam 1mg tab ORAL PRN ×2 (04:30→12:46)
--- NOTE | 2018-10-25 07:27 | NUR ---
HAND-OFF: Report given to Jacinda Woodruff RN.
--- NOTE | 2018-10-25 07:51 | NUR ---
nurse notes received patient sleeping , easily arousable, no sign of distress, HL right FA, refused IVF per NOC shift , on fall and aspiration precaution observed ,both siderails up for safety, bed in low position, plan of care was discussed verbalized understanding, 4P's in progress call light w/n reach, will continue to monitor patient condition josette alejandro
[2018-10-25] MEDS: Tamsulosin 0.4mg cap ORAL SCH ×2 (08:53→17:12)
[2018-10-25] MEDS: Thiamine 100mg tab ORAL SCH (08:53)
[2018-10-25] MEDS: Docusate 100mg cap ORAL SCH ×2 (08:54→20:45)
[2018-10-25] MEDS: Heparin 5000 units/ml inj SUBQ SCH ×2 (08:56→20:46)
--- NOTE | 2018-10-25 11:23 | General Progress Note ---
Assessment/Plan Problem List: (1) Acute encephalopathy ICD Codes: G93.40 - Encephalopathy, unspecified SNOMED: 25935324, 325075268 (2) Failure to thrive SNOMED: 60152818 Qualifiers: Qualified Codes: R62.7 - Adult failure to thrive (3) Staghorn calculus ICD Codes: N20.0 - Calculus of kidney SNOMED: 382858373 (4) Hydronephrosis ICD Codes: N13.30 - Unspecified hydronephrosis SNOMED: 56046843 (5) Encounter for generalized patient complaints ICD Codes: Z00.8 - Encounter for other general examination SNOMED: 889921464 (6) Dementia with behavioral disturbance ICD Codes: F03.91 - Unspecified dementia with behavioral disturbance SNOMED: 8712996119359 Status: stable Assessment/Plan: 63 year old male admitted from facility for acute encephalopathy, Failure to thrive and dementia with behavioral disturbance 1. Acute encephalopathy/ dementia with behavioral disturbance. Doubt metabolic, based on reviewing his labs. His renal function is at baseline. -Will need psychiatry consult with Dr. Collins -PT, patient seen ambulating independently with walker Case management for dc planning 2. Obstructive uropathy with staghorn calculus.BPH. Renal function stable. Resume Tamsulosin 3. CKD stage II-III, stable 4. Failure to thrive. 5. Dementia with behavioral disturbance. Oriented to self only. Resume outpatient psych meds. Risperidone 2mg at night per psychiatry and ativan prn 6.HTN. Amlodipine 7. Etoh dependence in the past. Thiamine and folate Time of this note may not reflect time of encounter. I spent 40 minutes on this encounter. 50% or more on counselling and care coordination. Subjective Date patient seen: Oct 25, 2018 ROS Limited/Unobtainable: Yes Allergies: Coded Allergies: No Known Allergies (Unverified , 09/11/18) Subjective walking around [place] with walker, urinating everywhere alert oriented to self wants to go outside for a smoke Objective Last 24 Hour Vital Signs Date Time Temp Pulse Resp B/P (MAP) Pulse Ox O2 Delivery O2 Flow Rate FiO2 10/25/18 09:00 Room Air 10/25/18 08:54 59 148/72 10/25/18 08:00 96.3 55 18 160/93 (115) 96 10/25/18 07:45 65 18 96 Room Air 21 10/25/18 04:00 98.9 68 20 124/79 (94) 96 10/25/18 00:06 97.8 18 149/89 (109) 98 10/24/18 20:08 Room Air 10/24/18 19:38 78 18 94 Room Air 21 10/24/18 16:00 98.4 71 18 138/95 (109) 98 10/24/18 12:00 97.8 65 18 150/80 (103) 98 Intake and Output 10/24/18 10/25/18 18:59 06:59 Intake Total 600 ml Balance 600 ml Intake Oral 600 ml # Voids 4 # Bowel Movements 3 Height (Feet): 5 Height (Inches): 10.00 Weight (Pounds): 176 Objective General Appearance: alert, no distress Head: normocephalic, atraumatic Eyes: bilateral eye PERRL, bilateral eye EOMI ENT: uvula midline, moist mucus membranes Neck: supple, no jvd Respiratory: lungs clear, no respiratory distress, no retraction, no accessory muscle use Cardiovascular : regular rate, rhythm, no edema, no gallop, no murmur Gastrointestinal: non tender, soft, no guarding, no rebound Musculoskeletal: moves all extremities Neurologic: alert, oriented to self only Psychiatric: mood/affect flat. annoyed Skin: no ulcers, tattoos El Sanchez M.D. Oct 25, 2018 11:23
--- NOTE | 2018-10-25 12:07 | NUR ---
RD ASSESSMENT & RECOMMENDATIONS SEE CARE ACTIVITY FOR COMPLETE ASSESSMENT DAILY ESTIMATED NEEDS: Needs based on Cardiac 80kg adj 25-30 kcals/kg 8792-6310 total kcals 1-1.2 g protein/kg 80-96 g total protein 25-30 mL/kg 1870-2435 total fluid mLs NUTRITION DIAGNOSIS: Altered nutrition related lab values r/t clinical status as evidenced by elev Creat(1.4), elev AST, elev lipase (446), elev BP (148/72). CURRENT DIET:Regular PO DIET RECOMMENDATIONS: LOW NA diet / soft easy chew ADDITIONAL RECOMMENDATIONS: 1) Obtain a standing weight as able / or calibrated bed scale wt 2) Monitor lytes daily, replete as needed 3) Snacks BID in b/w meals 4) H/o C-diff, monitor hydration status Rec Probiotics
--- NOTE | 2018-10-25 12:55 | NUR ---
NURSE NOTES: Patient reports he fell. Patient found sitting at side of bed. Patient reports he hit right side of head and right shoulder on bed. Patient is alert and awake. Vital signs stable. No bruising or laceration noted. Dr. Richard's office called. Voicemail left and awaiting call back.
--- NOTE | 2018-10-25 13:34 | NUR ---
NURSE NOTES: covering for Dr. Richard returned call. No new orders received.
--- NOTE | 2018-10-25 15:40 | NUR ---
CASE MANAGEMENT:REVIEW 10/25/18 SI:FTT. GRAVELY DISABLED 97.5 54 20 154/74 96% ON RA IS: NORVASC PO QD LEXAPRO PO QD RISPERDAL PO QHS FLOMAX PO BID ATIVAN PO Q6HRS PRN IVF@75/HR HEPARIN SQ Q12 : MED/SURG STATUS 4 [facility]: PATIENT'S INSURANCE HAS TERMED AND HE DOESN'T HAVE ANY INCOME APPLYING FOR [facility]AL TO BE RE-INSTATED
--- NOTE | 2018-10-25 19:35 | NUR ---
HAND-OFF: Report given to JOSEPHINE Bazzi accordigly patient resting comfortably in bed, denies any pain or discomfort josephine alejandro.
--- NOTE | 2018-10-25 19:39 | NUR ---
SPEECH PATHOLOGY: PATIENT AT BASELINE RELATIVE TO COGNITIVE/LINGUISTIC SKILLS. ON THE SLUMS ([facility] MENTAL SCALE) PATIENT ACHIEVED A RAW SCORE OF 8 WHICH IS INDICATIVE OF A MODERATE/SEV COGNITIVE DISORDER. PATIENTS COGNITIVE DEFICITS INDICATE THE NEED FOR A FULLY SUPPORTED LIVING ENVIRONMENT FOR HIS HEALTH/SAFETY NO FURTHER SKILLED ST APPEARS TO BE NEEDED AT THIS TIME. THANK YOU FOR THIS REFERRAL.
--- NOTE | 2018-10-25 19:54 | NUR ---
NURSE NOTES: Received patient comfortably sleeping.
--- NOTE | 2018-10-25 22:15 | Progress Note ---
DATE: 10/25/2018 SUBJECTIVE: The patient was asleep, arousable with verbal stimuli. The patient was more alert today, stated that he hit his head to the side of the bed. He was able to answer the questions. He is more lucid, compliant with medication. Sleep was adequate. MENTAL STATUS EXAMINATION: The patient is alert and oriented to self and place. Mood is neutral. Affect is constricted. Thought processes is linear. Thought content, no suicidal or homicidal ideation. ASSESSMENT: 1. Acute encephalopathy, improving. 2. Dementia. PLAN: 1. We will continue the current medication. 2. Provide the patient with reality orientation. Denice Collins M.D. DR: Kylah JOB#: [id number] CC:
[2018-10-26 04:00] VITALS: BP 146/83
[2018-10-26] MEDS: LORazepam 1mg tab ORAL PRN (05:29)
--- NOTE | 2018-10-26 07:14 | NUR ---
HAND-OFF: Report given to Kendra Bryant RN.
--- NOTE | 2018-10-26 08:01 | NUR ---
NURSE NOTES: Patient eyes closed,alert when name called,respirations unlabored,call light within reach,bed height in lowest position.No stool noted at this time,bed is clean,will monitor.
[2018-10-26 08:59] VITALS: BP 158/69
[2018-10-26] MEDS: Docusate 100mg cap ORAL SCH ×2 (10:04→20:05)
[2018-10-26] MEDS: Tamsulosin 0.4mg cap ORAL SCH ×2 (10:05→18:22)
[2018-10-26] MEDS: Heparin 5000 units/ml inj SUBQ SCH ×2 (10:10→20:07)
[2018-10-26] MEDS: Thiamine 100mg tab ORAL SCH (10:21)
--- NOTE | 2018-10-26 11:55 | NUR ---
CASE MANAGEMENT:REVIEW 10/26/18 SI:FTT. GRAVELY DISABLED 97.3 51 16 146/83 98% ON RA IS: NORVASC PO QD LEXAPRO PO QD RISPERDAL PO QHS FLOMAX PO BID ATIVAN PO Q6HRS PRN IVF@75/HR HEPARIN SQ Q12 : MED/SURG STATUS 4 EAST PLAN: PATIENT'S INSURANCE HAS TERMED AND HE DOESN'T HAVE ANY INCOME APPLYING FOR MCAL TO BE RE-INSTATED
[2018-10-26 12:43] VITALS: BP 152/88
--- NOTE | 2018-10-26 15:19 | General Progress Note ---
Assessment/Plan Problem List: (1) Acute encephalopathy ICD Codes: G93.40 - Encephalopathy, unspecified SNOMED: 48571083, 212219040 (2) Failure to thrive SNOMED: 74805946 Qualifiers: Qualified Codes: R62.7 - Adult failure to thrive (3) Staghorn calculus ICD Codes: N20.0 - Calculus of kidney SNOMED: 086369296 (4) Hydronephrosis ICD Codes: N13.30 - Unspecified hydronephrosis SNOMED: 14916270 (5) Encounter for generalized patient complaints ICD Codes: Z00.8 - Encounter for other general examination SNOMED: 141077560 (6) Dementia with behavioral disturbance ICD Codes: F03.91 - Unspecified dementia with behavioral disturbance SNOMED: 9298144721396 Status: stable Assessment/Plan: 63 year old male admitted from facility for acute encephalopathy, Failure to thrive and dementia with behavioral disturbance 1. Acute encephalopathy/ dementia with behavioral disturbance. Doubt metabolic, based on reviewing his labs. His renal function is at baseline. -Will need psychiatry consult with Dr. Collins -PT, patient seen ambulating independently with walker Case management for dc planning 2. Obstructive uropathy with staghorn calculus.BPH. Renal function stable. Resume Tamsulosin 3. CKD stage II-III, stable 4. Failure to thrive. 5. Dementia with behavioral disturbance. Oriented to self only. Resume outpatient psych meds. Risperidone 2mg at night per psychiatry and ativan prn 6.HTN. Amlodipine 7. Etoh dependence in the past. Thiamine and folate has no insurance, case checker involved. applied for medical Time of this note may not reflect time of encounter. I spent 40 minutes on this encounter. 50% or more on counselling and care coordination. Subjective Date patient seen: Oct 26, 2018 ROS Limited/Unobtainable: Yes Allergies: Coded Allergies: No Known Allergies (Unverified , 09/11/18) Subjective seen and examined at bedside found him sleeping calm Objective Last 24 Hour Vital Signs Date Time Temp Pulse Resp B/P (MAP) Pulse Ox O2 Delivery O2 Flow Rate FiO2 10/26/18 12:43 97.7 55 16 152/88 (109) 97 10/26/18 10:08 59 163/87 10/26/18 09:00 Room Air 10/26/18 08:59 97.2 52 16 158/69 (98) 96 10/26/18 07:40 58 17 96 Room Air 21 10/26/18 04:00 97.3 51 16 146/83 (104) 98 10/25/18 20:02 Room Air 10/25/18 20:00 97.5 55 18 143/76 (98) 98 10/25/18 19:53 68 18 97 Room Air 21 10/25/18 17:00 152/78 (102) 10/25/18 16:00 97.8 68 23 166/85 (112) 96 Intake and Output 10/25/18 10/26/18 18:59 06:59 Intake Total 1100 ml 236 ml Balance 1100 ml 236 ml Intake Oral 1100 ml 236 ml # Voids 4 2 # Bowel Movements 4 Height (Feet): 5 Height (Inches): 10.00 Weight (Pounds): 176 Objective General Appearance: alert, no distress Head: normocephalic, atraumatic Eyes: bilateral eye PERRL, bilateral eye EOMI ENT: uvula midline, moist mucus membranes Neck: supple, no jvd Respiratory: lungs clear, no respiratory distress, no retraction, no accessory muscle use Cardiovascular : regular rate, rhythm, no edema, no gallop, no murmur Gastrointestinal: non tender, soft, no guarding, no rebound Musculoskeletal: moves all extremities Neurologic: alert, oriented to self only Psychiatric: mood/affect flat. annoyed Skin: no ulcers, tattoos El Sanchez M.D. Oct 26, 2018 15:19
[2018-10-26 16:40] VITALS: BP 149/90
--- NOTE | 2018-10-26 18:27 | NUR ---
NURSE NOTES: Patient resting ,patient has been cooperative .patient had 2 soft brown BM today,skin care given.bed alarm salesperson recreational vehicles light within reach.
--- NOTE | 2018-10-26 19:49 | NUR ---
HAND-OFF: Report given to Pau BURTON.
[2018-10-26 20:00] VITALS: BP 110/55
--- NOTE | 2018-10-26 20:00 | NUR ---
NURSE NOTES: Pt received in bed asleep, no c/o pain or signs of distress, able to make needs known, will continue to monitor.
--- NOTE | 2018-10-26 21:15 | Progress Note ---
DATE: 10/26/2018 SUBJECTIVE: The patient is doing well. He is ambulating now. The patient is more alert and is able to answer the questions more appropriately. The patient is cooperative, manageable. MENTAL STATUS EXAMINATION: The patient is alert, oriented times self and place. Mood is neutral to anxious. Affect is constricted, congruent with mood. Thought process is linear and goal oriented. Thought content, no suicidal or homicidal ideation. Memory is impaired. ASSESSMENT: Stable. PLAN: We will continue current medications. Denice Collins M.D. DR: MORRIS JOB#: [id number] CC:
[2018-10-27] VITALS: BP 125/68
[2018-10-27 04:00] VITALS: BP 152/81
--- NOTE | 2018-10-27 07:19 | NUR ---
HAND-OFF: Report given to JOSEPHINE Gardner.
[2018-10-27] MEDS: Tamsulosin 0.4mg cap ORAL SCH ×2 (08:27→18:11)
[2018-10-27] MEDS: Heparin 5000 units/ml inj SUBQ SCH ×2 (08:31→20:18)
[2018-10-27] MEDS: Thiamine 100mg tab ORAL SCH (08:33)
[2018-10-27 08:37] VITALS: BP 120/85
--- NOTE | 2018-10-27 08:47 | NUR ---
NURSE NOTES: Patient is alert and oriented,patient had a large soft brown bowel movement,skin care given,patient ate break fast.bed alarm is on,callight within reach.
[2018-10-27] MEDS: Docusate 100mg cap ORAL SCH ×2 (09:00→20:17)
[2018-10-27 12:00] VITALS: BP 146/83
--- NOTE | 2018-10-27 13:32 | General Progress Note ---
Assessment/Plan Problem List: (1) Acute encephalopathy ICD Codes: G93.40 - Encephalopathy, unspecified SNOMED: 00204554, 307511290 (2) Failure to thrive SNOMED: 90692911 Qualifiers: Qualified Codes: R62.7 - Adult failure to thrive (3) Staghorn calculus ICD Codes: N20.0 - Calculus of kidney SNOMED: 207965173 (4) Hydronephrosis ICD Codes: N13.30 - Unspecified hydronephrosis SNOMED: 48719827 (5) Encounter for generalized patient complaints ICD Codes: Z00.8 - Encounter for other general examination SNOMED: 529238520 (6) Dementia with behavioral disturbance ICD Codes: F03.91 - Unspecified dementia with behavioral disturbance SNOMED: 4609243089312 Status: stable Assessment/Plan: 63 year old male admitted from facility for acute encephalopathy, Failure to thrive and dementia with behavioral disturbance 1. Acute encephalopathy/ dementia with behavioral disturbance. Doubt metabolic, based on reviewing his labs. His renal function is at baseline. -Will need psychiatry consult with Dr. Collins -PT, patient seen ambulating independently with walker Case management for dc planning 2. Obstructive uropathy with staghorn calculus.BPH. Renal function stable. Resume Tamsulosin 3. CKD stage II-III, stable 4. Failure to thrive. 5. Dementia with behavioral disturbance. Oriented to self only. Resume outpatient psych meds. Risperidone 2mg at night per psychiatry and ativan prn 6.HTN. Amlodipine 7. Etoh dependence in the past. 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 applied for medical Time of this note may not reflect time of encounter. I spent 40 minutes on this encounter. 50% or more on counselling and care coordination. Subjective Date patient seen: Oct 27, 2018 ROS Limited/Unobtainable: Yes Allergies: Coded Allergies: No Known Allergies (Unverified , 09/11/18) Subjective seen and examined sitting in chair outside room calm Objective Last 24 Hour Vital Signs Date Time Temp Pulse Resp B/P (MAP) Pulse Ox O2 Delivery O2 Flow Rate FiO2 10/27/18 12:00 97.0 73 16 146/83 (104) 97 10/27/18 09:00 Room Air 10/27/18 08:37 97.4 77 18 120/85 (97) 98 10/27/18 08:27 77 120/85 10/27/18 04:00 97.3 54 20 152/81 (104) 96 10/27/18 00:00 98.0 60 19 125/68 (87) 96 10/26/18 21:00 Room Air 10/26/18 20:00 97.3 62 19 110/55 (73) 99 10/26/18 19:36 60 18 95 Room Air 21 10/26/18 16:40 97.7 59 18 149/90 (109) 97 Intake and Output 10/26/18 10/27/18 18:59 06:59 Intake Total 720 ml 360 ml Output Total 3 ml Balance 717 ml 360 ml Intake Oral 720 ml 360 ml Output Urine Total 3 ml # Voids 3 # Bowel Movements 2 2 Height (Feet): 5 Height (Inches): 10.00 Weight (Pounds): 176 Objective General Appearance: alert, no distress Head: normocephalic, atraumatic Eyes: bilateral eye PERRL, bilateral eye EOMI ENT: uvula midline, moist mucus membranes Neck: supple, no jvd Respiratory: lungs clear, no respiratory distress, no retraction, no accessory muscle use Cardiovascular : regular rate, rhythm, no edema, no gallop, no murmur Gastrointestinal: non tender, soft, no guarding, no rebound Musculoskeletal: moves all extremities Neurologic: alert, oriented to self only Psychiatric: mood/affect flat. annoyed Skin: no ulcers, tattoos El Sanchez M.D. Oct 27, 2018 13:32
[2018-10-27 16:00] VITALS: BP 16/90
--- NOTE | 2018-10-27 18:48 | NUR ---
NURSE NOTES: Patient resting,patient had soft brown stools today. postion for comfort.Bed aalrm is on,call light within reach.
--- NOTE | 2018-10-27 19:33 | NUR ---
HAND-OFF: Report given to Pau BURTON.
--- NOTE | 2018-10-27 19:47 | NUR ---
NURSE NOTES: Pt received in bed, head of bed elevated, no c/o pain or signs of distress, only asking for something to eat, able to make needs known, will continue to monitor.
[2018-10-27 20:00] VITALS: BP 155/84
[2018-10-28] VITALS: BP 148/83
--- NOTE | 2018-10-28 07:12 | NUR ---
HAND-OFF: Report given to JOSEPHINE Gardner..
--- NOTE | 2018-10-28 07:50 | NUR ---
NURSE NOTES: Patient awake and alert,respirations unlabored.patient had a small Bm skin care given.,patient ate breakfast.Bed alarm is on,call light within reach.
[2018-10-28 08:01] VITALS: BP 151/80
[2018-10-28] MEDS: Tamsulosin 0.4mg cap ORAL SCH ×2 (08:15→17:59)
[2018-10-28] MEDS: Thiamine 100mg tab ORAL SCH (08:16)
[2018-10-28] MEDS: Heparin 5000 units/ml inj SUBQ SCH ×2 (08:18→20:18)
[2018-10-28] MEDS: Docusate 100mg cap ORAL SCH ×2 (08:19→20:11)
--- NOTE | 2018-10-28 11:09 | General Progress Note ---
Assessment/Plan Problem List: (1) Acute encephalopathy ICD Codes: G93.40 - Encephalopathy, unspecified SNOMED: 28210585, 676264007 (2) Failure to thrive SNOMED: 40924966 Qualifiers: Qualified Codes: R62.7 - Adult failure to thrive (3) Staghorn calculus ICD Codes: N20.0 - Calculus of kidney SNOMED: 304464306 (4) Hydronephrosis ICD Codes: N13.30 - Unspecified hydronephrosis SNOMED: 55961311 (5) Encounter for generalized patient complaints ICD Codes: Z00.8 - Encounter for other general examination SNOMED: 464123733 (6) Dementia with behavioral disturbance ICD Codes: F03.91 - Unspecified dementia with behavioral disturbance SNOMED: 5925005750358 Status: stable Assessment/Plan: 63 year old male admitted from facility for acute encephalopathy, Failure to thrive and dementia with behavioral disturbance 1. Acute encephalopathy/ dementia with behavioral disturbance. Doubt metabolic, based on reviewing his labs. His renal function is at baseline. -Will need psychiatry consult with Dr. Collins -PT, patient seen ambulating independently with walker Case management for dc planning 2. Obstructive uropathy with staghorn calculus.BPH. Renal function stable. Resume Tamsulosin 3. CKD stage II-III, stable 4. Failure to thrive. 5. Dementia with behavioral disturbance. Oriented to self only. Resume outpatient psych meds. Risperidone 2mg at night per psychiatry and ativan prn 6.HTN. Amlodipine 7. Etoh dependence in the past. Thiamine and folate has no insurance, case operator involved. applied for medical Time of this note may not reflect time of encounter. I spent 40 minutes on this encounter. 50% or more on counselling and care coordination. Subjective Allergies: Coded Allergies: No Known Allergies (Unverified , 09/11/18) Subjective seen and examined sitting in chair outside room calm Objective Last 24 Hour Vital Signs Date Time Temp Pulse Resp B/P (MAP) Pulse Ox O2 Delivery O2 Flow Rate FiO2 10/28/18 10:28 Room Air 10/28/18 08:16 63 151/80 10/28/18 08:01 96.6 63 18 151/80 (103) 98 10/28/18 00:00 98.1 56 18 148/83 (104) 96 10/27/18 21:15 59 18 96 Room Air 21 10/27/18 21:00 Room Air 10/27/18 20:00 98.1 64 18 155/84 (107) 96 10/27/18 16:00 97.8 76 16/90 (66) 99 10/27/18 12:00 97.0 73 16 146/83 (104) 97 Intake and Output 10/27/18 10/28/18 19:00 07:00 Intake Total 360 ml 1080 ml Balance 360 ml 1080 ml Intake Oral 360 ml 480 ml IV Total 600 ml # Voids 2 3 Height (Feet): 5 Height (Inches): 10.00 Weight (Pounds): 176 Objective General Appearance: alert, no distress Head: normocephalic, atraumatic Eyes: bilateral eye PERRL, bilateral eye EOMI ENT: uvula midline, moist mucus membranes Neck: supple, no jvd Respiratory: lungs clear, no respiratory distress, no retraction, no accessory muscle use Cardiovascular : regular rate, rhythm, no edema, no gallop, no murmur Gastrointestinal: non tender, soft, no guarding, no rebound Musculoskeletal: moves all extremities Neurologic: alert, oriented to self only Psychiatric: mood/affect flat. annoyed Skin: no ulcers, tattoos El Sanchez M.D. Oct 28, 2018 11:09
[2018-10-28 12:00] VITALS: BP 152/84
[2018-10-28 16:00] VITALS: BP 155/91
--- NOTE | 2018-10-28 18:30 | NUR ---
NURSE NOTES Patient resting,sitting up in chair, patient has been incontinent of urine and stool,skincare give through out the day.
--- NOTE | 2018-10-28 19:42 | NUR ---
NURSE NOTES: Pt received in bed awake, asking for food, able to make needs known, bed in lowest position, will continue to monitor.
--- NOTE | 2018-10-28 19:45 | NUR ---
HAND-OFF: Report given to Pau BURTON.
[2018-10-28 20:00] VITALS: BP 155/81
--- NOTE | 2018-10-28 20:15 | NUR ---
NURSE NOTES: Held colace, pt having multiple bowel movements
[2018-10-29] VITALS: BP 145/79
--- NOTE | 2018-10-29 07:18 | NUR ---
HAND-OFF: Report given to JOSEPHINE Reynoso.
[2018-10-29 08:00] VITALS: BP 135/81
[2018-10-29] MEDS: Docusate 100mg cap ORAL SCH ×2 (09:04→20:35)
[2018-10-29] MEDS: Thiamine 100mg tab ORAL SCH (09:04)
[2018-10-29] MEDS: Tamsulosin 0.4mg cap ORAL SCH ×2 (09:04→18:13)
[2018-10-29] MEDS: Heparin 5000 units/ml inj SUBQ SCH ×2 (09:05→20:33)
--- NOTE | 2018-10-29 11:27 | NUR ---
NURSE NOTES: HANDOFF RECEIVED FROM JOSEPHINE DUNAWAY. PATIENT SITTING IN BED EATING BREAKFAST. IV SITE IS SALINE LOCKED, DRY AND INTACT. PATIENT ABLE TO MAKE NEEDS KNOWN. WILL CONTINUE TO MONITOR.
[2018-10-29 12:00] VITALS: BP 132/83
--- NOTE | 2018-10-29 13:41 | General Progress Note ---
Assessment/Plan Problem List: (1) Acute encephalopathy ICD Codes: G93.40 - Encephalopathy, unspecified SNOMED: 91826311, 514878506 (2) Failure to thrive SNOMED: 18099273 Qualifiers: Qualified Codes: R62.7 - Adult failure to thrive (3) Staghorn calculus ICD Codes: N20.0 - Calculus of kidney SNOMED: 860405098 (4) Hydronephrosis ICD Codes: N13.30 - Unspecified hydronephrosis SNOMED: 22947656 (5) Encounter for generalized patient complaints ICD Codes: Z00.8 - Encounter for other general examination SNOMED: 787093498 (6) Dementia with behavioral disturbance ICD Codes: F03.91 - Unspecified dementia with behavioral disturbance SNOMED: 4256744791638 Status: stable Assessment/Plan: 63 year old male admitted from facility for acute encephalopathy, Failure to thrive and dementia with behavioral disturbance 1. Acute encephalopathy/ dementia with behavioral disturbance. Doubt metabolic, based on reviewing his labs. His renal function is at baseline. -Will need psychiatry consult with Dr. Collins -PT, patient seen ambulating independently with walker Case management for dc planning 2. Obstructive uropathy with staghorn calculus.BPH. Renal function stable. Resume Tamsulosin 3. CKD stage II-III, stable 4. Failure to thrive. 5. Dementia with behavioral disturbance. Oriented to self only. Resume outpatient psych meds. Risperidone 2mg at night per psychiatry and ativan prn 6.HTN. Amlodipine 7. Etoh dependence in the past. Thiamine and folate has no insurance, case hardener involved. applied for medical Time of this note may not reflect time of encounter. I spent 40 minutes on this encounter. 50% or more on counselling and care coordination. Subjective Date patient seen: Oct 29, 2018 ROS Limited/Unobtainable: Yes Allergies: Coded Allergies: No Known Allergies (Unverified , 09/11/18) Subjective seen and examined sitting in chair outside room, calm walking around with walker Objective Last 24 Hour Vital Signs Date Time Temp Pulse Resp B/P (MAP) Pulse Ox O2 Delivery O2 Flow Rate FiO2 10/29/18 12:00 97.8 70 19 132/83 (99) 98 10/29/18 09:04 63 135/81 10/29/18 09:00 Room Air 10/29/18 08:00 97.4 63 18 135/81 (99) 97 10/29/18 00:00 97.0 60 19 145/79 (101) 95 10/28/18 21:00 Room Air 10/28/18 20:00 97.3 64 19 155/81 (105) 98 10/28/18 16:00 98.2 88 19 155/91 (112) 98 Intake and Output 10/28/18 10/29/18 19:00 07:00 Intake Total 840 ml 480 ml Balance 840 ml 480 ml Intake Oral 840 ml 480 ml # Voids 10 5 Height (Feet): 5 Height (Inches): 10.00 Weight (Pounds): 176 Objective General Appearance: alert, no distress Head: normocephalic, atraumatic Eyes: bilateral eye PERRL, bilateral eye EOMI ENT: uvula midline, moist mucus membranes Neck: supple, no jvd Respiratory: lungs clear, no respiratory distress, no retraction, no accessory muscle use Cardiovascular : regular rate, rhythm, no edema, no gallop, no murmur Gastrointestinal: non tender, soft, no guarding, no rebound Musculoskeletal: moves all extremities Neurologic: alert, oriented to self only Psychiatric: mood/affect flat. annoyed Skin: no ulcers, tattoos El Sanchez M.D. Oct 29, 2018 13:41
[2018-10-29 16:00] VITALS: BP 135/81
--- NOTE | 2018-10-29 16:57 | NUR ---
CASE MANAGEMENT:REVIEW 10/29/18 SI:FTT. GRAVELY DISABLED 97.8 70 19 132/83 98% ON RA IS: NORVASC PO QD LEXAPRO PO QD RISPERDAL PO QHS FLOMAX PO BID ATIVAN PO Q6HRS PRN IVF@75/HR HEPARIN SQ Q12 : MED/SURG STATUS 4 EAST PLAN: PATIENT'S INSURANCE HAS TERMED AND HE DOESN'T HAVE ANY INCOME APPLYING FOR MCAL TO BE RE-INSTATED
[2018-10-29] MEDS: LORazepam 1mg tab ORAL PRN (19:13)
--- NOTE | 2018-10-29 19:22 | NUR ---
NURSE NOTES: Received patient awake ambulating in bed. Able to verbalize needs. No s/s of acute distress. Waiting for placement.
--- NOTE | 2018-10-29 19:33 | NUR ---
HAND-OFF: Report given to josette smith.
[2018-10-29 20:00] VITALS: BP 129/70
--- NOTE | 2018-10-29 23:15 | Progress Note ---
DATE: 10/29/2018 SUBJECTIVE: The patient is seen in bed, asleep, arousable with verbal stimuli. The patient is able to ambulate now, awaiting placement. The cognition is improved. Able to answer the questions appropriately. MENTAL STATUS EXAMINATION: Alert and oriented times self, place, and situation. Mood is neutral. Affect is flat. Thought process is concrete. Thought content, no suicidal or homicidal ideations. ASSESSMENT: Acute encephalopathy, improved. PLAN: 1. We will continue current treatment. 2. Provide the patient with reality orientation and supportive therapy. Denice Collins M.D. DR: DARREN JOB#: [id number] CC:
[2018-10-30] VITALS: BP 142/90
[2018-10-30 04:00] VITALS: BP 121/75
[2018-10-30] MEDS: LORazepam 1mg tab ORAL PRN ×2 (04:19→12:33)
--- NOTE | 2018-10-30 07:19 | NUR ---
HAND-OFF: Report given to JOSEPHINE Monaco. Pt asleep in bed.
--- NOTE | 2018-10-30 07:20 | NUR ---
nurse notes received patient asleep , but easily arousable , no sign of distress, HL patent, on fall precaution , instructed patient to call for help, verbalized understanding, will continue to monitor patient condtion josette alejandro
[2018-10-30 08:20] VITALS: BP 144/86
[2018-10-30] MEDS: Tamsulosin 0.4mg cap ORAL SCH ×2 (09:56→17:06)
[2018-10-30] MEDS: Docusate 100mg cap ORAL SCH ×2 (09:56→20:10)
[2018-10-30] MEDS: Thiamine 100mg tab ORAL SCH (09:56)
[2018-10-30] MEDS: Heparin 5000 units/ml inj SUBQ SCH ×2 (09:59→20:11)
--- NOTE | 2018-10-30 10:56 | NUR ---
Social Service Note Patient not appropriate for Recuperative Care setting. Patient is incontinent, periods of confusion with noted unspecified dementia with behavioral disturbances. Per medi-sotero EW patient not appropriate to complete medi-sotero application at this time. Medi-sot[employer] EW attempting to locate medi-sotero worker in [facility] where patient initiated application. Patient appears he will require SNF placement upon discharge. Will continue to monitor and assist.
[2018-10-30 12:00] VITALS: BP 154/93
--- NOTE | 2018-10-30 13:59 | General Progress Note ---
Assessment/Plan Problem List: (1) Acute encephalopathy ICD Codes: G93.40 - Encephalopathy, unspecified SNOMED: 65334734, 498049867 (2) Failure to thrive SNOMED: 13352333 Qualifiers: Qualified Codes: R62.7 - Adult failure to thrive (3) Staghorn calculus ICD Codes: N20.0 - Calculus of kidney SNOMED: 281966853 (4) Hydronephrosis ICD Codes: N13.30 - Unspecified hydronephrosis SNOMED: 00631300 (5) Encounter for generalized patient complaints ICD Codes: Z00.8 - Encounter for other general examination SNOMED: 510489079 (6) Dementia with behavioral disturbance ICD Codes: F03.91 - Unspecified dementia with behavioral disturbance SNOMED: 3174003038563 Status: stable Assessment/Plan: 63 year old male admitted from facility for acute encephalopathy, Failure to thrive and dementia with behavioral disturbance 1. Acute encephalopathy/ dementia with behavioral disturbance. Doubt metabolic, based on reviewing his labs. His renal function is at baseline. -Will need psychiatry consult with Dr. Collins -PT, patient seen ambulating independently with walker Case management for dc planning 2. Obstructive uropathy with staghorn calculus.BPH. Renal function stable. Resume Tamsulosin 3. CKD stage II-III, stable 4. Failure to thrive. 5. Dementia with behavioral disturbance. Oriented to self only. Resume outpatient psych meds. Risperidone 2mg at night per psychiatry and ativan prn 6.HTN. Amlodipine 7. Etoh dependence in the past. Thiamine and folate has no insurance, child support case officer involved. applied for medical Time of this note may not reflect time of encounter. I spent 40 minutes on this encounter. 50% or more on counselling and care coordination. Subjective Date patient seen: Oct 30, 2018 ROS Limited/Unobtainable: Yes Allergies: Coded Allergies: No Known Allergies (Unverified , 09/11/18) Subjective seen and examined sitting in chair outside room, calm walking around with walker Objective Last 24 Hour Vital Signs Date Time Temp Pulse Resp B/P (MAP) Pulse Ox O2 Delivery O2 Flow Rate FiO2 10/30/18 12:00 98.1 68 18 154/93 (113) 98 10/30/18 09:56 62 144/86 10/30/18 08:42 Room Air 10/30/18 08:20 97.2 62 18 144/86 (105) 98 10/30/18 04:00 96.8 96 20 121/75 (90) 96 10/30/18 00:00 97.6 61 17 142/90 (107) 96 10/29/18 22:55 Room Air 10/29/18 20:00 97.5 62 18 129/70 (89) 96 10/29/18 16:00 97.4 63 18 135/81 (99) 97 Intake and Output 10/29/18 10/30/18 19:00 07:00 Intake Total 880 ml 300 ml Balance 880 ml 300 ml Intake Oral 880 ml 300 ml # Voids 6 3 # Bowel Movements 2 Height (Feet): 5 Height (Inches): 10.00 Weight (Pounds): 176 Objective General Appearance: alert, no distress Head: normocephalic, atraumatic Eyes: bilateral eye PERRL, bilateral eye EOMI ENT: uvula midline, moist mucus membranes Neck: supple, no jvd Respiratory: lungs clear, no respiratory distress, no retraction, no accessory muscle use Cardiovascular : regular rate, rhythm, no edema, no gallop, no murmur Gastrointestinal: non tender, soft, no guarding, no rebound Musculoskeletal: moves all extremities Neurologic: alert, oriented to self only Psychiatric: mood/affect flat. annoyed Skin: no ulcers, tattoos El Sanchez M.D. Oct 30, 2018 13:59
--- NOTE | 2018-10-30 14:55 | NUR ---
RD ASSESSMENT & RECOMMENDATIONS SEE CARE ACTIVITY FOR COMPLETE ASSESSMENT DAILY ESTIMATED NEEDS: Needs based on Cardiac 80kg adj 25-30 kcals/kg 6700-0982 total kcals 1-1.2 g protein/kg 80-96 g total protein 25-30 mL/kg 1948-6318 total fluid mLs NUTRITION DIAGNOSIS: Altered nutrition related lab values r/t clinical status as evidenced by elev Creat(1.4), elev AST, elev lipase (446), elev BP (154/93). CURRENT DIET:Regular PO DIET RECOMMENDATIONS: LOW NA diet / soft easy chew ADDITIONAL RECOMMENDATIONS: 1) Obtain a standing weight as able / or calibrated bed scale wt 2) Monitor lytes daily, replete as needed 3) Snacks BID in b/w meals 4) H/o C-diff, rec probiotics Hold COLACE with diarrhea
--- NOTE | 2018-10-30 15:14 | NUR ---
CASE MANAGEMENT:REVIEW 10/30/18 SI:FTT. GRAVELY DISABLED 98.1 68 18 154/93 98% on ra IS: NORVASC PO QD LEXAPRO PO QD RISPERDAL PO QHS FLOMAX PO BID ATIVAN PO Q6HRS PRN IVF@75/HR HEPARIN SQ Q12 : MED/SURG STATUS 4 EAST PLAN: PATIENT'S INSURANCE HAS TERMED AND HE DOESN'T HAVE ANY INCOME APPLYING FOR MCAL TO BE RE-INSTATED
[2018-10-30 16:00] VITALS: BP 157/91
--- NOTE | 2018-10-30 19:24 | NUR ---
HAND-OFF: Report given to JOSEPHINE Albert accordingly JOSEPHINE ARCE.
--- NOTE | 2018-10-30 19:25 | NUR ---
NURSE NOTES: Received a report from JOSEPHINE Monaco. AAOX3. Able to make needs known. IV site is patent and intact. Bed in lowest position. Bed alarm is on. Call light within reach. Will continue to monitor.
[2018-10-30 19:55] VITALS: BP 131/73
[2018-10-31] VITALS: BP 121/74
--- NOTE | 2018-10-31 01:45 | Progress Note ---
DATE: 10/30/2018 SUBJECTIVE: The patient is doing well. No new event. The patient is in no acute distress, ambulating. Sleep, appetite is adequate. MENTAL STATUS EXAMINATION: The patient is alert, oriented x3. Mood is neutral to anxious. Affect is constricted. Congruent mood. Thought process, linear and goal oriented. Thought content, no suicidal or homicidal ideations. ASSESSMENT: Stable. PLAN: 1. We will continue current medications. 2. Provide the patient with reality orientation and supportive therapy. Denice Collins M.D. DR: DARREN JOB#: [id number] CC:
[2018-10-31 04:00] VITALS: BP 129/79
--- NOTE | 2018-10-31 07:00 | NUR ---
HAND-OFF: Report given to JOSEPHINE Davenport.
--- NOTE | 2018-10-31 07:21 | NUR ---
NURSE NOTES: Patient awake, alert x3, forgetful; siting and eating breakfast; on room air, no sing of distress and shortness of breath; IV RFA 22G flushes well; side rails up x2, breaks engaged, bed at lowest position; walker at the bed side and within reach; call light within reach; will keep monitoring.
[2018-10-31 08:00] VITALS: BP 135/73
[2018-10-31] MEDS: Docusate 100mg cap ORAL SCH ×2 (09:18→20:29)
[2018-10-31] MEDS: Thiamine 100mg tab ORAL SCH (09:18)
[2018-10-31] MEDS: Tamsulosin 0.4mg cap ORAL SCH ×2 (09:19→17:22)
[2018-10-31] MEDS: Heparin 5000 units/ml inj SUBQ SCH ×2 (09:20→20:29)
--- NOTE | 2018-10-31 09:34 | General Progress Note ---
Assessment/Plan Problem List: (1) Acute encephalopathy ICD Codes: G93.40 - Encephalopathy, unspecified SNOMED: 17022819, 492591731 (2) Failure to thrive SNOMED: 21976110 Qualifiers: Qualified Codes: R62.7 - Adult failure to thrive (3) Staghorn calculus ICD Codes: N20.0 - Calculus of kidney SNOMED: 046823820 (4) Hydronephrosis ICD Codes: N13.30 - Unspecified hydronephrosis SNOMED: 71925172 (5) Encounter for generalized patient complaints ICD Codes: Z00.8 - Encounter for other general examination SNOMED: 333963079 (6) Dementia with behavioral disturbance ICD Codes: F03.91 - Unspecified dementia with behavioral disturbance SNOMED: 6179499169083 Status: stable Assessment/Plan: 63 year old male admitted from facility for acute encephalopathy, Failure to thrive and dementia with behavioral disturbance 1. Acute encephalopathy/ dementia with behavioral disturbance. Doubt metabolic, based on reviewing his labs. His renal function is at baseline. -Will need psychiatry consult with Dr. Collins -PT, patient seen ambulating independently with walker Case management for dc planning 2. Obstructive uropathy with staghorn calculus.BPH. Renal function stable. Resume Tamsulosin 3. CKD stage II-III, stable 4. Failure to thrive. 5. Dementia with behavioral disturbance. Oriented to self only. Resume outpatient psych meds. Risperidone 2mg at night per psychiatry and ativan prn 6.HTN. Amlodipine 7. Etoh dependence in the past. Thiamine and folate has no insurance, counter caser involved. applied for medical Time of this note may not reflect time of encounter. I spent 40 minutes on this encounter. 50% or more on counselling and care coordination. Subjective Allergies: Coded Allergies: No Known Allergies (Unverified , 09/11/18) Subjective seen and examined sitting in chair outside room, calm walking around with walker. Behavior much better Objective Last 24 Hour Vital Signs Date Time Temp Pulse Resp B/P (MAP) Pulse Ox O2 Delivery O2 Flow Rate FiO2 10/31/18 09:18 88 135/73 10/31/18 08:00 97.0 88 20 135/73 (93) 97 10/31/18 04:00 97.4 61 20 129/79 (96) 96 10/31/18 00:00 97.5 69 18 121/74 (90) 96 10/30/18 21:00 Room Air 10/30/18 19:55 97.7 85 18 131/73 (92) 97 10/30/18 16:00 97.9 68 18 157/91 (113) 98 10/30/18 12:00 98.1 68 18 154/93 (113) 98 10/30/18 09:56 62 144/86 Intake and Output 10/30/18 10/31/18 19:00 07:00 Intake Total 1180 ml Output Total 200 ml Balance 1180 ml -200 ml Intake Oral 1180 ml Output Urine Total 200 ml # Voids 9 1 Height (Feet): 5 Height (Inches): 10.00 Weight (Pounds): 177 Objective General Appearance: alert, no distress Head: normocephalic, atraumatic Eyes: bilateral eye PERRL, bilateral eye EOMI ENT: uvula midline, moist mucus membranes Neck: supple, no jvd Respiratory: lungs clear, no respiratory distress, no retraction, no accessory muscle use Cardiovascular : regular rate, rhythm, no edema, no gallop, no murmur Gastrointestinal: non tender, soft, no guarding, no rebound Musculoskeletal: moves all extremities Neurologic: alert, oriented to self only Psychiatric: mood/affect flat. annoyed Skin: no ulcers, tattoos El Sanchez M.D. Oct 31, 2018 09:34
--- NOTE | 2018-10-31 10:58 | NUR ---
CASE MANAGEMENT:REVIEW 10/31/18 SI:FTT. GRAVELY DISABLED 97.0 88 20 135/73 97% ON RA IS: NORVASC PO QD LEXAPRO PO QD RISPERDAL PO QHS FLOMAX PO BID ATIVAN PO Q6HRS PRN IVF@75/HR HEPARIN SQ Q12 : MED/SURG STATUS 4 [facility] PL[facility]: PATIENT'S INSURANCE HAS TERMED AND HE DOESN'T HAVE ANY INCOME APPLYING FOR [facility] TO BE RE-INSTATED NEEDS SNF PLACEMENT BECAUSE OF INCONTINENCE OF URINE AND STOOL
[2018-10-31 12:00] VITALS: BP 154/80
[2018-10-31 16:00] VITALS: BP 125/77
--- NOTE | 2018-10-31 19:28 | NUR ---
HAND-OFF: Report given to JOSEPHINE Gaviria.
--- NOTE | 2018-10-31 19:30 | NUR ---
NURSE NOTES: Patient was in the bathroom at time of rounds. Walker near patient. Reminded pt to call staff for assistance. No complaint at this time. Pt just want some more snacks. Will continue to monitor.
[2018-10-31 20:00] VITALS: BP 141/65
[2018-11-01] VITALS: BP 137/73
--- NOTE | 2018-11-01 00:30 | Progress Note ---
DATE: 10/31/2018 SUBJECTIVE: The patient is doing well. No acute distress. He has some anxiety and participates in physical therapy. Acute encephalopathy improved. He is redirectable. Sleep and appetite is adequate. He continues to have poor memory and is forgetful. MENTAL STATUS EXAMINATION: The patient is alert, oriented x3. Mood is neutral to anxious. Affect is constricted, congruent with mood. Thought process is concrete. Thought content, no suicidal or homicidal ideations. ASSESSMENT: 1. Dementia. 2. Acute encephalopathy, improved. PLAN: 1. We will continue risperidone. 2. Continue the Ativan p.r.n. 3. Provide the patient with reality orientation and supportive therapy. Denice Collins M.D. DR: DARREN JOB#: [id number] CC:
[2018-11-01 03:39] VITALS: BP 139/74
--- NOTE | 2018-11-01 07:24 | NUR ---
NURSE NOTES: Patient awake, sitting on the bed and eating his breakfast; on room air, no sign of distress and shortness of breath; no sing of chest pain; bed at lowest position, side rails up x2, breaks engaged; call light and walker within reach; will keep monitoring.
--- NOTE | 2018-11-01 07:45 | NUR ---
HAND-OFF: Report given to JOSEPHINE Guerrero.
[2018-11-01 08:00] VITALS: BP 130/77
[2018-11-01] MEDS: Tamsulosin 0.4mg cap ORAL SCH ×2 (09:23→17:15)
[2018-11-01] MEDS: Thiamine 100mg tab ORAL SCH (09:23)
[2018-11-01] MEDS: Docusate 100mg cap ORAL SCH ×2 (09:23→20:45)
[2018-11-01] MEDS: Heparin 5000 units/ml inj SUBQ SCH ×2 (09:24→20:46)
--- NOTE | 2018-11-01 10:01 | General Progress Note ---
Assessment/Plan Problem List: (1) Acute encephalopathy ICD Codes: G93.40 - Encephalopathy, unspecified SNOMED: 31154617, 820308489 (2) Failure to thrive SNOMED: 14481406 Qualifiers: Qualified Codes: R62.7 - Adult failure to thrive (3) Staghorn calculus ICD Codes: N20.0 - Calculus of kidney SNOMED: 086371436 (4) Hydronephrosis ICD Codes: N13.30 - Unspecified hydronephrosis SNOMED: 03579639 (5) Encounter for generalized patient complaints ICD Codes: Z00.8 - Encounter for other general examination SNOMED: 366309987 (6) Dementia with behavioral disturbance ICD Codes: F03.91 - Unspecified dementia with behavioral disturbance SNOMED: 5252524235143 Status: stable Assessment/Plan: 63 year old male admitted from facility for acute encephalopathy, Failure to thrive and dementia with behavioral disturbance 1. Acute encephalopathy/ dementia with behavioral disturbance. Doubt metabolic, based on reviewing his labs. His renal function is at baseline. -Will need psychiatry consult with Dr. Collins -PT, patient seen ambulating independently with walker Case management for dc planning 2. Obstructive uropathy with staghorn calculus.BPH. Renal function stable. Resume Tamsulosin 3. CKD stage II-III, stable 4. Failure to thrive. 5. Dementia with behavioral disturbance. Oriented to self only. Resume outpatient psych meds. Risperidone 2mg at night per psychiatry and ativan prn 6.HTN. Amlodipine 7. Etoh dependence in the past. Thiamine and folate has no insurance, pillowcase turner involved. applied for medical Time of this note may not reflect time of encounter. I spent 40 minutes on this encounter. 50% or more on counselling and care coordination. Subjective Allergies: Coded Allergies: No Known Allergies (Unverified , 09/11/18) Subjective seen and examined sitting in chair outside room, calm walking around with walker. Behavior much better Objective Last 24 Hour Vital Signs Date Time Temp Pulse Resp B/P (MAP) Pulse Ox O2 Delivery O2 Flow Rate FiO2 11/01/18 09:23 61 130/77 11/01/18 08:00 97.7 61 20 130/77 (94) 98 11/01/18 03:39 97.5 55 20 139/74 (95) 97 11/01/18 00:00 98.2 61 20 137/73 (94) 96 10/31/18 21:00 Room Air 10/31/18 20:00 98.2 69 20 141/65 (90) 96 10/31/18 16:00 98.0 20 20 125/77 (93) 96 10/31/18 12:00 97.7 69 20 154/80 (104) 96 Intake and Output 10/31/18 11/01/18 19:00 07:00 Intake Total 440 ml Balance 440 ml Intake Oral 440 ml # Voids 5 7 # Bowel Movements 2 Height (Feet): 5 Height (Inches): 10.00 Weight (Pounds): 177 Objective General Appearance: alert, no distress Head: normocephalic, atraumatic Eyes: bilateral eye PERRL, bilateral eye EOMI ENT: uvula midline, moist mucus membranes Neck: supple, no jvd Respiratory: lungs clear, no respiratory distress, no retraction, no accessory muscle use Cardiovascular : regular rate, rhythm, no edema, no gallop, no murmur Gastrointestinal: non tender, soft, no guarding, no rebound Musculoskeletal: moves all extremities Neurologic: alert, oriented to self only Psychiatric: mood/affect flat. annoyed Skin: no ulcers, tattoos El Sanchez M.D. Nov 01, 2018 10:01
--- NOTE | 2018-11-01 10:36 | NUR ---
CASE MANAGEMENT:REVIEW 11/01/18 SI:FTT. GRAVELY DISABLED 97.7 61 20 130/77 98% ON RA IS: NORVASC PO QD LEXAPRO PO QD RISPERDAL PO QHS FLOMAX PO BID ATIVAN PO Q6HRS PRN IVF@75/HR HEPARIN SQ Q12 : MED/SURG STATUS 4 [facility] PLAN: PATIENT'S INSURANCE HAS TERMED AND HE DOESN'T HAVE ANY INCOME APPLYING FOR [facility] TO BE RE-INSTATED NEEDS SNF PLACEMENT BECAUSE OF INCONTINENCE OF URINE AND STOOL
[2018-11-01 12:00] VITALS: BP 127/80
[2018-11-01 16:00] VITALS: BP 132/77
--- NOTE | 2018-11-01 19:04 | NUR ---
HAND-OFF: Report given to JOSEPHINE Cotto.
--- NOTE | 2018-11-01 19:59 | NUR ---
NURSE NOTES: Received patient in bed, awake, alert, confused at times, ambulating with a walker, IV site is clean dry and intact, no acute distress noted. Call light is within reach, bed is locked, lowered, alarm is on. Will continue to monitor for safety and comfort.
[2018-11-01 20:00] VITALS: BP 143/78
--- NOTE | 2018-11-01 23:45 | Progress Note ---
DATE: 11/01/2018 SUBJECTIVE: The patient is able to answer the questions appropriately. He is still very forgetful and has episodes of confusion. Compliant with medications. At times anxious. No suicidal or homicidal ideation. MENTAL STATUS EXAMINATION: The patient is alert, oriented times self, place, and the year. He is in no acute distress. Mood is neutral. Affect is full range. Thought process is concrete. Thought content, no suicidal or homicidal ideation. ASSESSMENT: Stable. PLAN: 1. We will continue current medications. 2. Provide the patient with reality orientation and supportive therapy. Denice Collins M.D. DR: CHYNA JOB#: [id number] CC:
[2018-11-02] VITALS: BP 145/79
[2018-11-02 04:00] VITALS: BP 140/68
--- NOTE | 2018-11-02 07:16 | NUR ---
HAND-OFF: Report given to Susie BURTON.
[2018-11-02 08:37] VITALS: BP 160/86
[2018-11-02] MEDS: Tamsulosin 0.4mg cap ORAL SCH ×2 (08:40→17:05)
[2018-11-02] MEDS: Thiamine 100mg tab ORAL SCH (08:40)
[2018-11-02] MEDS: Heparin 5000 units/ml inj SUBQ SCH ×2 (08:42→20:17)
[2018-11-02] MEDS: Docusate 100mg cap ORAL SCH ×2 (08:55→20:14)
--- NOTE | 2018-11-02 09:27 | General Progress Note ---
Assessment/Plan Problem List: (1) Acute encephalopathy ICD Codes: G93.40 - Encephalopathy, unspecified SNOMED: 17161214, 582229231 (2) Failure to thrive SNOMED: 14003183 Qualifiers: Qualified Codes: R62.7 - Adult failure to thrive (3) Staghorn calculus ICD Codes: N20.0 - Calculus of kidney SNOMED: 881464789 (4) Hydronephrosis ICD Codes: N13.30 - Unspecified hydronephrosis SNOMED: 48798046 (5) Encounter for generalized patient complaints ICD Codes: Z00.8 - Encounter for other general examination SNOMED: 463371489 (6) Dementia with behavioral disturbance ICD Codes: F03.91 - Unspecified dementia with behavioral disturbance SNOMED: 3279258119191 Status: stable Assessment/Plan: 63 year old male admitted from facility for acute encephalopathy, Failure to thrive and dementia with behavioral disturbance 1. Acute encephalopathy/ dementia with behavioral disturbance. Doubt metabolic, based on reviewing his labs. His renal function is at baseline. -Will need psychiatry consult with Dr. Collins -PT, patient seen ambulating independently with walker Case management for dc planning 2. Obstructive uropathy with staghorn calculus.BPH. Renal function stable. Resume Tamsulosin 3. CKD stage II-III, stable. Repeat labs 11/03 4. Failure to thrive. 5. Dementia with behavioral disturbance. Oriented to self only. Resume outpatient psych meds. Risperidone 2mg at night per psychiatry and ativan prn 6.HTN. Amlodipine 10mg, resume home Atenolol 7. Etoh dependence in the past. Thiamine and folate has no insurance, case management social worker involved. applied for medical Time of this note may not reflect time of encounter. I spent 40 minutes on this encounter. 50% or more on counselling and care coordination. Subjective Date patient seen: Nov 02, 2018 ROS Limited/Unobtainable: Yes Allergies: Coded Allergies: No Known Allergies (Unverified , 09/11/18) Subjective seen and examined sitting in chair outside room, calm walking around with walker. Behavior much better. Needs better BP control Objective Last 24 Hour Vital Signs Date Time Temp Pulse Resp B/P (MAP) Pulse Ox O2 Delivery O2 Flow Rate FiO2 11/02/18 09:00 Room Air 11/02/18 08:40 79 160/86 11/02/18 08:37 98.0 79 19 160/86 (110) 99 11/02/18 04:00 98.2 60 19 140/68 (92) 11/02/18 00:00 99.0 64 19 145/79 (101) 11/01/18 21:17 Room Air 11/01/18 20:00 99.1 69 19 143/78 (99) 11/01/18 16:00 97.4 72 18 132/77 (95) 97 11/01/18 12:00 97.8 68 19 127/80 (96) 98 Intake and Output 11/01/18 11/02/18 18:59 06:59 Intake Total 1620 ml Balance 1620 ml Intake Oral 1620 ml # Voids 8 # Bowel Movements 2 Height (Feet): 5 Height (Inches): 10.00 Weight (Pounds): 177 Objective General Appearance: alert, no distress Head: normocephalic, atraumatic Eyes: bilateral eye PERRL, bilateral eye EOMI ENT: uvula midline, moist mucus membranes Neck: supple, no jvd Respiratory: lungs clear, no respiratory distress, no retraction, no accessory muscle use Cardiovascular : regular rate, rhythm, no edema, no gallop, no murmur Gastrointestinal: non tender, soft, no guarding, no rebound Musculoskeletal: moves all extremities Neurologic: alert, oriented to self only Psychiatric: mood/affect flat. annoyed Skin: no ulcers, tattoos El Sanchez M.D. Nov 02, 2018 09:27
--- NOTE | 2018-11-02 11:36 | NUR ---
CASE MANAGEMENT:REVIEW 11/02/18 SI:FTT. GRAVELY DISABLED 98.0 79 19 160/86 99% ON RA IS: NORVASC PO QD LEXAPRO PO QD RISPERDAL PO QHS FLOMAX PO BID ATIVAN PO Q6HRS PRN IVF@75/HR HEPARIN SQ Q12 : MED/SURG STATUS 4 E[place] PLAN: PATIENT'S INSURANCE HAS TERMED AND HE DOESN'T HAVE ANY INCOME APPLYING FOR [facility] TO BE RE-INSTATED NEEDS SNF PLACEMENT BECAUSE OF INCONTINENCE OF URINE AND STOOL
[2018-11-02 12:00] VITALS: BP 142/78
[2018-11-02 16:00] VITALS: BP 136/73
--- NOTE | 2018-11-02 19:22 | NUR ---
NURSE NOTES: Received patient in bed, awake, alert, oriented x2/3, confusion noted, patient can ambulate with a walker. VSS, afebrile, no acute distress noted. Call light is within reach, bed is locked, lowered and alarm is on. Will continue to monitor for comfort and safety.
--- NOTE | 2018-11-02 19:29 | NUR ---
HAND-OFF: Report given to Alma Rosa BURTON.
[2018-11-02 20:00] VITALS: BP 141/74
[2018-11-03] VITALS: BP 140/70
--- NOTE | 2018-11-03 02:00 | Progress Note ---
DATE: 11/02/2018 SUBJECTIVE: The patient's mental condition is unchanged. He is forgetful, has episodes of anxiety independently. No suicidal or homicidal ideation. MENTAL STATUS EXAMINATION: Alert and oriented x2. Mood is anxious. Affect is flat. Thought process is concrete. Thought content, no suicidal or homicidal ideation. Cognition is impaired. Insight and judgment is impaired. ASSESSMENT: 1. Cognitive impairment. 2. Anxiety disorder. PLAN: 1. We will continue current medications. 2. Provide the patient with reality orientation and supportive therapy. Denice Collins M.D. DR: DARREN JOB#: [id number] CC: BOOKER
[2018-11-03 04:00] VITALS: BP 144/79
--- NOTE | 2018-11-03 07:28 | NUR ---
HAND-OFF: Report given to Wilber BURTON.
--- NOTE | 2018-11-03 07:30 | NUR ---
NURSE NOTES: Received pt in bed, sleeping. Room air. No s/s of pain/distress. IV on R FA 22g intact and patent, with saline lock. Side rails x 2. Bed in the lowest and locked. Call light within reach. Will continue to monitor
[2018-11-03 08:00] VITALS: BP 130/78
[2018-11-03] MEDS: Tamsulosin 0.4mg cap ORAL SCH ×2 (08:36→17:44)
[2018-11-03] MEDS: Atenolol 25mg tab ORAL SCH (08:36)
[2018-11-03] MEDS: Thiamine 100mg tab ORAL SCH (08:36)
[2018-11-03] MEDS: Heparin 5000 units/ml inj SUBQ SCH ×2 (08:37→21:20)
[2018-11-03] MEDS: Docusate 100mg cap ORAL SCH ×2 (08:38→21:19)
[2018-11-03 09:54] LABS: ANION GAP 12 mmol/L (5-15); BLOOD UREA NITROGEN 18 mg/dL (7-18); CALCIUM 8.9 MG/DL (8.5-10.1); CARBON DIOXIDE 24 MMOL/L (21-32); CHLORIDE 108 MMOL/L (98-107); CREATININE 1.3 MG/DL (0.55-1.30); POTASSIUM 4.1 MMOL/L (3.5-5.1); SODIUM 144 MMOL/L (136-145)
[2018-11-03 12:00] VITALS: BP 137/66
--- NOTE | 2018-11-03 12:14 | General Progress Note ---
Assessment/Plan Problem List: (1) Staghorn calculus ICD Codes: N20.0 - Calculus of kidney SNOMED: 659235978 (2) Dementia with behavioral disturbance ICD Codes: F03.91 - Unspecified dementia with behavioral disturbance SNOMED: 0748123391172 (3) Acute encephalopathy ICD Codes: G93.40 - Encephalopathy, unspecified SNOMED: 17375970, 862757948 (4) Failure to thrive SNOMED: 23831522 Qualifiers: Qualified Codes: R62.7 - Adult failure to thrive (5) Gravely disabled SNOMED: 639477318 (6) Encounter for generalized patient complaints ICD Codes: Z00.8 - Encounter for other general examination SNOMED: 526925852 Status: stable Assessment/Plan: 63 year old male admitted from facility for acute encephalopathy, Failure to thrive and dementia with behavioral disturbance 1. Acute encephalopathy/ dementia with behavioral disturbance. Doubt metabolic, based on reviewing his labs. His renal function is at baseline. -Per psych, continue home meds for now. -PT, patient seen ambulating independently with walker -Case management for dc planning 2. Obstructive uropathy with staghorn calculus.BPH. Renal function stable. Resume Tamsulosin 3. CKD stage II-III, stable. Repeat labs 11/03 -> showed improvement. 4. Failure to thrive. 5. Dementia with behavioral disturbance. Oriented to self only. Resume outpatient psych meds. Risperidone 2mg at night per psychiatry and ativan prn 6.HTN. Amlodipine 10mg, resume home Atenolol 7. Etoh dependence in the past. Thiamine and folate has no insurance, trimming caser involved. applied for medical Time of this note may not reflect time of encounter. I spent 40 minutes on this encounter. 50% or more on counselling and care coordination. Subjective Date patient seen: Nov 03, 2018 Time patient seen: 08:30 ROS Limited/Unobtainable: No Constitutional: Denies: no symptoms, chills, diaphoresis, fever, malaise, weakness, other HEENT: Denies: no symptoms, eye pain, blurred vision, tearing, double vision, ear pain, ear discharge, nose pain, nose congestion, throat pain, throat swelling, mouth pain, mouth swelling, other Cardiovascular: Denies: no symptoms, chest pain, edema, irregular heart rate, lightheadedness, palpitations, syncope, other Respiratory: Denies: no symptoms, cough, orthopnea, shortness of breath, SOB with excertion, SOB at rest, sputum, stridor, wheezing, other Gastrointestinal/Abdominal: Denies: no symptoms, abdomen distended, abdominal pain, black stools, tarry stools, blood in stool, constipated, diarrhea, difficulty swallowing, nausea, poor appetite, poor fluid intake, rectal bleeding , vomiting, other Genitourinary: Denies: no symptoms, burning, discharge, frequency, flank pain, hematuria, incontinence, pain, urgency, other Neurologic/Psychiatric: Denies: no symptoms, anxiety, depressed, emotional problems, headache, numbness, paresthesia, pre-existing deficit, seizure, tingling, tremors, weakness, other Endocrine: Denies: no symptoms, excessive sweating, flushing, intolerance to cold, intolerance to heat, increased hunger, increased thirst, increased urine, unexplained weight gain, unexplained weight loss, other Hematologic/Lymphatic: Denies: no symptoms, anemia, easy bleeding, easy bruising, other Allergies: Coded Allergies: No Known Allergies (Unverified , 09/11/18) Objective Last 24 Hour Vital Signs Date Time Temp Pulse Resp B/P (MAP) Pulse Ox O2 Delivery O2 Flow Rate FiO2 11/03/18 09:00 Room Air 11/03/18 08:36 93 130/78 11/03/18 08:35 93 130/78 11/03/18 08:00 98.5 93 18 130/78 (95) 99 11/03/18 04:00 98.9 70 19 144/79 (100) 11/03/18 00:00 96.9 62 19 140/70 (93) 11/02/18 21:19 Room Air 11/02/18 20:00 98.8 60 19 141/74 (96) 11/02/18 16:00 97.9 69 18 136/73 (94) 99 Intake and Output 11/02/18 11/03/18 18:59 06:59 Intake Total 1570 ml Balance 1570 ml Intake Oral 1570 ml # Bowel Movements 2 Laboratory Tests 11/03/18 08:50: Sodium Level 144, Potassium Level 4.1, Chloride Level 108H, Carbon Dioxide Level 24, Anion Gap 12, Blood Urea Nitrogen 18, Creatinine 1.3, Estimat Glomerular Filtration Rate 55.4, Glucose Level 114H, Calcium Level 8.9 Height (Feet): 5 Height (Inches): 10.00 Weight (Pounds): 177 General Appearance: WD/WN, no apparent distress, alert EENT: PERRL/EOMI Neck: supple Cardiovascular: normal rate, regular rhythm, no gallop/murmur Respiratory/Chest: lungs clear, normal breath sounds, no respiratory distress, no accessory muscle use Abdomen: normal bowel sounds, non tender, soft Extremities: normal range of motion Edema: no edema noted Arm (L), no edema noted Arm (R), no edema noted Leg (L), no edema noted Leg (R), no edema noted Pedal (L), no edema noted Pedal (R), no edema noted Generalized Neurologic: manager of environmental services II-XII grossly normal, no motor/sensory deficits, alert, responsive Skin: normal pigmentation Jaimie Day M.D. Nov 03, 2018 12:14
[2018-11-03 16:00] VITALS: BP 136/68
--- NOTE | 2018-11-03 16:31 | NUR ---
CASE MANAGEMENT:REVIEW 11/03/2018 SI:FTT. GRAVELY DISABLED T 98.8 HR 52 RR 16 B/P 137/66 SATS 97% ON RA CL 108 GLU 114 IS: NORVASC PO QD LEXAPRO PO QD RISPERDAL PO QHS FLOMAX PO BID ATIVAN PO Q6HRS PRN IVF@75/HR HEPARIN SQ Q12 : MED/SURG STATUS 4 [facility] [email or web address]]
--- NOTE | 2018-11-03 17:47 | NUR ---
NURSE NOTES: IV was removed per patient. Pt refused to have new IV. Pt is not on any IV fluids or antibiotics
[2018-11-03 20:00] VITALS: BP 106/58
--- NOTE | 2018-11-03 20:00 | NUR ---
NURSE NOTES: RECEIVED PATIENT LYING IN BED, AWAKE, ALERT/ORIENTED TO PERSON/PLACE, DENIES PAIN, NO SIGNS AND SYMPTOMS OF ACUTE CARDIO RESPIRATORY DISTRESS/SHORTNESS OF BREATH, DENIES CHEST PAIN, NO PERIPHERAL EDEMA NOTED. NO IV ACCESS, PATIENT REFUSE INSERTION. NO REPORT OF GI DISCOMFORT, NO N/V/D, ROOM SMELLING OF URINE, OFFERED BED BATH/SHOWER, PATIENT REFUSED, WILL CONTINUE TO OFFER THROUGHOUT THE NIGHT. SIDE RAILS UP X2 FOR MOBILITY, FWW AT BEDSIDE. DISCHARGE PLANNING ONGOING. BED IN LOWEST POSITION FOR SAFETY, ALARM ACTIVATED FOR PREVENTIVE MEASURES. ENCOURAGED PATIENT TO UTILIZE CALL LIGHT FOR ASSISTANCE. PROVIDED PM SNACK/FLUIDS. NAD.
[2018-11-04] VITALS: BP 129/69
[2018-11-04 04:00] VITALS: BP 133/68
--- NOTE | 2018-11-04 05:00 | Progress Note ---
DATE: 11/04/2018 SUBJECTIVE: The patient is doing well. The patient is forgetful. MENTAL STATUS EXAMINATION: The patient is alert and oriented times self and place. Mood is dysphoric. Affect is constricted. Congruent with mood. Thought process, linear and goal-oriented. Thought content, no suicidal or homicidal ideation. ASSESSMENT: Stable. PLAN: 1. We will continue current medications. 2. Provide the patient with reality orientation and supportive therapy. eDnice Collins M.D. DR: VIVIAN JOB#: [id number] CC: BOOKER
--- NOTE | 2018-11-04 06:18 | NUR ---
NURSE NOTES: RESTED WELL, NO SIGNIFICANT CHANGE OF CONDITION NOTED THROUGHOUT THE NIGHT. SAFETY MAINTAINED. NAD.
--- NOTE | 2018-11-04 07:30 | NUR ---
HAND-OFF: Report given to JOSEPHINE FRANCO.
--- NOTE | 2018-11-04 07:49 | NUR ---
NURSE NOTES: Received pt in bed, sleeping. No s/s of distress/pain. No IV site and patient refuses for to have new IV inserted. Side rails x 2. Bed in the lowest and locked. Call light within reach. Will continue to monitor
[2018-11-04 08:00] VITALS: BP 128/77
[2018-11-04] MEDS: Tamsulosin 0.4mg cap ORAL SCH ×2 (08:51→17:22)
[2018-11-04] MEDS: Thiamine 100mg tab ORAL SCH (08:51)
[2018-11-04] MEDS: Atenolol 25mg tab ORAL SCH (08:53)
[2018-11-04] MEDS: Heparin 5000 units/ml inj SUBQ SCH ×2 (08:53→20:49)
[2018-11-04] MEDS: Docusate 100mg cap ORAL SCH ×2 (09:00→20:47)
[2018-11-04 12:00] VITALS: BP 161/89
--- NOTE | 2018-11-04 12:22 | General Progress Note ---
Assessment/Plan Problem List: (1) Staghorn calculus ICD Codes: N20.0 - Calculus of kidney SNOMED: 689161375 (2) Dementia with behavioral disturbance ICD Codes: F03.91 - Unspecified dementia with behavioral disturbance SNOMED: 0635902723980 (3) Acute encephalopathy ICD Codes: G93.40 - Encephalopathy, unspecified SNOMED: 44075569, 117488112 (4) Failure to thrive SNOMED: 18632943 Qualifiers: Qualified Codes: R62.7 - Adult failure to thrive (5) Gravely disabled SNOMED: 587622018 (6) Encounter for generalized patient complaints ICD Codes: Z00.8 - Encounter for other general examination SNOMED: 739857910 Status: stable Assessment/Plan: 63 year old male admitted from facility for acute encephalopathy, Failure to thrive and dementia with behavioral disturbance 1. Acute encephalopathy/ dementia with behavioral disturbance. Doubt metabolic, based on reviewing his labs. His renal function is at baseline. -Per psych, continue home meds for now. -PT, patient seen ambulating independently with walker -Case management for dc planning 2. Obstructive uropathy with staghorn calculus.BPH. Renal function stable. Resume Tamsulosin 3. CKD stage II-III, stable. Repeat labs 11/03 -> improved. 4. Failure to thrive. 5. Dementia with behavioral disturbance. Oriented to self only. Resume outpatient psych meds. Risperidone 2mg at night per psychiatry and ativan prn 6.HTN. Amlodipine 10mg, resume home Atenolol 7. Etoh dependence in the past. 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 applied for medical Time of this note may not reflect time of encounter. I spent 26 minutes on this encounter. 50% or more on counselling and care coordination. Subjective Date patient seen: Nov 04, 2018 Time patient seen: 09:20 ROS Limited/Unobtainable: Yes Constitutional: Denies: no symptoms, chills, diaphoresis, fever, malaise, weakness, other HEENT: Denies: no symptoms, eye pain, blurred vision, tearing, double vision, ear pain, ear discharge, nose pain, nose congestion, throat pain, throat swelling, mouth pain, mouth swelling, other Cardiovascular: Denies: no symptoms, chest pain, edema, irregular heart rate, lightheadedness, palpitations, syncope, other Respiratory: Denies: no symptoms, cough, orthopnea, shortness of breath, SOB with excertion, SOB at rest, sputum, stridor, wheezing, other Gastrointestinal/Abdominal: Denies: no symptoms, abdomen distended, abdominal pain, black stools, tarry stools, blood in stool, constipated, diarrhea, difficulty swallowing, nausea, poor appetite, poor fluid intake, rectal bleeding , vomiting, other Genitourinary: Denies: no symptoms, burning, discharge, frequency, flank pain, hematuria, incontinence, pain, urgency, other Neurologic/Psychiatric: Denies: no symptoms, anxiety, depressed, emotional problems, headache, numbness, paresthesia, pre-existing deficit, seizure, tingling, tremors, weakness, other Endocrine: Denies: no symptoms, excessive sweating, flushing, intolerance to cold, intolerance to heat, increased hunger, increased thirst, increased urine, unexplained weight gain, unexplained weight loss, other Hematologic/Lymphatic: Denies: no symptoms, anemia, easy bleeding, easy bruising, other Allergies: Coded Allergies: No Known Allergies (Unverified , 09/11/18) Subjective Denies any pain, discomfort. Resting comfortably in bed. Hungry. Wants to eat lunch sooner Objective Last 24 Hour Vital Signs Date Time Temp Pulse Resp B/P (MAP) Pulse Ox O2 Delivery O2 Flow Rate FiO2 11/04/18 12:00 98.0 57 21 161/89 (113) 98 11/04/18 09:00 Room Air 11/04/18 08:53 58 128/77 11/04/18 08:51 58 128/77 11/04/18 08:00 97.9 58 20 128/77 (94) 98 11/04/18 04:00 97.8 51 19 133/68 (89) 96 11/04/18 00:00 98.9 60 19 129/69 (89) 96 11/03/18 21:00 Room Air 11/03/18 20:00 99.0 51 19 106/58 (74) 95 11/03/18 16:00 98.8 59 18 136/68 (90) 97 Intake and Output 11/03/18 11/04/18 19:00 07:00 Intake Total 600 ml 600 ml Balance 600 ml 600 ml Intake Oral 600 ml 600 ml # Voids 4 7 # Bowel Movements 2 2 Height (Feet): 5 Height (Inches): 10.00 Weight (Pounds): 177 General Appearance: WD/WN, no apparent distress, alert EENT: PERRL/EOMI Neck: supple Cardiovascular: normal rate, regular rhythm, no gallop/murmur Respiratory/Chest: lungs clear, normal breath sounds, no respiratory distress Abdomen: normal bowel sounds, non tender, soft Jaimie Day M.D. Nov 04, 2018 12:22
[2018-11-04 16:00] VITALS: BP 136/71
--- NOTE | 2018-11-04 19:46 | NUR ---
Received patient from JOSEPHINE Merino, in stable condition, AOx2, able to make needs known to a degree, L eye blindness, denies pain at this time, no IV site, patient refuses to have one inserted. Patient laying in bed, watching tv, bed low&locked, side rails upx2, call light within reach, will continue to monitor and reassess.
--- NOTE | 2018-11-04 19:46 | NUR ---
HAND-OFF: Report given to JOSEPHINE Mcclure.
[2018-11-04 20:00] VITALS: BP 136/71
[2018-11-05] VITALS: BP 140/79
[2018-11-05 04:00] VITALS: BP 132/82
--- NOTE | 2018-11-05 07:07 | NUR ---
HAND-OFF: Report given to JOSEPHINE Merino, patient in stable condition, plan of care endorsed.
--- NOTE | 2018-11-05 07:08 | NUR ---
NURSE NOTES: Received pt in bed, AAOx2. Room air. No c/o of pain/ distress. No IV site. Side rails x 2. Bed in the lowest and alarm on. Call light within reach. Will continue to monitor
[2018-11-05 08:00] VITALS: BP 150/71
[2018-11-05] MEDS: Docusate 100mg cap ORAL SCH ×2 (09:00→20:05)
[2018-11-05] MEDS: Tamsulosin 0.4mg cap ORAL SCH ×2 (09:06→17:32)
[2018-11-05] MEDS: Thiamine 100mg tab ORAL SCH (09:06)
[2018-11-05] MEDS: Atenolol 25mg tab ORAL SCH (09:06)
[2018-11-05] MEDS: Heparin 5000 units/ml inj SUBQ SCH ×2 (09:07→20:06)
--- NOTE | 2018-11-05 09:10 | General Progress Note ---
Assessment/Plan Problem List: (1) Acute encephalopathy ICD Codes: G93.40 - Encephalopathy, unspecified SNOMED: 15981780, 740618092 (2) Failure to thrive SNOMED: 24343436 Qualifiers: Qualified Codes: R62.7 - Adult failure to thrive (3) Staghorn calculus ICD Codes: N20.0 - Calculus of kidney SNOMED: 715407555 (4) Hydronephrosis ICD Codes: N13.30 - Unspecified hydronephrosis SNOMED: 50749964 (5) Encounter for generalized patient complaints ICD Codes: Z00.8 - Encounter for other general examination SNOMED: 828221492 (6) Dementia with behavioral disturbance ICD Codes: F03.91 - Unspecified dementia with behavioral disturbance SNOMED: 7626851170224 Status: stable Assessment/Plan: 63 year old male admitted from facility for acute encephalopathy, Failure to thrive and dementia with behavioral disturbance 1. Acute encephalopathy/ dementia with behavioral disturbance. Doubt metabolic, based on reviewing his labs. His renal function is at baseline. -Will need psychiatry consult with Dr. Collins -PT, patient seen ambulating independently with walker Case management for dc planning 2. Obstructive uropathy with staghorn calculus.BPH. Renal function stable. Resume Tamsulosin 3. CKD stage II-III, stable. Repeat labs 11/03 4. Failure to thrive. 5. Dementia with behavioral disturbance. Oriented to self only. Resume outpatient psych meds. Risperidone 2mg at night per psychiatry and ativan prn 6.HTN. Amlodipine 10mg, resume home Atenolol 7. Etoh dependence in the past. 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 applied for medical Time of this note may not reflect time of encounter. I spent 40 minutes on this encounter. 50% or more on counselling and care coordination. Subjective Allergies: Coded Allergies: No Known Allergies (Unverified , 09/11/18) Subjective seen and examined sitting in chair outside room, calm walking around with walker. Behavior much better. Objective Last 24 Hour Vital Signs Date Time Temp Pulse Resp B/P (MAP) Pulse Ox O2 Delivery O2 Flow Rate FiO2 11/05/18 09:06 60 150/71 11/05/18 09:06 60 150/71 11/05/18 08:00 98.0 60 18 150/71 (97) 97 11/05/18 04:00 97.9 64 19 132/82 (99) 98 11/05/18 00:00 98.4 70 19 140/79 (99) 95 11/04/18 21:00 Room Air 11/04/18 20:00 97.8 57 19 136/71 (92) 98 11/04/18 16:00 97.9 59 21 136/71 (92) 98 11/04/18 12:00 98.0 57 21 161/89 (113) 98 Intake and Output 11/04/18 11/05/18 19:00 07:00 Intake Total 450 ml 450 ml Balance 450 ml 450 ml Intake Oral 450 ml 450 ml # Voids 6 7 # Bowel Movements 2 Height (Feet): 5 Height (Inches): 10.00 Weight (Pounds): 177 Objective General Appearance: alert, no distress Head: normocephalic, atraumatic Eyes: bilateral eye PERRL, bilateral eye EOMI ENT: uvula midline, moist mucus membranes Neck: supple, no jvd Respiratory: lungs clear, no respiratory distress, no retraction, no accessory muscle use Cardiovascular : regular rate, rhythm, no edema, no gallop, no murmur Gastrointestinal: non tender, soft, no guarding, no rebound Musculoskeletal: moves all extremities Neurologic: alert, oriented to self only Psychiatric: mood/affect flat. annoyed Skin: no ulcers, tattoos El Sanchez M.D. Nov 05, 2018 09:10
[2018-11-05 12:00] VITALS: BP 142/75
[2018-11-05 16:00] VITALS: BP 130/70
--- NOTE | 2018-11-05 19:15 | NUR ---
NURSE NOTES: Received pt resting in bed. AAO x 2. On room air. No IV access. No c/o pain, no acute distress noted at this time. Encouraged pt to stay in the bed. Bed locked, lowest position, alarm on, side rails up x 2, call light within reach. Will continue to monitor.
--- NOTE | 2018-11-05 19:20 | NUR ---
HAND-OFF: Report given to JOSEPHINE Linder.
[2018-11-05 20:00] VITALS: BP 132/72
[2018-11-06] VITALS: BP 142/77
[2018-11-06 04:00] VITALS: BP 151/73
--- NOTE | 2018-11-06 07:47 | NUR ---
HAND-OFF: Report given to JOSEPHINE Merino.
--- NOTE | 2018-11-06 07:50 | NUR ---
NURSE NOTES: Received pt in bed, sleeping. Room air. No s/s of distress. No IV site. Side rails x 2. Bed in the lowest and locked. Call light within reach. Will continue to monitor
[2018-11-06 08:00] VITALS: BP 148/70
[2018-11-06] MEDS: Thiamine 100mg tab ORAL SCH (08:45)
[2018-11-06] MEDS: Atenolol 25mg tab ORAL SCH (08:45)
[2018-11-06] MEDS: Tamsulosin 0.4mg cap ORAL SCH ×2 (08:45→17:11)
[2018-11-06] MEDS: Heparin 5000 units/ml inj SUBQ SCH ×2 (08:46→20:40)
[2018-11-06] MEDS: Docusate 100mg cap ORAL SCH ×2 (08:46→20:40)
--- NOTE | 2018-11-06 09:29 | General Progress Note ---
Assessment/Plan Problem List: (1) Acute encephalopathy ICD Codes: G93.40 - Encephalopathy, unspecified SNOMED: 47279360, 842212823 (2) Failure to thrive SNOMED: 55646063 Qualifiers: Qualified Codes: R62.7 - Adult failure to thrive (3) Staghorn calculus ICD Codes: N20.0 - Calculus of kidney SNOMED: 904995303 (4) Hydronephrosis ICD Codes: N13.30 - Unspecified hydronephrosis SNOMED: 73884262 (5) Encounter for generalized patient complaints ICD Codes: Z00.8 - Encounter for other general examination SNOMED: 831390012 (6) Dementia with behavioral disturbance ICD Codes: F03.91 - Unspecified dementia with behavioral disturbance SNOMED: 6147419611408 Status: stable Assessment/Plan: 63 year old male admitted from facility for acute encephalopathy, Failure to thrive and dementia with behavioral disturbance 1. Acute encephalopathy/ dementia with behavioral disturbance. Doubt metabolic, based on reviewing his labs. His renal function is at baseline. -Will need psychiatry consult with Dr. Collins -PT, patient seen ambulating independently with walker Case management for dc planning 2. Obstructive uropathy with staghorn calculus.BPH. Renal function stable. Resume Tamsulosin 3. CKD stage II-III, stable. Repeat labs 11/03 4. Failure to thrive. 5. Dementia with behavioral disturbance. Oriented to self only. Resume outpatient psych meds. Risperidone 2mg at night per psychiatry and ativan prn 6.HTN. Amlodipine 10mg, resume home Atenolol 7. Etoh dependence in the past. 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 applied for medical Time of this note may not reflect time of encounter. I spent 40 minutes on this encounter. 50% or more on counselling and care coordination. Subjective Allergies: Coded Allergies: No Known Allergies (Unverified , 09/11/18) Subjective seen sitting on chair behaviors are much better. Calm Objective Last 24 Hour Vital Signs Date Time Temp Pulse Resp B/P (MAP) Pulse Ox O2 Delivery O2 Flow Rate FiO2 11/06/18 09:00 Room Air 11/06/18 08:45 58 148/70 11/06/18 08:44 58 148/70 11/06/18 08:00 97.4 58 19 148/70 (96) 96 11/06/18 04:00 97.1 53 19 151/73 (99) 95 11/06/18 00:00 97.9 60 19 142/77 (98) 97 11/05/18 21:00 Room Air 11/05/18 20:00 98.3 57 20 132/72 (92) 97 11/05/18 16:00 98.0 70 18 130/70 (90) 98 11/05/18 12:00 98.0 67 18 142/75 (97) 98 Intake and Output 11/05/18 11/06/18 19:00 07:00 Intake Total 1220 ml Balance 1220 ml Intake Oral 1220 ml # Voids 9 4 # Bowel Movements 3 Height (Feet): 5 Height (Inches): 10.00 Weight (Pounds): 177 Objective General Appearance: alert, no distress Head: normocephalic, atraumatic Eyes: bilateral eye PERRL, bilateral eye EOMI ENT: uvula midline, moist mucus membranes Neck: supple, no jvd Respiratory: lungs clear, no respiratory distress, no retraction, no accessory muscle use Cardiovascular : regular rate, rhythm, no edema, no gallop, no murmur Gastrointestinal: non tender, soft, no guarding, no rebound Musculoskeletal: moves all extremities Neurologic: alert, oriented to self only Psychiatric: mood/affect flat. annoyed Skin: no ulcers, tattoos El Sanchez M.D. Nov 06, 2018 09:29
--- NOTE | 2018-11-06 11:02 | NUR ---
RD ASSESSMENT & RECOMMENDATIONS SEE CARE ACTIVITY FOR COMPLETE ASSESSMENT DAILY ESTIMATED NEEDS: Needs based on Cardiac 80kg adj 25-30 kcals/kg 7482-2970 total kcals 1-1.2 g protein/kg 80-96 g total protein 25-30 mL/kg 5533-8082 total fluid mLs NUTRITION DIAGNOSIS: Altered nutrition related lab values r/t clinical status as evidenced by elev Creat(1.4-> now wnl), elev AST, elev lipase (446), elev BP (154/93). CURRENT DIET:Regular PO DIET RECOMMENDATIONS: LOW NA diet / soft easy chew ADDITIONAL RECOMMENDATIONS: 1) Obtain a standing weight as able / or calibrated bed scale wt 2) Monitor lytes daily, replete as needed 3) Snacks BID in b/w meals 4) H/o C-diff, rec probiotics Hold COLACE with diarrhea
[2018-11-06 12:00] VITALS: BP 136/80
[2018-11-06 16:00] VITALS: BP 130/75
--- NOTE | 2018-11-06 19:19 | NUR ---
HAND-OFF: Report given to JOSEPHINE Flores.
--- NOTE | 2018-11-06 20:09 | NUR ---
NURSE NOTES: PATIENT IN BED, AWAKE, ALERT TO NAME AND PLACE. RECEIVED PATIENT WITH NO IV ACCESS, PER AM NURSE, MD CONNOR IS AWARE. CHANGED LINEN, GIVEN SNACKS. NO S/S RESPIRATORY DISTRESS. NO COMPLAINTS OF PAIN AT THIS TIME. BED IN LOWEST POSITION, CALL LIGHT WITHIN REACH, BED ALARM ON. WILL CONTINUE TO MONITOR.
[2018-11-06 20:15] VITALS: BP 120/57
[2018-11-07 00:38] VITALS: BP 128/67
[2018-11-07 04:27] VITALS: BP 146/68
--- NOTE | 2018-11-07 06:17 | NUR ---
NURSE NOTES: PATIENT INCONTINENT, CLEANED AND CHANGED LINED THREE TIMES. V/S STABLE.
--- NOTE | 2018-11-07 07:27 | NUR ---
HAND-OFF: Report given to ARUNA GRANT RN.
--- NOTE | 2018-11-07 07:32 | NUR ---
NURSE NOTES: received report from JOSEPHINE Flores. patient in bed. alert. oriented. forgetful. verbally responsive. no respiratory distress noted. no c/o pain. no Iv. MD is aware. contact isolation. PPE at all times. bed in the lowest position. call light within reach. will continue to provide plan of care.
[2018-11-07 08:00] VITALS: BP 133/70
[2018-11-07] MEDS: Tamsulosin 0.4mg cap ORAL SCH ×2 (08:31→17:18)
[2018-11-07] MEDS: Docusate 100mg cap ORAL SCH ×2 (08:31→20:43)
[2018-11-07] MEDS: Thiamine 100mg tab ORAL SCH (08:31)
[2018-11-07] MEDS: Atenolol 25mg tab ORAL SCH ×2 (08:32→08:35)
[2018-11-07] MEDS: Heparin 5000 units/ml inj SUBQ SCH ×2 (08:34→20:48)
--- NOTE | 2018-11-07 08:35 | NUR ---
NURSE NOTES: RN held atenolol 25mg tab po d/t HR 56 at 0800
--- NOTE | 2018-11-07 08:58 | General Progress Note ---
Assessment/Plan Problem List: (1) Acute encephalopathy ICD Codes: G93.40 - Encephalopathy, unspecified SNOMED: 01257976, 677556976 (2) Failure to thrive SNOMED: 75324153 Qualifiers: Qualified Codes: R62.7 - Adult failure to thrive (3) Staghorn calculus ICD Codes: N20.0 - Calculus of kidney SNOMED: 219143098 (4) Hydronephrosis ICD Codes: N13.30 - Unspecified hydronephrosis SNOMED: 12971537 (5) Encounter for generalized patient complaints ICD Codes: Z00.8 - Encounter for other general examination SNOMED: 969792967 (6) Dementia with behavioral disturbance ICD Codes: F03.91 - Unspecified dementia with behavioral disturbance SNOMED: 5514424780547 Status: stable Assessment/Plan: 63 year old male admitted from facility for acute encephalopathy, Failure to thrive and dementia with behavioral disturbance 1. Acute encephalopathy/ dementia with behavioral disturbance. Doubt metabolic, based on reviewing his labs. His renal function is at baseline. -Will need psychiatry consult with Dr. Collins -PT, patient seen ambulating independently with walker Case management for dc planning 2. Obstructive uropathy with staghorn calculus.BPH. Renal function stable. Resume Tamsulosin 3. CKD stage II-III, stable. Repeat labs 11/03 4. Failure to thrive. 5. Dementia with behavioral disturbance. Oriented to self only. Resume outpatient psych meds. Risperidone 2mg at night per psychiatry and ativan prn 6.HTN. Amlodipine 10mg, resume home Atenolol 7. Etoh dependence in the past. 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 applied for medical Time of this note may not reflect time of encounter. I spent 40 minutes on this encounter. 50% or more on counselling and care coordination. Subjective Date patient seen: Nov 07, 2018 ROS Limited/Unobtainable: No Constitutional: Denies: no symptoms, chills, diaphoresis, fever, malaise, weakness, other HEENT: Denies: no symptoms, eye pain, blurred vision, tearing, double vision, ear pain, ear discharge, nose pain, nose congestion, throat pain, throat swelling, mouth pain, mouth swelling, other Cardiovascular: Denies: no symptoms, chest pain, edema, irregular heart rate, lightheadedness, palpitations, syncope, other Respiratory: Denies: no symptoms, cough, orthopnea, shortness of breath, SOB with excertion, SOB at rest, sputum, stridor, wheezing, other Gastrointestinal/Abdominal: Denies: no symptoms, abdomen distended, abdominal pain, black stools, tarry stools, blood in stool, constipated, diarrhea, difficulty swallowing, nausea, poor appetite, poor fluid intake, rectal bleeding , vomiting, other Genitourinary: Denies: no symptoms, burning, discharge, frequency, flank pain, hematuria, incontinence, pain, urgency, other Endocrine: Denies: no symptoms, excessive sweating, flushing, intolerance to cold, intolerance to heat, increased hunger, increased thirst, increased urine, unexplained weight gain, unexplained weight loss, other Hematologic/Lymphatic: Denies: no symptoms, anemia, easy bleeding, easy bruising, other Allergies: Coded Allergies: No Known Allergies (Unverified , 09/11/18) Subjective Seen and examined. No acute events. He is calm Objective Last 24 Hour Vital Signs Date Time Temp Pulse Resp B/P (MAP) Pulse Ox O2 Delivery O2 Flow Rate FiO2 11/07/18 08:35 56 133/70 11/07/18 08:31 56 133/70 11/07/18 08:00 98.1 56 20 133/70 (91) 99 11/07/18 04:27 97.9 53 18 146/68 (94) 98 11/07/18 00:38 97.4 52 18 128/67 (87) 96 11/06/18 21:57 Room Air 11/06/18 20:15 98.5 54 18 120/57 (78) 96 11/06/18 16:00 98.0 70 18 130/75 (93) 98 11/06/18 12:00 97.7 63 19 136/80 (98) 97 11/06/18 09:00 Room Air Intake and Output 11/06/18 11/07/18 19:00 07:00 Intake Total 1200 ml 360 ml Balance 1200 ml 360 ml Intake Oral 1200 ml 360 ml # Voids 9 3 # Bowel Movements 3 Height (Feet): 5 Height (Inches): 10.00 Weight (Pounds): 186 Objective General Appearance: alert, no distress Head: normocephalic, atraumatic Eyes: bilateral eye PERRL, bilateral eye EOMI ENT: uvula midline, moist mucus membranes Neck: supple, no jvd Respiratory: lungs clear, no respiratory distress, no retraction, no accessory muscle use Cardiovascular : regular rate, rhythm, no edema, no gallop, no murmur Gastrointestinal: non tender, soft, no guarding, no rebound Musculoskeletal: moves all extremities Neurologic: alert, oriented to self only Psychiatric: mood/affect flat. annoyed Skin: no ulcers, tattoos El Sanchez M.D. Nov 07, 2018 08:58
--- NOTE | 2018-11-07 10:21 | NUR ---
CASE MANAGEMENT:REVIEW 11/04/2018 SI:FTT. GRAVELY DISABLED 97.9 58 20 128/77 98% ON RA IS: NORVASC PO QD LEXAPRO PO QD RISPERDAL PO QHS FLOMAX PO BID ATIVAN PO Q6HRS PRN IVF@75/HR HEPARIN SQ Q12 : MED/SURG STATUS 4 [facility] 11/05/2018 SI:FTT. GRAVELY DISABLED 98.0 70 18 130/70 98% ON RA IS: NORVASC PO QD LEXAPRO PO QD RISPERDAL PO QHS FLOMAX PO BID ATIVAN PO Q6HRS PRN IVF@75/HR HEPARIN SQ Q12 : MED/SURG STATUS 4 [facility] 11/06/2018 SI:FTT. GRAVELY DISABLED 97.4 58 19 148/70 96% ON RA IS: NORVASC PO QD LEXAPRO PO QD RISPERDAL PO QHS FLOMAX PO BID ATIVAN PO Q6HRS PRN IVF@75/HR HEPARIN SQ Q12 : MED/SURG STATUS 4 [facility] 11/07/2018 SI:FTT. GRAVELY DISABLED 98.1 56 20 133/70 99% ON RA IS: NORVASC PO QD LEXAPRO PO QD RISPERDAL PO QHS FLOMAX PO BID ATIVAN PO Q6HRS PRN IVF@75/HR HEPARIN SQ Q12 : MED/SURG STATUS 4 [facility]
[2018-11-07 12:00] VITALS: BP 115/70
[2018-11-07 16:00] VITALS: BP 120/75
--- NOTE | 2018-11-07 19:20 | NUR ---
NURSE NOTES: Patient awake in bed, no complaint of pain, not in acute respiratory distress. Instructed to use the call light for assistance. Patient is asking for snacks. Will provide patient according to diet. Call light in reach. Bed in lowest and lock engaged. Will continue to monitor.
--- NOTE | 2018-11-07 19:29 | NUR ---
HAND-OFF: Report given to JOSEPHINE elder.
[2018-11-07 20:00] VITALS: BP 139/68
[2018-11-08] VITALS: BP 121/64
--- NOTE | 2018-11-08 02:47 | NUR ---
NURSE NOTES: Received report form JOSEPHINE Aly. Patient sleeping. On room air, no signs of distress or labored breathing. No IV access, MD aware. Bed in lowest position with call light in reach. Will continue to monitor.
--- NOTE | 2018-11-08 02:57 | NUR ---
HAND-OFF: Report given to JOSEPHINE Yuan.
[2018-11-08 04:00] VITALS: BP 120/64
--- NOTE | 2018-11-08 07:35 | NUR ---
NURSE NOTES: received patient awake in bed, nosign of distress, No IV access noted , per NOC shift , no acute respiratory distress. Instructed to use the call light for assistance. on fall precaution , Call light in reach. Bed in lowest and lock engaged. Will continue to monitor josette alejandro
--- NOTE | 2018-11-08 07:36 | NUR ---
HAND-OFF: Report given to JOSEPHINE Monaco.
[2018-11-08 08:00] VITALS: BP 138/66
[2018-11-08] MEDS: Docusate 100mg cap ORAL SCH ×2 (08:07→20:54)
[2018-11-08] MEDS: Thiamine 100mg tab ORAL SCH (08:07)
[2018-11-08] MEDS: Atenolol 25mg tab ORAL SCH (08:07)
[2018-11-08] MEDS: Tamsulosin 0.4mg cap ORAL SCH ×2 (08:07→17:02)
[2018-11-08] MEDS: Heparin 5000 units/ml inj SUBQ SCH ×2 (08:09→20:54)
--- NOTE | 2018-11-08 09:37 | General Progress Note ---
Assessment/Plan Problem List: (1) Acute encephalopathy ICD Codes: G93.40 - Encephalopathy, unspecified SNOMED: 13825527, 182652598 (2) Failure to thrive SNOMED: 78981131 Qualifiers: Qualified Codes: R62.7 - Adult failure to thrive (3) Staghorn calculus ICD Codes: N20.0 - Calculus of kidney SNOMED: 287344225 (4) Hydronephrosis ICD Codes: N13.30 - Unspecified hydronephrosis SNOMED: 74361263 (5) Encounter for generalized patient complaints ICD Codes: Z00.8 - Encounter for other general examination SNOMED: 858328770 (6) Dementia with behavioral disturbance ICD Codes: F03.91 - Unspecified dementia with behavioral disturbance SNOMED: 1558030645853 Status: stable Assessment/Plan: 63 year old male admitted from facility for acute encephalopathy, Failure to thrive and dementia with behavioral disturbance 1. Acute encephalopathy/ dementia with behavioral disturbance. Doubt metabolic, based on reviewing his labs. His renal function is at baseline. -Will need psychiatry consult with Dr. Collins -PT, patient seen ambulating independently with walker Case management for dc planning 2. Obstructive uropathy with staghorn calculus.BPH. Renal function stable. Resume Tamsulosin 3. CKD stage II-III, stable. Repeat labs 11/03 4. Failure to thrive. 5. Dementia with behavioral disturbance. Oriented to self only. Resume outpatient psych meds. Risperidone 2mg at night per psychiatry and ativan prn 6.HTN. Amlodipine 10mg, resume home Atenolol 7. Etoh dependence in the past. Thiamine and folate has no insurance, cyanide case hardener involved. applied for medical Time of this note may not reflect time of encounter. I spent 40 minutes on this encounter. 50% or more on counselling and care coordination. Subjective Date patient seen: Nov 08, 2018 ROS Limited/Unobtainable: No Constitutional: Denies: no symptoms, chills, diaphoresis, fever, malaise, weakness, other HEENT: Denies: no symptoms, eye pain, blurred vision, tearing, double vision, ear pain, ear discharge, nose pain, nose congestion, throat pain, throat swelling, mouth pain, mouth swelling, other Cardiovascular: Denies: no symptoms, chest pain, edema, irregular heart rate, lightheadedness, palpitations, syncope, other Respiratory: Denies: no symptoms, cough, orthopnea, shortness of breath, SOB with excertion, SOB at rest, sputum, stridor, wheezing, other Gastrointestinal/Abdominal: Denies: no symptoms, abdomen distended, abdominal pain, black stools, tarry stools, blood in stool, constipated, diarrhea, difficulty swallowing, nausea, poor appetite, poor fluid intake, rectal bleeding , vomiting, other Neurologic/Psychiatric: Denies: no symptoms, anxiety, depressed, emotional problems, headache, numbness, paresthesia, pre-existing deficit, seizure, tingling, tremors, weakness, other Endocrine: Denies: no symptoms, excessive sweating, flushing, intolerance to cold, intolerance to heat, increased hunger, increased thirst, increased urine, unexplained weight gain, unexplained weight loss, other Hematologic/Lymphatic: Denies: no symptoms, anemia, easy bleeding, easy bruising, other Allergies: Coded Allergies: No Known Allergies (Unverified , 09/11/18) Subjective Seen and examined. No acute events. He is calm and cooperative Objective Last 24 Hour Vital Signs Date Time Temp Pulse Resp B/P (MAP) Pulse Ox O2 Delivery O2 Flow Rate FiO2 11/08/18 08:07 63 120/64 11/08/18 08:07 63 120/64 11/08/18 08:00 97.4 64 18 138/66 (90) 98 11/08/18 08:00 Room Air 11/08/18 04:00 98.1 63 20 120/64 (82) 96 11/08/18 00:00 98.0 62 18 121/64 (83) 96 11/07/18 21:00 Room Air 11/07/18 20:00 98.0 54 20 139/68 (91) 96 11/07/18 16:00 98.2 60 20 120/75 (90) 98 11/07/18 12:00 98.0 58 18 115/70 (85) 97 Intake and Output 11/07/18 11/08/18 19:00 07:00 Intake Total 300 ml Balance 300 ml Intake Oral 300 ml # Voids 3 2 # Bowel Movements 1 Height (Feet): 5 Height (Inches): 10.00 Weight (Pounds): 186 Objective General Appearance: alert, no distress Head: normocephalic, atraumatic Eyes: bilateral eye PERRL, bilateral eye EOMI ENT: uvula midline, moist mucus membranes Neck: supple, no jvd Respiratory: lungs clear, no respiratory distress, no retraction, no accessory muscle use Cardiovascular : regular rate, rhythm, no edema, no gallop, no murmur Gastrointestinal: non tender, soft, no guarding, no rebound Musculoskeletal: moves all extremities Neurologic: alert, oriented to self only Psychiatric: mood/affect flat. annoyed Skin: no ulcers, tattoos El Sanchez M.D. Nov 08, 2018 09:37
[2018-11-08 11:56] VITALS: BP 116/67
[2018-11-08 16:00] VITALS: BP 127/68
--- NOTE | 2018-11-08 16:19 | NUR ---
CASE MANAGEMENT:REVIEW 11/08/18 SI:FTT. GRAVELY DISABLED 99.1 56 18 116/67 96% ON RA IS: NORVASC PO QD LEXAPRO PO QD RISPERDAL PO QHS FLOMAX PO BID ATIVAN PO Q6HRS PRN IVF@75/HR HEPARIN SQ Q12 : MED/SURG STATUS 4 E[facility] PLAN: SNF PLACEMENT ONCE INSURANCE HAS BEEN REINSTATED
--- NOTE | 2018-11-08 19:09 | NUR ---
HAND-OFF: Report given to HELEN BURTON Patient resting comfortably, no sign of distress, IVF patent and infusing well JOSEPHINE Patel. Addendum: 11/08/18 at 1913 by ERIN JOHNSON RN RN wrong patient
--- NOTE | 2018-11-08 19:10 | NUR ---
NURSE NOTES: Patient was ambulating in the room with walker, asking for some snacks, will provide per diet. Call light in reach. Bed in lowest position and lock engaged. Will continue to monitor.
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
[2018-11-08 20:00] VITALS: BP 127/65
[2018-11-09] VITALS: BP 132/65
[2018-11-09 04:00] VITALS: BP 132/84
--- NOTE | 2018-11-09 07:18 | NUR ---
HAND-OFF: Report given to JOSEPHINE Brown.
--- NOTE | 2018-11-09 07:25 | NUR ---
NURSE NOTES: received report from JOSEPHINE Perez. patient in bed. sleeping. no respiratory distress noted. no facial grimacing noted. no IV. md is aware. contact isolation. PPE at all times. bed in the lowest position and locked. call light within reach. will continue to provide plan of care.
[2018-11-09 08:00] VITALS: BP 131/63
[2018-11-09] MEDS: Tamsulosin 0.4mg cap ORAL SCH ×2 (08:56→17:53)
[2018-11-09] MEDS: Thiamine 100mg tab ORAL SCH (08:56)
[2018-11-09] MEDS: Atenolol 25mg tab ORAL SCH (08:57)
[2018-11-09] MEDS: Docusate 100mg cap ORAL SCH ×2 (08:57→20:08)
[2018-11-09] MEDS: Heparin 5000 units/ml inj SUBQ SCH ×2 (09:01→20:02)
--- NOTE | 2018-11-09 10:09 | NUR ---
*-* INSURANCE *-* ALL CLINICALS AND REVIEWS HAVE BEEN FAXED TO: [facility] [id number] FAX ALL CLINICALS TO [phone]
--- NOTE | 2018-11-09 10:25 | NUR ---
CASE MANAGEMENT:REVIEW 11/09/18 SI:FTT. GRAVELY DISABLED 98.0 54 18 131/63 97% ON RA IS: NORVASC PO QD LEXAPRO PO QD RISPERDAL PO QHS FLOMAX PO BID ATIVAN PO Q6HRS PRN IVF@75/HR HEPARIN SQ Q12 : MED/SURG STATUS 4 E[facility] PLAN: SNF PLACEMENT ONCE INSURANCE HAS BEEN REINSTATED UNABLE TO CARE FOR HIS SELF
--- NOTE | 2018-11-09 11:00 | NUR ---
PT EVALUATION NOTE Patient seen for initial evaluation. Patient is at independent/supervised level with bed mobility, transfers and ambulation with FWW. Skilled inpatient PT intervention not warranted as patient is at independent/supervised level, cleared to ambulate with nursing supervision. Patient discharged from PT, Kevin BURTON notified. Addendum: 11/09/18 at 1235 by CYRUS SÁNCHEZ PT Amended: Links added.
--- NOTE | 2018-11-09 11:03 | General Progress Note ---
Assessment/Plan Problem List: (1) Acute encephalopathy ICD Codes: G93.40 - Encephalopathy, unspecified SNOMED: 30828268, 590142653 (2) Failure to thrive SNOMED: 38570197 Qualifiers: Qualified Codes: R62.7 - Adult failure to thrive (3) Staghorn calculus ICD Codes: N20.0 - Calculus of kidney SNOMED: 156907094 (4) Hydronephrosis ICD Codes: N13.30 - Unspecified hydronephrosis SNOMED: 18414642 (5) Encounter for generalized patient complaints ICD Codes: Z00.8 - Encounter for other general examination SNOMED: 603079906 (6) Dementia with behavioral disturbance ICD Codes: F03.91 - Unspecified dementia with behavioral disturbance SNOMED: 3471130450323 Status: stable Assessment/Plan: 63 year old male admitted from facility for acute encephalopathy, Failure to thrive and dementia with behavioral disturbance 1. Acute encephalopathy/ dementia with behavioral disturbance. Doubt metabolic, based on reviewing his labs. His renal function is at baseline. -Will need psychiatry consult with Dr. Collins -PT, patient seen ambulating independently with walker Case management for dc planning 2. Obstructive uropathy with staghorn calculus.BPH. Renal function stable. Resume Tamsulosin 3. CKD stage II-III, stable. Repeat labs 11/03 4. Failure to thrive. 5. Dementia with behavioral disturbance. Oriented to self only. Resume outpatient psych meds. Risperidone 2mg at night per psychiatry and ativan prn 6.HTN. Amlodipine 10mg, resume home Atenolol 7. Etoh dependence in the past. Thiamine and folate has no insurance, supportive employment case manager involved. applied for medical Time of this note may not reflect time of encounter. I spent 40 minutes on this encounter. 50% or more on counselling and care coordination. Subjective Date patient seen: Nov 09, 2018 ROS Limited/Unobtainable: No Constitutional: Denies: no symptoms, chills, diaphoresis, fever, malaise, weakness, other HEENT: Denies: no symptoms, eye pain, blurred vision, tearing, double vision, ear pain, ear discharge, nose pain, nose congestion, throat pain, throat swelling, mouth pain, mouth swelling, other Cardiovascular: Denies: no symptoms, chest pain, edema, irregular heart rate, lightheadedness, palpitations, syncope, other Respiratory: Denies: no symptoms, cough, orthopnea, shortness of breath, SOB with excertion, SOB at rest, sputum, stridor, wheezing, other Gastrointestinal/Abdominal: Denies: no symptoms, abdomen distended, abdominal pain, black stools, tarry stools, blood in stool, constipated, diarrhea, difficulty swallowing, nausea, poor appetite, poor fluid intake, rectal bleeding , vomiting, other Genitourinary: Denies: no symptoms, burning, discharge, frequency, flank pain, hematuria, incontinence, pain, urgency, other Neurologic/Psychiatric: Denies: no symptoms, anxiety, depressed, emotional problems, headache, numbness, paresthesia, pre-existing deficit, seizure, tingling, tremors, weakness, other Endocrine: Denies: no symptoms, excessive sweating, flushing, intolerance to cold, intolerance to heat, increased hunger, increased thirst, increased urine, unexplained weight gain, unexplained weight loss, other Hematologic/Lymphatic: Denies: no symptoms, anemia, easy bleeding, easy bruising, other Allergies: Coded Allergies: No Known Allergies (Unverified , 09/11/18) Subjective Seen and examined. No acute events. He is calm and cooperative Objective Last 24 Hour Vital Signs Date Time Temp Pulse Resp B/P (MAP) Pulse Ox O2 Delivery O2 Flow Rate FiO2 11/09/18 09:00 Room Air 11/09/18 08:57 54 131/63 11/09/18 08:57 54 131/63 11/09/18 08:00 98.0 54 18 131/63 (85) 97 11/09/18 04:00 97.6 51 20 132/84 (100) 96 11/09/18 00:00 98.2 58 18 132/65 (87) 100 11/08/18 21:00 Room Air 11/08/18 20:00 99.2 55 20 127/65 (85) 97 11/08/18 16:00 99.2 58 18 127/68 (87) 96 11/08/18 11:56 99.1 56 18 116/67 (83) 96 Intake and Output 11/08/18 11/09/18 19:00 07:00 Intake Total 940 ml Balance 940 ml Intake Oral 940 ml # Voids 3 3 Height (Feet): 5 Height (Inches): 10.00 Weight (Pounds): 186 Objective General Appearance: alert, no distress Head: normocephalic, atraumatic Eyes: bilateral eye PERRL, bilateral eye EOMI ENT: uvula midline, moist mucus membranes Neck: supple, no jvd Respiratory: lungs clear, no respiratory distress, no retraction, no accessory muscle use Cardiovascular : regular rate, rhythm, no edema, no gallop, no murmur Gastrointestinal: non tender, soft, no guarding, no rebound Musculoskeletal: moves all extremities Neurologic: alert, oriented to self only Psychiatric: mood/affect flat. annoyed Skin: no ulcers, tattoos El Sanchez M.D. Nov 09, 2018 11:03
[2018-11-09 12:00] VITALS: BP 131/78
[2018-11-09 16:00] VITALS: BP 116/58
--- NOTE | 2018-11-09 19:00 | NUR ---
NURSE NOTES: Received pt resting in bed. AAO x 2. On room air. No IV access. MD aware. No c/o pain, no acute distress noted at this time. Encouraged pt to stay in the bed. Walker at bedside. Bed locked, lowest position, alarm on, side rails up x 2, call light within reach. Will continue to monitor.
--- NOTE | 2018-11-09 19:31 | NUR ---
HAND-OFF: Report given to JOSEPHINE Linder.
[2018-11-09 20:00] VITALS: BP 130/70
[2018-11-10] VITALS: BP 142/74
[2018-11-10 04:00] VITALS: BP 137/72
--- NOTE | 2018-11-10 07:25 | NUR ---
HAND-OFF: Report given to JOSEPHINE Brown.
--- NOTE | 2018-11-10 07:50 | NUR ---
NURSE NOTES: received report from JOSEPHINE Linder. patient in bed. sleeping. no respiratory distress noted. no facial grimacing noted. no IV. MD is aware. bed in the lowest position and locked. yellow socks for fall risk. walker at the bed side. alarm on. call light within reach. will continue to provide plan of care.
[2018-11-10 08:00] VITALS: BP 139/85
[2018-11-10] MEDS: Docusate 100mg cap ORAL SCH ×2 (09:00→20:20)
[2018-11-10] MEDS: Thiamine 100mg tab ORAL SCH (09:01)
[2018-11-10] MEDS: Atenolol 25mg tab ORAL SCH (09:01)
[2018-11-10] MEDS: Tamsulosin 0.4mg cap ORAL SCH ×2 (09:01→17:18)
[2018-11-10] MEDS: Heparin 5000 units/ml inj SUBQ SCH ×2 (09:03→20:22)
[2018-11-10 16:00] VITALS: BP 125/71
[2018-11-10] MEDS ORDERED: NS 275ml ONE (16:43)
--- NOTE | 2018-11-10 18:57 | NUR ---
HAND-OFF: Report given to JOSEPHINE Linder.
--- NOTE | 2018-11-10 19:40 | NUR ---
NURSE NOTES: Received pt sleeping in bed. On room air. No IV access. MD aware. No c/o pain, no acute distress noted at this time. Walker at bedside. Fall precaution maintained. Bed locked, lowest position, alarm on, side rails up x 2, call light within reach. Will continue to monitor.
[2018-11-10 20:00] VITALS: BP 122/66
[2018-11-11] VITALS: BP 121/66
--- NOTE | 2018-11-11 00:03 | General Progress Note ---
Assessment/Plan Problem List: (1) Failure to thrive SNOMED: 40513604 Qualifiers: Qualified Codes: R62.7 - Adult failure to thrive (2) Gravely disabled SNOMED: 855584217 (3) Acute encephalopathy ICD Codes: G93.40 - Encephalopathy, unspecified SNOMED: 97109951, 161427223 (4) Encounter for generalized patient complaints ICD Codes: Z00.8 - Encounter for other general examination SNOMED: 713371643 (5) Dementia with behavioral disturbance ICD Codes: F03.91 - Unspecified dementia with behavioral disturbance SNOMED: 7503479697688 Status: stable Assessment/Plan: 63 year old male admitted from facility for acute encephalopathy, Failure to thrive and dementia with behavioral disturbance 1. Acute encephalopathy/ dementia with behavioral disturbance. Doubt metabolic, based on reviewing his labs. His renal function is at baseline. -Will need psychiatry consult with Dr. Collins -PT, patient seen ambulating independently with walker Case management for dc planning 2. Obstructive uropathy with staghorn calculus.BPH. Renal function stable. Resume Tamsulosin 3. CKD stage II-III, stable. Repeat labs 11/03 4. Failure to thrive. 5. Dementia with behavioral disturbance. Oriented to self only. Resume outpatient psych meds. Risperidone 2mg at night per psychiatry and ativan prn 6.HTN. Amlodipine 10mg, resume home Atenolol 7. Etoh dependence in the past. Thiamine and folate has no insurance, trimming caser involved. applied for medical Time of this note may not reflect time of encounter. I spent 27 minutes on this encounter. 50% or more on counselling and care coordination. Subjective Date patient seen: Nov 10, 2018 Time patient seen: 11:45 ROS Limited/Unobtainable: Yes Allergies: Coded Allergies: No Known Allergies (Unverified , 09/11/18) Subjective No acute events overnight. No complaints. Patient unable to provide further history. Still awaiting placement. Objective Last 24 Hour Vital Signs Date Time Temp Pulse Resp B/P (MAP) Pulse Ox O2 Delivery O2 Flow Rate FiO2 11/10/18 21:00 Room Air 11/10/18 20:00 97.8 56 18 122/66 (84) 98 11/10/18 16:00 98.8 53 17 125/71 (89) 97 11/10/18 09:01 63 139/85 9/21/19 09:00 63 139/85 11/10/18 09:00 Room Air 11/10/18 08:00 97.7 63 19 139/85 (103) 97 11/10/18 04:00 97.0 62 19 137/72 (93) 95 11/10/18 00:00 97.9 60 19 142/74 (96) 98 Intake and Output 11/09/18 11/10/18 19:00 07:00 Intake Total 720 ml Balance 720 ml Intake Oral 720 ml # Voids 4 3 # Bowel Movements 2 Height (Feet): 5 Height (Inches): 10.00 Weight (Pounds): 186 General Appearance: WD/WN, no apparent distress, alert EENT: PERRL/EOMI Neck: non-tender, normal alignment Cardiovascular: normal peripheral pulses, normal rate, regular rhythm, regularly irregular Respiratory/Chest: chest wall non-tender, lungs clear, normal breath sounds Abdomen: normal bowel sounds, non tender, soft Extremities: normal range of motion, non-tender, normal inspection, no calf tenderness Edema: other - no edema LE bilaterally Neurologic: tank operator II-XII grossly normal, alert, oriented x 3, responsive Skin: normal pigmentation, warm/dry Xavier Ramos D.O. Nov 11, 2018 00:03
[2018-11-11 04:00] VITALS: BP 116/60
--- NOTE | 2018-11-11 07:40 | NUR ---
NURSE NOTES: Received patient on bed, alert, awake and verbally responsive. No SOB or cardiac distress. Kept call light within reach. Head of bed elevated. Kept bed locked. Will continue plan of care.
--- NOTE | 2018-11-11 07:40 | NUR ---
HAND-OFF: Report given to JOSEPHINE Trujillo.
[2018-11-11 08:00] VITALS: BP 124/66
[2018-11-11] MEDS: Thiamine 100mg tab ORAL SCH (09:11)
[2018-11-11] MEDS: Atenolol 25mg tab ORAL SCH (09:12)
[2018-11-11] MEDS: Docusate 100mg cap ORAL SCH ×2 (09:13→20:16)
[2018-11-11] MEDS: Tamsulosin 0.4mg cap ORAL SCH ×2 (09:14→17:42)
[2018-11-11] MEDS: Heparin 5000 units/ml inj SUBQ SCH ×2 (09:16→20:19)
[2018-11-11 12:00] VITALS: BP 137/66
[2018-11-11 16:00] VITALS: BP 152/79
--- NOTE | 2018-11-11 19:34 | NUR ---
HAND-OFF: Report given to
[2018-11-11 20:00] VITALS: BP 98/51
--- NOTE | 2018-11-11 20:44 | NUR ---
NURSE NOTES: Patient in bed, awake, alert, with periods of confusion. Able to make needs known. Respiration is even and unlabored. No complaint of pain or discomfort noted. Skin is warm and dry to touch. No iv site noted. Abdomen is soft and non distended. Bed in low and locked position. Provided safe environment. Call light is at bedside. Will continue plan of care.
--- NOTE | 2018-11-11 21:27 | General Progress Note ---
Assessment/Plan Problem List: (1) Failure to thrive SNOMED: 09453318 Qualifiers: Qualified Codes: R62.7 - Adult failure to thrive (2) Gravely disabled SNOMED: 726961540 (3) Acute encephalopathy ICD Codes: G93.40 - Encephalopathy, unspecified SNOMED: 38845666, 830768184 (4) Encounter for generalized patient complaints ICD Codes: Z00.8 - Encounter for other general examination SNOMED: 665297490 (5) Dementia with behavioral disturbance ICD Codes: F03.91 - Unspecified dementia with behavioral disturbance SNOMED: 1321560004263 Status: stable Assessment/Plan: 63 year old male admitted from facility for acute encephalopathy, Failure to thrive and dementia with behavioral disturbance 1. Acute encephalopathy/ dementia with behavioral disturbance. Doubt metabolic, based on reviewing his labs. His renal function is at baseline. -Will need psychiatry consult with Dr. Collins -PT, patient seen ambulating independently with walker Case management for dc planning 2. Obstructive uropathy with staghorn calculus.BPH. Renal function stable. Resume Tamsulosin 3. CKD stage II-III, stable. 4. Failure to thrive. 5. Dementia with behavioral disturbance. Resume outpatient psych meds. Risperidone 2mg at night per psychiatry and ativan prn 6.HTN. Amlodipine 10mg, Will D/C atenolol given bradycardia and fatigue. patient also at risk of falling due to syncope from bradycardia. Risks outweigh benefits. Will add other agent if needed. 7. Etoh dependence in the past. Thiamine and folate FENPPx DVT: heparin SBQ, will check CBC has no insurance, case resource manager involved. applied for medical Time of this note may not reflect time of encounter. I spent 37 minutes on this encounter. 50% or more on counselling and care coordination. Subjective Date patient seen: Nov 11, 2018 Constitutional: Denies: chills, diaphoresis, fever, malaise, weakness, other HEENT: Denies: eye pain, blurred vision, tearing, double vision, ear pain, ear discharge, nose pain, nose congestion, throat pain, throat swelling, mouth pain , mouth swelling, other Cardiovascular: Denies: no symptoms, chest pain, edema, irregular heart rate, lightheadedness, palpitations, syncope, other Respiratory: Reports: no symptoms; Denies: cough, orthopnea, shortness of breath, SOB with excertion, SOB at rest, sputum, stridor, wheezing, other Gastrointestinal/Abdominal: Reports: no symptoms; Denies: abdomen distended, abdominal pain, black stools, tarry stools, blood in stool, constipated, diarrhea, difficulty swallowing, nausea, poor appetite, poor fluid intake, rectal bleeding, vomiting, other Genitourinary: Denies: burning, discharge, frequency, flank pain, hematuria, incontinence, pain, urgency, other Neurologic/Psychiatric: Denies: anxiety, depressed, emotional problems, headache, numbness, paresthesia, pre-existing deficit, seizure, tingling, tremors, weakness, other Endocrine: Denies: excessive sweating, flushing, intolerance to cold, intolerance to heat, increased hunger, increased thirst, increased urine, unexplained weight gain, unexplained weight loss, other Hematologic/Lymphatic: Denies: anemia, easy bleeding, easy bruising, other Allergies: Coded Allergies: No Known Allergies (Unverified , 09/11/18) Subjective No acute events overnight. No complaints. Heart rate persistently in low 50s. No syncope but feels fatigued. Denies chest pain. Has always been on atenolol for blood pressure. Still awaiting placement. Objective Last 24 Hour Vital Signs Date Time Temp Pulse Resp B/P (MAP) Pulse Ox O2 Delivery O2 Flow Rate FiO2 11/11/18 20:41 Room Air 11/11/18 20:00 97.7 59 18 98/51 (67) 96 11/11/18 16:00 98.3 56 19 152/79 (103) 97 11/11/18 12:00 96.8 54 19 137/66 (89) 97 11/11/18 09:13 60 124/66 11/11/18 09:12 60 124/66 11/11/18 09:00 Room Air 11/11/18 08:00 97.9 60 18 124/66 (85) 96 11/11/18 04:00 97.2 52 17 116/60 (78) 96 11/11/18 00:00 98.6 50 18 121/66 (84) 95 Intake and Output 11/10/18 11/11/18 19:00 07:00 Intake Total 720 ml Balance 720 ml Intake Oral 720 ml # Voids 6 3 Height (Feet): 5 Height (Inches): 10.00 Weight (Pounds): 186 General Appearance: WD/WN, no apparent distress, alert EENT: PERRL/EOMI Neck: non-tender, normal alignment, supple Cardiovascular: normal peripheral pulses, normal rate, regular rhythm, no JVD Respiratory/Chest: chest wall non-tender, lungs clear, normal breath sounds, no respiratory distress Abdomen: normal bowel sounds, non tender, soft Extremities: normal range of motion, non-tender, normal inspection Edema: other - no edema LE bilaterally Neurologic: director building II-XII grossly normal, no motor/sensory deficits, alert, oriented x 3, responsive Xavier Ramos D.O. Nov 11, 2018 21:27
[2018-11-12] VITALS: BP 128/64
[2018-11-12 04:00] VITALS: BP 98/60
--- NOTE | 2018-11-12 06:59 | NUR ---
HAND-OFF: Report given to JOSEPHINE Monaco.
[2018-11-12 07:08] LABS: BASOPHILS % (AUTO) 1.5 % (0.0-2.0); EOSINOPHILS % (AUTO) 5.7 % (0.0-3.0); HEMATOCRIT 40.9 % (42.0-52.0); HEMOGLOBIN 13.4 G/DL (14.2-18.0); LYMPHOCYTES % (AUTO) 31.9 % (20.0-45.0); MEAN CORPUSCULAR VOLUME 90 FL (80-99); MONOCYTES % (AUTO) 12.2 % (1.0-10.0); NEUTROPHILS % (AUTO) 48.7 % (45.0-75.0); PLATELET COUNT 149 K/UL (150-450); RED BLOOD COUNT 4.54 M/UL (4.70-6.10); RED CELL DISTRIBUTION WIDTH 14.2 % (11.6-14.8); WHITE BLOOD COUNT 5.6 K/UL (4.8-10.8)
--- NOTE | 2018-11-12 07:20 | NUR ---
NURSE NOTES: received patient sleeping in bed, no sign of distress, No IV access noted ,MD aware ,on fall precaution, Instructed to use the call light for assistance.Bed in lowest position. Will continue to monitor josette alejandro
[2018-11-12 08:00] VITALS: BP 131/67
[2018-11-12] MEDS: Thiamine 100mg tab ORAL SCH (08:26)
[2018-11-12] MEDS: Tamsulosin 0.4mg cap ORAL SCH ×2 (08:26→17:07)
[2018-11-12] MEDS: Docusate 100mg cap ORAL SCH ×2 (08:27→20:39)
[2018-11-12] MEDS: Heparin 5000 units/ml inj SUBQ SCH ×2 (08:28→20:41)
--- NOTE | 2018-11-12 11:21 | NUR ---
*-* INSURANCE *-* UPDATED CLINICALS AND REVIEWS HAVE BEEN FAXED TO: [facility] [id number] FAX ALL CLINICALS TO [phone] Addendum: 11/13/18 at 0820 by IGOR KHAN LVN [facility]N [facility] [employer] TRAILER DRIVER ERNIE T: [phone]
--- NOTE | 2018-11-12 11:35 | General Progress Note ---
Assessment/Plan Problem List: (1) Acute encephalopathy ICD Codes: G93.40 - Encephalopathy, unspecified SNOMED: 30413135, 893002145 (2) Failure to thrive SNOMED: 96387417 Qualifiers: Qualified Codes: R62.7 - Adult failure to thrive (3) Staghorn calculus ICD Codes: N20.0 - Calculus of kidney SNOMED: 689717131 (4) Hydronephrosis ICD Codes: N13.30 - Unspecified hydronephrosis SNOMED: 55970944 (5) Encounter for generalized patient complaints ICD Codes: Z00.8 - Encounter for other general examination SNOMED: 185231220 (6) Dementia with behavioral disturbance ICD Codes: F03.91 - Unspecified dementia with behavioral disturbance SNOMED: 4623837007962 Status: stable Assessment/Plan: 63 year old male admitted from facility for acute encephalopathy, Failure to thrive and dementia with behavioral disturbance 1. Acute encephalopathy/ dementia with behavioral disturbance. Doubt metabolic, based on reviewing his labs. His renal function is at baseline. -Will need psychiatry consult with Dr. Collins -PT, patient seen ambulating independently with walker Case management for dc planning 2. Obstructive uropathy with staghorn calculus.BPH. Renal function stable. Resume Tamsulosin 3. CKD stage II-III, stable. Repeat labs 11/03 4. Failure to thrive. 5. Dementia with behavioral disturbance. Oriented to self only. Resume outpatient psych meds. Risperidone 2mg at night per psychiatry and ativan prn 6.HTN. Amlodipine 10mg, Atenolol stopped due to bradycardia 7. Etoh dependence in the past. Thiamine and folate has no insurance, cyanide case hardener involved. applied for medical Time of this note may not reflect time of encounter. I spent 40 minutes on this encounter. 50% or more on counselling and care coordination. Subjective Date patient seen: Nov 12, 2018 ROS Limited/Unobtainable: No HEENT: Denies: no symptoms, eye pain, blurred vision, tearing, double vision, ear pain, ear discharge, nose pain, nose congestion, throat pain, throat swelling, mouth pain, mouth swelling, other Cardiovascular: Denies: no symptoms, chest pain, edema, irregular heart rate, lightheadedness, palpitations, syncope, other Respiratory: Denies: no symptoms, cough, orthopnea, shortness of breath, SOB with excertion, SOB at rest, sputum, stridor, wheezing, other Gastrointestinal/Abdominal: Denies: no symptoms, abdomen distended, abdominal pain, black stools, tarry stools, blood in stool, constipated, diarrhea, difficulty swallowing, nausea, poor appetite, poor fluid intake, rectal bleeding , vomiting, other Genitourinary: Denies: no symptoms, burning, discharge, frequency, flank pain, hematuria, incontinence, pain, urgency, other Neurologic/Psychiatric: Denies: no symptoms, anxiety, depressed, emotional problems, headache, numbness, paresthesia, pre-existing deficit, seizure, tingling, tremors, weakness, other Endocrine: Denies: no symptoms, excessive sweating, flushing, intolerance to cold, intolerance to heat, increased hunger, increased thirst, increased urine, unexplained weight gain, unexplained weight loss, other Hematologic/Lymphatic: Denies: no symptoms, anemia, easy bleeding, easy bruising, other Allergies: Coded Allergies: No Known Allergies (Unverified , 09/11/18) Subjective Seen and examined. No acute events. He is calm and cooperative Objective Last 24 Hour Vital Signs Date Time Temp Pulse Resp B/P (MAP) Pulse Ox O2 Delivery O2 Flow Rate FiO2 11/12/18 08:27 52 98/60 11/12/18 08:00 Room Air 11/12/18 08:00 97.7 83 18 131/67 (88) 97 11/12/18 04:00 97.7 52 18 98/60 (73) 96 11/12/18 00:00 97.0 59 18 128/64 (85) 95 11/11/18 20:41 Room Air 11/11/18 20:00 97.7 59 18 98/51 (67) 96 11/11/18 16:00 98.3 56 19 152/79 (103) 97 11/11/18 12:00 96.8 54 19 137/66 (89) 97 Intake and Output 11/11/18 11/12/18 19:00 07:00 Intake Total 720 ml 720 ml Balance 720 ml 720 ml Intake Oral 720 ml 720 ml # Voids 5 5 # Bowel Movements 2 Laboratory Tests 11/12/18 05:30: White Blood Count 5.6, Red Blood Count 4.54L, Hemoglobin 13.4L, Hematocrit 40.9L , Mean Corpuscular Volume 90, Mean Corpuscular Hemoglobin 29.5, Mean Corpuscular Hemoglobin Concent 32.7, Red Cell Distribution Width 14.2, Platelet Count 149L, Mean Platelet Volume 7.1, Neutrophils (%) (Auto) 48.7, Lymphocytes ( %) (Auto) 31.9, Monocytes (%) (Auto) 12.2H, Eosinophils (%) (Auto) 5.7H, Basophils (%) (Auto) 1.5 Height (Feet): 5 Height (Inches): 10.00 Weight (Pounds): 186 Objective General Appearance: alert, no distress Head: normocephalic, atraumatic Eyes: bilateral eye PERRL, bilateral eye EOMI ENT: uvula midline, moist mucus membranes Neck: supple, no jvd Respiratory: lungs clear, no respiratory distress, no retraction, no accessory muscle use Cardiovascular : regular rate, rhythm, no edema, no gallop, no murmur Gastrointestinal: non tender, soft, no guarding, no rebound Musculoskeletal: moves all extremities Neurologic: alert, oriented to self only Psychiatric: mood/affect flat. annoyed Skin: no ulcers, tattoos El Sanchez M.D. Nov 12, 2018 11:35
[2018-11-12 12:00] VITALS: BP 127/69
[2018-11-12 16:05] VITALS: BP 126/73
--- NOTE | 2018-11-12 16:10 | NUR ---
CASE MANAGEMENT:REVIEW 11/12/18 SI:FTT. GRAVELY DISABLED 97.0 59 18 128/64 95% ON RA IS: NORVASC PO QD LEXAPRO PO QD RISPERDAL PO QHS FLOMAX PO BID ATIVAN PO Q6HRS PRN IVF@75/HR HEPARIN SQ Q12 : MED/SURG STATUS 4 [facility]: SEEKING SNF PLACEMENT CALLED [facility] ~ UNABLE TO GET THROUGH TO A TERRITORY DEVELOPMENT MANAGER CALLED [facility] ~ THEY SAID IT'S MEDICAL GROUPS RESPONSIBILITY TO FIND OR AUTHORIZE SNF PLACEMENT NEITHER MEDICAL GROUP OR [facility] SEEM TO BE WILLING TO HELP WITH DISCHARGING THIS PATIENT
--- NOTE | 2018-11-12 19:57 | NUR ---
HAND-OFF: Report given to JOSEPHINE mcduffie , patient is stable josephine alejandro .
[2018-11-12 20:00] VITALS: BP 126/77
--- NOTE | 2018-11-12 20:32 | NUR ---
NURSE NOTES: Patient in bed, awake, alert, periods of confusion. Able to make needs known. Respiration is even and unlabored. No complaint of pain or discomfort noted. Abdomen is soft and non distended. Skin is warm and dry to touch. NO iv site noted. Bed in low and locked position. Provided safe environment. Kept clean and comfortable. Call light is at bedside. Will continue plan of care.
[2018-11-13] VITALS: BP 139/79
[2018-11-13 04:00] VITALS: BP 127/71
--- NOTE | 2018-11-13 07:13 | NUR ---
HAND-OFF: Report given to JOSEPHINE Woodruff.
[2018-11-13 08:00] VITALS: BP 127/71
[2018-11-13] MEDS: Tamsulosin 0.4mg cap ORAL SCH ×2 (08:10→17:01)
[2018-11-13] MEDS: Thiamine 100mg tab ORAL SCH (08:10)
[2018-11-13] MEDS: Docusate 100mg cap ORAL SCH ×2 (08:11→20:55)
[2018-11-13] MEDS: Heparin 5000 units/ml inj SUBQ SCH ×2 (08:13→20:57)
--- NOTE | 2018-11-13 08:18 | NUR ---
CASE MANAGEMENT:REVIEW 11/13/18 SI:FTT. GRAVELY DISABLED 97.1 53 16 127/71 98% ON RA H/H-13.4/40.9 GLUCOSE+114 IS: NORVASC PO QD LEXAPRO PO QD RISPERDAL PO QHS FLOMAX PO BID ATIVAN PO Q6HRS PRN IVF@75/HR HEPARIN SQ Q12 : MED/SURG STATUS 4 [facility] PL[facility]: SEEKING SNF PLACEMENT CALLED [facility] ~ UNABLE TO GET THROUGH TO A SLOT MACHINE KEY PERSON CALLED [facility] ~ THEY SAID IT'S MEDICAL GROUPS RESPONSIBILITY TO FIND OR AUTHORIZE SNF PLACEMENT NEITHER MEDICAL GROUP OR [facility] SEEM TO BE WILLING TO HELP WITH DISCHARGING THIS PATIENT
--- NOTE | 2018-11-13 08:20 | NUR ---
DISCHARGE PLANNING HEALTH [facility] IS NOT HELPING WITH PLACEMENT FAXED CLINICALS TO [facility] T; [phone] [facility] T: [phone] [facility] T: [phone] ALL OF THE ABOVE SNF'S HAVE CONTRACTS WITH [facility] WAITING FOR RESPONSE Addendum: 11/13/18 at 1328 by IGOR KHAN LVN LVN [facility] IS TRYING TO GET AUTHORIZATION TO ACCEPT THIS PATIENT
[2018-11-13 12:00] VITALS: BP 119/70
--- NOTE | 2018-11-13 15:20 | General Progress Note ---
Assessment/Plan Problem List: (1) Acute encephalopathy ICD Codes: G93.40 - Encephalopathy, unspecified SNOMED: 56408623, 227901029 (2) Failure to thrive SNOMED: 96445215 Qualifiers: Qualified Codes: R62.7 - Adult failure to thrive (3) Staghorn calculus ICD Codes: N20.0 - Calculus of kidney SNOMED: 198216462 (4) Hydronephrosis ICD Codes: N13.30 - Unspecified hydronephrosis SNOMED: 89789130 (5) Encounter for generalized patient complaints ICD Codes: Z00.8 - Encounter for other general examination SNOMED: 831806790 (6) Dementia with behavioral disturbance ICD Codes: F03.91 - Unspecified dementia with behavioral disturbance SNOMED: 8072641737705 Status: stable Assessment/Plan: 63 year old male admitted from facility for acute encephalopathy, Failure to thrive and dementia with behavioral disturbance 1. Acute encephalopathy/ dementia with behavioral disturbance. Doubt metabolic, based on reviewing his labs. His renal function is at baseline. -Will need psychiatry consult with Dr. Collins -PT, patient seen ambulating independently with walker Case management for dc planning 2. Obstructive uropathy with staghorn calculus.BPH. Renal function stable. Resume Tamsulosin 3. CKD stage II-III, stable. 4. Failure to thrive. 5. Dementia with behavioral disturbance. Oriented to self only. Resume outpatient psych meds. Risperidone 2mg at night per psychiatry and ativan prn 6.HTN. Amlodipine 10mg, Atenolol stopped due to bradycardia 7. Etoh dependence in the past. Thiamine and folate has no insurance, outpatient case manager involved. applied for medical Time of this note may not reflect time of encounter. I spent 15 minutes on this encounter. 50% or more on counselling and care coordination. Subjective Date patient seen: Nov 13, 2018 ROS Limited/Unobtainable: No Constitutional: Denies: no symptoms, chills, diaphoresis, fever, malaise, weakness, other HEENT: Denies: no symptoms, eye pain, blurred vision, tearing, double vision, ear pain, ear discharge, nose pain, nose congestion, throat pain, throat swelling, mouth pain, mouth swelling, other Cardiovascular: Denies: no symptoms, chest pain, edema, irregular heart rate, lightheadedness, palpitations, syncope, other Respiratory: Denies: no symptoms, cough, orthopnea, shortness of breath, SOB with excertion, SOB at rest, sputum, stridor, wheezing, other Gastrointestinal/Abdominal: Denies: no symptoms, abdomen distended, abdominal pain, black stools, tarry stools, blood in stool, constipated, diarrhea, difficulty swallowing, nausea, poor appetite, poor fluid intake, rectal bleeding , vomiting, other Genitourinary: Denies: no symptoms, burning, discharge, frequency, flank pain, hematuria, incontinence, pain, urgency, other Neurologic/Psychiatric: Denies: no symptoms, anxiety, depressed, emotional problems, headache, numbness, paresthesia, pre-existing deficit, seizure, tingling, tremors, weakness, other Endocrine: Denies: no symptoms, excessive sweating, flushing, intolerance to cold, intolerance to heat, increased hunger, increased thirst, increased urine, unexplained weight gain, unexplained weight loss, other Hematologic/Lymphatic: Denies: no symptoms, anemia, easy bleeding, easy bruising, other Allergies: Coded Allergies: No Known Allergies (Unverified , 09/11/18) Subjective No acute events. He is calm and cooperative Objective Last 24 Hour Vital Signs Date Time Temp Pulse Resp B/P (MAP) Pulse Ox O2 Delivery O2 Flow Rate FiO2 11/13/18 12:00 97.6 69 17 119/70 (86) 98 11/13/18 08:10 53 127/71 11/13/18 08:00 Room Air 11/13/18 08:00 97.1 53 16 127/71 (89) 98 11/13/18 04:00 97.1 53 16 127/71 (89) 98 11/13/18 00:00 98.0 57 16 139/79 (99) 97 11/12/18 20:46 Room Air 11/12/18 20:00 97.5 58 18 126/77 (93) 97 11/12/18 16:05 97.8 74 18 126/73 (90) 97 Intake and Output 11/12/18 11/13/18 18:59 06:59 Intake Total 800 ml 350 ml Balance 800 ml 350 ml Intake Oral 800 ml 350 ml # Voids 3 3 Height (Feet): 5 Height (Inches): 10.00 Weight (Pounds): 186 Objective General Appearance: alert, no distress Head: normocephalic, atraumatic Eyes: bilateral eye PERRL, bilateral eye EOMI ENT: uvula midline, moist mucus membranes Neck: supple, no jvd Respiratory: lungs clear, no respiratory distress, no retraction, no accessory muscle use Cardiovascular : regular rate, rhythm, no edema, no gallop, no murmur Gastrointestinal: non tender, soft, no guarding, no rebound Musculoskeletal: moves all extremities Neurologic: alert, oriented to self only Psychiatric: mood/affect flat. annoyed Skin: no ulcers, tattoos El Sanchez M.D. Nov 13, 2018 15:20
[2018-11-13 16:04] VITALS: BP 121/79
--- NOTE | 2018-11-13 19:17 | NUR ---
HAND-OFF: Report given to Ms hanna RN patient is stable, JOSEPHINE RODRIGUEZ RN . Addendum: 11/13/18 at 1923 by ERIN JOHNSON RN RN HAND-OFF: Report given to Ms hanna RN patient is stable JOSEPHINE RODRIGUEZ
--- NOTE | 2018-11-13 19:32 | NUR ---
NURSE NOTES: Received pt resting in bed. AAO x 2. On room air. No IV access. MD aware. No c/o pain, no acute distress noted at this time. Walker at bedside. Bed locked, lowest position, alarm on, side rails up x 2, call light within reach. Will continue to monitor.
[2018-11-13 20:00] VITALS: BP 128/56
[2018-11-14] VITALS: BP 125/70
[2018-11-14 04:00] VITALS: BP 126/67
--- NOTE | 2018-11-14 07:04 | NUR ---
HAND-OFF: Report given to JOSEPHINE Ovalles.
--- NOTE | 2018-11-14 07:53 | NUR ---
NURSE NOTES: Received report from JOSEPHINE Linder. Pt in bed, awake, talkative, no complaints of pain, vitals being obtained by SN, pt able to feed self, no apparent respiratory distress noted, bed in lowest position, call light within reach.
[2018-11-14 08:00] VITALS: BP 118/78
--- NOTE | 2018-11-14 08:33 | General Progress Note ---
Assessment/Plan Problem List: (1) Acute encephalopathy ICD Codes: G93.40 - Encephalopathy, unspecified SNOMED: 28985335, 656585320 (2) Failure to thrive SNOMED: 76336267 Qualifiers: Qualified Codes: R62.7 - Adult failure to thrive (3) Staghorn calculus ICD Codes: N20.0 - Calculus of kidney SNOMED: 020618679 (4) Hydronephrosis ICD Codes: N13.30 - Unspecified hydronephrosis SNOMED: 31418821 (5) Encounter for generalized patient complaints ICD Codes: Z00.8 - Encounter for other general examination SNOMED: 092768883 (6) Dementia with behavioral disturbance ICD Codes: F03.91 - Unspecified dementia with behavioral disturbance SNOMED: 7811928163814 Status: stable Assessment/Plan: 63 year old male admitted from facility for acute encephalopathy, Failure to thrive and dementia with behavioral disturbance 1. Acute encephalopathy/ dementia with behavioral disturbance. Doubt metabolic, based on reviewing his labs. His renal function is at baseline. -Will need psychiatry consult with Dr. Collins -PT, patient seen ambulating independently with walker Case management for dc planning 2. Obstructive uropathy with staghorn calculus.BPH. Renal function stable. Resume Tamsulosin 3. CKD stage II-III, stable. 4. Failure to thrive. 5. Dementia with behavioral disturbance. Oriented to self only. Resume outpatient psych meds. Risperidone 2mg at night per psychiatry and ativan prn 6.HTN. Amlodipine 10mg, Atenolol stopped due to bradycardia 7. Etoh dependence in the past. Thiamine and folate has no insurance, geriatric case manager involved. applied for medical Time of this note may not reflect time of encounter. I spent 15 minutes on this encounter. 50% or more on counselling and care coordination. Subjective Allergies: Coded Allergies: No Known Allergies (Unverified , 09/11/18) Subjective No acute events. He is calm and cooperative Objective Last 24 Hour Vital Signs Date Time Temp Pulse Resp B/P (MAP) Pulse Ox O2 Delivery O2 Flow Rate FiO2 11/14/18 07:53 Room Air 11/14/18 04:00 98.2 61 18 126/67 (86) 94 11/14/18 00:00 98.1 66 20 125/70 (88) 94 11/13/18 21:00 Room Air 11/13/18 20:00 97.9 60 19 128/56 (80) 95 11/13/18 16:04 97.9 67 18 121/79 (93) 98 11/13/18 12:00 97.6 69 17 119/70 (86) 98 Intake and Output 11/13/18 11/14/18 19:00 07:00 Intake Total 800 ml Balance 800 ml Intake Oral 800 ml # Voids 3 1 Height (Feet): 5 Height (Inches): 10.00 Weight (Pounds): 188 Objective General Appearance: alert, no distress Head: normocephalic, atraumatic Eyes: bilateral eye PERRL, bilateral eye EOMI ENT: uvula midline, moist mucus membranes Neck: supple, no jvd Respiratory: lungs clear, no respiratory distress, no retraction, no accessory muscle use Cardiovascular : regular rate, rhythm, no edema, no gallop, no murmur Gastrointestinal: non tender, soft, no guarding, no rebound Musculoskeletal: moves all extremities Neurologic: alert, oriented to self only Psychiatric: mood/affect flat. annoyed Skin: no ulcers, tattoos El Sanchez M.D. Nov 14, 2018 08:33
[2018-11-14] MEDS: Docusate 100mg cap ORAL SCH ×2 (08:59→20:35)
[2018-11-14] MEDS: Tamsulosin 0.4mg cap ORAL SCH ×2 (08:59→16:56)
[2018-11-14] MEDS: Thiamine 100mg tab ORAL SCH (08:59)
[2018-11-14] MEDS: Heparin 5000 units/ml inj SUBQ SCH ×2 (09:05→20:35)
--- NOTE | 2018-11-14 11:46 | General Progress Note ---
Assessment/Plan Problem List: (1) Acute encephalopathy ICD Codes: G93.40 - Encephalopathy, unspecified SNOMED: 64540917, 387523989 (2) Failure to thrive SNOMED: 60002681 Qualifiers: Qualified Codes: R62.7 - Adult failure to thrive (3) Staghorn calculus ICD Codes: N20.0 - Calculus of kidney SNOMED: 223468555 (4) Hydronephrosis ICD Codes: N13.30 - Unspecified hydronephrosis SNOMED: 97276630 (5) Encounter for generalized patient complaints ICD Codes: Z00.8 - Encounter for other general examination SNOMED: 819563579 (6) Dementia with behavioral disturbance ICD Codes: F03.91 - Unspecified dementia with behavioral disturbance SNOMED: 3633043317273 Status: stable Assessment/Plan: 63 year old male admitted from facility for acute encephalopathy, Failure to thrive and dementia with behavioral disturbance 1. Acute encephalopathy/ dementia with behavioral disturbance. Doubt metabolic, based on reviewing his labs. His renal function is at baseline and stable -psychiatry consult with Dr. Collins -PT, patient seen ambulating independently with walker Case management for dc planning 2. Obstructive uropathy with staghorn calculus.BPH. Renal function stable. Resume Tamsulosin 3. CKD stage II-III, stable. 4. Failure to thrive. 5. Dementia with behavioral disturbance. Oriented to self only. Resume outpatient psych meds. Risperidone 2mg at night per psychiatry and ativan prn 6.HTN. Amlodipine 10mg, Atenolol stopped due to bradycardia 7. Etoh dependence in the past. Thiamine and folate has no insurance, mattress spring encaser involved. applied for medical Time of this note may not reflect time of encounter. I spent 15 minutes on this encounter. 50% or more on counselling and care coordination. Subjective Date patient seen: Nov 14, 2018 ROS Limited/Unobtainable: No Constitutional: Denies: no symptoms, chills, diaphoresis, fever, malaise, weakness, other HEENT: Denies: no symptoms, eye pain, blurred vision, tearing, double vision, ear pain, ear discharge, nose pain, nose congestion, throat pain, throat swelling, mouth pain, mouth swelling, other Cardiovascular: Denies: no symptoms, chest pain, edema, irregular heart rate, lightheadedness, palpitations, syncope, other Respiratory: Denies: no symptoms, cough, orthopnea, shortness of breath, SOB with excertion, SOB at rest, sputum, stridor, wheezing, other Gastrointestinal/Abdominal: Denies: no symptoms, abdomen distended, abdominal pain, black stools, tarry stools, blood in stool, constipated, diarrhea, difficulty swallowing, nausea, poor appetite, poor fluid intake, rectal bleeding , vomiting, other Genitourinary: Denies: no symptoms, burning, discharge, frequency, flank pain, hematuria, incontinence, pain, urgency, other Neurologic/Psychiatric: Denies: no symptoms, anxiety, depressed, emotional problems, headache, numbness, paresthesia, pre-existing deficit, seizure, tingling, tremors, weakness, other Endocrine: Denies: no symptoms, excessive sweating, flushing, intolerance to cold, intolerance to heat, increased hunger, increased thirst, increased urine, unexplained weight gain, unexplained weight loss, other Allergies: Coded Allergies: No Known Allergies (Unverified , 09/11/18) Subjective No acute events. He is calm and cooperative Objective Last 24 Hour Vital Signs Date Time Temp Pulse Resp B/P (MAP) Pulse Ox O2 Delivery O2 Flow Rate FiO2 11/14/18 08:59 60 118/78 11/14/18 08:00 98.1 60 14 118/78 (91) 97 11/14/18 07:53 Room Air 11/14/18 04:00 98.2 61 18 126/67 (86) 94 11/14/18 00:00 98.1 66 20 125/70 (88) 94 11/13/18 21:00 Room Air 11/13/18 20:00 97.9 60 19 128/56 (80) 95 11/13/18 16:04 97.9 67 18 121/79 (93) 98 11/13/18 12:00 97.6 69 17 119/70 (86) 98 Intake and Output 11/13/18 11/14/18 19:00 07:00 Intake Total 800 ml Balance 800 ml Intake Oral 800 ml # Voids 3 1 Height (Feet): 5 Height (Inches): 10.00 Weight (Pounds): 188 Objective General Appearance: alert, no distress Head: normocephalic, atraumatic Eyes: bilateral eye PERRL, bilateral eye EOMI ENT: uvula midline, moist mucus membranes Neck: supple, no jvd Respiratory: lungs clear, no respiratory distress, no retraction, no accessory muscle use Cardiovascular : regular rate, rhythm, no edema, no gallop, no murmur Gastrointestinal: non tender, soft, no guarding, no rebound Musculoskeletal: moves all extremities Neurologic: alert, oriented to self only Psychiatric: mood/affect flat. annoyed Skin: no ulcers, tattoos El Sanchez M.D. Nov 14, 2018 11:45
[2018-11-14 12:00] VITALS: BP 121/69
--- NOTE | 2018-11-14 12:44 | NUR ---
CASE MANAGEMENT:REVIEW 11/14/18 SI:FTT. GRAVELY DISABLED 98.1 60 14 118/78 97% ON RA IS: NORVASC PO QD LEXAPRO PO QD RISPERDAL PO QHS FLOMAX PO BID ATIVAN PO Q6HRS PRN IVF@75/HR HEPARIN SQ Q12 : MED/SURG STATUS 4 [facility] PLAN: SEEKING SNF PLACEMENT CALLED [facility] ~ UNABLE TO GET THROUGH TO A ABRASIVE COATING MACHINE OPERATOR CALLED [facility] ~ THEY SAID IT'S MEDICAL GROUPS RESPONSIBILITY TO FIND OR AUTHORIZE SNF PLACEMENT NEITHER MEDICAL GROUP OR [facility] SEEMS TO BE WILLING TO HELP WITH DISCHARGING THIS PATIENT [facility] IS WILLING TO ACCEPT BUT THEY NEED AUTHROIZATION FROM SOMEONECASE MANAGEMENT:REVIEW 11/13/18 SI:FTT. GRAVELY DISABLED 97.1 53 16 127/71 98% ON RA H/H-13.4/40.9 GLUCOSE+114 IS: NORVASC PO QD LEXAPRO PO QD RISPERDAL PO QHS FLOMAX PO BID ATIVAN PO Q6HRS PRN IVF@75/HR HEPARIN SQ Q12 : MED/SURG STATUS 4 [facility] PLAN: SEEKING SNF PLACEMENT CALLED [facility] ~ UNABLE TO GET THROUGH TO A ABRASIVE COATING MACHINE OPERATOR CALLED [facility] ~ THEY SAID IT'S MEDICAL GROUPS RESPONSIBILITY TO FIND OR AUTHORIZE SNF PLACEMENT NEITHER MEDICAL GROUP OR [facility] SEEM TO BE WILLING TO HELP WITH DISCHARGING THIS PATIENT [facility] IS WILLING TO ACCEPT IF THEY CAN OBTAIN AUTHORIZATION FROM SOMEONE
--- NOTE | 2018-11-14 14:40 | NUR ---
RD ASSESSMENT & RECOMMENDATIONS SEE CARE ACTIVITY FOR COMPLETE ASSESSMENT DAILY ESTIMATED NEEDS: Needs based on Cardiac 80kg adj 25-30 kcals/kg 9069-3145 total kcals 1-1.2 g protein/kg 80-96 g total protein 25-30 mL/kg 9256-6194 total fluid mLs NUTRITION DIAGNOSIS: Altered nutrition related lab values r/t clinical status as evidenced by elev Creat(1.4-> now wnl), elev AST, elev lipase (446), elev BP (154/93 -> wnl at this time). CURRENT DIET:Regular PO DIET RECOMMENDATIONS: LOW NA diet / soft easy chew ADDITIONAL RECOMMENDATIONS: 1) Obtain a standing weight as able / or calibrated bed scale wt 2) Updated BMP as able, monitor lytes, replete as needed 3) Snacks BID in b/w meals 4) H/o C-diff, rec probiotics Hold COLACE with diarrhea
--- NOTE | 2018-11-14 15:34 | NUR ---
*-* INSURANCE *-* UPDATED CLINICALS AND REVIEWS HAVE BEEN FAXED TO: [facility] [id number] KAREN:ERNIE T: P:[phone] F: [phone]
[2018-11-14 16:00] VITALS: BP 129/69
--- NOTE | 2018-11-14 19:23 | NUR ---
HAND-OFF: Report given to JOSEPHINE Sharif.
--- NOTE | 2018-11-14 19:30 | NUR ---
NURSE NOTES: Pt received sitting on the side of the bed,awake, confused. No signs of distress at this time. Needs attended. Will monitor.
[2018-11-14 20:00] VITALS: BP 108/55
[2018-11-15] VITALS: BP 145/63
[2018-11-15 04:00] VITALS: BP 133/65
--- NOTE | 2018-11-15 06:57 | NUR ---
NURSE NOTES: Received report from JOSEPHINE Sharif. Pt in bed, awake, talkative, awaiting breakfast tray, states he slept well, no complaints of pain, no apparent distress noted, bed in lowest position, call light within reach, walker at bedside.
--- NOTE | 2018-11-15 06:58 | NUR ---
HAND-OFF: Report given to Charlette BURTON.
[2018-11-15 08:00] VITALS: BP 145/70
[2018-11-15] MEDS: Thiamine 100mg tab ORAL SCH (08:04)
[2018-11-15] MEDS: Docusate 100mg cap ORAL SCH ×2 (08:04→20:06)
[2018-11-15] MEDS: Tamsulosin 0.4mg cap ORAL SCH ×2 (08:04→17:05)
[2018-11-15] MEDS: Heparin 5000 units/ml inj SUBQ SCH ×2 (08:05→20:06)
--- NOTE | 2018-11-15 11:36 | General Progress Note ---
Assessment/Plan Problem List: (1) Acute encephalopathy ICD Codes: G93.40 - Encephalopathy, unspecified SNOMED: 94574565, 472724201 (2) Failure to thrive SNOMED: 79199815 Qualifiers: Qualified Codes: R62.7 - Adult failure to thrive (3) Staghorn calculus ICD Codes: N20.0 - Calculus of kidney SNOMED: 963198244 (4) Hydronephrosis ICD Codes: N13.30 - Unspecified hydronephrosis SNOMED: 82925935 (5) Encounter for generalized patient complaints ICD Codes: Z00.8 - Encounter for other general examination SNOMED: 552977829 (6) Dementia with behavioral disturbance ICD Codes: F03.91 - Unspecified dementia with behavioral disturbance SNOMED: 3969466623244 Status: stable Assessment/Plan: 63 year old male admitted from facility for acute encephalopathy, Failure to thrive and dementia with behavioral disturbance 1. Acute encephalopathy/ dementia with behavioral disturbance. Doubt metabolic, based on reviewing his labs. His renal function is at baseline and stable -psychiatry consult with Dr. Collins -PT, patient seen ambulating independently with walker Case management for dc planning 2. Obstructive uropathy with staghorn calculus.BPH. Renal function stable. Resume Tamsulosin 3. CKD stage II-III, stable. 4. Failure to thrive. 5. Dementia with behavioral disturbance. Oriented to self only. Resume outpatient psych meds. Risperidone 2mg at night per psychiatry and ativan prn 6.HTN. Amlodipine 10mg, Atenolol stopped due to bradycardia 7. Etoh dependence in the past. 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 applied for medical Time of this note may not reflect time of encounter. I spent 15 minutes on this encounter. 50% or more on counselling and care coordination. Subjective Date patient seen: Nov 15, 2018 ROS Limited/Unobtainable: No Constitutional: Denies: no symptoms, chills, diaphoresis, fever, malaise, weakness, other Cardiovascular: Denies: no symptoms, chest pain, edema, irregular heart rate, lightheadedness, palpitations, syncope, other Gastrointestinal/Abdominal: Denies: no symptoms, abdomen distended, abdominal pain, black stools, tarry stools, blood in stool, constipated, diarrhea, difficulty swallowing, nausea, poor appetite, poor fluid intake, rectal bleeding , vomiting, other Hematologic/Lymphatic: Denies: no symptoms, anemia, easy bleeding, easy bruising, other Allergies: Coded Allergies: No Known Allergies (Unverified , 09/11/18) Subjective No acute events. He is calm and cooperative Objective Last 24 Hour Vital Signs Date Time Temp Pulse Resp B/P (MAP) Pulse Ox O2 Delivery O2 Flow Rate FiO2 11/15/18 08:04 67 145/70 11/15/18 08:00 98.7 67 16 145/70 (95) 96 11/15/18 07:18 Room Air 11/15/18 04:00 98.7 60 18 133/65 (87) 97 11/15/18 00:00 98.5 59 16 145/63 (90) 96 11/14/18 21:00 Room Air 11/14/18 20:00 98.7 66 20 108/55 (72) 97 11/14/18 20:00 98.7 66 20 108/55 (72) 97 11/14/18 16:00 98.6 67 16 129/69 (89) 96 11/14/18 12:00 98.1 73 14 121/69 (86) 96 Intake and Output 11/14/18 11/15/18 19:00 07:00 Intake Total 900 ml Balance 900 ml Intake Oral 900 ml # Voids 4 1 # Bowel Movements 1 Height (Feet): 5 Height (Inches): 10.00 Weight (Pounds): 188 Objective General Appearance: alert, no distress Head: normocephalic, atraumatic Eyes: bilateral eye PERRL, bilateral eye EOMI ENT: uvula midline, moist mucus membranes Neck: supple, no jvd Respiratory: lungs clear, no respiratory distress, no retraction, no accessory muscle use Cardiovascular : regular rate, rhythm, no edema, no gallop, no murmur Gastrointestinal: non tender, soft, no guarding, no rebound Musculoskeletal: moves all extremities Neurologic: alert, oriented to self only Psychiatric: mood/affect flat. annoyed Skin: no ulcers, tattoos El Sanchez M.D. Nov 15, 2018 11:35
--- NOTE | 2018-11-15 11:43 | NUR ---
CASE MANAGEMENT:REVIEW 11/15/18 SI:FTT. GRAVELY DISABLED 98.7 67 16 145/70 96% on ra IS: NORVASC PO QD LEXAPRO PO QD RISPERDAL PO QHS FLOMAX PO BID ATIVAN PO Q6HRS PRN IVF@75/HR HEPARIN SQ Q12 : MED/SURG STATUS 4 EAST PLAN: PATIENT HAS BEEN REFERRED TO [facility] T: [phone] AND [facility] T: [phone]...ACCEPTANCE PENDING AUTHORIZATION NEEDS TO BE GIVEN BY [facility] FOR SNF PLACEMENT
[2018-11-15 11:51] VITALS: BP 129/76
[2018-11-15 16:00] VITALS: BP 131/72
--- NOTE | 2018-11-15 18:57 | NUR ---
HAND-OFF: Report given to JOSEPHINE Sharif.
--- NOTE | 2018-11-15 19:50 | NUR ---
NURSE NOTES: Pt received in bed, awake and alert. No signs of acute distress, call light and walkr within reach. Yellow socks on. Will monitor.
[2018-11-15 20:10] VITALS: BP 155/85
--- NOTE | 2018-11-15 23:39 | NUR ---
HAND-OFF: Report given to Alma Rosa BURTON. Pt sleeping.
--- NOTE | 2018-11-15 23:45 | NUR ---
NURSE NOTES: Received report from Kole RN, patient is asleep, stable condition, will continue to monitor for comfort and safety.
[2018-11-16] VITALS: BP 135/78
[2018-11-16 04:00] VITALS: BP 140/84
--- NOTE | 2018-11-16 07:10 | NUR ---
HAND-OFF: Report given to Denise WATSON.
--- NOTE | 2018-11-16 07:47 | NUR ---
NURSE NOTES: Received report from JOSEPHINE St. Pt in bed, A/A/Ox4, asleep. siderails are up x3. no complaints of pain and discomfort noted, unlabored breathing. bed in lowest position, call light within reach, walker at bedside. bed is in the lowest position, alarm and locked @ all times. will cont to monitor.
[2018-11-16 07:59] VITALS: BP 138/82
[2018-11-16] MEDS: Docusate 100mg cap ORAL SCH ×2 (08:08→21:20)
[2018-11-16] MEDS: Thiamine 100mg tab ORAL SCH (08:08)
[2018-11-16] MEDS: Tamsulosin 0.4mg cap ORAL SCH ×2 (08:09→17:23)
[2018-11-16] MEDS: Heparin 5000 units/ml inj SUBQ SCH ×2 (08:13→21:24)
--- NOTE | 2018-11-16 11:58 | NUR ---
CASE MANAGEMENT:REVIEW 11/16/18 SI:FTT. GRAVELY DISABLED 98.4 63 20 138/82 93% ON RA IS: NORVASC PO QD LEXAPRO PO QD RISPERDAL PO QHS FLOMAX PO BID ATIVAN PO Q6HRS PRN IVF@75/HR HEPARIN SQ Q12 : MED/SURG STATUS 4 EAST PLAN: [facility] DECLINED TO ACCEPT [facility] DECLINED TO ACCEPT REFERRED TO [facility]
--- NOTE | 2018-11-16 12:03 | NUR ---
DISCHARGE PLANNING REFERRED TO [facility] ~ [facility] DECLINED REFERRED TO [facility] ~ FADUMO DECLINED FAXED TO [facility] ~ SENA WILL COME OUT TOMORROW TO ASSESS FOR APPROPRIATENESS Addendum: 11/16/18 at 1344 by IGOR KHAN LVN LVN REFERRED TO [facility] DECLINED TO ACCEPT Addendum: 11/16/18 at 1546 by IGOR KHAN LVN LVN REFERRED TO [facility] ~ NO MALE BED AVAILABLE
[2018-11-16 12:08] VITALS: BP 148/82
--- NOTE | 2018-11-16 14:59 | NUR ---
*-* INSURANCE *-* UPDATED CLINICALS AND REVIEWS HAVE BEEN FAXED TO: [facility] [id number] KAREN:ERNIE T: P:[phone] F: [phone]
[2018-11-16 16:00] VITALS: BP 137/84
--- NOTE | 2018-11-16 19:02 | NUR ---
HAND-OFF: Report given to Ruba.
[2018-11-16 20:00] VITALS: BP 157/78
--- NOTE | 2018-11-16 20:00 | NUR ---
NURSE NOTES: RECEIVED PATIENT LYING IN BED, AWAKE, ALERT/ORIENTED TO PERSON/PLACE, REALITY ORIENTATION PROVIDED, REQUIRE REPETITIVE TEACHINGS DUE TO COGNITIVE STATUS, DENIES PAIN. NO SIGNS AND SYMPTOMS OF ACUTE CARDIO RESPIRATORY DISTRESS/SHORTNESS OF BREATH, DENIES CHEST PAIN, NO PERIPHERAL EDEMA NOTED. NO REPORT OF GI DISCOMFORT, REQUIRE ASSISTANCE/SUPERVISION WHILE AMBULATING, FWW AT BEDSIDE. SIDE RAILS UP X3/BED IN LOWEST POSITION FOR SAFETY, FRQUENT ROUNDING FOR SAFETY/NEEDS, FALL PRECAUTIONS OBSERVED AT ALL TIMES, ENCOURAGED/REINFORCED IMPORTANCE OF UTILIZING CALL LIGHT FOR ASSISTANCE, VERBALIZED UNDERSTANDING, REQUIRE FREQUENT REMINDERS. NAD.
[2018-11-17] VITALS: BP 150/72
[2018-11-17 04:00] VITALS: BP 135/72
--- NOTE | 2018-11-17 05:49 | NUR ---
NURSE NOTES: RESTED WELL, NO SIGNIFICANT CHANGE OF CONDITION NOTED THROUGHOUT THE NIGHT. SAFETY MAINTAINED. NAD.
[2018-11-17] MEDS ORDERED: LORazepam 1mg tab ORAL PRN (07:00)
--- NOTE | 2018-11-17 07:25 | NUR ---
NURSE NOTES: Received report from JOSEPHINE Yeh. Pt in bed, A/A/Ox4, having breakfast. ambulates with steady and slow pace. siderails are up x3. no complaints of pain and discomfort noted, unlabored breathing. Require repetitive orientation. bed in lowest position, call light within reach, walker at bedside. bed is in the lowest position, alarm and locked @ all times. will cont to monitor.
[2018-11-17 08:00] VITALS: BP 160/91
[2018-11-17] MEDS: Tamsulosin 0.4mg cap ORAL SCH ×2 (08:56→17:30)
[2018-11-17] MEDS: Docusate 100mg cap ORAL SCH ×2 (08:56→21:14)
[2018-11-17] MEDS: Thiamine 100mg tab ORAL SCH (08:56)
[2018-11-17] MEDS: Heparin 5000 units/ml inj SUBQ SCH ×2 (08:58→21:00)
[2018-11-17 12:02] VITALS: BP_SYST 154; BP_SYST 160; BP_DIAS 82; BP_DIAS 91
[2018-11-17 15:59] VITALS: BP 149/86
--- NOTE | 2018-11-17 17:32 | General Progress Note ---
Assessment/Plan Status: stable Assessment/Plan: Abraham Gibson is a 63 year old male admitted from facility for acute encephalopathy, Failure to thrive and dementia with behavioral disturbance, now stable awaiting discharge. 1. Acute encephalopathy/ dementia with behavioral disturbance. Doubt metabolic, based on reviewing his labs. His renal function is at baseline and stable -psychiatry consult with Dr. Collins -PT, patient seen ambulating independently with walker Case management for dc planning 2. Obstructive uropathy with staghorn calculus.BPH. Renal function stable. Tamsulosin 3. CKD stage II-III, stable. 4. Failure to thrive. improving 5. Dementia with behavioral disturbance. Oriented to self only. Resume outpatient psych meds. Risperidone 2mg at night per psychiatry and ativan prn 6.HTN. Amlodipine 10mg, Atenolol stopped due to bradycardia 7. Etoh dependence in the past. Thiamine and folate has no insurance, case investigator involved. applied for medical Time of this note may not reflect time of encounter. I spent 25 minutes on this patient's case including >50% time dedicated to counseling and/or coordination of care. I spent additional 35 minutes reviewing patient's records (labs, imaging, progress notes, [employer] consultant notes, orders, etc ) as patient is new to me Subjective Date patient seen: Nov 17, 2018 Constitutional: Reports: no symptoms HEENT: Reports: no symptoms Cardiovascular: Reports: no symptoms Respiratory: Reports: no symptoms Gastrointestinal/Abdominal: Reports: no symptoms Genitourinary: Reports: no symptoms Neurologic/Psychiatric: Reports: weakness Endocrine: Reports: no symptoms Hematologic/Lymphatic: Reports: no symptoms Allergies: Coded Allergies: No Known Allergies (Unverified , 09/11/18) Subjective patient seen and examined. No acute complaints, feeling well, Eating well, +BM Objective Last 24 Hour Vital Signs Date Time Temp Pulse Resp B/P (MAP) Pulse Ox O2 Delivery O2 Flow Rate FiO2 11/17/18 15:59 97.2 73 18 149/86 (107) 98 73 11/17/18 12:02 98.0 65 18 154/82 (106) 97 11/17/18 09:00 Room Air 11/17/18 08:56 87 155/81 11/17/18 08:00 98.6 73 20 160/91 (114) 97 11/17/18 04:00 97.9 75 19 135/72 (93) 95 11/17/18 00:00 97.8 80 18 150/72 (98) 95 11/16/18 21:00 Room Air 11/16/18 20:00 98.4 66 18 157/78 (104) 96 Intake and Output 11/16/18 11/17/18 19:00 07:00 Intake Total 240 ml 480 ml Balance 240 ml 480 ml Intake Oral 240 ml 480 ml # Voids 4 3 Height (Feet): 5 Height (Inches): 10.00 Weight (Pounds): 188 General Appearance: no apparent distress, alert Neck: supple Cardiovascular: normal rate, regular rhythm Respiratory/Chest: lungs clear, normal breath sounds, no respiratory distress Abdomen: normal bowel sounds, non tender, soft Extremities: non-tender Edema: no edema noted Arm (L), no edema noted Arm (R), no edema noted Leg (L), no edema noted Leg (R), no edema noted Pedal (L), no edema noted Pedal (R), no edema noted Generalized Neurologic: alert, responsive Kiki Padron M.D. Nov 17, 2018 17:32
--- NOTE | 2018-11-17 18:25 | NUR ---
NURSE NOTES: No significant change in condition. rested well. will cont to monitor.
--- NOTE | 2018-11-17 18:58 | NUR ---
HAND-OFF: Report given to Minsu.
--- NOTE | 2018-11-17 19:45 | NUR ---
NURSE NOTES: Received report from SHIRLEY Walker. Patient a/a/o x 2, breathing unlabored without distress, discomfort, or sob on room air. Denies pain at this time. No IV site, MD aware. Ambulated with walker and walker at bedside. Bed placed at the lowest with alarm, brake, and siderails up for safety. Call light placed within reach. Will continue to monitor and provide care as ordered.
[2018-11-17 20:00] VITALS: BP 142/71
[2018-11-18] VITALS: BP 138/70
[2018-11-18 04:00] VITALS: BP 138/65
--- NOTE | 2018-11-18 07:22 | NUR ---
HAND-OFF: Report given to JOSEPHINE Walker.
[2018-11-18 08:00] VITALS: BP 144/82
--- NOTE | 2018-11-18 08:00 | NUR ---
NURSE NOTES: Received report from Bryan, JOSEPHINE. Pt in bed, A/A/Ox4, having breakfast. ambulates with steady and slow pace. siderails are up x3. no complaints of pain and discomfort noted, unlabored breathing. Require repetitive orientation. having breakfast in bed and tolerating well. bed in lowest position, call light within reach, walker at bedside. bed is in the lowest position, alarm and locked @ all times. will cont to monitor.
[2018-11-18] MEDS: Tamsulosin 0.4mg cap ORAL SCH ×2 (08:32→17:28)
[2018-11-18] MEDS: Docusate 100mg cap ORAL SCH ×2 (08:32→21:08)
[2018-11-18] MEDS: Thiamine 100mg tab ORAL SCH (08:32)
[2018-11-18] MEDS: Heparin 5000 units/ml inj SUBQ SCH ×2 (08:33→21:00)
[2018-11-18 11:39] VITALS: BP 140/80
--- NOTE | 2018-11-18 15:59 | General Progress Note ---
Assessment/Plan Status: doing well, stable Assessment/Plan: Abraham Gibson is a 63 year old male admitted from facility for acute encephalopathy, Failure to thrive and dementia with behavioral disturbance, now stable awaiting discharge. 1. Acute encephalopathy/ dementia with behavioral disturbance. Doubt metabolic, based on reviewing his labs. His renal function is at baseline and stable -psychiatry consult with Dr. Collins -PT, patient seen ambulating independently with walker Case management for dc planning 2. Obstructive uropathy with staghorn calculus.BPH. Renal function stable. Tamsulosin 3. CKD stage II-III, stable. 4. Failure to thrive. improving 5. Dementia with behavioral disturbance. Oriented to self only. Resume outpatient psych meds. Risperidone 2mg at night per psychiatry and ativan prn 6.HTN. Amlodipine 10mg, Atenolol stopped due to bradycardia 7. Etoh dependence in the past. 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 applied for medical Time of this note may not reflect time of encounter. I spent 25 minutes on this patient's case including >50% time dedicated to counseling and/or coordination of care. Subjective Date patient seen: Nov 18, 2018 Constitutional: Reports: no symptoms HEENT: Reports: no symptoms Cardiovascular: Reports: no symptoms Respiratory: Reports: no symptoms Gastrointestinal/Abdominal: Reports: no symptoms Genitourinary: Reports: no symptoms Neurologic/Psychiatric: Reports: no symptoms Endocrine: Reports: no symptoms Allergies: Coded Allergies: No Known Allergies (Unverified , 09/11/18) Subjective patient seen and examined. No acute complaints, feeling well, Eating well, +BM daily. chronic pain stable unchanged. Objective Last 24 Hour Vital Signs Date Time Temp Pulse Resp B/P (MAP) Pulse Ox O2 Delivery O2 Flow Rate FiO2 11/18/18 11:39 97.0 60 18 140/80 (100) 95 11/18/18 08:33 55 144/82 11/18/18 08:00 98.5 55 16 144/82 (102) 96 11/18/18 07:55 Room Air 11/18/18 04:00 97.5 60 18 138/65 (89) 95 11/18/18 00:00 98.0 59 18 138/70 (92) 95 11/17/18 21:00 Room Air 11/17/18 20:00 96.9 57 19 142/71 (94) 57 11/17/18 18:25 97.2 11/17/18 15:59 97.2 73 18 149/86 (107) 98 73 Intake and Output 11/17/18 11/18/18 19:00 07:00 Intake Total 720 ml 1040 ml Balance 720 ml 1040 ml Intake Oral 720 ml 240 ml Other 800 ml # Voids 3 4 # Bowel Movements 1 Height (Feet): 5 Height (Inches): 10.00 Weight (Pounds): 188 General Appearance: no apparent distress, alert Neck: supple Cardiovascular: normal peripheral pulses, normal rate, regular rhythm Respiratory/Chest: lungs clear, normal breath sounds, no respiratory distress Abdomen: normal bowel sounds, non tender, soft Extremities: non-tender Edema: no edema noted Arm (L), no edema noted Arm (R), no edema noted Leg (L), no edema noted Leg (R), no edema noted Pedal (L), no edema noted Pedal (R), no edema noted Generalized Neurologic: alert, responsive Skin: warm/dry Kiki Padron M.D. Nov 18, 2018 15:59
[2018-11-18 16:00] VITALS: BP 140/58
--- NOTE | 2018-11-18 18:55 | NUR ---
HAND-OFF: Report given to MINSU.
--- NOTE | 2018-11-18 19:30 | NUR ---
NURSE NOTES: Received report from SHIRLEY Walker. Patient a/a/o x 2, sitting in a chair. Breathing unlabored without distress, discomfort, or sob on room air. Able to ambulate but with weak gait. Observation is needed for patient safety. Denies pain at this time. No IV site, MD aware. Bed placed at the lowest with alarm, brake, and siderails up for patient safety. Call light placed within reach. Will continue to monitor and provide care as ordered.
[2018-11-18 20:00] VITALS: BP 132/73
[2018-11-19] VITALS (7 sets, daily range): BP systolic 138–159; BP diastolic 71–82
--- NOTE | 2018-11-19 07:55 | NUR ---
NURSE NOTES: Patient received in stable condition, ambulating with walker in the hallway, voided in the hallway. Patient denies pain or SOB. No signs of distress noted. Oriented back to room. Bed locked in lowest position, call light placed within reach. Will continue to monitor.
--- NOTE | 2018-11-19 07:59 | NUR ---
HAND-OFF: Report given to JOSEPHINE Davis.
[2018-11-19] MEDS: Thiamine 100mg tab ORAL SCH (08:38)
[2018-11-19] MEDS: Tamsulosin 0.4mg cap ORAL SCH ×2 (08:38→17:17)
[2018-11-19] MEDS: Docusate 100mg cap ORAL SCH ×2 (08:38→21:16)
[2018-11-19] MEDS: Heparin 5000 units/ml inj SUBQ SCH ×2 (08:43→21:00)
--- NOTE | 2018-11-19 12:01 | General Progress Note ---
Assessment/Plan Problem List: (1) Acute encephalopathy ICD Codes: G93.40 - Encephalopathy, unspecified SNOMED: 46678542, 661951115 (2) Failure to thrive SNOMED: 47079158 Qualifiers: Qualified Codes: R62.7 - Adult failure to thrive (3) Staghorn calculus ICD Codes: N20.0 - Calculus of kidney SNOMED: 627704209 (4) Hydronephrosis ICD Codes: N13.30 - Unspecified hydronephrosis SNOMED: 20234474 (5) Encounter for generalized patient complaints ICD Codes: Z00.8 - Encounter for other general examination SNOMED: 655757210 (6) Dementia with behavioral disturbance ICD Codes: F03.91 - Unspecified dementia with behavioral disturbance SNOMED: 3469118641037 (7) Neurogenic bladder ICD Codes: N31.9 - Neuromuscular dysfunction of bladder, unspecified SNOMED: 585244892 Status: doing well, stable Assessment/Plan: 63 year old male admitted from facility for acute encephalopathy, Failure to thrive and dementia with behavioral disturbance 1. Acute encephalopathy/ dementia with behavioral disturbance. Doubt metabolic, based on reviewing his labs. His renal function is at baseline and stable -psychiatry consult with Dr. Collins -PT, patient seen ambulating independently with walker Case management for dc planning 2. Obstructive uropathy with staghorn calculus.BPH. Renal function stable. Resume Tamsulosin 3. CKD stage II-III, stable. 4. Failure to thrive. 5. Dementia with behavioral disturbance. Oriented to self only. Resume outpatient psych meds. Risperidone 2mg at night per psychiatry and ativan prn 6.HTN. Amlodipine 10mg, Atenolol stopped due to bradycardia 7. Etoh dependence in the past. Thiamine and folate 8. 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 applied for medical Time of this note may not reflect time of encounter. I spent 15 minutes on this encounter. 50% or more on counselling and care coordination. Subjective Date patient seen: Nov 19, 2018 ROS Limited/Unobtainable: No Constitutional: Denies: no symptoms, chills, diaphoresis, fever, malaise, weakness, other HEENT: Denies: no symptoms, eye pain, blurred vision, tearing, double vision, ear pain, ear discharge, nose pain, nose congestion, throat pain, throat swelling, mouth pain, mouth swelling, other Cardiovascular: Denies: no symptoms, chest pain, edema, irregular heart rate, lightheadedness, palpitations, syncope, other Gastrointestinal/Abdominal: Denies: no symptoms, abdomen distended, abdominal pain, black stools, tarry stools, blood in stool, constipated, diarrhea, difficulty swallowing, nausea, poor appetite, poor fluid intake, rectal bleeding , vomiting, other Genitourinary: Reports: incontinence, urgency Neurologic/Psychiatric: Denies: no symptoms, anxiety, depressed, emotional problems, headache, numbness, paresthesia, pre-existing deficit, seizure, tingling, tremors, weakness, other Endocrine: Denies: no symptoms, excessive sweating, flushing, intolerance to cold, intolerance to heat, increased hunger, increased thirst, increased urine, unexplained weight gain, unexplained weight loss, other Hematologic/Lymphatic: Denies: no symptoms, anemia, easy bleeding, easy bruising, other Allergies: Coded Allergies: No Known Allergies (Unverified , 09/11/18) Subjective No acute events. He is calm and cooperative Objective Last 24 Hour Vital Signs Date Time Temp Pulse Resp B/P (MAP) Pulse Ox O2 Delivery O2 Flow Rate FiO2 11/19/18 09:00 Room Air 11/19/18 08:38 69 159/82 11/19/18 08:00 98.1 69 18 159/82 (107) 95 11/19/18 04:00 97.9 64 18 142/75 (97) 95 11/19/18 00:00 98.0 68 18 138/74 (95) 95 11/18/18 21:00 Room Air 11/18/18 20:00 98.3 60 18 132/73 (92) 96 11/18/18 16:00 98.7 73 18 140/58 (85) 98 Intake and Output 11/18/18 11/19/18 19:00 07:00 Intake Total 1040 ml Balance 1040 ml Intake Oral 240 ml Other 800 ml # Voids 2 5 # Bowel Movements 2 1 Height (Feet): 5 Height (Inches): 10.00 Weight (Pounds): 188 Objective General Appearance: alert, no distress Head: normocephalic, atraumatic Eyes: bilateral eye PERRL, bilateral eye EOMI ENT: uvula midline, moist mucus membranes Neck: supple, no jvd Respiratory: lungs clear, no respiratory distress, no retraction, no accessory muscle use Cardiovascular : regular rate, rhythm, no edema, no gallop, no murmur Gastrointestinal: non tender, soft, no guarding, no rebound Musculoskeletal: moves all extremities Neurologic: alert, oriented to self only Psychiatric: mood/affect flat. annoyed Skin: no ulcers, tattoos El Sanchez M.D. Nov 19, 2018 12:01
--- NOTE | 2018-11-19 12:25 | NUR ---
*-* INSURANCE *-* ALL CLINICALS FROM DOA TO PRESENT HAVE BEEN FAXED TO: [facility]:VERNA LOO P: [phone] F: [phone]
[2018-11-19] MEDS: Oxybutynin 5mg tab ORAL SCH ×2 (13:15→21:16)
--- NOTE | 2018-11-19 16:00 | NUR ---
CASE MANAGEMENT:REVIEW 11/19/18 SI:FTT. GRAVELY DISABLED URINATING ON FLOOR 98.4 58 18 150/78 97% ON RA IS: START DITROPAN PO Q8HRS NORVASC PO QD LEXAPRO PO QD RISPERDAL PO QHS FLOMAX PO BID ATIVAN PO Q6HRS PRN IVF@75/HR HEPARIN SQ Q12 : MED/SURG STATUS 4 EAST PLAN: HAVING DIFFICULTY FINDING ANY SNF THAT WILL ACCEPT THIS PATIENT BUT WILL KEEP TRYING
--- NOTE | 2018-11-19 19:47 | NUR ---
NURSE NOTES: Patient in bed, awake, alert x 3, periods of confusion. Kept clean and comfortable. Provided safe environment. Bed in low and locked position. Abdomen is soft and non distended. Skin is warm and dry to touch. Respiration is even and unlabored. No complaint of pain or discomfort at the moment. Call light is at bedside. Will continue plan of care.
--- NOTE | 2018-11-19 19:51 | NUR ---
HAND-OFF: Report given to Hansel BURTON.
[2018-11-20 04:00] VITALS: BP 133/68
[2018-11-20] MEDS: Oxybutynin 5mg tab ORAL SCH ×3 (05:34→21:13)
[2018-11-20 06:43] LABS: ANION GAP 9 mmol/L (5-15); BLOOD UREA NITROGEN 23 mg/dL (7-18); CALCIUM 8.7 MG/DL (8.5-10.1); CARBON DIOXIDE 25 MMOL/L (21-32); CHLORIDE 108 MMOL/L (98-107); CREATININE 1.5 MG/DL (0.55-1.30); SODIUM 141 MMOL/L (136-145)
--- NOTE | 2018-11-20 07:04 | NUR ---
HAND-OFF: Report given to Linda Nazario.
[2018-11-20 08:00] VITALS: BP 154/86
[2018-11-20] MEDS: Tamsulosin 0.4mg cap ORAL SCH ×2 (08:30→17:40)
[2018-11-20] MEDS: Docusate 100mg cap ORAL SCH ×2 (08:30→21:13)
[2018-11-20] MEDS: Thiamine 100mg tab ORAL SCH (08:30)
[2018-11-20] MEDS: Heparin 5000 units/ml inj SUBQ SCH ×2 (08:31→21:16)
--- NOTE | 2018-11-20 09:56 | NUR ---
NURSE NOTES: PT AXOX3, CALM, SITTING ON CHAIR AT BEDSIDE. PT ABLE TO AMBULATE INDEPENDENTLY WITH FWW. PT AMBULATED TO THE BATHROOM WITH NURSE SUPERVISION AND URINATE. PT HAS DEPENDENT BEHAVIOR. PT IS ABLE TO PERFORM MOST ADLs INDEPENDENTLY EXCEPT NEEDS ASSIST FOR BATHS AND PUTTING ON CLOTHING. PT CONTINUES TO ASK STAFF TO PERFORM ALL ADLs FOR HIM. PT HAS TO BE ENCOURAGED TO START ADLs INDEPENDENTLY AND EDUCATED TO PERFORM ADLs TO THE BEST OF HIS ABILITY AND STAFF CAN HELP WHEN PT HAS DIFFICULTY. RN HAS OBSERVED PT AMBULATE INDEPENDENTLY AND USE BATHROOM.
--- NOTE | 2018-11-20 11:26 | NUR ---
CASE MANAGEMENT:REVIEW 11/20/18 SI:FTT. GRAVELY DISABLED URINATING ON FLOOR 97.5 57 15 154/86 98% ON RA BUN+23 CR+1.5 IS: START DITROPAN PO Q8HRS NORVASC PO QD LEXAPRO PO QD RISPERDAL PO QHS FLOMAX PO BID ATIVAN PO Q6HRS PRN IVF@75/HR HEPARIN SQ Q12 : MED/SURG STATUS 4 EAST PLAN: HAVING DIFFICULTY FINDING ANY SNF THAT WILL ACCEPT THIS PATIENT BUT WILL KEEP TRYING
[2018-11-20 12:00] VITALS: BP 159/81
[2018-11-20 16:00] VITALS: BP 138/73
[2018-11-20] MEDS: Lisinopril 2.5mg tab ORAL SCH (18:48)
--- NOTE | 2018-11-20 19:09 | NUR ---
HAND-OFF: Report given to Venkatesh JONES RN.
[2018-11-20 20:00] VITALS: BP 148/70
--- NOTE | 2018-11-20 20:12 | NUR ---
NURSE NOTES: Patient in bed, awake, alert x 3 and verbally responsive.Periods of confusion. Abdomen is soft and non distended. Bowel sounds noted. No Iv site. Skin is intact, warm and dry to touch. No complaint of pain or discomfort noted. Respiration is even and unlabored. Bed in low and locked position. Kept clean and comfortable. Call light is at bedside. Will continue plan of care.
--- NOTE | 2018-11-20 21:55 | General Progress Note ---
Assessment/Plan Problem List: (1) Failure to thrive SNOMED: 94275081 Qualifiers: Qualified Codes: R62.7 - Adult failure to thrive (2) Gravely disabled SNOMED: 905886649 (3) Acute encephalopathy ICD Codes: G93.40 - Encephalopathy, unspecified SNOMED: 23028021, 358785786 (4) Encounter for generalized patient complaints ICD Codes: Z00.8 - Encounter for other general examination SNOMED: 830508426 (5) Dementia with behavioral disturbance ICD Codes: F03.91 - Unspecified dementia with behavioral disturbance SNOMED: 1533004102112 Status: doing well, stable Assessment/Plan: 63 year old male admitted from facility for acute encephalopathy, Failure to thrive and dementia with behavioral disturbance 1. Acute encephalopathy/ dementia with behavioral disturbance. Doubt metabolic, based on reviewing his labs. His renal function is at baseline and stable -psychiatry consult with Dr. Collins -PT, patient seen ambulating independently with walker Case management for dc planning 2. Obstructive uropathy with staghorn calculus.BPH. Renal function stable. Resume Tamsulosin 3. CKD stage II-III, stable. 4. Failure to thrive. 5. Dementia with behavioral disturbance. Oriented to self only. Resume outpatient psych meds. Risperidone 2mg at night per psychiatry and ativan prn 6.HTN, uncontrolled Amlodipine 10mg, Atenolol stopped due to bradycardia. START lisinopril 5mg PO daily. Check BMP in 2 days. 7. Etoh dependence in the past. Thiamine and folate 8. 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 applied for medical. Still pending Time of this note may not reflect time of encounter. Discussed with RN and patient. I spent 27 minutes on this encounter. 50% or more on counselling and care coordination. Subjective Date patient seen: Nov 20, 2018 Constitutional: Denies: chills, diaphoresis, fever, malaise, weakness, other HEENT: Denies: eye pain, blurred vision, tearing, double vision, ear pain, ear discharge, nose pain, nose congestion, throat pain, throat swelling, mouth pain , mouth swelling, other Cardiovascular: Denies: chest pain, edema, irregular heart rate, lightheadedness, palpitations, syncope, other Respiratory: Denies: cough, orthopnea, shortness of breath, SOB with excertion , SOB at rest, sputum, stridor, wheezing, other Gastrointestinal/Abdominal: Denies: abdomen distended, abdominal pain, black stools, tarry stools, blood in stool, constipated, diarrhea, difficulty swallowing, nausea, poor appetite, poor fluid intake, rectal bleeding, vomiting , other Genitourinary: Denies: burning, discharge, frequency, flank pain, hematuria, incontinence, pain, urgency, other Neurologic/Psychiatric: Denies: anxiety, depressed, emotional problems, headache, numbness, paresthesia, pre-existing deficit, seizure, tingling, tremors, weakness, other Endocrine: Denies: excessive sweating, flushing, intolerance to cold, intolerance to heat, increased hunger, increased thirst, increased urine, unexplained weight gain, unexplained weight loss, other Hematologic/Lymphatic: Denies: anemia, easy bleeding, easy bruising, other Allergies: Coded Allergies: No Known Allergies (Unverified , 09/11/18) Subjective No acute events overnight. No complaints. HTN: blood pressure continues to be elevated 130-150s SBP. Asymptomatic. Denies headaches, numbness, tingling. Denies chest pain or SOB. Does not remember ever being on BENNETT-I or thiazide. Objective Last 24 Hour Vital Signs Date Time Temp Pulse Resp B/P (MAP) Pulse Ox O2 Delivery O2 Flow Rate FiO2 11/20/18 20:20 Room Air 11/20/18 20:00 98.5 60 20 148/70 (96) 97 11/20/18 18:48 138/73 11/20/18 16:00 98.7 72 17 138/73 (94) 98 11/20/18 12:00 98.0 55 17 159/81 (107) 94 11/20/18 09:00 Room Air 11/20/18 08:30 57 154/86 11/20/18 08:00 97.5 57 15 154/86 (108) 98 11/20/18 04:00 98.0 71 20 133/68 (89) 99 11/19/18 23:39 97.8 66 20 146/71 (96) 94 Intake and Output 11/19/18 11/20/18 19:00 07:00 Intake Total 400 ml 1000 ml Balance 400 ml 1000 ml Intake Oral 400 ml 1000 ml # Voids 6 4 # Bowel Movements 1 Laboratory Tests 11/20/18 05:01: Sodium Level 141, Potassium Level 4.0, Chloride Level 108H, Carbon Dioxide Level 25, Anion Gap 9, Blood Urea Nitrogen 23H, Creatinine 1.5H, Estimat Glomerular Filtration Rate 47.0, Glucose Level 96, Calcium Level 8.7 Height (Feet): 5 Height (Inches): 10.00 Weight (Pounds): 188 General Appearance: WD/WN, no apparent distress, alert EENT: PERRL/EOMI Neck: non-tender, normal alignment Cardiovascular: normal peripheral pulses, normal rate, regular rhythm Respiratory/Chest: chest wall non-tender, lungs clear, normal breath sounds Abdomen: normal bowel sounds, non tender, soft Extremities: other - no LE edema bilaterally Neurologic: 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 Nov 20, 2018 21:55
[2018-11-21] VITALS: BP 132/76
[2018-11-21 04:00] VITALS: BP 121/52
[2018-11-21] MEDS: Oxybutynin 5mg tab ORAL SCH ×3 (05:39→21:33)
--- NOTE | 2018-11-21 06:59 | NUR ---
HAND-OFF: Report given to Linda Nazario.
[2018-11-21 08:00] VITALS: BP 151/60
[2018-11-21] MEDS: Heparin 5000 units/ml inj SUBQ SCH (09:00)
[2018-11-21] MEDS: Docusate 100mg cap ORAL SCH (09:20)
[2018-11-21] MEDS: Tamsulosin 0.4mg cap ORAL SCH ×2 (09:20→17:33)
[2018-11-21] MEDS: Thiamine 100mg tab ORAL SCH (09:20)
[2018-11-21] MEDS: Lisinopril 2.5mg tab ORAL SCH (09:21)
--- NOTE | 2018-11-21 10:53 | NUR ---
NURSE NOTES: PT AXOX3, AMBULATES WITH WALKER. PT HAS TO BE REMINDED AT TIMES TO USE WALKER. PT FOLLOWS DIRECTION WELL. IN NO APPARENT DISTRESS AT THIS TIME. WILL CONTINUE TO MONITOR.
[2018-11-21 12:00] VITALS: BP 145/86
--- NOTE | 2018-11-21 12:43 | NUR ---
CASE MANAGEMENT:REVIEW 11/21/18 SI:FTT. GRAVELY DISABLED LEAKING URINE ON FLOOR 98.2 61 18 151/60 96% ON RA IS: DITROPAN PO Q8HRS LISINOPRIL PO QD NORVASC PO QD LEXAPRO PO QD RISPERDAL PO QHS FLOMAX PO BID ATIVAN PO Q6HRS PRN HEPARIN SQ Q12 : MED/SURG STATUS 4 [facility]: HAVING DIFFICULTY FINDING ANY SNF THAT WILL ACCEPT THIS PATIENT BUT WILL KEEP TRYING
--- NOTE | 2018-11-21 12:59 | NUR ---
DISCHARGE PLANNING SOMEONE FROM [facility] AND [facility] ARE SUPPOSE TO COME OUT AND SEE PATIENT TODAY AND EVALUATE APPROPRIATENESS FOR THEIR FACILITIES Addendum: 11/21/18 at 1451 by IGOR KHAN LVN LVN REFERRED TO ELIANA JAMIL T: [phone] RECEIVED CALL BACK FROM NIURKA ([phone]) AT [address] [address] CALLED [facility] AND SPOKE WITH KAREN GILLESPIE AND PROVIDED HER WITH NIURKA'S CONTACT INFORMATION SO AUTHORIZATION CAN BE GENERATED
[2018-11-21 16:00] VITALS: BP 130/99
--- NOTE | 2018-11-21 16:15 | General Progress Note ---
Assessment/Plan Problem List: (1) Failure to thrive SNOMED: 75854949 Qualifiers: Qualified Codes: R62.7 - Adult failure to thrive (2) Gravely disabled SNOMED: 806711746 (3) Acute encephalopathy ICD Codes: G93.40 - Encephalopathy, unspecified SNOMED: 10994969, 206658790 (4) Encounter for generalized patient complaints ICD Codes: Z00.8 - Encounter for other general examination SNOMED: 600575650 (5) Dementia with behavioral disturbance ICD Codes: F03.91 - Unspecified dementia with behavioral disturbance SNOMED: 2945234012988 Status: doing well, stable Assessment/Plan: 63 year old male admitted from facility for acute encephalopathy, Failure to thrive and dementia with behavioral disturbance 1. Acute encephalopathy/ dementia with behavioral disturbance. Doubt metabolic, based on reviewing his labs. His renal function is at baseline and stable -psychiatry consult with Dr. Collins -PT, patient seen ambulating independently with walker Case management for dc planning: Still pending placement 2. Obstructive uropathy with staghorn calculus.BPH. Renal function stable. Resume Tamsulosin 3. CKD stage II-III, stable. 4. Failure to thrive. 5. Dementia with behavioral disturbance. Oriented to self only. Resume outpatient psych meds. Risperidone 2mg at night per psychiatry and ativan prn 6.HTN, uncontrolled Amlodipine 10mg, Atenolol stopped due to bradycardia. Continue lisinopril 5mg PO daily. Check BMP in 1 days. 7. Etoh dependence in the past. Thiamine and folate 8. 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 applied for medical. Still pending Time of this note may not reflect time of encounter. Discussed with RN and patient. I spent 28 minutes on this encounter. 50% or more on counselling and care coordination. Subjective Constitutional: Denies: chills, diaphoresis, fever, malaise, weakness, other HEENT: Denies: eye pain, blurred vision, tearing, double vision, ear pain, ear discharge, nose pain, nose congestion, throat pain, throat swelling, mouth pain , mouth swelling, other Cardiovascular: Denies: chest pain, edema, irregular heart rate, lightheadedness, palpitations, syncope, other Respiratory: Denies: cough, orthopnea, shortness of breath, SOB with excertion , SOB at rest, sputum, stridor, wheezing, other Gastrointestinal/Abdominal: Denies: abdomen distended, abdominal pain, black stools, tarry stools, blood in stool, constipated, diarrhea, difficulty swallowing, nausea, poor appetite, poor fluid intake, rectal bleeding, vomiting , other Genitourinary: Denies: burning, discharge, frequency, flank pain, hematuria, incontinence, pain, urgency, other Neurologic/Psychiatric: Denies: anxiety, depressed, emotional problems, headache, numbness, paresthesia, pre-existing deficit, seizure, tingling, tremors, weakness, other Endocrine: Denies: excessive sweating, flushing, intolerance to cold, intolerance to heat, increased hunger, increased thirst, increased urine, unexplained weight gain, unexplained weight loss, other Hematologic/Lymphatic: Denies: anemia, easy bleeding, easy bruising, other Allergies: Coded Allergies: No Known Allergies (Unverified , 09/11/18) Subjective No acute events overnight. No complaints. HTN: Blood pressure down to 121/52. Tolerating lisinopril. No side effects so far. Denies headaches, numbness, tingling. Denies chest pain or SOB. Objective Last 24 Hour Vital Signs Date Time Temp Pulse Resp B/P (MAP) Pulse Ox O2 Delivery O2 Flow Rate FiO2 11/21/18 12:00 97.7 60 17 145/86 (105) 99 11/21/18 09:21 151/60 11/21/18 09:20 61 151/60 11/21/18 09:00 Room Air 11/21/18 08:00 98.2 61 18 151/60 (90) 96 11/21/18 04:00 97.9 52 20 121/52 (75) 100 11/21/18 00:00 98.5 52 20 132/76 (94) 96 11/20/18 20:20 Room Air 11/20/18 20:00 98.5 60 20 148/70 (96) 97 11/20/18 18:48 138/73 Intake and Output 11/20/18 11/21/18 19:00 07:00 Intake Total 600 ml Balance 600 ml Intake Oral 600 ml # Voids 4 2 Height (Feet): 5 Height (Inches): 10.00 Weight (Pounds): 193 General Appearance: WD/WN, no apparent distress EENT: PERRL/EOMI Neck: non-tender, normal alignment, supple Cardiovascular: normal peripheral pulses, normal rate, regular rhythm Respiratory/Chest: chest wall non-tender, lungs clear, normal breath sounds Abdomen: normal bowel sounds, non tender, soft Extremities: other - no LE edema bilaterally 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 Nov 21, 2018 16:15
--- NOTE | 2018-11-21 19:15 | NUR ---
HAND-OFF: Report given to Melania WHITAKER RN.
--- NOTE | 2018-11-21 19:16 | NUR ---
NURSE NOTES: Patient is in bed, awake and alert x3. Able to make needs known. Ambulates with walker. No IV access - MD aware. On room air with no signs of distress or SOB. Bed locked and in lowest position. Call light in reach. Will continue to monitor the patient.
[2018-11-21 20:00] VITALS: BP 123/62
[2018-11-22] VITALS: BP 130/68
[2018-11-22 04:00] VITALS: BP 124/75
[2018-11-22] MEDS: Oxybutynin 5mg tab ORAL SCH ×3 (05:14→21:03)
[2018-11-22 06:35] LABS: BASOPHILS % (AUTO) 1.4 % (0.0-2.0); EOSINOPHILS % (AUTO) 9.7 % (0.0-3.0); HEMATOCRIT 36.6 % (42.0-52.0); HEMOGLOBIN 12.2 G/DL (14.2-18.0); LYMPHOCYTES % (AUTO) 34.2 % (20.0-45.0); MEAN CORPUSCULAR VOLUME 90 FL (80-99); MONOCYTES % (AUTO) 10.7 % (1.0-10.0); PLATELET COUNT 134 K/UL (150-450); RED BLOOD COUNT 4.08 M/UL (4.70-6.10); RED CELL DISTRIBUTION WIDTH 14.2 % (11.6-14.8)
[2018-11-22 06:38] LABS: ANION GAP 9 mmol/L (5-15); BLOOD UREA NITROGEN 22 mg/dL (7-18); CALCIUM 8.7 MG/DL (8.5-10.1); CARBON DIOXIDE 25 MMOL/L (21-32); CHLORIDE 107 MMOL/L (98-107); CREATININE 1.6 MG/DL (0.55-1.30); POTASSIUM 3.9 MMOL/L (3.5-5.1); SODIUM 141 MMOL/L (136-145)
--- NOTE | 2018-11-22 07:02 | NUR ---
HAND-OFF: Report given to JOSEPHINE Richards.
--- NOTE | 2018-11-22 07:18 | NUR ---
NURSE NOTES: Pt resting in bed. denies pain, no SOB noted, VS stable, bed alarm on, call light within reach. fall precaution maintained. Will continue to monitor. Addendum: 11/22/18 at 1427 by Susie Crystal RN pt has no IV site, aware.
[2018-11-22 08:00] VITALS: BP 122/78
--- NOTE | 2018-11-22 08:03 | NUR ---
DISCHARGE PLANNING PATIENT HAS BEEN ACCEPTED AT [facility] [address] [address] INSURANCE COMPANY IS IN THE PROCESS OF PROVIDING AUTHORIZATION AND LETTER OF AGREEMENT ONCE SNF RECEIVES THEIR AUTHORIZATION THEY WILL CONTACT THIS CASKET TRIMMER AND PROVIDE ROOM NUMBER
[2018-11-22] MEDS: Lisinopril 2.5mg tab ORAL SCH (08:38)
[2018-11-22] MEDS: Tamsulosin 0.4mg cap ORAL SCH ×2 (08:38→17:37)
[2018-11-22] MEDS: Thiamine 100mg tab ORAL SCH (08:39)
--- NOTE | 2018-11-22 09:01 | NUR ---
RD ASSESSMENT & RECOMMENDATIONS SEE CARE ACTIVITY FOR COMPLETE ASSESSMENT DAILY ESTIMATED NEEDS: Needs based on Cardiac 80kg adj 25-30 kcals/kg 1858-7007 total kcals 1-1.2 g protein/kg 80-96 g total protein 25-30 mL/kg 9846-4055 total fluid mLs NUTRITION DIAGNOSIS: Altered nutrition related lab values r/t clinical status as evidenced by elev Creat(1.4-> now wnl), elev AST, elev lipase (446), elev BP (154/93 -> wnl at this time). CURRENT DIET:Regular PO DIET RECOMMENDATIONS: LOW NA diet / soft easy chew ADDITIONAL RECOMMENDATIONS: 1) Obtain a standing weight as able / or calibrated bed scale wt 2) Updated BMP as able, monitor lytes, replete as needed 3) Snacks BID in b/w meals 4) H/o C-diff, rec probiotics Hold COLACE with diarrhea
--- NOTE | 2018-11-22 11:54 | NUR ---
*-* INSURANCE *-* UPDATED CLINICALS AND REVIEWS HAVE BEEN FAXED TO: [facility]:VERNA LOO P: [phone] F: [phone]
[2018-11-22 12:00] VITALS: BP 146/82
--- NOTE | 2018-11-22 13:53 | NUR ---
CASE MANAGEMENT:REVIEW 11/22/18 SI:FTT. GRAVELY DISABLED LEAKING URINE ON FLOOR 98.1 66 18 146/82 95% ON RA BUN+22 CR+1.6 IS: DITROPAN PO Q8HRS LISINOPRIL PO QD NORVASC PO QD LEXAPRO PO QD RISPERDAL PO QHS FLOMAX PO BID ATIVAN PO Q6HRS PRN HEPARIN SQ Q12 : MED/SURG STATUS 4 [facility] PLAN:
[2018-11-22 16:00] VITALS: BP 135/78
--- NOTE | 2018-11-22 16:23 | General Progress Note ---
Assessment/Plan Problem List: (1) Failure to thrive SNOMED: 03607732 Qualifiers: Qualified Codes: R62.7 - Adult failure to thrive (2) Gravely disabled SNOMED: 290133421 (3) Acute encephalopathy ICD Codes: G93.40 - Encephalopathy, unspecified SNOMED: 37883484, 690333232 (4) Encounter for generalized patient complaints ICD Codes: Z00.8 - Encounter for other general examination SNOMED: 902608416 (5) Dementia with behavioral disturbance ICD Codes: F03.91 - Unspecified dementia with behavioral disturbance SNOMED: 7225448905727 Status: doing well, stable Assessment/Plan: 63 year old male admitted from facility for acute encephalopathy, Failure to thrive and dementia with behavioral disturbance 1. Acute encephalopathy/ dementia with behavioral disturbance. Doubt metabolic, based on reviewing his labs. His renal function is at baseline and stable -psychiatry consult with Dr. Collins -PT, patient seen ambulating independently with walker Case management for dc planning: Still pending placement 2. Obstructive uropathy with staghorn calculus.BPH. Renal function stable. Resume Tamsulosin 3. CKD stage II-III, stable. 4. Failure to thrive. 5. Dementia with behavioral disturbance. Oriented to self only. Resume outpatient psych meds. Risperidone 2mg at night per psychiatry and ativan prn 6.HTN, controlled -Amlodipine 10mg, Atenolol stopped due to bradycardia. Continue lisinopril 5mg PO daily. Recheck BMP in one week 7. Etoh dependence in the past. Thiamine and folate 8. 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 applied for medical. Still pending Time of this note may not reflect time of encounter. Discussed with RN and patient. I spent 27 minutes on this encounter. 50% or more on counselling and care coordination. Subjective Date patient seen: Nov 22, 2018 Constitutional: Denies: chills, diaphoresis, fever, malaise, weakness, other HEENT: Denies: eye pain, blurred vision, tearing, double vision, ear pain, ear discharge, nose pain, nose congestion, throat pain, throat swelling, mouth pain , mouth swelling, other Cardiovascular: Denies: chest pain, edema, irregular heart rate, lightheadedness, palpitations, syncope, other Respiratory: Denies: cough, orthopnea, shortness of breath, SOB with excertion , SOB at rest, sputum, stridor, wheezing, other Gastrointestinal/Abdominal: Denies: abdomen distended, abdominal pain, black stools, tarry stools, blood in stool, constipated, diarrhea, difficulty swallowing, nausea, poor appetite, poor fluid intake, rectal bleeding, vomiting , other Genitourinary: Denies: burning, discharge, frequency, flank pain, hematuria, incontinence, pain, urgency, other Neurologic/Psychiatric: Denies: anxiety, depressed, emotional problems, headache, numbness, paresthesia, pre-existing deficit, seizure, tingling, tremors, weakness, other Endocrine: Denies: excessive sweating, flushing, intolerance to cold, intolerance to heat, increased hunger, increased thirst, increased urine, unexplained weight gain, unexplained weight loss, other Hematologic/Lymphatic: Denies: anemia, easy bleeding, easy bruising, other Allergies: Coded Allergies: No Known Allergies (Unverified , 09/11/18) Subjective No acute events overnight per nursing. No complaints. HTN: Blood pressure improved to 122/78. Tolerating lisinopril. No side effects so far. Denies headaches, numbness, tingling. Denies chest pain or SOB. Objective Last 24 Hour Vital Signs Date Time Temp Pulse Resp B/P (MAP) Pulse Ox O2 Delivery O2 Flow Rate FiO2 11/22/18 12:00 98.1 66 18 146/82 (103) 95 11/22/18 09:06 Room Air 11/22/18 08:39 56 122/78 11/22/18 08:38 122/78 11/22/18 08:00 98.3 56 19 122/78 (93) 99 11/22/18 04:00 98.1 53 20 124/75 (91) 99 11/22/18 00:00 98.1 53 18 130/68 (88) 94 11/21/18 20:21 Room Air 11/21/18 20:00 98.2 59 20 123/62 (82) 96 Intake and Output 11/21/18 11/22/18 19:00 07:00 Intake Total 800 ml Output Total 300 ml Balance 800 ml -300 ml Other 800 ml Output Urine Total 300 ml # Voids 2 Laboratory Tests 11/22/18 05:30: White Blood Count 5.0, Red Blood Count 4.08L, Hemoglobin 12.2L, Hematocrit 36.6L , Mean Corpuscular Volume 90, Mean Corpuscular Hemoglobin 29.9, Mean Corpuscular Hemoglobin Concent 33.4, Red Cell Distribution Width 14.2, Platelet Count 134L, Mean Platelet Volume 6.7, Neutrophils (%) (Auto) 44.0L, Lymphocytes (%) (Auto) 34.2, Monocytes (%) (Auto) 10.7H, Eosinophils (%) (Auto) 9.7H, Basophils (%) (Auto) 1.4, Sodium Level 141, Potassium Level 3.9, Chloride Level 107, Carbon Dioxide Level 25, Anion Gap 9, Blood Urea Nitrogen 22H, Creatinine 1.6H, Estimat Glomerular Filtration Rate 43.6, Glucose Level 113H, Calcium Level 8.7 Height (Feet): 5 Height (Inches): 10.00 Weight (Pounds): 193 General Appearance: WD/WN, no apparent distress, alert EENT: PERRL/EOMI, normal ENT inspection Neck: non-tender, normal alignment, supple Cardiovascular: normal peripheral pulses, normal rate, regular rhythm Respiratory/Chest: chest wall non-tender, lungs clear Abdomen: normal bowel sounds, non tender, soft, no organomegaly, no mass Extremities: normal range of motion, non-tender, normal inspection Neurologic: counterperson II-XII grossly normal, no motor/sensory deficits, abnormal gait , alert, oriented x 3 Skin: normal pigmentation, warm/dry Xavier Ramos D.O. Nov 22, 2018 16:23
--- NOTE | 2018-11-22 19:23 | NUR ---
HAND-OFF: Report given to eSrge BURTON.
--- NOTE | 2018-11-22 19:37 | NUR ---
NURSE NOTES: Received report from JOSEPHINE Richards. Patient is in bed, awake and alert x3. Able to make needs known. Ambulates with walker. No IV access - MD aware. On room air with no signs of distress or SOB. Bed locked and in lowest position. Call light in reach. Will continue to monitor the patient.
[2018-11-22 20:00] VITALS: BP 135/75
[2018-11-23] VITALS: BP 100/46
[2018-11-23 04:00] VITALS: BP 135/78
[2018-11-23] MEDS: Oxybutynin 5mg tab ORAL SCH ×3 (05:03→21:36)
--- NOTE | 2018-11-23 07:22 | NUR ---
HAND-OFF: Report given to JOSEPHINE Escudero.
--- NOTE | 2018-11-23 07:30 | NUR ---
NURSE NOTES: Received report from JOSEPHINE Trujillo. Patient awake, sitting in bed, eating breakfast. On room air, no signs of distress or labored breathing. No IV, MD aware. Bed in lowest position with call light in reach.
[2018-11-23 08:00] VITALS: BP 121/76
[2018-11-23] MEDS: Thiamine 100mg tab ORAL SCH (10:13)
[2018-11-23] MEDS: Tamsulosin 0.4mg cap ORAL SCH (10:14)
[2018-11-23] MEDS: Lisinopril 2.5mg tab ORAL SCH (10:14)
[2018-11-23 12:00] VITALS: BP 119/72
--- NOTE | 2018-11-23 12:45 | NUR ---
CASE MANAGEMENT:REVIEW 11/23/18 SI:FTT. GRAVELY DISABLED LEAKING URINE ON FLOOR 98.1 66 18 146/82 95% ON RA BUN+22 CR+1.6 IS: DITROPAN PO Q8HRS LISINOPRIL PO QD NORVASC PO QD LEXAPRO PO QD RISPERDAL PO QHS FLOMAX PO BID ATIVAN PO Q6HRS PRN HEPARIN SQ Q12 : MED/SURG STATUS 4 [facility] PLAN:
--- NOTE | 2018-11-23 12:47 | NUR ---
DISCHARGE PLANNING STILL WAITING FOR LETTER OF AGREEMENT TO BE SENT TO SNF IN [place] CALLED [employer] [facility] AND LEFT A MESSAGE REQUESTING A UPDATE [facility]:VERNA LOO T: [phone]
[2018-11-23 16:00] VITALS: BP 121/79
--- NOTE | 2018-11-23 17:37 | General Progress Note ---
Assessment/Plan Problem List: (1) Failure to thrive SNOMED: 47453566 Qualifiers: Qualified Codes: R62.7 - Adult failure to thrive (2) Gravely disabled SNOMED: 011040059 (3) Acute encephalopathy ICD Codes: G93.40 - Encephalopathy, unspecified SNOMED: 18007589, 732225635 (4) Encounter for generalized patient complaints ICD Codes: Z00.8 - Encounter for other general examination SNOMED: 691262800 (5) Dementia with behavioral disturbance ICD Codes: F03.91 - Unspecified dementia with behavioral disturbance SNOMED: 3344397486446 Status: doing well, stable Assessment/Plan: 63 year old male admitted from facility for acute encephalopathy, Failure to thrive and dementia with behavioral disturbance 1. Acute encephalopathy/ dementia with behavioral disturbance. Doubt metabolic, based on reviewing his labs. His renal function is at baseline and stable -psychiatry consult with Dr. Collins -PT, patient seen ambulating independently with walker Case management for dc planning: Still pending placement 2. Obstructive uropathy with staghorn calculus.BPH. Renal function stable. Resume Tamsulosin 3. CKD stage II-III, stable. 4. Failure to thrive. 5. Dementia with behavioral disturbance. Oriented to self only. Resume outpatient psych meds. Risperidone 2mg at night per psychiatry and ativan prn 6.HTN, controlled -Amlodipine 10mg, Atenolol stopped due to bradycardia. Continue lisinopril 5mg PO daily. Recheck BMP in one week 7. Etoh dependence in the past. Thiamine and folate 8. Neurogenic bladder: Oxybutynin 5mg TID has no insurance, casework manager involved. applied for medical. Still pending Time of this note may not reflect time of encounter. Discussed with RN and patient. I spent 26 minutes on this encounter. 50% or more on counselling and care coordination. Subjective Date patient seen: Nov 23, 2018 Constitutional: Denies: chills, diaphoresis, fever, malaise, weakness, other HEENT: Denies: eye pain, blurred vision, tearing, double vision, ear pain, ear discharge, nose pain, nose congestion, throat pain, throat swelling, mouth pain , mouth swelling, other Cardiovascular: Denies: chest pain, edema, irregular heart rate, lightheadedness, palpitations, syncope, other Respiratory: Denies: cough, orthopnea, shortness of breath, SOB with excertion , SOB at rest, sputum, stridor, wheezing, other Gastrointestinal/Abdominal: Denies: abdomen distended, abdominal pain, black stools, tarry stools, blood in stool, constipated, diarrhea, difficulty swallowing, nausea, poor appetite, poor fluid intake, rectal bleeding, vomiting , other Genitourinary: Denies: burning, discharge, frequency, flank pain, hematuria, incontinence, pain, urgency, other Neurologic/Psychiatric: Denies: anxiety, depressed, emotional problems, headache, numbness, paresthesia, pre-existing deficit, seizure, tingling, tremors, weakness, other Endocrine: Denies: excessive sweating, flushing, intolerance to cold, intolerance to heat, increased hunger, increased thirst, increased urine, unexplained weight gain, unexplained weight loss, other Hematologic/Lymphatic: Denies: anemia, easy bleeding, easy bruising, other Allergies: Coded Allergies: No Known Allergies (Unverified , 09/11/18) Subjective No acute events overnight per nursing. No complaints. HTN: Blood pressure improved to SBP 120s. Tolerating lisinopril. No side effects so far. Denies headaches, numbness, tingling. Denies chest pain or SOB. Objective Last 24 Hour Vital Signs Date Time Temp Pulse Resp B/P (MAP) Pulse Ox O2 Delivery O2 Flow Rate FiO2 11/23/18 16:00 98.1 76 18 121/79 (93) 98 11/23/18 12:00 97.8 79 18 119/72 (88) 97 11/23/18 10:14 121/76 11/23/18 10:14 78 121/76 11/23/18 09:00 Room Air 11/23/18 08:00 98.4 76 18 121/76 (91) 97 11/23/18 04:00 98.4 73 19 135/78 (97) 96 11/23/18 00:00 98.5 77 20 100/46 (64) 98 11/22/18 20:03 Room Air 11/22/18 20:00 97.4 66 20 135/75 (95) 97 Intake and Output 11/22/18 11/23/18 18:59 06:59 Intake Total 400 ml 240 ml Balance 400 ml 240 ml Intake Oral 400 ml 240 ml # Voids 3 4 # Bowel Movements 1 1 Height (Feet): 5 Height (Inches): 10.00 Weight (Pounds): 193 General Appearance: WD/WN, no apparent distress, alert EENT: PERRL/EOMI, normal ENT inspection Neck: non-tender, normal alignment, supple Cardiovascular: normal peripheral pulses, normal rate, regular rhythm Respiratory/Chest: chest wall non-tender, lungs clear, normal breath sounds Abdomen: normal bowel sounds, non tender, soft Extremities: normal range of motion, non-tender 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 Nov 23, 2018 17:37
--- NOTE | 2018-11-23 19:20 | NUR ---
NURSE NOTES: Patient is in bed, awake and alert x3 and verbal. Ambulates with walker. Breathing on room air with no signs of distress or SOB noted. . Bed locked and in lowest position. Bed alarm is on. Call light in reach.Patient will be monitored..
--- NOTE | 2018-11-23 19:40 | NUR ---
HAND-OFF: Report given to JOSEPHINE Haines.
[2018-11-23 20:00] VITALS: BP 133/62
--- NOTE | 2018-11-23 20:15 | NUR ---
NURSE NOTES: IV access established on the left AC 22G. Patient tolerated well. Addendum: 11/24/18 at 0511 by ASHA STEWART RN RN Disregard above note; wrong patient.
--- NOTE | 2018-11-23 21:30 | NUR ---
NURSE NOTES: Patient is in bed, awake and alert x3 and verbal. Ambulates with walker. Breathing on room air, no signs of distress or SOB noted. Bed locked and in lowest position. Bed alarm is on. Call light in reach.Patient will be monitored. Bed alarm on. Pt instructed to call before getting out of bed. Trainee, Yancy FitzgeraldRN will be assisting in the care of this patient.
[2018-11-24] VITALS: BP 128/67
--- NOTE | 2018-11-24 02:14 | NUR ---
NURSE NOTES: Pt is in bed asleep. No C/O pain or discomfort @this time. Meds administered as ordered and assisted as needed. Bed in low and locked position, bed alarm is on. Call light within reach, walker at bedside. Pt will be monitored.
[2018-11-24 04:00] VITALS: BP 120/67
[2018-11-24] MEDS: Oxybutynin 5mg tab ORAL SCH ×3 (05:46→21:47)
--- NOTE | 2018-11-24 07:10 | NUR ---
NURSE NOTES: HANDOFF RECEIVED FROM JOSEPHINE BARRY. PATIENT RECEIVED SLEEPING IN BED. PATIENT HAS NO IV SITE BUT MD IS AWARE. PATIENT HAS NO VISIBLE SIGNS OF DISTRESS, BED IS IN THE LOW AND LOCKED POSITION WITH WALKER AT BEDSIDE. CALL LIGHT IS WITHIN REACH. WILL CONTINUE TO MONITOR PATIENT.
--- NOTE | 2018-11-24 07:30 | NUR ---
HAND-OFF: Report given to Edgardo Goldsmith RN.
[2018-11-24 08:00] VITALS: BP 119/76
[2018-11-24] MEDS: Lisinopril 2.5mg tab ORAL SCH (09:44)
--- NOTE | 2018-11-24 10:20 | NUR ---
NURSE NOTES: Patient is in bed, asleep. Pt is alert, forgetful and verbally able to needs known. Ambulates with walker. Breathing on room air with no signs of distress or SOB noted. . Bed locked and in lowest position. Bed alarm is on. Call light in reach.Patient will be monitored.. Addendum: 11/25/18 at 0233 by Regi Fitzgerald RN NURSE NOTES: Actual time of documentation is 11/24/18@ 5374
[2018-11-24 12:00] VITALS: BP 148/85
--- NOTE | 2018-11-24 13:31 | General Progress Note ---
Assessment/Plan Problem List: (1) Failure to thrive SNOMED: 62843042 Qualifiers: Qualified Codes: R62.7 - Adult failure to thrive (2) Gravely disabled SNOMED: 329337196 (3) Acute encephalopathy ICD Codes: G93.40 - Encephalopathy, unspecified SNOMED: 19520939, 372546973 (4) Encounter for generalized patient complaints ICD Codes: Z00.8 - Encounter for other general examination SNOMED: 549599770 (5) Dementia with behavioral disturbance ICD Codes: F03.91 - Unspecified dementia with behavioral disturbance SNOMED: 6673004459578 Status: doing well, stable Assessment/Plan: 63 year old male admitted from facility for acute encephalopathy, Failure to thrive and dementia with behavioral disturbance 1. Acute encephalopathy/ dementia with behavioral disturbance. Doubt metabolic, based on reviewing his labs. His renal function is at baseline and stable -psychiatry consult with Dr. Collins -PT, patient seen ambulating independently with walker Case management for dc planning: Still pending placement 2. Obstructive uropathy with staghorn calculus.BPH. Renal function stable. Resume Tamsulosin 3. CKD stage II-III, stable. 4. Failure to thrive. 5. Dementia with behavioral disturbance. Oriented to self only. Resume outpatient psych meds. Risperidone 2mg at night per psychiatry and ativan prn 6.HTN, controlled -Amlodipine 10mg, Atenolol stopped due to bradycardia. Continue lisinopril 5mg PO daily. Recheck BMP in one week 7. Etoh dependence in the past. Thiamine and folate 8. Neurogenic bladder: Oxybutynin 5mg TID has no insurance, hospice case manager involved. applied for medical. Still pending Time of this note may not reflect time of encounter. Discussed with RN and patient. I spent 27 minutes on this encounter. 50% or more on counselling and care coordination. Subjective Date patient seen: Nov 24, 2018 Constitutional: Denies: chills, diaphoresis, fever, malaise, weakness, other HEENT: Denies: eye pain, blurred vision, tearing, double vision, ear pain, ear discharge, nose pain, nose congestion, throat pain, throat swelling, mouth pain , mouth swelling, other Cardiovascular: Denies: chest pain, edema, irregular heart rate, lightheadedness, palpitations, syncope, other Respiratory: Denies: cough, orthopnea, shortness of breath, SOB with excertion , SOB at rest, sputum, stridor, wheezing, other Gastrointestinal/Abdominal: Denies: abdomen distended, abdominal pain, black stools, tarry stools, blood in stool, constipated, diarrhea, difficulty swallowing, nausea, poor appetite, poor fluid intake, rectal bleeding, vomiting , other Genitourinary: Denies: burning, discharge, frequency, flank pain, hematuria, incontinence, pain, urgency, other Neurologic/Psychiatric: Denies: anxiety, depressed, emotional problems, headache, numbness, paresthesia, pre-existing deficit, seizure, tingling, tremors, weakness, other Endocrine: Denies: excessive sweating, flushing, intolerance to cold, intolerance to heat, increased hunger, increased thirst, increased urine, unexplained weight gain, unexplained weight loss, other Hematologic/Lymphatic: Denies: anemia, easy bleeding, easy bruising, other Allergies: Coded Allergies: No Known Allergies (Unverified , 09/11/18) Subjective No acute events overnight per nursing. No complaints. Feels about the same HTN: Blood pressure improved to SBP 120s. Tolerating lisinopril. No side effects so far. Denies headaches, numbness, tingling. Denies chest pain or SOB. Objective Last 24 Hour Vital Signs Date Time Temp Pulse Resp B/P (MAP) Pulse Ox O2 Delivery O2 Flow Rate FiO2 11/24/18 09:44 119/76 11/24/18 09:00 Room Air 11/24/18 08:00 98.6 77 18 119/76 (90) 98 11/24/18 04:00 98.4 76 18 120/67 (84) 98 11/24/18 00:00 97.8 56 18 128/67 (87) 97 11/23/18 21:00 Room Air 11/23/18 20:00 98.2 54 16 133/62 (85) 98 11/23/18 16:00 98.1 76 18 121/79 (93) 98 Intake and Output 11/23/18 11/24/18 18:59 06:59 Intake Total 900 ml Balance 900 ml Other 900 ml # Voids 4 Height (Feet): 5 Height (Inches): 10.00 Weight (Pounds): 193 General Appearance: WD/WN, no apparent distress, alert EENT: PERRL/EOMI, normal ENT inspection, TMs normal Neck: non-tender, normal alignment, supple Cardiovascular: normal peripheral pulses, normal rate, regular rhythm Respiratory/Chest: chest wall non-tender, lungs clear, normal breath sounds Abdomen: normal bowel sounds, non tender, soft Extremities: normal range of motion, non-tender, normal inspection Skin: normal pigmentation, warm/dry Xavier Ramos D.O. Nov 24, 2018 13:30
[2018-11-24 15:56] VITALS: BP 132/80
--- NOTE | 2018-11-24 17:10 | NUR ---
CASE MANAGEMENT:REVIEW 11/24/18 SI:FTT. GRAVELY DISABLED LEAKING URINE ON FLOOR T 97.8 HR 76 RR 19 B/P 132/80 SATS 97% ON RA NO LABS TODAY IS: DITROPAN PO Q8HRS LISINOPRIL PO QD NORVASC PO QD LEXAPRO PO QD RISPERDAL PO QHS FLOMAX PO BID ATIVAN PO Q6HRS PRN HEPARIN SQ Q12 : MED/SURG STATUS 4 [facility]
--- NOTE | 2018-11-24 19:48 | NUR ---
HAND-OFF: Report given to JOSEPHINE BARRY.
[2018-11-24 20:00] VITALS: BP 126/71
--- NOTE | 2018-11-24 21:00 | NUR ---
NURSE NOTES: Patient is in bed, awake and verbal. Pt is forgetful and confused . Ambulates with walker. Breathing on room air with no signs of distress or SOB noted. . Bed locked and in lowest position. Bed alarm is on. Call light in reach.Patient will be monitored.Bed alarm on. Pt is awaiting SNF placement. Trainee, Yancy Fitzgerald RN will be assisting in the care of this patient.
[2018-11-25] VITALS: BP 130/70
[2018-11-25 04:00] VITALS: BP 135/68
[2018-11-25] MEDS: Oxybutynin 5mg tab ORAL SCH ×3 (05:57→21:48)
--- NOTE | 2018-11-25 07:09 | NUR ---
HAND-OFF: Report given to:Cassy BURTON.Informed that pt is fall risk.
[2018-11-25 08:00] VITALS: BP 117/79
--- NOTE | 2018-11-25 08:00 | NUR ---
NURSE NOTES: received pt ambulating in hallway, with walker, no complaint of pain or discomfort, steady gait. No IV access, MD aware. Will continue to monitor pt and follow up with the plan of care.
[2018-11-25] MEDS: Lisinopril 2.5mg tab ORAL SCH (09:00)
--- NOTE | 2018-11-25 09:42 | NUR ---
CASE MANAGEMENT:REVIEW 11/25/18 SI:FTT. GRAVELY DISABLED LEAKING URINE ON FLOOR T 98.3 HR 76 RR 19 B/P 117/79 SATS 96% ON RA NO LABS TODAY IS: DITROPAN PO Q8HRS LISINOPRIL PO QD NORVASC PO QD LEXAPRO PO QD RISPERDAL PO QHS FLOMAX PO BID ATIVAN PO Q6HRS PRN HEPARIN SQ Q12 : MED/SURG STATUS 4 [facility]
--- NOTE | 2018-11-25 11:55 | General Progress Note ---
Assessment/Plan Problem List: (1) Failure to thrive SNOMED: 01832993 Qualifiers: Qualified Codes: R62.7 - Adult failure to thrive (2) Gravely disabled SNOMED: 478498842 (3) Acute encephalopathy ICD Codes: G93.40 - Encephalopathy, unspecified SNOMED: 26121128, 175565140 (4) Encounter for generalized patient complaints ICD Codes: Z00.8 - Encounter for other general examination SNOMED: 647796345 (5) Dementia with behavioral disturbance ICD Codes: F03.91 - Unspecified dementia with behavioral disturbance SNOMED: 0515399805363 (6) Essential hypertension ICD Codes: I10 - Essential (primary) hypertension SNOMED: 09876988 Status: doing well, stable Assessment/Plan: 63 year old male admitted from facility for acute encephalopathy, Failure to thrive and dementia with behavioral disturbance 1. Acute encephalopathy/ dementia with behavioral disturbance. Doubt metabolic, based on reviewing his labs. His renal function is at baseline and stable -psychiatry consult with Dr. Collins -PT, patient seen ambulating independently with walker Case management for dc planning: Still pending placement 2. Obstructive uropathy with staghorn calculus.BPH. Renal function stable. Resume Tamsulosin 3. CKD stage II-III, stable. 4. Failure to thrive. 5. Dementia with behavioral disturbance. Oriented to self only. Resume outpatient psych meds. Risperidone 2mg at night per psychiatry and ativan prn 6.HTN, controlled -Amlodipine 10mg, Atenolol stopped due to bradycardia. Continue lisinopril 5mg PO daily. Recheck BMP in one week (11/29/18) 7. Etoh dependence in the past. Thiamine and folate 8. Neurogenic bladder: Oxybutynin 5mg TID has no insurance, nurse case management involved. applied for medical. Still pending Time of this note may not reflect time of encounter. Discussed with RN and patient. I spent 19 minutes on this encounter. 50% or more on counselling and care coordination. Subjective Date patient seen: Nov 25, 2018 Constitutional: Denies: chills, diaphoresis, fever, malaise, weakness, other HEENT: Denies: eye pain, blurred vision, tearing, double vision, ear pain, ear discharge, nose pain, nose congestion, throat pain, throat swelling, mouth pain , mouth swelling, other Cardiovascular: Denies: chest pain, edema, irregular heart rate, lightheadedness, palpitations, syncope, other Respiratory: Denies: cough, orthopnea, shortness of breath, SOB with excertion , SOB at rest, sputum, stridor, wheezing, other Gastrointestinal/Abdominal: Denies: abdomen distended, abdominal pain, black stools, tarry stools, blood in stool, constipated, diarrhea, difficulty swallowing, nausea, poor appetite, poor fluid intake, rectal bleeding, vomiting , other Genitourinary: Denies: burning, discharge, frequency, flank pain, hematuria, incontinence, pain, urgency, other Neurologic/Psychiatric: Denies: anxiety, depressed, emotional problems, headache, numbness, paresthesia, pre-existing deficit, seizure, tingling, tremors, weakness, other Endocrine: Denies: excessive sweating, flushing, intolerance to cold, intolerance to heat, increased hunger, increased thirst, increased urine, unexplained weight gain, unexplained weight loss, other Hematologic/Lymphatic: Denies: anemia, easy bleeding, easy bruising, other Allergies: Coded Allergies: No Known Allergies (Unverified , 09/11/18) Subjective No acute events overnight per nursing. No complaints. Feels about the same. Still waiting for placement. HTN: Blood pressure improved to SBP 110-120s. Tolerating lisinopril. No side effects so far. Denies headaches, numbness, tingling. Denies chest pain or SOB. Objective Last 24 Hour Vital Signs Date Time Temp Pulse Resp B/P (MAP) Pulse Ox O2 Delivery O2 Flow Rate FiO2 11/25/18 09:00 117/79 11/25/18 09:00 Room Air 11/25/18 08:00 98.3 76 19 117/79 (92) 96 11/25/18 04:00 98.8 57 20 135/68 (90) 96 11/25/18 00:00 97.8 60 18 130/70 (90) 95 11/24/18 21:00 Room Air 11/24/18 20:00 98.1 55 19 126/71 (89) 95 11/24/18 15:56 97.8 76 19 132/80 (97) 97 11/24/18 12:00 98.0 71 17 148/85 (106) 97 Intake and Output 11/24/18 11/25/18 19:00 07:00 Intake Total 900 ml Balance 900 ml Other 900 ml # Voids 2 Height (Feet): 5 Height (Inches): 10.00 Weight (Pounds): 193 General Appearance: WD/WN, no apparent distress, alert EENT: PERRL/EOMI, normal ENT inspection Neck: non-tender, normal alignment Cardiovascular: normal peripheral pulses, normal rate, regular rhythm, no JVD Respiratory/Chest: chest wall non-tender, lungs clear, normal breath sounds Abdomen: normal bowel sounds, non tender, soft Extremities: normal range of motion, non-tender, normal inspection 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 Nov 25, 2018 11:54
[2018-11-25 12:00] VITALS: BP 136/96
[2018-11-25 16:00] VITALS: BP 138/70
--- NOTE | 2018-11-25 19:15 | NUR ---
HAND-OFF: Report given to RN Guy/JOSEPHINE Mccormick.
--- NOTE | 2018-11-25 19:17 | NUR ---
NURSE NOTES: Patient is in bed, asleep. Pt is alert, forgetful and verbally able to needs known. Ambulates with walker. Breathing on room air with no signs of distress or SOB noted. Bed locked and in lowest position. Bed alarm is on. Call light in reach. Patient will be monitored.
[2018-11-25 20:00] VITALS: BP 146/75
--- NOTE | 2018-11-25 21:00 | NUR ---
NURSE NOTES: Patient is in bed, asleep. Pt is alert, forgetful and verbally able to make needs known. Ambulates with walker, jser now. Breathing on room air with no signs of distress or SOB noted. Bed locked and in lowest position. Bed alarm is on. Call light in reach. Patient will be monitored. Fall Precaution in place. Addendum: 11/26/18 at 0231 by ASHA STEWART RN RN Trainee, Yancy Fitzgerald RN will be assisting in the care of this patient.
[2018-11-26] VITALS (7 sets, daily range): BP systolic 127–140; BP diastolic 70–93
--- NOTE | 2018-11-26 02:31 | NUR ---
NURSE NOTES: Pt is in bed asleep. Pt C/O pain 10/30. Pain medication administered as ordered and assisted as needed. Bed in low and locked position, bed alarm is on. Call light within reach, walker at bedside. Pt will be monitored. Addendum: 11/26/18 at 0236 by Regi Fitzgerald RN Disregard the above documentation. incorrect patient.
--- NOTE | 2018-11-26 02:39 | NUR ---
NURSE NOTES: Pt is awake and sitting in the chair. No C/O pain or discomfort @this time. Meds administered as ordered and assisted as needed. Fall precaution in place.Bed in low and locked position, bed alarm is on. Call light within reach, walker at bedside. Pt will be monitored.
[2018-11-26] MEDS: Oxybutynin 5mg tab ORAL SCH ×3 (06:29→22:28)
--- NOTE | 2018-11-26 07:17 | NUR ---
HAND-OFF: Report given to:Cassy BURTON.Informed that pt is fall risk.
--- NOTE | 2018-11-26 07:29 | NUR ---
NURSE NOTES: received pt ambulating in hallway, without walker, no complaint of pain or discomfort, unsteady gait. Nurse told patient to use the walker next time he walks, for safety. Patient verbalized understanding, and went back to bed with nurse assistance. No IV access, MD aware. Will continue to monitor pt and follow up with the plan of care.
[2018-11-26] MEDS: Lisinopril 2.5mg tab ORAL SCH (08:16)
--- NOTE | 2018-11-26 13:41 | NUR ---
CASE MANAGEMENT:REVIEW 11/26/18 SI:FTT. GRAVELY DISABLED LEAKING URINE ON FLOOR 99.3 58 18 138/ 70 96% RA IS: DITROPAN PO Q8HRS LISINOPRIL PO QD TYLENOL PO Q4/PRN : MED/SURG STATUS 4 [facility] DCP: PLACEMENT
--- NOTE | 2018-11-26 18:18 | General Progress Note ---
Assessment/Plan Problem List: (1) Failure to thrive SNOMED: 09861202 Qualifiers: Qualified Codes: R62.7 - Adult failure to thrive (2) Gravely disabled SNOMED: 860537627 (3) Acute encephalopathy ICD Codes: G93.40 - Encephalopathy, unspecified SNOMED: 99824148, 586378732 (4) Encounter for generalized patient complaints ICD Codes: Z00.8 - Encounter for other general examination SNOMED: 309426369 (5) Dementia with behavioral disturbance ICD Codes: F03.91 - Unspecified dementia with behavioral disturbance SNOMED: 2114883151295 (6) Essential hypertension ICD Codes: I10 - Essential (primary) hypertension SNOMED: 53794077 Status: doing well, stable Assessment/Plan: 63 year old male admitted from facility for acute encephalopathy, Failure to thrive and dementia with behavioral disturbance 1. Acute encephalopathy/ dementia with behavioral disturbance. Doubt metabolic, based on reviewing his labs. His renal function is at baseline and stable -psychiatry consult with Dr. Collins -PT, patient seen ambulating independently with walker Case management for dc planning: Still pending placement 2. Obstructive uropathy with staghorn calculus.BPH. Renal function stable. Resume Tamsulosin 3. CKD stage II-III, stable. 4. Failure to thrive. 5. Dementia with behavioral disturbance. Oriented to self only. Resume outpatient psych meds. Risperidone 2mg at night per psychiatry and ativan prn 6.HTN, controlled -Amlodipine 10mg, Atenolol stopped due to bradycardia. Continue lisinopril 5mg PO daily. Recheck BMP in one week (11/29/18) 7. Etoh dependence in the past. Thiamine and folate 8. Neurogenic bladder: Oxybutynin 5mg TID has no insurance, disability case manager involved. applied for medical. Still pending Time of this note may not reflect time of encounter. Discussed with RN and patient. I spent 20 minutes on this encounter. 50% or more on counselling and care coordination. Subjective Date patient seen: Nov 26, 2018 Constitutional: Denies: chills, diaphoresis, fever, malaise, weakness, other HEENT: Denies: eye pain, blurred vision, tearing, double vision, ear pain, ear discharge, nose pain, nose congestion, throat pain, throat swelling, mouth pain , mouth swelling, other Cardiovascular: Denies: chest pain, edema, irregular heart rate, lightheadedness, palpitations, syncope, other Respiratory: Denies: cough, orthopnea, shortness of breath, SOB with excertion , SOB at rest, sputum, stridor, wheezing, other Gastrointestinal/Abdominal: Denies: abdomen distended, abdominal pain, black stools, tarry stools, blood in stool, constipated, diarrhea, difficulty swallowing, nausea, poor appetite, poor fluid intake, rectal bleeding, vomiting , other Genitourinary: Denies: burning, discharge, frequency, flank pain, hematuria, incontinence, pain, urgency, other Neurologic/Psychiatric: Denies: anxiety, depressed, emotional problems, headache, numbness, paresthesia, pre-existing deficit, seizure, tingling, tremors, weakness, other Endocrine: Denies: excessive sweating, flushing, intolerance to cold, intolerance to heat, increased hunger, increased thirst, increased urine, unexplained weight gain, unexplained weight loss, other Hematologic/Lymphatic: Denies: anemia, easy bleeding, easy bruising, other Allergies: Coded Allergies: No Known Allergies (Unverified , 09/11/18) Subjective No acute events overnight per nursing. No acute changes. No complaints. Feels well. Still waiting for placement. HTN: Blood pressure improved to SBP 110-120s. Tolerating lisinopril. No side effects so far. Denies headaches, numbness, tingling. Denies chest pain or SOB. Objective Last 24 Hour Vital Signs Date Time Temp Pulse Resp B/P (MAP) Pulse Ox O2 Delivery O2 Flow Rate FiO2 11/26/18 16:00 97.5 81 19 127/81 (96) 96 11/26/18 12:00 98.4 59 19 139/76 (97) 98 11/26/18 09:00 Room Air 11/26/18 08:16 138/70 11/26/18 08:00 99.3 58 18 138/70 (92) 96 11/26/18 04:00 97.6 60 18 132/70 (90) 96 11/26/18 00:40 97.6 60 18 132/70 (90) 96 11/26/18 00:00 98.0 61 18 140/72 (94) 95 11/25/18 21:00 Room Air 11/25/18 20:00 98.2 60 18 146/75 (98) 96 Intake and Output 11/25/18 11/26/18 19:00 07:00 Intake Total 1000 ml 240 ml Balance 1000 ml 240 ml Intake Oral 240 ml Other 1000 ml # Voids 4 Height (Feet): 5 Height (Inches): 10.00 Weight (Pounds): 193 General Appearance: WD/WN, no apparent distress, alert EENT: PERRL/EOMI Neck: non-tender, normal alignment Cardiovascular: normal peripheral pulses, normal rate, regular rhythm, no JVD Respiratory/Chest: chest wall non-tender, lungs clear, normal breath sounds Abdomen: normal bowel sounds, non tender, soft, no organomegaly, no mass Extremities: normal range of motion, non-tender 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 Nov 26, 2018 18:18
--- NOTE | 2018-11-26 19:44 | NUR ---
NURSE NOTES: RECEIVED PT FROM JOSEPHINE WILLOUGHBY. PT IS AWAKE, AAOX2, ON ROOM AIR, NO ACUTE DISTRESS NOTED. WALKER AT BEDSIDE. NO IV ACCESS. MD AWARE. BED IS LOCKED AND LOW, BED ALARMS ACTIVE, SIDE RAILS UP X2, AND CALL LIGHT IS WITHIN REACH. WILL CONTINUE TO MONITOR.
[2018-11-27] VITALS: BP 143/93
[2018-11-27 04:00] VITALS: BP 120/75
[2018-11-27] MEDS: Oxybutynin 5mg tab ORAL SCH ×3 (06:46→22:12)
--- NOTE | 2018-11-27 07:40 | NUR ---
HAND-OFF: Report given to JOSEPHINE CASH.
--- NOTE | 2018-11-27 07:45 | NUR ---
NURSE NOTES: Received patient awake. No SOB or cardiac distress. No complains of pain at this time. Kept head of bed elevated. Bed locked in lowest position. Instructed to use walker during ambulation. Call light within reach. Will continue plan of care.
[2018-11-27 08:00] VITALS: BP 144/68
--- NOTE | 2018-11-27 09:18 | NUR ---
*-* INSURANCE *-* UPDATED CLINICALS AND REVIEWS HAVE BEEN FAXED TO: [facility]:VERNA LOO P: [phone] F: [phone]
[2018-11-27 12:00] VITALS: BP 147/74
--- NOTE | 2018-11-27 12:06 | NUR ---
CASE MANAGEMENT:REVIEW 11/27/18 SI:FTT. GRAVELY DISABLED LEAKING URINE ON FLOOR 98.6 58 16 144/68 96% ON RA IS: DITROPAN PO Q8HRS LISINOPRIL PO QD TYLENOL PO Q4/PRN : MED/SURG STATUS 4 EAST DCP: PLACEMENT
--- NOTE | 2018-11-27 12:07 | NUR ---
DISCHARGE PLANNING SPOKE WITH NIURKA AT "[facility]" THEY NO LONGER HAVE BED AVAILABLE THIS GENETICS PHYSICIAN AND BLOW PIT OPERATOR WILL HAVE TO START LOOKING FOR BED AGAIN
[2018-11-27] MEDS: Lisinopril 2.5mg tab ORAL SCH (12:25)
--- NOTE | 2018-11-27 13:47 | General Progress Note ---
Assessment/Plan Problem List: (1) Failure to thrive SNOMED: 79177274 Qualifiers: Qualified Codes: R62.7 - Adult failure to thrive (2) Gravely disabled SNOMED: 151075859 (3) Acute encephalopathy ICD Codes: G93.40 - Encephalopathy, unspecified SNOMED: 18824348, 891842041 (4) Encounter for generalized patient complaints ICD Codes: Z00.8 - Encounter for other general examination SNOMED: 578131189 (5) Dementia with behavioral disturbance ICD Codes: F03.91 - Unspecified dementia with behavioral disturbance SNOMED: 9003102500393 (6) Essential hypertension ICD Codes: I10 - Essential (primary) hypertension SNOMED: 49067202 Status: doing well, stable Assessment/Plan: 63 year old male admitted from facility for acute encephalopathy, Failure to thrive and dementia with behavioral disturbance 1. Acute encephalopathy/ dementia with behavioral disturbance. Doubt metabolic, based on reviewing his labs. His renal function is at baseline and stable - RESOLVED -psychiatry consult with Dr. Collins -PT, patient seen ambulating independently with walker Case management for dc planning: Still pending placement 2. Obstructive uropathy with staghorn calculus.BPH. Renal function stable. Continue Tamsulosin 3. CKD stage II-III, stable. 4. Failure to thrive. 5. Dementia with behavioral disturbance. Resume outpatient psych meds. Risperidone 2mg at night per psychiatry and ativan prn 6.HTN, controlled -Amlodipine 10mg, Atenolol stopped due to bradycardia. Continue lisinopril 5mg PO daily. Recheck BMP in one week (11/29/18) 7. Etoh dependence in the past. Thiamine and folate 8. Neurogenic bladder: Oxybutynin 5mg TID has no insurance, case maker involved. applied for medical. Still pending Time of this note may not reflect time of encounter. Discussed with RN and patient. I spent 21 minutes on this encounter. 50% or more on counselling and care coordination. Subjective Date patient seen: Nov 27, 2018 Constitutional: Denies: no symptoms, chills, diaphoresis, fever, malaise, weakness, other HEENT: Denies: no symptoms, eye pain, blurred vision, tearing, double vision, ear pain, ear discharge, nose pain, nose congestion, throat pain, throat swelling, mouth pain, mouth swelling, other Cardiovascular: Denies: no symptoms, chest pain, edema, irregular heart rate, lightheadedness, palpitations, syncope, other Respiratory: Denies: no symptoms, cough, orthopnea, shortness of breath, SOB with excertion, SOB at rest, sputum, stridor, wheezing, other Gastrointestinal/Abdominal: Denies: no symptoms, abdomen distended, abdominal pain, black stools, tarry stools, blood in stool, constipated, diarrhea, difficulty swallowing, nausea, poor appetite, poor fluid intake, rectal bleeding , vomiting, other Genitourinary: Denies: no symptoms, burning, discharge, frequency, flank pain, hematuria, incontinence, pain, urgency, other Neurologic/Psychiatric: Denies: no symptoms, anxiety, depressed, emotional problems, headache, numbness, paresthesia, pre-existing deficit, seizure, tingling, tremors, weakness, other Endocrine: Denies: no symptoms, excessive sweating, flushing, intolerance to cold, intolerance to heat, increased hunger, increased thirst, increased urine, unexplained weight gain, unexplained weight loss, other Hematologic/Lymphatic: Denies: no symptoms, anemia, easy bleeding, easy bruising, other Allergies: Coded Allergies: No Known Allergies (Unverified , 09/11/18) Subjective No acute events overnight per nursing. No acute changes. No complaints. Feels well. Still waiting for placement. Patient ambulates without difficulty, he denies any complaints HTN: Blood pressure improved to SBP 110-120s. Tolerating lisinopril. No side effects so far. Denies headaches, numbness, tingling. Denies chest pain or SOB. Objective Last 24 Hour Vital Signs Date Time Temp Pulse Resp B/P (MAP) Pulse Ox O2 Delivery O2 Flow Rate FiO2 11/27/18 12:25 147/74 11/27/18 08:00 98.6 58 16 144/68 (93) 96 11/27/18 04:00 97.6 58 18 120/75 (90) 96 11/27/18 00:00 98.0 58 18 143/93 (110) 96 11/26/18 21:00 Room Air 11/26/18 20:00 97.9 57 18 139/93 (108) 96 11/26/18 16:00 97.5 81 19 127/81 (96) 96 Intake and Output 11/26/18 11/27/18 19:00 07:00 Intake Total 240 ml Balance 240 ml Intake Oral 240 ml # Voids 3 4 # Bowel Movements 1 Height (Feet): 5 Height (Inches): 10.00 Weight (Pounds): 193 General Appearance: WD/WN, no apparent distress, alert EENT: PERRL/EOMI, normal ENT inspection, TMs normal Neck: non-tender, normal alignment, supple Cardiovascular: normal peripheral pulses, normal rate, regular rhythm, no JVD Respiratory/Chest: chest wall non-tender, lungs clear, normal breath sounds, no respiratory distress Abdomen: normal bowel sounds, non tender, soft, no organomegaly, no mass Edema: other - no LE edema bilaterally Skin: normal pigmentation, warm/dry Xavier Ramos D.O. Nov 27, 2018 13:47
[2018-11-27 16:00] VITALS: BP 130/88
--- NOTE | 2018-11-27 19:15 | NUR ---
HAND-OFF: Report given to Ana. Addendum: 11/27/18 at 1926 by Mellisa Young RN HAND-OFF: Report given to
[2018-11-27 20:00] VITALS: BP 148/79
--- NOTE | 2018-11-27 20:16 | NUR ---
NURSE NOTES: RECEIVED PT FROM JOSEPHINE CASH AND JOSEPHINE JANE. PT IS ASLEEP, AAO X2, ON ROOM AIR, NO ACUTE DISTRESS NOTED. IV HAS NO IV ACCESS, MD AWARE. FALL RISK PRECAUTIONS IMPLEMENTED. WALKER NOTED AT BEDSIDE. BED IS LOCKED AND LOW, BED ALARMS ACTIVE, SIDE RAILS UP X2, AND CALL LIGHT IS WITHIN REACH. WILL CONTINUE TO MONITOR.
[2018-11-28] VITALS: BP 134/70
[2018-11-28] MEDS: Oxybutynin 5mg tab ORAL SCH ×3 (06:47→22:29)
--- NOTE | 2018-11-28 07:28 | NUR ---
HAND-OFF: Report given to JOSEPHINE CASH and JOSEPHINE JANE.
--- NOTE | 2018-11-28 07:30 | NUR ---
NURSE NOTES: Received patient on bed awake. No SOB or cardiac distress. Noted with wandering behavior, kept on close watch. Maintained on fall precautions. Head of bed elevated. Bed locked in lowest position. Call light within reach. Will continue plan of care.
[2018-11-28 08:00] VITALS: BP 152/86
[2018-11-28] MEDS: Lisinopril 2.5mg tab ORAL SCH (09:27)
[2018-11-28 12:00] VITALS: BP 125/95
--- NOTE | 2018-11-28 12:51 | NUR ---
CASE MANAGEMENT:REVIEW 11/28/18 SI:FTT. GRAVELY DISABLED LEAKING URINE ON FLOOR 97.7 58 20 152/86 96% ON RA IS: DITROPAN PO Q8HRS LISINOPRIL PO QD TYLENOL PO Q4/PRN : MED/SURG STATUS 4 EAST DCP: PLACEMENT
--- NOTE | 2018-11-28 12:54 | NUR ---
DISCHARGE PLANNING ALLIE FROM [facility] IS ASSISTING WITH PLACEMENT
--- NOTE | 2018-11-28 13:22 | NUR ---
RD ASSESSMENT & RECOMMENDATIONS SEE CARE ACTIVITY FOR COMPLETE ASSESSMENT DAILY ESTIMATED NEEDS: Needs based on Cardiac 80kg adj 25-30 kcals/kg 1442-0209 total kcals 1-1.2 g protein/kg 80-96 g total protein 25-30 mL/kg 8915-0512 total fluid mLs NUTRITION DIAGNOSIS: Altered nutrition related lab values r/t clinical status as evidenced by elev Creat(1.4-> now wnl), elev AST, elev lipase (446), elev BP (154/93 -> wnl at this time). CURRENT DIET:Regular PO DIET RECOMMENDATIONS: LOW NA diet / soft easy chew ADDITIONAL RECOMMENDATIONS: 1) Obtain a standing weight as able / or calibrated bed scale wt -> pt w/ extended admission 2) Updated BMP as able, monitor lytes, replete as needed 3) Snacks BID in b/w meals 4) H/o C-diff, rec probiotics .
--- NOTE | 2018-11-28 14:06 | General Progress Note ---
Assessment/Plan Problem List: (1) Failure to thrive SNOMED: 83908550 Qualifiers: Qualified Codes: R62.7 - Adult failure to thrive (2) Gravely disabled SNOMED: 657286868 (3) Acute encephalopathy ICD Codes: G93.40 - Encephalopathy, unspecified SNOMED: 73662903, 030479241 (4) Encounter for generalized patient complaints ICD Codes: Z00.8 - Encounter for other general examination SNOMED: 094694271 (5) Dementia with behavioral disturbance ICD Codes: F03.91 - Unspecified dementia with behavioral disturbance SNOMED: 1540480037608 (6) Essential hypertension ICD Codes: I10 - Essential (primary) hypertension SNOMED: 19616702 Status: doing well, stable Assessment/Plan: 63 year old male admitted from facility for acute encephalopathy, Failure to thrive and dementia with behavioral disturbance 1. Acute encephalopathy/ dementia with behavioral disturbance. Doubt metabolic, based on reviewing his labs. His renal function is at baseline and stable - RESOLVED -psychiatry consult with Dr. Collins -PT, patient seen ambulating independently with walker Case management for dc planning: Still pending placement 2. Obstructive uropathy with staghorn calculus.BPH. Renal function stable. Continue Tamsulosin 3. CKD stage II-III, stable. 4. Failure to thrive. 5. Dementia with behavioral disturbance. Resume outpatient psych meds. Risperidone 2mg at night per psychiatry and ativan prn 6.HTN, controlled -Amlodipine 10mg, Atenolol stopped due to bradycardia. Continue lisinopril 5mg PO daily. Recheck BMP TOMORROW 7. Etoh dependence in the past. Thiamine and folate 8. 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 applied for medical. Still pending Time of this note may not reflect time of encounter. Discussed with RN and patient. I spent 29 minutes on this encounter. 50% or more on counselling and care coordination. Subjective Date patient seen: Nov 28, 2018 Constitutional: Denies: chills, diaphoresis, fever, malaise, weakness, other HEENT: Denies: eye pain, blurred vision, tearing, double vision, ear pain, ear discharge, nose pain, nose congestion, throat pain, throat swelling, mouth pain , mouth swelling, other Cardiovascular: Denies: chest pain, edema, irregular heart rate, lightheadedness, palpitations, syncope, other Respiratory: Denies: cough, orthopnea, shortness of breath, SOB with excertion , SOB at rest, sputum, stridor, wheezing, other Gastrointestinal/Abdominal: Denies: abdomen distended, abdominal pain, black stools, tarry stools, blood in stool, constipated, diarrhea, difficulty swallowing, nausea, poor appetite, poor fluid intake, rectal bleeding, vomiting , other Genitourinary: Denies: burning, discharge, frequency, flank pain, hematuria, incontinence, pain, urgency, other Neurologic/Psychiatric: Denies: anxiety, depressed, emotional problems, headache, numbness, paresthesia, pre-existing deficit, seizure, tingling, tremors, weakness, other Endocrine: Denies: excessive sweating, flushing, intolerance to cold, intolerance to heat, increased hunger, increased thirst, increased urine, unexplained weight gain, unexplained weight loss, other Hematologic/Lymphatic: Denies: anemia, easy bleeding, easy bruising, other Allergies: Coded Allergies: No Known Allergies (Unverified , 09/11/18) Subjective No acute events overnight per nursing. No acute changes. Patient has no complaints No complaints. Feels well. Still waiting for placement. Patient ambulates without difficulty, he denies any complaints HTN: Blood pressure stable at SBP 110-120s. Tolerating lisinopril. No side effects so far. Denies headaches, numbness, tingling. Denies chest pain or SOB. Objective Last 24 Hour Vital Signs Date Time Temp Pulse Resp B/P (MAP) Pulse Ox O2 Delivery O2 Flow Rate FiO2 11/28/18 12:00 98.4 60 20 125/95 (105) 98 11/28/18 09:27 152/86 11/28/18 09:00 Room Air 11/28/18 08:00 97.7 58 20 152/86 (108) 96 11/28/18 00:00 97.5 58 17 134/70 (91) 96 11/27/18 21:00 Room Air 11/27/18 20:00 98.2 53 17 148/79 (102) 94 11/27/18 16:00 99.0 82 21 130/88 (102) 97 Intake and Output 11/27/18 11/28/18 19:00 07:00 Intake Total 480 ml Balance 480 ml Intake Oral 480 ml # Voids 3 1 Height (Feet): 5 Height (Inches): 10.00 Weight (Pounds): 192 General Appearance: WD/WN, no apparent distress, alert EENT: PERRL/EOMI, normal ENT inspection Neck: non-tender, normal alignment, supple, normal inspection Cardiovascular: normal peripheral pulses, normal rate, regular rhythm, no JVD Respiratory/Chest: chest wall non-tender, lungs clear, normal breath sounds Abdomen: normal bowel sounds, non tender, soft, no organomegaly, no mass Extremities: normal range of motion, non-tender, normal inspection Skin: normal pigmentation, warm/dry Xavier Ramos D.O. Nov 28, 2018 14:06
[2018-11-28 16:00] VITALS: BP 133/74
--- NOTE | 2018-11-28 16:18 | NUR ---
*-* INSURANCE *-* UPDATED CLINICALS AND REVIEWS HAVE BEEN FAXED TO: [facility]:VERNA LOO P: [phone] F: [phone]
--- NOTE | 2018-11-28 19:17 | NUR ---
HAND-OFF: Report given to Maria A.
[2018-11-28 20:00] VITALS: BP 136/82
--- NOTE | 2018-11-28 20:28 | NUR ---
NURSE NOTES: RECEIVED PT FROM JOSEPHINE CASH AND JOSEPHINE JANE. PT IS ASLEEP, ON ROOM AIR, NO ACUTE DISTRESS NOTED. PT HAS NO IV ACCESS, MD AWARE. FALL PRECAUTIONS IMPLEMENTED. WALKER IS AT BEDSIDE. BED IS LOCKED AND LOW, BED ALARMS ACTIVE, SIDE RAILS UP X2 AND CALL LIGHT IS WITHIN REACH. WILL CONTINUE TO MONITOR.
[2018-11-29] VITALS: BP 130/73
[2018-11-29 04:00] VITALS: BP 147/72
[2018-11-29] MEDS: Oxybutynin 5mg tab ORAL SCH ×3 (06:06→22:20)
[2018-11-29 07:09] LABS: BASOPHILS % (AUTO) 1.2 % (0.0-2.0); HEMATOCRIT 40.2 % (42.0-52.0); HEMOGLOBIN 13.5 G/DL (14.2-18.0); LYMPHOCYTES % (AUTO) 37.8 % (20.0-45.0); MEAN CORPUSCULAR VOLUME 88 FL (80-99); MONOCYTES % (AUTO) 10.9 % (1.0-10.0); NEUTROPHILS % (AUTO) 45.1 % (45.0-75.0); PLATELET COUNT 174 K/UL (150-450); RED BLOOD COUNT 4.55 M/UL (4.70-6.10); RED CELL DISTRIBUTION WIDTH 13.7 % (11.6-14.8); WHITE BLOOD COUNT 6.2 K/UL (4.8-10.8)
--- NOTE | 2018-11-29 07:30 | NUR ---
HAND-OFF: REPORT GIVEN TO JOSEPHINE KING. ENDORSED PLAN OF CARE. PT IS IN STABLE CONDITION.
--- NOTE | 2018-11-29 07:32 | NUR ---
NURSE NOTES: PATIENT RECEIVED FROM TORRI,RN. PATIENT RECEIVED AWAKE AND ALERT AND RESTING IN BED. PATIENT HAS NO IV SITE, DR IS AWARE. PATIENT IS ABLE TO MAKE NEEDS KNOWN. BED IN THE LOW AND LOCKED POSITION AND CALL LIGHT WITHIN REACH. WILL CONTINUE TO MONITOR.
[2018-11-29 07:33] LABS: ANION GAP 12 mmol/L (5-15); BLOOD UREA NITROGEN 25 mg/dL (7-18); CARBON DIOXIDE 21 MMOL/L (21-32); CHLORIDE 108 MMOL/L (98-107); CREATININE 1.4 MG/DL (0.55-1.30); POTASSIUM 4.5 MMOL/L (3.5-5.1); SODIUM 141 MMOL/L (136-145)
[2018-11-29 08:00] VITALS: BP 134/73
[2018-11-29] MEDS ORDERED: Lisinopril 10mg tab ORAL SCH (09:00)
--- NOTE | 2018-11-29 10:36 | Cardiac Electrophysiology PN ---
Subjective Subjective [id number] Objective Last 24 Hour Vital Signs Date Time Temp Pulse Resp B/P (MAP) Pulse Ox O2 Delivery O2 Flow Rate FiO2 11/29/18 09:30 134/73 11/29/18 09:00 Room Air 11/29/18 08:00 97.9 56 19 134/73 (93) 96 11/29/18 04:00 97.3 48 20 147/72 (97) 96 11/29/18 00:00 97.5 52 18 130/73 (92) 97 11/28/18 21:00 Room Air 11/28/18 20:00 98.2 56 20 136/82 (100) 94 11/28/18 16:00 98.2 57 18 133/74 (93) 98 11/28/18 12:00 98.4 60 20 125/95 (105) 98 Intake and Output 11/28/18 11/29/18 19:00 07:00 Intake Total 600 ml Balance 600 ml Intake Oral 600 ml # Voids 5 2 # Bowel Movements 2 Laboratory Tests Test 11/29/18 05:15 White Blood Count 6.2 K/UL (4.8-10.8) Red Blood Count 4.55 M/UL (4.70-6.10) L Hemoglobin 13.5 G/DL (14.2-18.0) L Hematocrit 40.2 % (42.0-52.0) L Mean Corpuscular Volume 88 FL (80-99) Mean Corpuscular Hemoglobin 29.7 PG (27.0-31.0) Mean Corpuscular Hemoglobin Concent 33.7 G/DL (32.0-36.0) Red Cell Distribution Width 13.7 % (11.6-14.8) Platelet Count 174 K/UL (150-450) Mean Platelet Volume 6.6 FL (6.5-10.1) Neutrophils (%) (Auto) 45.1 % (45.0-75.0) Lymphocytes (%) (Auto) 37.8 % (20.0-45.0) Monocytes (%) (Auto) 10.9 % (1.0-10.0) H Eosinophils (%) (Auto) 5.0 % (0.0-3.0) H Basophils (%) (Auto) 1.2 % (0.0-2.0) Sodium Level 141 MMOL/L (136-145) Potassium Level 4.5 MMOL/L (3.5-5.1) Chloride Level 108 MMOL/L (98-107) H Carbon Dioxide Level 21 MMOL/L (21-32) Anion Gap 12 mmol/L (5-15) Blood Urea Nitrogen 25 mg/dL (7-18) H Creatinine 1.4 MG/DL (0.55-1.30) H Estimat Glomerular Filtration Rate 50.9 mL/min (>60) Glucose Level 88 MG/DL (74-106) Calcium Level 9.0 MG/DL (8.5-10.1) Dru Kiser MD Nov 29, 2018 10:36
[2018-11-29 12:00] VITALS: BP 108/62
--- NOTE | 2018-11-29 15:24 | General Progress Note ---
Assessment/Plan Problem List: (1) Failure to thrive SNOMED: 85598872 Qualifiers: Qualified Codes: R62.7 - Adult failure to thrive (2) Gravely disabled SNOMED: 991935698 (3) Acute encephalopathy ICD Codes: G93.40 - Encephalopathy, unspecified SNOMED: 06586756, 481540516 (4) Encounter for generalized patient complaints ICD Codes: Z00.8 - Encounter for other general examination SNOMED: 868058952 (5) Dementia with behavioral disturbance ICD Codes: F03.91 - Unspecified dementia with behavioral disturbance SNOMED: 6273592070994 (6) Essential hypertension ICD Codes: I10 - Essential (primary) hypertension SNOMED: 96751304 Status: doing well, stable Assessment/Plan: 63 year old male admitted from facility for acute encephalopathy, Failure to thrive and dementia with behavioral disturbance 1. Acute encephalopathy/ dementia with behavioral disturbance. Doubt metabolic, based on reviewing his labs. His renal function is at baseline and stable - RESOLVED -psychiatry consult with Dr. Collins -PT, patient seen ambulating independently with walker Case management for dc planning: Still pending placement 2. Obstructive uropathy with staghorn calculus.BPH. Renal function stable. Continue Tamsulosin 3. CKD stage II-III, stable. 4. Failure to thrive. 5. Dementia with behavioral disturbance. Resume outpatient psych meds. Risperidone 2mg at night per psychiatry and ativan prn 6.HTN, controlled -Amlodipine 10mg, Atenolol stopped due to bradycardia. INCREASE lisinopril to 10mg PO daily. 7. Etoh dependence in the past. Thiamine and folate 8. Neurogenic bladder: Oxybutynin 5mg TID 9. Asymptomatic bradycardia -EKG -Appreicate cardiology evaluation: Dr. Kiser. No intervention for now. 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 applied for medical. Still pending Time of this note may not reflect time of encounter. Discussed with RN and patient. I spent 28 minutes on this encounter. 50% or more on counselling and care coordination. Subjective Date patient seen: Nov 29, 2018 Constitutional: Denies: chills, diaphoresis, fever, malaise, weakness, other HEENT: Denies: eye pain, blurred vision, tearing, double vision, ear pain, ear discharge, nose pain, nose congestion, throat pain, throat swelling, mouth pain , mouth swelling, other Cardiovascular: Denies: chest pain, edema, irregular heart rate, lightheadedness, palpitations, syncope, other Respiratory: Denies: cough, orthopnea, shortness of breath, SOB with excertion , SOB at rest, sputum, stridor, wheezing, other Gastrointestinal/Abdominal: Denies: abdomen distended, abdominal pain, black stools, tarry stools, blood in stool, constipated, diarrhea, difficulty swallowing, nausea, poor appetite, poor fluid intake, rectal bleeding, vomiting , other Genitourinary: Denies: burning, discharge, frequency, flank pain, hematuria, incontinence, pain, urgency, other Neurologic/Psychiatric: Denies: anxiety, depressed, emotional problems, headache, numbness, paresthesia, pre-existing deficit, seizure, tingling, tremors, weakness, other Endocrine: Denies: excessive sweating, flushing, intolerance to cold, intolerance to heat, increased hunger, increased thirst, increased urine, unexplained weight gain, unexplained weight loss, other Hematologic/Lymphatic: Denies: anemia, easy bleeding, easy bruising, other Allergies: Coded Allergies: No Known Allergies (Unverified , 09/11/18) Subjective No acute events overnight per nursing. No acute changes. Patient has no complaints. Continues to be bradycardic to 50s. No symptoms. Other vital signs stable. No complaints. Feels well. Still waiting for placement. Patient ambulates without difficulty, he denies any complaints HTN: Blood pressure stable at SBP 110-120s. Tolerating lisinopril. No side effects so far. Denies headaches, numbness, tingling. Denies chest pain or SOB. Objective Last 24 Hour Vital Signs Date Time Temp Pulse Resp B/P (MAP) Pulse Ox O2 Delivery O2 Flow Rate FiO2 11/29/18 12:00 97.7 58 18 108/62 (77) 93 11/29/18 09:30 134/73 11/29/18 09:00 Room Air 11/29/18 08:00 97.9 56 19 134/73 (93) 96 11/29/18 04:00 97.3 48 20 147/72 (97) 96 11/29/18 00:00 97.5 52 18 130/73 (92) 97 11/28/18 21:00 Room Air 11/28/18 20:00 98.2 56 20 136/82 (100) 94 11/28/18 16:00 98.2 57 18 133/74 (93) 98 Intake and Output 11/28/18 11/29/18 19:00 07:00 Intake Total 600 ml Balance 600 ml Intake Oral 600 ml # Voids 5 2 # Bowel Movements 2 Laboratory Tests 11/29/18 05:15: White Blood Count 6.2, Red Blood Count 4.55L, Hemoglobin 13.5L, Hematocrit 40.2L , Mean Corpuscular Volume 88, Mean Corpuscular Hemoglobin 29.7, Mean Corpuscular Hemoglobin Concent 33.7, Red Cell Distribution Width 13.7, Platelet Count 174, Mean Platelet Volume 6.6, Neutrophils (%) (Auto) 45.1, Lymphocytes (% ) (Auto) 37.8, Monocytes (%) (Auto) 10.9H, Eosinophils (%) (Auto) 5.0H, Basophils (%) (Auto) 1.2, Sodium Level 141, Potassium Level 4.5, Chloride Level 108H, Carbon Dioxide Level 21, Anion Gap 12, Blood Urea Nitrogen 25H, Creatinine 1.4H, Estimat Glomerular Filtration Rate 50.9, Glucose Level 88, Calcium Level 9.0 Height (Feet): 5 Height (Inches): 10.00 Weight (Pounds): 192 General Appearance: WD/WN, no apparent distress, alert EENT: PERRL/EOMI Neck: non-tender, normal alignment, supple Cardiovascular: normal peripheral pulses, normal rate, regular rhythm, no JVD Respiratory/Chest: chest wall non-tender, lungs clear, normal breath sounds Abdomen: normal bowel sounds, non tender, soft Extremities: normal range of motion, non-tender, normal inspection 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 Nov 29, 2018 15:24
[2018-11-29 16:00] VITALS: BP 111/53
--- NOTE | 2018-11-29 18:00 | Consultation ---
DATE OF CONSULTATION: 11/29/2018 CARDIOLOGY CONSULTATION CONSULTING PHYSICIAN: Dru Kiser M.D. REFERRING PHYSICIAN: Rhett Richard M.D. REASON FOR CONSULTATION: Bradycardia. HISTORY OF PRESENT ILLNESS: The patient is a 63-year-old gentleman who was admitted on 10/17/2018 with failure to thrive and encephalopathy and behavior disturbances. The patient noted to be bradycardic and a Cardiology consultation was obtained for further evaluation. The patient denies any chest pain or palpitation or shortness of breath or lightheadedness or dizziness. The patient denies any syncope or presyncopal symptoms. The patient was on atenolol initially that was stopped for bradycardia. At the time of my evaluation, the patient denies any chest pain or shortness of breath. REVIEW OF SYSTEMS: Negative other than what was mentioned in the history of present illness. PAST MEDICAL HISTORY: As mentioned above. FAMILY HISTORY: Noncontributory. SOCIAL HISTORY: He has history of alcohol use in the past. PHYSICAL EXAMINATION: VITAL SIGNS: Show blood pressure of 134/73, pulse is 56, respirations 18, and he is afebrile. HEAD AND NECK: Showed no JVD or carotid bruits. LUNGS: Clear. CARDIOVASCULAR: Bradycardic. S1 and S2 with no gallop or murmur. ABDOMEN: Soft. EXTREMITIES: No pitting edema. LABORATORY AND DIAGNOSTIC DATA: His 12-lead EKG shows sinus bradycardia, rate of 48. His labs show white count 6.2, hemoglobin 13.5, hematocrit of 40, and platelet count of 174,000. Sodium 141, potassium 4.5, BUN of 25, creatinine 1.4. ASSESSMENT AND PLAN: 1. Bradycardia. The heart rate in between 40s and 50s. The patient however remains completely asymptomatic. Denies any syncope or presyncope. He is off of any sinus or AV-kassandra blocking agents. 2. Hypertension, currently stable on lisinopril 10 mg daily. 3. Status post encephalopathy, resolved. 4. Dementia with behavioral disturbances. Thank you very much for allowing me to participate in the care of this patient. Please do not hesitate to contact me for any questions regarding my evaluation. Sincerely Dru Kiser M.D. DR: JAMAL JOB#: [id number] CC:
--- NOTE | 2018-11-29 19:30 | NUR ---
Received patient in bed, awake, alert, with noted confusion, and wandering in the [address] way. No acute distress noted, call light is within reach, bed is lowered, locked and alarm is on. Will continue to monitor for comfort and safety.
--- NOTE | 2018-11-29 19:31 | NUR ---
HAND-OFF: Report given to JOSEPHINE BIRD.
[2018-11-29 20:00] VITALS: BP 127/79
[2018-11-30] VITALS: BP 131/63
[2018-11-30 04:00] VITALS: BP 110/70
[2018-11-30] MEDS: Oxybutynin 5mg tab ORAL SCH ×3 (05:52→21:14)
--- NOTE | 2018-11-30 07:17 | NUR ---
NURSE NOTES: HANDOFF RECEIVED FROM JOSEPHINE BIRD. PATIENT RECEIVED SITTING IN BED EATING BREAKFAST, NO VISIBLE SIGNS OF DISTRESS. NO IV SITE BUT DR AWARE. BED IN LOW AND LOCKED POSITION WITH CALL LIGHT WITHIN REACH, WILL CONTINUE TO MONITOR.
--- NOTE | 2018-11-30 07:37 | NUR ---
HAND-OFF: Report given to Edgardo BURTON.
[2018-11-30 08:00] VITALS: BP 131/79
[2018-11-30] MEDS: Thiamine 100mg tab ORAL SCH (10:03)
[2018-11-30 12:00] VITALS: BP 127/72
--- NOTE | 2018-11-30 13:35 | General Progress Note ---
Assessment/Plan Problem List: (1) Failure to thrive SNOMED: 13292141 Qualifiers: Qualified Codes: R62.7 - Adult failure to thrive (2) Gravely disabled SNOMED: 824801652 (3) Acute encephalopathy ICD Codes: G93.40 - Encephalopathy, unspecified SNOMED: 14251469, 690613790 (4) Encounter for generalized patient complaints ICD Codes: Z00.8 - Encounter for other general examination SNOMED: 536494522 (5) Dementia with behavioral disturbance ICD Codes: F03.91 - Unspecified dementia with behavioral disturbance SNOMED: 1126544518650 (6) Essential hypertension ICD Codes: I10 - Essential (primary) hypertension SNOMED: 65419103 Status: doing well, stable Assessment/Plan: 63 year old male admitted from facility for acute encephalopathy, Failure to thrive and dementia with behavioral disturbance 1. Acute encephalopathy/ dementia with behavioral disturbance. Doubt metabolic, based on reviewing his labs. His renal function is at baseline and stable - RESOLVED -Appreciate psychiatry consult with Dr. Collins - Continue risperidone and ativan PRN -PT, patient seen ambulating independently with walker Case management for dc planning: Still pending placement 2. Obstructive uropathy with staghorn calculus.BPH. Renal function stable. Continue Tamsulosin 3. CKD stage II-III, stable. 4. Failure to thrive. - IMPROVING 5. Dementia with behavioral disturbance. Resume outpatient psych meds. Risperidone 2mg at night per psychiatry and ativan prn 6.HTN, controlled -Holding Amlodipine 10mg and Atenolol stopped due to bradycardia. Continue lisinopril 5mg PO daily. Titrate up if needed 7. Etoh dependence in the past. Thiamine and folate 8. Neurogenic bladder: Oxybutynin 5mg TID 9. Asymptomatic bradycardia -EKG -Appreicate cardiology evaluation: Dr. Kiser. No intervention for now. 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 applied for medical. Still pending Time of this note may not reflect time of encounter. Discussed with RN and patient. I spent 27 minutes on this encounter. 50% or more on counselling and care coordination. Subjective Date patient seen: Nov 30, 2018 Constitutional: Denies: no symptoms, chills, diaphoresis, fever, malaise, weakness, other HEENT: Denies: no symptoms, eye pain, blurred vision, tearing, double vision, ear pain, ear discharge, nose pain, nose congestion, throat pain, throat swelling, mouth pain, mouth swelling, other Cardiovascular: Denies: no symptoms, chest pain, edema, irregular heart rate, lightheadedness, palpitations, syncope, other Respiratory: Denies: no symptoms, cough, orthopnea, shortness of breath, SOB with excertion, SOB at rest, sputum, stridor, wheezing, other Gastrointestinal/Abdominal: Denies: no symptoms, abdomen distended, abdominal pain, black stools, tarry stools, blood in stool, constipated, diarrhea, difficulty swallowing, nausea, poor appetite, poor fluid intake, rectal bleeding , vomiting, other Genitourinary: Denies: no symptoms, burning, discharge, frequency, flank pain, hematuria, incontinence, pain, urgency, other Neurologic/Psychiatric: Denies: no symptoms, anxiety, depressed, emotional problems, headache, numbness, paresthesia, pre-existing deficit, seizure, tingling, tremors, weakness, other Endocrine: Denies: no symptoms, excessive sweating, flushing, intolerance to cold, intolerance to heat, increased hunger, increased thirst, increased urine, unexplained weight gain, unexplained weight loss, other Allergies: Coded Allergies: No Known Allergies (Unverified , 09/11/18) Subjective No acute events overnight per nursing. No acute changes. No complaints today patient feels well HTN: Blood pressure stable at SBP 110-120s. Tolerating lisinopril. No side effects so far. Denies headaches, numbness, tingling. Denies chest pain or SOB. Objective Last 24 Hour Vital Signs Date Time Temp Pulse Resp B/P (MAP) Pulse Ox O2 Delivery O2 Flow Rate FiO2 11/30/18 12:00 97.1 67 17 127/72 (90) 17 11/30/18 09:00 Room Air 11/30/18 08:00 69 19 131/79 (96) 98 11/30/18 04:00 97.3 60 20 110/70 (83) 98 11/30/18 00:00 97.4 58 18 131/63 (85) 98 11/29/18 21:04 Room Air 11/29/18 20:00 97.9 55 18 127/79 (95) 95 11/29/18 16:00 97.5 63 18 111/53 (72) 94 Intake and Output 11/29/18 11/30/18 18:59 06:59 Intake Total 1200 ml Balance 1200 ml Intake Oral 1200 ml # Voids 8 # Bowel Movements 3 Laboratory Tests 11/30/18 10:40: Thyroid Stimulating Hormone (TSH) 1.825, Free Thyroxine 1.09 Height (Feet): 5 Height (Inches): 10.00 Weight (Pounds): 192 General Appearance: WD/WN, no apparent distress, alert EENT: PERRL/EOMI, normal ENT inspection Neck: non-tender, normal alignment, supple Cardiovascular: normal peripheral pulses, normal rate, regular rhythm, no JVD Respiratory/Chest: chest wall non-tender, lungs clear, normal breath sounds Abdomen: normal bowel sounds, non tender, soft, no organomegaly, no mass Extremities: normal range of motion, non-tender, normal inspection 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 Nov 30, 2018 13:35
--- NOTE | 2018-11-30 14:43 | Cardiac Electrophysiology PN ---
Assessment/Plan Assessment/Plan 1. Asymptomatic bradycardia. The heart rate in between 40s and 50s. The patient remains completely asymptomatic. Denies any syncope or presyncope. He is off of any sinus or AV-kassandra blocking agents. 2. Hypertension, currently stable on lisinopril 10 mg daily. 3. Status post encephalopathy, resolved. 4. Dementia with behavioral disturbances. Subjective Subjective No events on P4 awaiting placement. Asymptomatic Objective Last 24 Hour Vital Signs Date Time Temp Pulse Resp B/P (MAP) Pulse Ox O2 Delivery O2 Flow Rate FiO2 11/30/18 12:00 97.1 67 17 127/72 (90) 17 11/30/18 09:00 Room Air 11/30/18 08:00 69 19 131/79 (96) 98 11/30/18 04:00 97.3 60 20 110/70 (83) 98 11/30/18 00:00 97.4 58 18 131/63 (85) 98 11/29/18 21:04 Room Air 11/29/18 20:00 97.9 55 18 127/79 (95) 95 11/29/18 16:00 97.5 63 18 111/53 (72) 94 Intake and Output 11/29/18 11/30/18 19:00 07:00 Intake Total 1200 ml Balance 1200 ml Intake Oral 1200 ml # Voids 8 # Bowel Movements 3 Laboratory Tests Test 11/30/18 10:40 Thyroid Stimulating Hormone (TSH) 1.825 uiU/mL (0.358-3.740) Free Thyroxine 1.09 NG/DL (0.76-1.46) Objective HEAD AND NECK: Showed no JVD or carotid bruits. LUNGS: Clear. CARDIOVASCULAR: Gregory S1 and S2 with no gallop or murmur. ABDOMEN: Soft. EXTREMITIES: No pitting edema. Dru Kiser MD Nov 30, 2018 14:43
[2018-11-30 16:49] VITALS: BP 130/82
--- NOTE | 2018-11-30 16:49 | NUR ---
DISCHARGE PLAN: FAX REQUEST TO [facility]: [place] T:[phone] F:[phone] PENDING REVIEW AVAILABLE WEEKENDS:
[2018-11-30] MEDS: Tamsulosin 0.4mg cap ORAL SCH (17:10)
--- NOTE | 2018-11-30 19:58 | NUR ---
HAND-OFF: Report given to JOSEPHINE GONZALEZ.
[2018-11-30 20:00] VITALS: BP 141/67
--- NOTE | 2018-11-30 20:00 | NUR ---
NURSE NOTES:RECEIVED PATIENT LYING IN BED, AWAKE, ALERT/ORIENTED TO PERSON/PLACE, DENIES PAIN, NOTED WITHOUT IV ACCESS, MD AWARE. NO SIGNS AND SYMPTOMS OF ACUTE CARDIO RESPIRATORY DISTRESS/SHORTNESS OF BREATH, DENIES CHEST PAIN, NO EDEMA NOTED. NO REPORT OF GI DISCOMFORT, NO N/V/D. ASSISTED WITH COMFORT CARE, SIDE RAILS UP X2 FOR MOBILITY, FWW AT BEDSIDE, ENCOURAGED PATIENT TO UTILIZE CALL LIGHT FOR ASSISTANCE, VERBALIZED UNDERSTANDING. WILL CONTINUE TO MONITOR FOR SAFETY/NEEDS. NAD.
[2018-12-01] VITALS: BP 127/72
[2018-12-01 04:00] VITALS: BP 112/68
--- NOTE | 2018-12-01 06:09 | NUR ---
NURSE NOTES: RESTED WELL, NO SIGNIFICANT CHANGE OF CONDITION NOTED THROUGHOUT THE NIGHT. SAFETY MAINTAINED. NAD.
[2018-12-01] MEDS: Oxybutynin 5mg tab ORAL SCH ×3 (06:15→21:50)
--- NOTE | 2018-12-01 07:10 | NUR ---
HAND-OFF: Report given to JOSEPHINE CALLEJAS.
--- NOTE | 2018-12-01 07:30 | NUR ---
NURSE NOTES: Received patient on bed, awake. No IV acess MD aware. Bed in low and locked position,c all light in reach. No signs of respiratory distress or pain. Room board updated, will continue to monitor.
[2018-12-01 08:00] VITALS: BP 129/76
[2018-12-01] MEDS: Tamsulosin 0.4mg cap ORAL SCH (09:02)
[2018-12-01] MEDS: Thiamine 100mg tab ORAL SCH (09:02)
[2018-12-01] MEDS: Lisinopril 2.5mg tab ORAL SCH (09:02)
[2018-12-01 12:00] VITALS: BP 144/76
--- NOTE | 2018-12-01 12:46 | General Progress Note ---
Assessment/Plan Status: doing well, stable Assessment/Plan: 63 year old male admitted from facility for acute encephalopathy, Failure to thrive and dementia with behavioral disturbance, now stable awaiting placement. 1. Acute encephalopathy/ dementia with behavioral disturbance. Doubt metabolic, based on reviewing his labs. His renal function is at baseline and stable - RESOLVED -Appreciate psychiatry consult with Dr. Collins - Continue risperidone and ativan PRN -PT, patient seen ambulating independently with walker Case management for dc planning: Still pending placement 2. Obstructive uropathy with staghorn calculus.BPH. Renal function stable. Continue Tamsulosin 3. CKD stage II-III, stable. 4. Failure to thrive. - IMPROVING 5. Dementia with behavioral disturbance. Resume outpatient psych meds. Risperidone 2mg at night per psychiatry and ativan prn 6.HTN, controlled -Holding Amlodipine 10mg and Atenolol stopped due to bradycardia. Continue lisinopril 5mg PO daily. Titrate up if needed 7. Etoh dependence in the past. Thiamine and folate 8. Neurogenic bladder: Oxybutynin 5mg TID 9. Asymptomatic bradycardia -EKG -Appreciate cardiology evaluation: Dr. Kiser. No intervention for now. 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 applied for medical. Still pending Time of this note may not reflect time of encounter. Discussed with RN and patient. I spent 27 minutes on this encounter. 50% or more on counselling and care coordination. Subjective Date patient seen: Dec 01, 2018 Constitutional: Reports: no symptoms HEENT: Reports: no symptoms Cardiovascular: Reports: no symptoms Respiratory: Reports: no symptoms Gastrointestinal/Abdominal: Reports: no symptoms Genitourinary: Reports: no symptoms Neurologic/Psychiatric: Reports: no symptoms Endocrine: Reports: no symptoms Hematologic/Lymphatic: Reports: no symptoms Allergies: Coded Allergies: No Known Allergies (Unverified , 09/11/18) Subjective patient seen and examined. No acute complaints, feeling well, Eating well, +BM daily. chronic pain stable unchanged. Objective Last 24 Hour Vital Signs Date Time Temp Pulse Resp B/P (MAP) Pulse Ox O2 Delivery O2 Flow Rate FiO2 12/01/18 12:00 98.2 52 16 144/76 (98) 98 12/01/18 09:02 129/76 12/01/18 09:00 Room Air 12/01/18 08:00 98.1 72 16 129/76 (93) 96 12/01/18 04:00 97.6 70 18 112/68 (83) 97 12/01/18 00:00 97.1 67 17 127/72 (90) 97 11/30/18 21:00 Room Air 11/30/18 20:00 97.9 50 20 141/67 (91) 97 11/30/18 16:49 98.0 67 18 130/82 (98) 96 Intake and Output 11/30/18 12/01/18 18:59 06:59 Intake Total 1320 ml Balance 1320 ml Intake Oral 420 ml Other 900 ml # Voids 3 Height (Feet): 5 Height (Inches): 10.00 Weight (Pounds): 192 General Appearance: no apparent distress, alert Neck: supple Cardiovascular: normal peripheral pulses, normal rate, regular rhythm Respiratory/Chest: lungs clear, normal breath sounds, no respiratory distress Abdomen: non tender, soft Extremities: non-tender Edema: trace edema Neurologic: alert, responsive Skin: warm/dry Kiki Padron M.D. Dec 01, 2018 12:46
--- NOTE | 2018-12-01 14:58 | NUR ---
CASE MANAGEMENT:REVIEW 12/01/2018 SI:FTT. GRAVELY DISABLED LEAKING URINE ON FLOOR T 98.2 HR 52 RR 16 B/P 144/76 SATS 98% ON RA NONE TODAY IS: DITROPAN PO Q8HRS LEXAPRO PO QD LISINOPRIL PO QD TYLENOL PO Q4/PRN : MED/SURG STATUS 4 EAST DCP: PLACEMENT
[2018-12-01 16:00] VITALS: BP 132/80
--- NOTE | 2018-12-01 19:39 | NUR ---
HAND-OFF: Report given to SHIRLEY Rivera.
[2018-12-01 20:00] VITALS: BP 124/67
--- NOTE | 2018-12-01 20:00 | NUR ---
NURSE NOTES: RECEIVED PATIENT LYING IN BED, AWAKE, ALERT/ORIENTED TO PERSON/PLACE, DENIES PAIN, NO SIGNS AND SYMPTOMS OF ACUTE CARDIO RESPIRATORY DISTRESS/SHORTNESS OF BREATH, NO EDEMA NOTED. FALL PRECAUTIONS OBSERVED AT ALL TIMES SECONDARY TO HISTORY/BLIND LEFT EYE. NO REPORT OF GI DISCOMFORT, NO N/V/D. SIDE RAILS UP X3/BED IN LOWEST POSITION FOR SAFETY. CALL LIGHT WITHIN REACH. FREQUENT ROUNDING FOR SAFETY/NEEDS. DISCHARGE PLAN ONGOING. NAD.
[2018-12-02] VITALS: BP 118/77
[2018-12-02 04:00] VITALS: BP 112/63
[2018-12-02] MEDS: Oxybutynin 5mg tab ORAL SCH ×3 (05:55→22:34)
--- NOTE | 2018-12-02 06:14 | NUR ---
NURSE NOTES: RESTED WELL, NO SIGNIFICANT CHANGE OF CONDITION NOTED THROUGHOUT THE NIGHT. SAFETY MAINTAINED. NAD.
--- NOTE | 2018-12-02 07:13 | NUR ---
HAND-OFF: Report given to josette العراقي.
--- NOTE | 2018-12-02 07:35 | NUR ---
NURSE NOTES: Received patient on bed awake. No IV access, MD aware. Bed in low and locked position, call light in reach. No signs of respiratory distress or pain. Room board updated, will continue to monitor.
[2018-12-02 08:00] VITALS: BP 129/72
[2018-12-02] MEDS: Tamsulosin 0.4mg cap ORAL SCH (09:22)
[2018-12-02] MEDS: Lisinopril 2.5mg tab ORAL SCH (09:23)
[2018-12-02] MEDS: Thiamine 100mg tab ORAL SCH (09:23)
[2018-12-02 12:00] VITALS: BP 124/79
--- NOTE | 2018-12-02 12:29 | NUR ---
CASE MANAGEMENT:REVIEW 12/02/2018 SI:FTT. GRAVELY DISABLED LEAKING URINE ON FLOOR T 97.6 HR 55 RR 18 B/P 112/63 SATS 96% ON RA NONE TODAY IS: DITROPAN PO Q8HRS LEXAPRO PO QD LISINOPRIL PO QD TYLENOL PO Q4/PRN : MED/SURG STATUS 4 EAST DCP: PLACEMENT
--- NOTE | 2018-12-02 13:14 | General Progress Note ---
Assessment/Plan Status: doing well, stable Assessment/Plan: 63 year old male admitted from facility for acute encephalopathy, Failure to thrive and dementia with behavioral disturbance, now stable awaiting placement. 1. Acute encephalopathy/ dementia with behavioral disturbance. Doubt metabolic, based on reviewing his labs. His renal function is at baseline and stable - RESOLVED -Appreciate psychiatry consult with Dr. Collins - Continue risperidone and ativan PRN -PT, patient seen ambulating independently with walker Case management for dc planning: Still pending placement 2. Obstructive uropathy with staghorn calculus.BPH. Renal function stable. Continue Tamsulosin 3. CKD stage II-III, stable. 4. Failure to thrive. - IMPROVING 5. Dementia with behavioral disturbance. Resume outpatient psych meds. Risperidone 2mg at night per psychiatry and ativan prn 6.HTN, controlled -Holding Amlodipine 10mg and Atenolol stopped due to bradycardia. Continue lisinopril 5mg PO daily. Titrate up if needed 7. Etoh dependence in the past. Thiamine and folate 8. Neurogenic bladder: Oxybutynin 5mg TID 9. Asymptomatic bradycardia -EKG -Appreciate cardiology evaluation: Dr. Kiser. No intervention for now. 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 applied for medical. Still pending Time of this note may not reflect time of encounter. Discussed with RN and patient. I spent 27 minutes on this encounter. 50% or more on counselling and care coordination. Subjective Date patient seen: Dec 02, 2018 Allergies: Coded Allergies: No Known Allergies (Unverified , 09/11/18) All Systems: reviewed and negative except above Subjective patient seen and examined. No acute complaints, feeling well, tolerating diet, regular BMs. Objective Last 24 Hour Vital Signs Date Time Temp Pulse Resp B/P (MAP) Pulse Ox O2 Delivery O2 Flow Rate FiO2 12/02/18 12:00 98.1 54 17 124/79 (94) 97 12/02/18 09:23 129/72 12/02/18 09:00 Room Air 12/02/18 08:00 96.0 60 19 129/72 (91) 94 12/02/18 04:00 97.6 55 18 112/63 (79) 96 12/02/18 00:00 98.1 66 20 118/77 (91) 100 12/01/18 21:00 Room Air 12/01/18 20:00 98.1 53 18 124/67 (86) 96 12/01/18 16:00 98.7 53 18 132/80 (97) 98 Intake and Output 12/01/18 12/02/18 19:00 07:00 Intake Total 1280 ml Output Total 400 ml Balance 880 ml Intake Oral 480 ml Other 800 ml Output Urine Total 400 ml # Voids 3 Height (Feet): 5 Height (Inches): 10.00 Weight (Pounds): 192 General Appearance: no apparent distress, alert Neck: supple Cardiovascular: normal peripheral pulses, normal rate, regular rhythm Respiratory/Chest: lungs clear, normal breath sounds, no respiratory distress Abdomen: normal bowel sounds, non tender, soft Extremities: non-tender Neurologic: alert, responsive Skin: warm/dry Kiki Padron M.D. Dec 02, 2018 13:14
[2018-12-02 16:00] VITALS: BP 121/81
--- NOTE | 2018-12-02 19:19 | NUR ---
HAND-OFF: Report given to SHIRLEY Rivera.
--- NOTE | 2018-12-02 19:45 | NUR ---
NURSE NOTES: RECEIVED PATIENT LYING IN BED, AWAKE, ALERT/ORIENTED X2, VERBALLY RESPONSIVE, DENIES PAIN. NO SIGNS AND SYMPTOMS OF ACUTE CARDIO RESPIRATORY DISTRESS/SHORTNESS OF BREATH, DENIES CHEST PAIN, NO EDEMA NOTED. NO IV ACCESS, MD AWARE. ABDOMEN SOFT/NON DISTENDED/NON TENDER/BOWEL SOUNDS AUDIBLE, NO REPORT OF N/V/D. SIDE RAILS UP X3/BED IN LOWEST POSITION FOR SAFETY, ENCOURAGED PATIENT TO UTILIZE CALL LIGHT FOR ASSISTANCE, VERBALIZED UNDERSTANDING. DCP ONGOING. NAD.
[2018-12-02 20:00] VITALS: BP 120/67
[2018-12-03] VITALS: BP 115/63
[2018-12-03 04:00] VITALS: BP 120/65
[2018-12-03] MEDS: Oxybutynin 5mg tab ORAL SCH ×3 (05:06→21:26)
--- NOTE | 2018-12-03 06:14 | NUR ---
NURSE NOTES: RESTED WELL, NO SIGNIFICANT CHANGE OF CONDITION NOTED THROUGHOUT THE NIGHT. SAFETY MAINTAINED. NAD.
--- NOTE | 2018-12-03 07:43 | NUR ---
HAND-OFF: Report given to JOSEPHINE ALEMAN.
[2018-12-03 08:00] VITALS: BP 131/76
--- NOTE | 2018-12-03 08:12 | NUR ---
NURSE NOTES: Patient is awake and alert,respirations unlabored.Patient sitting up and eating breakfast.Call light within reach.
[2018-12-03 08:46] VITALS: BP 157/94
[2018-12-03] MEDS: Tamsulosin 0.4mg cap ORAL SCH (08:52)
[2018-12-03] MEDS: Lisinopril 2.5mg tab ORAL SCH (08:53)
[2018-12-03] MEDS: Thiamine 100mg tab ORAL SCH (08:53)
--- NOTE | 2018-12-03 11:38 | NUR ---
*-* INSURANCE *-* UPDATED CLINICALS AND REVIEWS HAVE BEEN FAXED TO: [facility]:VERNA LOO P: [phone] F: [phone]
[2018-12-03 12:00] VITALS: BP 127/71
--- NOTE | 2018-12-03 13:47 | Cardiac Electrophysiology PN ---
Assessment/Plan Assessment/Plan 1. Asymptomatic bradycardia. The heart rate in between 40s and 50s. The patient remains completely asymptomatic. Denies any syncope or presyncope. He is off of any sinus or AV-kassandra blocking agents.Pacer is not indicated 2. Hypertension, currently stable on lisinopril 10 mg daily. 3. Status post encephalopathy, resolved. 4. Dementia with behavioral disturbances. Subjective Subjective No events on P4 awaiting placement. No CP or SOB or dizziness despite bradycardia Objective Last 24 Hour Vital Signs Date Time Temp Pulse Resp B/P (MAP) Pulse Ox O2 Delivery O2 Flow Rate FiO2 12/03/18 12:00 98.6 76 18 127/71 (89) 96 12/03/18 10:18 Room Air 12/03/18 08:53 157/94 12/03/18 08:46 97.5 58 18 157/94 (115) 95 12/03/18 08:00 97.5 74 18 131/76 (94) 95 12/03/18 04:00 98.0 57 18 120/65 (83) 96 12/03/18 00:00 97.6 65 18 115/63 (80) 96 12/02/18 21:00 Room Air 12/02/18 20:00 98.4 60 18 120/67 (84) 96 12/02/18 16:00 97.8 59 17 121/81 (94) 96 Intake and Output 12/02/18 12/03/18 19:00 07:00 Intake Total 800 ml 360 ml Output Total 400 ml Balance 800 ml -40 ml Intake Oral 360 ml Other 800 ml Output Urine Total 400 ml # Voids 2 # Bowel Movements 1 Objective HEAD AND NECK: Showed no JVD or carotid bruits. LUNGS: Clear. CARDIOVASCULAR: Gregory S1 and S2 with no gallop or murmur. ABDOMEN: Soft. EXTREMITIES: No pitting edema. Dru Kiser MD Dec 03, 2018 13:47
--- NOTE | 2018-12-03 15:52 | NUR ---
CASE MANAGEMENT:REVIEW 12/03/2018 SI:FTT. GRAVELY DISABLED 98.6 76 18 127/71 96% ON RA IS: DITROPAN PO Q8HRS LEXAPRO PO QD RISPERDAL PO QHS LISINOPRIL PO QD TYLENOL PO Q4/PRN : MED/SURG STATUS 4 EAST DCP: PLACEMENT REFERRED TO [facility]...THEY DECLINED TO ACCEPT BECAUSE PATIENT IS JAIL
--- NOTE | 2018-12-03 16:07 | NUR ---
DISCHARGE PLANNING [facility] WHO PREVIOUSLY STATED THEY WOULD ACCEPT PATIENT HAS NOW DECLINED BECAUSE THEY DO NOT HAVE ANY DETENTION CARE BEDS
--- NOTE | 2018-12-03 16:40 | NUR ---
DISCHARGE PLANNING: NOTE SNF PACKET FAXED TO [facility] C/O RADHA T: [phone] F [phone] [facility] T [phone] F [phone] MEENAKSHILILIANAAnshul SANCHEZ T [phone] F [phone] OMERO MACK T [phone] F [phone] [facility] C/O ALEE T; [phone] F [phone] [place] T [phone] F [phone] [place] T [phone] F [phone] [facility] [phone] F [phone] [place] T [phone] F [phone] [place] T [phone] F [phone] [facility] F: [phone]
--- NOTE | 2018-12-03 18:30 | NUR ---
NURSE NOTES: patient resting,no complaints at this time,call light within reach.
--- NOTE | 2018-12-03 19:30 | NUR ---
NURSE NOTES: RECEIVED PT FROM JOSEPHINE KING. PT IS AWAKE, AAOX3, ON ROOM AIR , NO ACUTE DISTRESS NOTED. NO IV ACCESS, MD AWARE. FALL RISK PRECAUTION IMPLEMENTED. WALKER AT BEDSIDE. BED IS LOCKED AND LOW, BED ALARMS ACTIVE, SIDE RAILS UP X2 AND CALL LIGHT IS WITHIN REACH.
--- NOTE | 2018-12-03 19:56 | NUR ---
HAND-OFF: Report given to TORRI RN.
[2018-12-03 20:00] VITALS: BP 118/74
--- NOTE | 2018-12-03 21:52 | General Progress Note ---
Assessment/Plan Problem List: (1) Failure to thrive SNOMED: 85809840 Qualifiers: Qualified Codes: R62.7 - Adult failure to thrive (2) Gravely disabled SNOMED: 090614287 (3) Acute encephalopathy ICD Codes: G93.40 - Encephalopathy, unspecified SNOMED: 29110014, 408284920 (4) Encounter for generalized patient complaints ICD Codes: Z00.8 - Encounter for other general examination SNOMED: 072568373 (5) Dementia with behavioral disturbance ICD Codes: F03.91 - Unspecified dementia with behavioral disturbance SNOMED: 9272605100212 (6) Essential hypertension ICD Codes: I10 - Essential (primary) hypertension SNOMED: 76462737 Status: doing well, stable Assessment/Plan: 63 year old male admitted from facility for acute encephalopathy, Failure to thrive and dementia with behavioral disturbance 1. Acute encephalopathy/ dementia with behavioral disturbance. Doubt metabolic, based on reviewing his labs. His renal function is at baseline and stable - RESOLVED -Appreciate psychiatry consult with Dr. Collins - Continue risperidone and ativan PRN -PT, patient seen ambulating independently with walker Case management for dc planning: Still pending placement 2. Obstructive uropathy with staghorn calculus.BPH. Renal function stable. Continue Tamsulosin 3. CKD stage II-III, stable. 4. Failure to thrive. - IMPROVING 5. Dementia with behavioral disturbance. Resume outpatient psych meds. Risperidone 2mg at night per psychiatry and ativan prn 6.HTN, controlled -Holding Amlodipine 10mg and Atenolol stopped due to bradycardia. Continue lisinopril 5mg PO daily. Titrate up if needed 7. Etoh dependence in the past. Thiamine and folate 8. Neurogenic bladder: Oxybutynin 5mg TID 9. Asymptomatic bradycardia -EKG -Appreicate cardiology evaluation: Dr. Kiser. No intervention for now. has no insurance, outsole caser involved. applied for medical. Still pending Time of this note may not reflect time of encounter. Discussed with RN and patient. I spent 21 minutes on this encounter. 50% or more on counselling and care coordination. Subjective Date patient seen: Dec 03, 2018 Constitutional: Denies: chills, diaphoresis, fever, malaise, weakness, other HEENT: Denies: eye pain, blurred vision, tearing, double vision, ear pain, ear discharge, nose pain, nose congestion, throat pain, throat swelling, mouth pain , mouth swelling, other Cardiovascular: Denies: chest pain, edema, irregular heart rate, lightheadedness, palpitations, syncope, other Respiratory: Denies: cough, orthopnea, shortness of breath, SOB with excertion , SOB at rest, sputum, stridor, wheezing, other Gastrointestinal/Abdominal: Denies: abdomen distended, abdominal pain, black stools, tarry stools, blood in stool, constipated, diarrhea, difficulty swallowing, nausea, poor appetite, poor fluid intake, rectal bleeding, vomiting , other Genitourinary: Denies: burning, discharge, frequency, flank pain, hematuria, incontinence, pain, urgency, other Neurologic/Psychiatric: Denies: anxiety, depressed, emotional problems, headache, numbness, paresthesia, pre-existing deficit, seizure, tingling, tremors, weakness, other Endocrine: Denies: excessive sweating, flushing, intolerance to cold, intolerance to heat, increased hunger, increased thirst, increased urine, unexplained weight gain, unexplained weight loss, other Hematologic/Lymphatic: Denies: anemia, easy bleeding, easy bruising, other Allergies: Coded Allergies: No Known Allergies (Unverified , 09/11/18) Subjective No acute events overnight per nursing. No acute changes. Patient has no complaints today feels well tolerated his medications. No episodes of agitation. Denies chest pain or SOB. Objective Last 24 Hour Vital Signs Date Time Temp Pulse Resp B/P (MAP) Pulse Ox O2 Delivery O2 Flow Rate FiO2 12/03/18 20:00 97.9 55 17 118/74 (89) 95 12/03/18 16:00 12/03/18 12:00 98.6 76 18 127/71 (89) 96 12/03/18 10:18 Room Air 12/03/18 08:53 157/94 12/03/18 08:46 97.5 58 18 157/94 (115) 95 12/03/18 08:00 97.5 74 18 131/76 (94) 95 12/03/18 04:00 98.0 57 18 120/65 (83) 96 12/03/18 00:00 97.6 65 18 115/63 (80) 96 Intake and Output 12/02/18 12/03/18 18:59 06:59 Intake Total 800 ml 360 ml Output Total 400 ml Balance 800 ml -40 ml Intake Oral 360 ml Other 800 ml Output Urine Total 400 ml # Voids 2 # Bowel Movements 1 Height (Feet): 5 Height (Inches): 10.00 Weight (Pounds): 192 General Appearance: WD/WN, no apparent distress, alert EENT: PERRL/EOMI, normal ENT inspection Neck: non-tender, normal alignment, supple Cardiovascular: normal peripheral pulses, normal rate, regular rhythm, no JVD Respiratory/Chest: chest wall non-tender, lungs clear, normal breath sounds, no respiratory distress Abdomen: normal bowel sounds, non tender, soft, no organomegaly, no mass Extremities: other - No lower extremity edema bilaterally Neurologic: assistant chief engineer II-XII grossly normal, no motor/sensory deficits, alert, oriented x 3 Skin: normal pigmentation, warm/dry Xavier Ramos D.O. Dec 03, 2018 21:52
[2018-12-04] VITALS: BP 145/82
[2018-12-04 04:00] VITALS: BP 146/88
[2018-12-04] MEDS: Oxybutynin 5mg tab ORAL SCH ×3 (05:48→21:12)
--- NOTE | 2018-12-04 07:21 | NUR ---
NURSE NOTES: Patient is awake and alert,respirations unlabored,patient sitting up in bed and eating breakfast.Call light within reach.
--- NOTE | 2018-12-04 07:57 | NUR ---
HAND-OFF: Report given to JOSEPHINE Gardner.
[2018-12-04] MEDS: Tamsulosin 0.4mg cap ORAL SCH (08:24)
[2018-12-04 08:25] VITALS: BP 130/72
[2018-12-04] MEDS: Thiamine 100mg tab ORAL SCH (08:25)
[2018-12-04] MEDS: Lisinopril 2.5mg tab ORAL SCH (08:25)
[2018-12-04 12:00] VITALS: BP 136/71
--- NOTE | 2018-12-04 13:23 | NUR ---
P.T Note: P.T was referred to P.T due significant declined in functional status. P.T evaluation completed and tx initiated. Please refer to P.T evaluation for current functional status. Pt is alert, orient to self/person , place but not to time. Pt denied c/o pain but reports generalized weakness affecting his balance and overall functional mobility independence as safety. Pt currently requires MIN A X 1 for bed mobilities, transfers and gait/ambulation activities using the FWW. Skilled P.T services is warranted to improve his strength, balance and endurance to increase mobility independence and safety. Recommend SNF for further rehab intervention at [place]. Thank you for this referral.
--- NOTE | 2018-12-04 14:04 | General Progress Note ---
Assessment/Plan Problem List: (1) Failure to thrive SNOMED: 57041738 Qualifiers: Qualified Codes: R62.7 - Adult failure to thrive (2) Gravely disabled SNOMED: 930514551 (3) Acute encephalopathy ICD Codes: G93.40 - Encephalopathy, unspecified SNOMED: 06547226, 200395865 (4) Encounter for generalized patient complaints ICD Codes: Z00.8 - Encounter for other general examination SNOMED: 850336514 (5) Dementia with behavioral disturbance ICD Codes: F03.91 - Unspecified dementia with behavioral disturbance SNOMED: 5731820953300 (6) Essential hypertension ICD Codes: I10 - Essential (primary) hypertension SNOMED: 57881544 Status: doing well, stable Assessment/Plan: 63 year old male admitted from facility for acute encephalopathy, Failure to thrive and dementia with behavioral disturbance 1. Acute encephalopathy/ dementia with behavioral disturbance. Doubt metabolic, based on reviewing his labs. His renal function is at baseline and stable - RESOLVED -Appreciate psychiatry consult with Dr. Collins - Continue risperidone and ativan PRN -PT, patient seen ambulating independently with walker Case management for dc planning: Still pending placement 2. Obstructive uropathy with staghorn calculus.BPH. Renal function stable. Continue Tamsulosin 3. CKD stage II-III, stable. 4. Failure to thrive. - IMPROVING 5. Dementia with behavioral disturbance. Resume outpatient psych meds. Risperidone 2mg at night per psychiatry and ativan prn 6.HTN, controlled -Holding Amlodipine 10mg and Atenolol stopped due to bradycardia. Continue lisinopril 5mg PO daily. Titrate up if needed 7. Etoh dependence in the past. Thiamine and folate 8. Neurogenic bladder: Oxybutynin 5mg TID 9. Asymptomatic bradycardia -EKG -Appreicate cardiology evaluation: Dr. Kiser. No intervention for now. has no insurance, director of casework department involved. applied for medical. Still pending Time of this note may not reflect time of encounter. Discussed with RN and patient. I spent 22 minutes on this encounter. 50% or more on counselling and care coordination. Subjective Date patient seen: Dec 04, 2018 Constitutional: Denies: chills, diaphoresis, fever, malaise, weakness, other HEENT: Denies: eye pain, blurred vision, tearing, double vision, ear pain, ear discharge, nose pain, nose congestion, throat pain, throat swelling, mouth pain , mouth swelling, other Cardiovascular: Denies: chest pain, edema, irregular heart rate, lightheadedness, palpitations, syncope, other Respiratory: Denies: cough, orthopnea, shortness of breath, SOB with excertion , SOB at rest, sputum, stridor, wheezing, other Gastrointestinal/Abdominal: Denies: abdomen distended, abdominal pain, black stools, tarry stools, blood in stool, constipated, diarrhea, difficulty swallowing, nausea, poor appetite, poor fluid intake, rectal bleeding, vomiting , other Genitourinary: Denies: burning, discharge, frequency, flank pain, hematuria, incontinence, pain, urgency, other Neurologic/Psychiatric: Denies: anxiety, depressed, emotional problems, headache, numbness, paresthesia, pre-existing deficit, seizure, tingling, tremors, weakness, other Endocrine: Denies: excessive sweating, flushing, intolerance to cold, intolerance to heat, increased hunger, increased thirst, increased urine, unexplained weight gain, unexplained weight loss, other Hematologic/Lymphatic: Denies: anemia, easy bleeding, easy bruising, other Allergies: Coded Allergies: No Known Allergies (Unverified , 09/11/18) Subjective No acute events overnight per nursing. No acute changes. No behavioral problems. Patient has no complaints today feels well tolerated his medications. No episodes of agitation. Denies chest pain or SOB. Objective Last 24 Hour Vital Signs Date Time Temp Pulse Resp B/P (MAP) Pulse Ox O2 Delivery O2 Flow Rate FiO2 12/04/18 12:00 98.1 51 136/71 (92) 96 12/04/18 09:00 Room Air 12/04/18 08:25 97.3 63 18 130/72 (91) 98 12/04/18 08:25 130/72 12/04/18 04:00 97.2 51 17 146/88 (107) 96 12/04/18 00:00 97.5 51 16 145/82 (103) 96 12/03/18 21:00 Room Air 12/03/18 20:00 97.9 55 17 118/74 (89) 95 12/03/18 16:00 Intake and Output 12/03/18 12/04/18 19:00 07:00 Intake Total 800 ml Balance 800 ml Other 800 ml # Voids 1 Height (Feet): 5 Height (Inches): 10.00 Weight (Pounds): 192 General Appearance: WD/WN, no apparent distress, alert EENT: PERRL/EOMI, normal ENT inspection Neck: non-tender, normal alignment, supple Cardiovascular: normal peripheral pulses, normal rate, regular rhythm, no JVD Respiratory/Chest: chest wall non-tender, lungs clear, normal breath sounds Abdomen: normal bowel sounds, non tender, soft, no organomegaly, no mass Extremities: normal range of motion, non-tender, normal inspection Edema: other - no LE edema bilaterally Neurologic: glue spreader II-XII grossly normal, no motor/sensory deficits, alert, oriented x 3 Skin: normal pigmentation, warm/dry Xavier Ramos D.O. Dec 04, 2018 14:04
[2018-12-04 16:00] VITALS: BP 131/72
--- NOTE | 2018-12-04 18:30 | NUR ---
NURSE NOTES: Patient resting cooperative,no complaints call light within reach.
--- NOTE | 2018-12-04 19:40 | NUR ---
HAND-OFF: Report given to Kole BURTON.
--- NOTE | 2018-12-04 19:59 | NUR ---
NURSE NOTES: Received patient on bed, awake. No IV access MD aware. No signs of respiratory distress or pain. Bed in the lowest position and locked. call light within reach. will continue to monitor.
[2018-12-04 20:00] VITALS: BP 130/75
[2018-12-05] VITALS: BP 137/74
[2018-12-05 04:04] VITALS: BP 136/77
[2018-12-05] MEDS: Oxybutynin 5mg tab ORAL SCH ×2 (06:00→13:06)
--- NOTE | 2018-12-05 07:26 | NUR ---
HAND-OFF: Report given to Huyen BURTON.
--- NOTE | 2018-12-05 07:43 | NUR ---
NURSE NOTES: Received pt in bed, AAOx2. RA. No c/o of pain/distress. No IV access and MD aware. Side rails x 2. Bed in the lowest and locked. Call light within reach. Will continue to monitor
[2018-12-05 08:00] VITALS: BP 149/84
[2018-12-05] MEDS: Lisinopril 2.5mg tab ORAL SCH (09:02)
[2018-12-05] MEDS: Tamsulosin 0.4mg cap ORAL SCH (09:02)
[2018-12-05] MEDS: Thiamine 100mg tab ORAL SCH (09:02)
[2018-12-05 12:00] VITALS: BP 152/75
--- NOTE | 2018-12-05 13:32 | NUR ---
DISCHARGE PLANNED DISCHARGE ORDER NOTED PATIENT WILL DISCHARGE TO [facility] T: [phone] FOR NURSE TO NURSE REPORT [facility] HAS BEEN ARRANGED FOR 1430 [employer]
[2018-12-05] MEDS ORDERED: OXYBUTYNIN CHLOR5 M1 ORAL (14:13)
[2018-12-05] MEDS ORDERED: ZESTRIL2.5 MG ORAL (14:13)
[2018-12-05] MEDS ORDERED: ASPIRIN-LOW81 MG ORAL (14:13)
--- NOTE | 2018-12-05 15:20 | NUR ---
NURSE NOTES: Patient was discharged to [facility] via ambulance. Report given to JOSEPHINE Ivy. Pt had no iv site. Stable vital sign. Skin intact. All belongings were accounted for and given to patient. Discharge instructions were given.
--- NOTE | 2018-12-05 17:53 | Discharge Summary ---
Discharge Summary Hospital Course Date of Admission Oct 22, 2018 at 19:37 Date of Discharge Dec 05, 2018 at 15:30 Admitting Diagnosis FAILURE TO THRIVE; GRAVE DISABILITY HPI Abraham Gibson is a 63 year old male who was admitted on Oct 22, 2018 at 19:37 for Failure To Thrive/Grave Disability Consultations Psychiatry Cardiology Hospital Course 63 year old male admitted from facility for acute encephalopathy, Failure to thrive and dementia with behavioral disturbance. All resolved. No metabolic issues. 1. Acute encephalopathy/ dementia with behavioral disturbance. Doubt metabolic, based on reviewing his labs. His renal function is at baseline and stable - RESOLVED -Appreciate psychiatry consult with Dr. Collins - Continue risperidone 2mg PO daily and ativan PRN -PT, patient seen ambulating independently with walker 2. Obstructive uropathy with staghorn calculus.BPH. Renal function stable. Continue Tamsulosin 3. CKD stage II-III, stable. 4. Failure to thrive. - IMPROVING 5. Dementia with behavioral disturbance. Resume outpatient psych meds. Risperidone 2mg at night per psychiatry and ativan prn 6.HTN, controlled -Holding Amlodipine 10mg and Atenolol stopped due to bradycardia. Continue lisinopril 5mg PO daily. Titrate up if needed 7. Etoh dependence in the past. Thiamine and folate 8. Neurogenic bladder: Oxybutynin 5mg TID 9. Asymptomatic bradycardia -EKG -Appreicate cardiology evaluation: Dr. Kiser. No intervention for now. Physical Exam Temperature 98.2 pulse 65 respirations 20 blood pressure 152/75 saturating 95% on room air General: WDWN male in NAD, A&O x 4 HEENT: Normocephalic cephalic atraumatic, pupils equal round reactive to light and accommodation, nares patent and no symmetrical, no tonsillar exudates, mucous membranes moist CV: Regular rate regular rhythm, no murmurs, rubs, or gallops Pulm: Lungs clear to auscultation bilaterally. No wheezes, rhonchi, or rales GI: Soft, nontender, nondistended, bowel sounds present Neuro: CN 2-12 intact bilaterally, no focal signs. Ext: No lower extremity edema bilaterally Skin: no rashes lesions or ulcers Msk: Joints symmetrical in upper extremity and lower extremity bilaterally, no joint swelling. Lymph: No lymphadenopathy in upper extremity and lower extremity Time of this note may not reflect time of encounter. >30 minutes spent on this discharge. Discussed with RN, director of casework, and patient. 50% or more on counselling and care coordination. Discharge Discharge Disposition Patient was discharged to Discharge Diagnoses: (1) Dementia with behavioral disturbance (2) Depression (3) Anxiety (4) History of Clostridioides difficile colitis (5) Staghorn calculus (6) Essential hypertension Xavier Ramos D.O. Dec 05, 2018 17:53
--- NOTE | 2018-12-06 14:47 | NUR ---
*-* INSURANCE *-* UPDATED CLINICALS AND REVIEWS HAVE BEEN FAXED TO: [facility] [id number] KAREN:ERNIE T: [phone] F: [phone] [facility]
--- NOTE | 2018-12-09 00:25 | Cardiology Report ---
APPROVED REPORT EKG Measurement Heart [id number] [place] 150P37 [id number] Sinus bradycardia Otherwise normal ECG
== END 2018-12-05 15:30 | DRG 421 ==
LOC: EMR 15:35 → EDBEDREQ 19:26 → 4E 19:37 → EDBEDREQ 20:04
DX: R62.7 Adult failure to thrive (principal); N13.2 Hydronephrosis with renal and ureteral calculous obstruction; F03.91 Unspecified dementia, unspecified severity, with behavioral disturbance; Z68.25 Body mass index [BMI] 25.0-25.9, adult; I12.9 Hypertensive chronic kidney disease with stage 1 through stage 4 chronic kidney disease, or unspecified chronic kidney disease; N18.3 Chronic kidney disease, stage 3 (moderate); N40.0 Benign prostatic hyperplasia without lower urinary tract symptoms; R00.1 Bradycardia, unspecified; N31.9 Neuromuscular dysfunction of bladder, unspecified; F10.21 Alcohol dependence, in remission; G93.40 Encephalopathy, unspecified
CPT/HCPCS: 36415; 80048; 80053; 81003; 82962; 83690; 83735; 84439; 84443; 85025; 87081; 87086; 87181; 93005; 94664; 96360; 96361; 96372; 99285; J1815